=== PATIENT | female | born 1985 | race Caucasian/White ===

== ENCOUNTER → 2022-02-07 13:35 | Outpatient (BNVA) | payer MEDICAID, SELFPAY | PROVIDERS: PCP Student in an Organized Health Care Education/Training Program | DX: N39.0 Urinary tract infection, site not specified (principal) | CPT/HCPCS: 51798; 99202 ==

== ENCOUNTER → 2022-02-24 13:10 | Outpatient (BNVA) | payer MEDICAID, SELFPAY | PROVIDERS: PCP Student in an Organized Health Care Education/Training Program | DX: Z31.89 Encounter for other procreative management (principal) ==

== ENCOUNTER 2022-03-22 13:17 | Outpatient (REF) | payer MEDICAID, SELFPAY ==
[2022-03-22 13:55] LABS: Appearance Urine CLEAR; Color Urine STRAW; Glucose Urine UA NEG (NEG); Leukocyte Esterase Urine 1+ (NEG); Nitrite Urine NEG (NEG); PH 5.5 (5.0-8.0); Specific Gravity - Urine <= 1.005 (1.005-1.025); Urine Blood NEG (NEG); Urine Ketones NEG (NEG); Urine Protein NEG (NEG-TRACE)
[2022-03-22 14:14] LABS: RBC Urine 0 /HPF (0); Squamous Epithelial Cell Urine TRACE /LPF
== END 2022-03-22 13:18 | disposition home or self-care (01) ==
LOC: HO.LAB 13:17
PROVIDERS: PCP Student in an Organized Health Care Education/Training Program
DX: N39.0 Urinary tract infection, site not specified (principal)
CPT/HCPCS: 81001; 87086

== ENCOUNTER 2022-05-02 12:35 | Outpatient (REF) | payer MEDICAID, SELFPAY ==
--- NOTE | ~2022-05-02 | XR_ITS ---
EXAMINATION: XR KNEE, RIGHT CLINICAL INFORMATION: Right knee pain for years. No trauma. COMPARISON: None TECHNIQUE: AP and lateral views of the right knee. FINDINGS: Bones and soft tissues are normal. No fracture or joint effusion. Alignment is anatomic. Joint spaces are well maintained. No abnormal soft tissue calcification. XR/XR knee RT 2V IMPRESSION: No bony abnormality of the right knee identified.
== END 2022-05-02 12:36 | disposition home or self-care (01) ==
LOC: HO.XRAY 12:35
PROVIDERS: PCP Student in an Organized Health Care Education/Training Program; Visit Provider Student in an Organized Health Care Education/Training Program
DX: M25.561 Pain in right knee (principal)
CPT/HCPCS: 73560

== ENCOUNTER 2022-05-04 14:28 | Outpatient (REF) | payer MEDICAID, SELFPAY ==
--- NOTE | ~2022-05-04 | US_ITS ---
EXAMINATION: US RETROPERITONEAL LIMITED (RENAL ONLY) CLINICAL INFORMATION: Urinary tract infection, site not specified. COMPARISON: Renal ultrasound 02/24/2017. CT abdomen and pelvis 11/22/2012. TECHNIQUE: Real-time imaging of the kidneys. FINDINGS: RIGHT KIDNEY: 10.6 x 3 x 5.4 cm (SAG x AP x TRV). The kidney is normal in size, contour, and echogenicity. Renal cortical thickness is normal. No calculi or focal parenchymal lesions. No hydronephrosis. LEFT KIDNEY: 10.3 x 3.5 x 4.3 cm (SAG x AP x TRV). The kidney is normal in size, contour, and echogenicity. Renal cortical thickness is normal. No calculi or focal parenchymal lesions. No hydronephrosis. US/US renal BI IMPRESSION: Unremarkable renal ultrasound.
== END 2022-05-04 14:29 | disposition home or self-care (01) ==
LOC: HO.HMGCX 14:28
PROVIDERS: PCP Student in an Organized Health Care Education/Training Program; Visit Provider Urology
DX: N39.0 Urinary tract infection, site not specified (principal)
CPT/HCPCS: 76775

== ENCOUNTER 2022-05-09 14:00 | Outpatient (RCR) | payer MEDICAID, SELFPAY ==
--- NOTE | 2022-03-21 12:10 | MHC.PT.EP ---
[facility] [place] Office [place] Office [place] Office [address] Bhavani Stewart [address] [phone] F: [phone] F: [phone] F: [phone] F: [phone] Physical Therapy Plan of Care Date of Evaluation: Date of Surgery: Diagnosis: urgency of urination Assessment: 36 y/o F referred to PT with urgency of urination. She has a hx of frequent UTI's for >20 years with + culture for UTI and resolves with antibiotics. She feels that it has been worsening. Her UTI sx include bloating, lower abdominal pain, LBP, need to keep using the bathroom and blood in urine. She also reports urgency to urinate: feels that she does not fully empty her bladder when she pees and will often need to urinate 10 minutes after voiding (small-medium amounts). She is voiding > 10x/day and 4x/night with toilet mapping around the community. She does a lot of [id number] peeing as well. Also she reports pain with sexual activity, use of tampons, and gynecological exams. She deferred pelvic exam as her 6 y/o son was present in the room, but reports getting childcare for future visits. She has some abdominal tenderness especially over bladder with palpation, mild anterior tilted pelvis, and decreased hip strength. Significant education re urgency deferment techniques, vulva care, bladder basics and diaphragmatic breathing. Recommend PT 1x/week every other week (due to childcare needs) for 12 weeks. She is an excellent candidate for PT due to motivation and PLOF. Distributed bladder diary. Frequency and Duration: The patient will be seen 1x/week for 12 weeks Short Term Goals: -Pt to be able to demonstrate diaphragmatic breathing to improve pressure exchange and intra abdominal load management. - Pt to be educated on bladder irritants in order to decrease UI triggers - Pt to complete a voiding log in order to accurately assess her bladder habits - Pt to be educated on behavior training to help decrease urge incontinence Residential Goals: - Delay voiding for 30 minutes - Pt will be able to void < 8x/day to assist in functional mobility around the community - Pt will report decrease in pain 50% with sexual activity - Pt will be able to void </= 1x/night Treatment Plan: Modalities to reduce pain, spasms and effusion. Manual therapy to restore motion and function. Therapeutic exercise to improve strength and flexibility. Neuromuscular re-education for posture and balance. Therapeutic activities to return to functional activities of daily living. Electronically signed by: Please sign and return to therapist. Thank you for your referral.
--- NOTE | 2022-05-20 13:21 | MHC.PT.DC ---
[facility] [place] Office [place] Office [place] Office [address] Bhavani Stewart 140 [facility] [phone] F: [phone] F: [phone] F: [phone] F: [phone] Physical Therapy Discharge Report Diagnosis: urgency of urination Date of Surgery: Date of Evaluation: 03/21/22 Date of Discharge: 05/20/22 Treatments to Date: 4 Cancellations to Date: 0 No Shows to Date: 0 Discharge Status: Improved Function Independent with HEP Discharge Summary: She made good progress and educated pt on urgency deferment tactics, vulvar hygiene, and abdominal strengthening exercises. She elected to d/c as her work is starting again and she will have difficulty making appointments Electronically signed by: Linda Rodriguez PT Please sign and return to therapist. Thank you for your referral.
== END 2022-05-20 13:21 | disposition home or self-care (01) ==
LOC: HO.PTCHIC 14:00
PROVIDERS: PCP Student in an Organized Health Care Education/Training Program
DX: R39.15 Urgency of urination (principal)
CPT/HCPCS: 97110; 97112; 97140; 97162

== ENCOUNTER 2022-06-17 07:52 | Outpatient (REF) | payer MEDICAID, SELFPAY ==
--- NOTE | ~2022-06-17 | XR_ITS ---
EXAMINATION: XR KNEE, RIGHT XR KNEE AP STANDING CLINICAL INFORMATION: Pain. COMPARISON: Prior radiographs dated 05/02/2022. TECHNIQUE: Axial view of the right knee. AP bilateral standing view of the knees was obtained. FINDINGS: Bones and soft tissues are normal. No fracture or dislocation is seen bilaterally. Alignment is anatomic, without varus or valgus configuration noted. The bilateral lateral and medial joint space compartments are well-maintained. A small sclerotic bone island is noted within the proximal left tibial shaft. No abnormal soft tissue calcification. XR/XR knee standing BI IMPRESSION: Normal knees.
--- NOTE | ~2022-06-17 | XR_ITS ---
EXAMINATION: XR KNEE, RIGHT XR KNEE AP STANDING CLINICAL INFORMATION: Pain. COMPARISON: Prior radiographs dated 05/02/2022. TECHNIQUE: Axial view of the right knee. AP bilateral standing view of the knees was obtained. FINDINGS: Bones and soft tissues are normal. No fracture or dislocation is seen bilaterally. Alignment is anatomic, without varus or valgus configuration noted. The bilateral lateral and medial joint space compartments are well-maintained. A small sclerotic bone island is noted within the proximal left tibial shaft. No abnormal soft tissue calcification. XR/XR knee RT 1V IMPRESSION: Normal knees.
== END 2022-06-17 07:53 | disposition home or self-care (01) ==
LOC: HO.HOSX 07:52
PROVIDERS: Visit Provider Physician Assistant
DX: M25.561 Pain in right knee (principal); M25.562 Pain in left knee; M94.20 Chondromalacia, unspecified site
CPT/HCPCS: 73560; 73565; 99202

== ENCOUNTER 2022-09-20 20:49 | Emergency (ER) | payer MEDICAID, SELFPAY ==
--- NOTE | ~2022-09-20 | CT_ITS ---
EXAMINATION: CT ABDOMEN AND PELVIS WITHOUT CONTRAST CLINICAL INFORMATION: Right flank pain. Hematuria. COMPARISON: 11/22/2012 . Ultrasound 05/04/2022. TECHNIQUE: Multidetector volumetric imaging was performed from the superior aspect of the liver through the pubic symphysis. Sagittal and coronal reformatted images were obtained on the technologist's workstation. This CT examination was performed using dose optimization techniques as appropriate, variously including the following: *Automated exposure control *Adjustment of mA and/or kV according to patient size (this includes techniques or standardized protocols for targeted exams where dose is matched to indication/reason for exam; i.e. extremities or head) *Use of iterative reconstruction technique DLP: 410 mGy-cm FINDINGS: LUNG BASES: The visualized lung bases are unremarkable. LIVER, GALLBLADDER, AND BILIARY TREE: The liver is normal in size, shape, and attenuation. No focal hepatic lesion or biliary ductal dilatation is present. The gallbladder is unremarkable with no evidence of radiopaque gallstones, gallbladder wall thickening, or obvious pericholecystic inflammatory changes. PANCREAS: Unremarkable. SPLEEN: Unremarkable. ADRENAL GLANDS: Unremarkable. KIDNEYS AND URETERS: The kidneys are normal in size, shape, and attenuation. No hydronephrosis, hydroureter, or calculi seen. No perinephric stranding. Calcification seen in the pelvis likely represent phleboliths. These are similar to prior imaging. BLADDER: Unremarkable. GASTROINTESTINAL TRACT: The stomach is unremarkable. Normal caliber small bowel. No obstruction. Normal appendix. No colonic wall thickening or inflammatory change. ABDOMINAL WALL: No significant hernia is appreciated. LYMPH NODES: Normal. VASCULAR: Unremarkable. PELVIC VISCERA: The uterus and adnexa are unremarkable. OSSEOUS STRUCTURES: No acute or suspicious osseous abnormality. Transitional anatomy at the lumbosacral junction. CT/CT abdomen pelvis wo IV con IMPRESSION: No acute findings in the abdomen or pelvis. No hydronephrosis or nephrolithiasis. No inflammatory changes. Fleischner guidelines were followed.
[2022-09-20 21:04] VITALS: BP 142/98; PULSE 100; O2SAT 99
[2022-09-20 21:11] VITALS: BP 138/90; PULSE 82; RESP 14; TEMP 37.1; O2SAT 98; BMI 25.6
--- NOTE | 2022-09-20 21:24 | ED_ITS ---
HPI - Female Genitourinary General Chief complaint: Urogenital-Female Stated complaint: lower back pain with abnormal vag bleeding Time Seen by Provider: 09/20/22 21:22 Source: patient Mode of arrival: ambulatory Limitations: no limitations History of Present Illness HPI Narrative: Patient with history of frequent UTI complaining of dysuria frequency since yesterday change to arpan hematuria with right flank pain no history of kidney stones in the past pain is sharp in character associated with nausea no fever patient to have chills no family history of kidney stone Related Data Home Medications Medication Instructions Recorded Confirmed aripiprazole 15 mg tablet 15 mg PO DAILY 02/07/22 06/17/22 aripiprazole 20 mg tablet 20 mg PO DAILY 02/07/22 06/17/22 buspirone 5 mg tablet 5 mg PO TID anxiety 02/07/22 06/17/22 hydroxyzine HCl 10 mg tablet 10 mg PO DAILY PRN anxiety 02/07/22 06/17/22 lisinopril 5 mg tablet 5 mg PO DAILY 02/07/22 06/17/22 zolmitriptan 5 mg tablet 5 mg PO DAILY PRN 02/07/22 06/17/22 Previous Rx's Medication Instructions Recorded nitrofurantoin 100 mg PO DAILY UTI 30 days #30 02/24/22 monohydrate/macrocrystals 100 mg caps capsule (Macrobid) naproxen 500 mg tablet 500 mg PO BID 30 days #60 tabs 06/17/22 cefuroxime axetil 250 mg tablet 250 mg PO BID 7 days #14 tabs 09/20/22 ibuprofen 600 mg tablet 600 mg PO Q6H PRN fever or pain 09/20/22 #30 tabs phenazopyridine 200 mg tablet 200 mg PO TID 2 days #6 tabs 09/20/22 (Pyridium) Allergies Allergy/AdvReac Type Severity Reaction Status Date / Time No Known Allergies Allergy Mild NOT Verified 06/17/22 09:10 [No Known Allergies*] APPLICABLE Review of Systems Review of Systems: Yes all other systems are reviewed and are negative PMFSH Past Medical History Medical History Anxiety Frequent UTI High blood pressure Urinary urgency Social History Social History Alcohol intake: never Patient Tobacco Use Status: Never used Tobacco Smoked in Last 30 Days: No Use of substances other than those prescribed or required for medical reasons: No Advance Directives: No Advance Directives Information Provided: No Current occupational status: employed 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 Oriented X3. No acute distress. Eyes: No pallor or icterus ENT: Pharynx normal. Oral Mucosa moist Neck: Normal inspection. Neck supple. CVS: Normal heart rate and rhythm. Pulses normal. Respiratory: No respiratory distress. Equal air entry bilateral, no wheezing/rales/rhonchi Abdomen: Soft and nontender. Bowel sounds are present, no mass palpable, right CVA tenderness ++ Skin: Skin warm and dry. Normal skin color. Normal skin turgor. Extremities: No lower extremity edema. No calf tenderness Neuro: Oriented X 3. No motor deficit. Medications Administered Discontinued Medications Generic Name Dose Route Start Last Admin Trade Name Freq PRN Reason Stop Dose Admin Cefuroxime Axetil 250 mg 09/20/22 22:15 09/20/22 22:28 Cefuroxime Axetil 250 Mg Tablet PO 09/20/22 22:16 250 mg ONCE ONE Administration Sodium Chloride 1,000 mls @ 999 mls/hr 09/20/22 21:29 09/20/22 23:19 Ns IV 09/20/22 22:29 Infused .Q1H1M ONE Infusion Ketorolac Tromethamine 30 mg 09/20/22 21:29 09/20/22 21:35 Ketorolac Tromethamine 30 Mg/Ml Vial IVPUSH 09/20/22 21:30 30 mg ONCE ONE Administration Ondansetron HCl 4 mg 09/20/22 21:29 09/20/22 21:36 Ondansetron Hcl 4 Mg/2 Ml Vial IVPUSH 09/20/22 21:30 4 mg ONCE ONE Administration Phenazopyridine HCl 200 mg 09/20/22 22:15 09/20/22 22:28 Phenazopyridine Hcl 200 Mg Tablet PO 09/20/22 22:16 200 mg ONCE ONE Administration Medical Decision Making Medical Decision Making MDM Narrative: Patient's CT scan negative for any acute no kidney stones. Patient has hemorrha gic cystitis likely E coli will discharge patient home on Ceftin Lab Data [facility] Lab Attestation statement: I reviewed the patient's lab results. Result Diagrams: 09/20/22 21:23 09/20/22 21:23 Labs: Lab Results 09/20/22 09/20/22 09/20/22 Range/Units 21:23 21:23 21:23 WBC 8.8 (4.8-10.8) X10*3/uL RBC 4.41 (4.20-5.50) X10*6/uL Hgb 13.2 (12.0-16.0) g/dl Hct 39.0 (37.0-47.0) % MCV 88.4 (80.0-98.0) fL MCH 29.9 (27.0-33.0) pg MCHC 33.8 (31.0-35.0) g/dl RDW 11.9 (11.0-16.0) % Plt Count 249 (160-400) X10*3/uL MPV 9.0 L (9.4-12.3) fL Immature Gran % (Auto) 0.3 (0.0-0.4) % Neut % (Auto) 77.4 H (45-73) % Lymph % (Auto) 15.5 L (20-40) % [place] % (Auto) 6.1 (2-11) % Eos % (Auto) 0.5 (0-4) % Baso % (Auto) 0.2 (0-2) % Lymph # (Auto) 1.4 (1.2-4.9) X10*3/uL [place] # (Auto) 0.5 (0.1-1.2) X10*3/uL Eos # (Auto) 0.0 (0.0-0.4) X10*3/uL Baso # (Auto) 0.0 (0.0-0.2) X10*3/uL Abs Immat Gran (auto) 0.03 (0.00-0.03) X10*3/uL Absolute Neuts (auto) 6.8 (2.0-8.3) x10*3/uL Absolute Nucleated RBC 0.000 (0.0-0.012) X10*3/uL Nucleated RBC % (auto) 0.0 (0.0-0.2) /100WBC Sodium 137 (135-145) mmol/L Potassium 3.8 (3.3-5.1) mmol/L Chloride 103 (96-108) mmol/L Carbon Dioxide 27 (22-29) mmol/L Anion Gap 11 L (12-20) BUN 9 (9-16) mg/dL Creatinine 0.98 (0.5-1.4) mg/dL Estim Creat Clear Calc 61.9 Estimated GFR > 60 Random Glucose 94 (60-115) mg/dL Calcium 9.4 (8.4-10.2) mg/dL Urine Color RED Urine Appearance Hazy Urine pH 8.0 (5.0-9.0) Ur Specific [place] 1.015 (1.005-1.025) Urine Protein 100 (2+) H (Neg-Trace) mg/dL Urine Glucose (UA) Negative (Negative) mg/dL Urine Ketones Negative (Negative) mg/dL Urine Blood Large (3+) H (Negative) Urine Nitrite Positive H (Negative) Ur Leukocyte Esterase Large (3+) H (Negative) Urine RBC >20 H (0-2) /HPF Urine WBC >50 H (0-5) /HPF Ur Squamous Epith Cells 6-10 (0-2) /HPF Urine Bacteria None Seen (None Seen) Hyaline Casts 0-2 (0-2) /LPF Urine Test (NEGATIVE) 09/20/22 Range/Units 21:23 WBC (4.8-10.8) X10*3/uL RBC (4.20-5.50) X10*6/uL Hgb (12.0-16.0) g/dl Hct (37.0-47.0) % MCV (80.0-98.0) fL MCH (27.0-33.0) pg MCHC (31.0-35.0) g/dl RDW (11.0-16.0) % Plt Count (160-400) X10*3/uL MPV (9.4-12.3) fL Immature Gran % (Auto) (0.0-0.4) % Neut % (Auto) (45-73) % Lymph % (Auto) (20-40) % [place] % (Auto) (2-11) % Eos % (Auto) (0-4) % Baso % (Auto) (0-2) % Lymph # (Auto) (1.2-4.9) X10*3/uL [place] # (Auto) (0.1-1.2) X10*3/uL Eos # (Auto) (0.0-0.4) X10*3/uL Baso # (Auto) (0.0-0.2) X10*3/uL Abs Immat Gran (auto) (0.00-0.03) X10*3/uL Absolute Neuts (auto) (2.0-8.3) x10*3/uL Absolute Nucleated RBC (0.0-0.012) X10*3/uL Nucleated RBC % (auto) (0.0-0.2) /100WBC Sodium (135-145) mmol/L Potassium (3.3-5.1) mmol/L Chloride (96-108) mmol/L Carbon Dioxide (22-29) mmol/L Anion Gap (12-20) BUN (9-16) mg/dL Creatinine (0.5-1.4) mg/dL Estim Creat Clear Calc Estimated GFR Random Glucose (60-115) mg/dL Calcium (8.4-10.2) mg/dL Urine Color Urine Appearance Urine pH (5.0-9.0) Ur Specific [place] (1.005-1.025) Urine Protein (Neg-Trace) mg/dL Urine Glucose (UA) (Negative) mg/dL Urine Ketones (Negative) mg/dL Urine Blood (Negative) Urine Nitrite (Negative) Ur Leukocyte Esterase (Negative) Urine RBC (0-2) /HPF Urine WBC (0-5) /HPF Ur Squamous Epith Cells (0-2) /HPF Urine Bacteria (None Seen) Hyaline Casts (0-2) /LPF Urine Test NEGATIVE (NEGATIVE) Discharge Plan Discharge Clinical Impression: Urinary tract infection Patient Disposition: Home, Self-Care Instructions: Urinary Tract Infection in Women (ED) Additional Instructions: Drink plenty of fluids Antibiotic as prescribed Follow-up with your urologist if not better Prescriptions: New cefuroxime axetil 250 mg tablet 250 mg PO BID 7 Days Qty: 14 0RF phenazopyridine [Pyridium] 200 mg tablet 200 mg PO TID 2 Days Qty: 6 0RF ibuprofen 600 mg tablet 600 mg PO Q6H PRN (Reason: fever or pain) Qty: 30 0RF No Action aripiprazole 20 mg tablet 20 mg PO DAILY lisinopril 5 mg tablet 5 mg PO DAILY buspirone 5 mg tablet 5 mg PO TID zolmitriptan 5 mg tablet 5 mg PO DAILY PRN aripiprazole 15 mg tablet 15 mg PO DAILY hydroxyzine HCl 10 mg tablet 10 mg PO DAILY PRN (Reason: anxiety) nitrofurantoin monohyd/m-cryst [Macrobid] 100 mg capsule 100 mg PO DAILY 30 Days Qty: 30 0RF Rx Instructions: must administer with a meal/food naproxen 500 mg tablet 500 mg PO BID 30 Days Qty: 60 3RF
--- NOTE | 2022-09-20 21:26 | PC.NURSE ---
Pt able to ambulate to the bathroom and provide a urine sample. Urine was bright red and pt stated it has looked like that since 1700 today. Pt with MD at this time.
[2022-09-20 21:28] VITALS: BP 138/90; PULSE 82; RESP 14; TEMP 37.1; O2SAT 98
[2022-09-20 21:29] LABS: Basophils Percent Auto 0.2 % (0-2); Eosinophils Percent Auto 0.5 % (0-4); Hemoglobin 13.2 g/dl (12.0-16.0); Imm Gran Abs Auto 0.03 X10*3/uL (0.00-0.03); Imm Gran Pct Auto 0.3 % (0.0-0.4); Lymphocytes Absolute Auto 1.4 X10*3/uL (1.2-4.9); Lymphocytes Percent Auto 15.5 % (20-40); MANUAL DIFF FLAG NO; Mean Corpuscular HGB Conc 33.8 g/dl (31.0-35.0); Mean Corpuscular Hemoglobin 29.9 pg (27.0-33.0); Mean Corpuscular Volume 88.4 fL (80.0-98.0); Monocytes Absolute Auto 0.5 X10*3/uL (0.1-1.2); Monocytes Percent Auto 6.1 % (2-11); Neutrophils Absolute Auto 6.8 x10*3/uL (2.0-8.3); Neutrophils Percent Auto 77.4 % (45-73); Platelet Count 249 X10*3/uL (160-400); Red Blood Count 4.41 X10*6/uL (4.20-5.50); Red Cell Distribution Width 11.9 % (11.0-16.0); White Blood Count 8.8 X10*3/uL (4.8-10.8)
[2022-09-20 21:30] LABS: Appearance Urine Hazy; Color Urine RED; Glucose Urine UA Negative (Negative); Leukocyte Esterase Urine Large (3+) (Negative); Nitrite Urine Positive (Negative); Specific Gravity - Urine 1.015 (1.005-1.025); UMIC TRIGGER UACC YES; Urine Blood Large (3+) (Negative); Urine Ketones Negative (Negative); Urine Protein 100 (2+) mg/dL (Neg-Trace)
[2022-09-20 21:32] LABS: UPreg QC Valid YES; Urine Pregnancy NEGATIVE (NEGATIVE)
[2022-09-20] MEDS: 0.9 % Sodium Chloride 1,000 ML 999 ML IV (21:34)
[2022-09-20] MEDS: Ketorolac Tromethamine 30 MG/ML VIAL IVPUSH (21:35)
[2022-09-20 21:36] LABS: Bacteria Urine None Seen (None Seen); Hyaline Casts Urine 0-2 /LPF (0-2); RBC Urine >20 /HPF (0-2); UACC Culture Trigger YES; WBC Urine >50 /HPF (0-5)
[2022-09-20] MEDS: ondansetron HCL 4 MG/2 ML VIAL IVPUSH (21:36)
[2022-09-20 21:53] LABS: Anion Gap 11 (12-20); Blood Urea Nitrogen 9 mg/dL (9-16); Calcium 9.4 mg/dL (8.4-10.2); Carbon Dioxide 27 mmol/L (22-29); Chloride 103 mmol/L (96-108); Creatinine Clr Calc Pharmacy 61.9; Estimated Glomerular Filt Rate > 60; Glucose Random 94 mg/dL (60-115); Potassium 3.8 mmol/L (3.3-5.1); Sodium 137 mmol/L (135-145)
[2022-09-20] MEDS: Phenazopyridine HCL 200 MG TABLET PO (22:28)
--- NOTE | 2022-09-20 22:37 | PC.NURSE ---
Pt ambulated to the bathroom on her own with steady gait. Stated her low back is still hurting. I offered a hot pack and pt positioned it on her low back. IV is still running as placement is mildly positional.
== END 2022-09-20 23:51 | disposition home or self-care (01) ==
PROVIDERS: Emergency Provider Internal Medicine; PCP Student in an Organized Health Care Education/Training Program
DX: N39.0 Urinary tract infection, site not specified (principal); Z87.440 Personal history of urinary (tract) infections
CPT/HCPCS: 36415; 74176; 80048; 81001; 81025; 85025; 87086; 96361; 96374; 96375; 99284; 99285; J1885; J2405

== ENCOUNTER → 2022-10-25 13:42 | Outpatient (BNVA) | payer MEDICAID, SELFPAY | PROVIDERS: PCP Student in an Organized Health Care Education/Training Program; Visit Provider Nurse Practitioner Family | DX: N39.0 Urinary tract infection, site not specified (principal) | CPT/HCPCS: 51798; 99212 ==

== ENCOUNTER 2022-11-17 10:29 | Outpatient (REF) | payer MEDICAID, SELFPAY ==
--- NOTE | ~2022-11-17 | CT_ITS ---
EXAMINATION: CT ABDOMEN AND PELVIS WITH CONTRAST CLINICAL INFORMATION: Right lower quadrant pain COMPARISON: September 20, 2022 TECHNIQUE: Multidetector volumetric images were obtained from the superior aspect of the liver through the pubic symphysis following administration 85 mL of Omnipaque 350 intravenous contrast. Sagittal and coronal reformatted images were obtained on the technologist's workstation. Oral contrast: Yes This CT examination was performed using dose optimization techniques as appropriate, variously including the following: *Automated exposure control *Adjustment of mA and/or kV according to patient size (this includes techniques or standardized protocols for targeted exams where dose is matched to indication/reason for exam; i.e. extremities or head) *Use of iterative reconstruction technique DLP: 403 mGy-cm FINDINGS: LUNG BASES: The visualized lung bases are unremarkable. LIVER, GALLBLADDER, AND BILIARY TREE: The liver is normal in size, shape, and attenuation. No focal hepatic lesion or biliary ductal dilatation is present. The gallbladder is unremarkable with no evidence of radiopaque gallstones, gallbladder wall thickening, or obvious pericholecystic inflammatory changes. PANCREAS: Unremarkable. No mass or peripancreatic inflammatory change. SPLEEN: Unremarkable. ADRENAL GLANDS: Unremarkable. KIDNEYS AND URETERS: The kidneys are normal in size, shape, and attenuation. No hydronephrosis, hydroureter, or calculi seen. No perinephric stranding. BLADDER: Unremarkable. Distended. GASTROINTESTINAL TRACT: No dilated loops of large or small bowel are evident. No free air or free fluid is seen. No pericolonic inflammatory changes seen. No bowel wall thickening is identified. No pericolonic inflammatory change. The appendix is visualized and appears unremarkable. ABDOMINAL WALL: No significant hernia is appreciated. LYMPH NODES: Normal. VASCULAR: Unremarkable. PELVIC VISCERA: No significant finding. OSSEOUS STRUCTURES: Unremarkable. There is sacralization of L5. No acute destructive bony findings. CT/CT abdomen pelvis w IV con IMPRESSION: No significant findings to explain patient's symptoms. Fleischner guidelines were followed.
[2022-11-17 10:49] LABS: MANUAL DIFF FLAG NO
[2022-11-17 11:56] LABS: Basophils Percent Auto 0.5 % (0-2); Eosinophils Absolute Auto 0.1 X10*3/uL (0.0-0.4); Eosinophils Percent Auto 1.6 % (0-4); Hematocrit 39.1 % (37.0-47.0); Hemoglobin 13.1 g/dl (12.0-16.0); Imm Gran Abs Auto 0.01 X10*3/uL (0.00-0.03); Imm Gran Pct Auto 0.3 % (0.0-0.4); Lymphocytes Absolute Auto 1.2 X10*3/uL (1.2-4.9); Lymphocytes Percent Auto 32.1 % (20-40); Mean Corpuscular HGB Conc 33.5 g/dl (31.0-35.0); Mean Corpuscular Volume 89.7 fL (80.0-98.0); Mean Platelet Volume 9.8 fL (9.4-12.3); Monocytes Absolute Auto 0.3 X10*3/uL (0.1-1.2); Monocytes Percent Auto 8.6 % (2-11); Neutrophils Absolute Auto 2.1 x10*3/uL (2.0-8.3); Neutrophils Percent Auto 56.9 % (45-73); Platelet Count 252 X10*3/uL (160-400); Red Blood Count 4.36 X10*6/uL (4.20-5.50); White Blood Count 3.7 X10*3/uL (4.8-10.8)
[2022-11-17 12:12] LABS: Appearance Urine Clear; Color Urine Yellow; Glucose Urine UA Negative (Negative); Leukocyte Esterase Urine Negative (Negative); Nitrite Urine Negative (Negative); PH 5.5 (5.0-9.0); UMIC TRIGGER UA YES; Urine Blood Large (3+) (Negative); Urine Ketones Negative (Negative); Urine Protein Negative (Neg-Trace)
[2022-11-17 12:15] LABS: Bacteria Urine None Seen (None Seen); Hyaline Casts Urine 0-2 /LPF (0-2); WBC Urine 0-5 /HPF (0-5)
[2022-11-17] MEDS: iohexoL 350 MG/ML 100 ML INFUS..BTL IV (14:05)
[2022-11-17] MEDS: Barium Sulfate Oral (Vanilla) 450 ML ORAL.SUSP 900 ML PO (14:06)
== END 2022-11-17 10:30 | disposition home or self-care (01) ==
LOC: HO.CT 10:29
PROVIDERS: PCP Student in an Organized Health Care Education/Training Program; Visit Provider Family Medicine
DX: N39.0 Urinary tract infection, site not specified (principal); R10.31 Right lower quadrant pain
CPT/HCPCS: 36415; 74177; 81001; 85025; Q9967

== ENCOUNTER → 2022-12-08 10:29 | Outpatient (BNVA) | payer MEDICAID, SELFPAY | PROVIDERS: PCP Student in an Organized Health Care Education/Training Program; Visit Provider Urology | DX: N39.0 Urinary tract infection, site not specified (principal) | CPT/HCPCS: 52000; 99212 ==

== ENCOUNTER → 2023-03-16 14:18 | Outpatient (BNVA) | payer MEDICAID, SELFPAY | PROVIDERS: PCP Student in an Organized Health Care Education/Training Program; Visit Provider Nurse Practitioner Family | DX: N39.0 Urinary tract infection, site not specified (principal); R39.15 Urgency of urination; R30.0 Dysuria | CPT/HCPCS: 51798; 99212 ==

== ENCOUNTER 2023-06-14 14:49 | Outpatient (AMB) | payer MEDICAID, SELFPAY ==
--- NOTE | 2023-06-14 14:54 | A.OFFVIS_ITS ---
Intake Intake Visit Reasons: 3m follow up Intake Note: Patient is present for follow up recurrent uti/dysuria Urology Medications: macrobid (prn) Blood Thinner: none PVR: 0ml's Costume Rental Clerk Required: No Accompanied by: Self / Same As Patient Allergies levofloxacin Adverse Reaction (Unknown, Verified 06/14/23 15:34) Abdominal Pain Medication List - Last Reconciled 06/14/23 by SANJAY Palmer buspirone 5 mg PO TID cariprazine (Vraylar) 3 mg PO DAILY cholecalciferol (vitamin D3) (Vitamin D3) 50 mcg PO Q12H fluticasone propionate 50 mcg/actuation 2 sprays intranasal DAILY lisinopril 2.5 mg PO QAM loratadine 10 mg PO QAM naproxen 500 mg PO BID nitrofurantoin macrocrystal 50 mg PO BEDTIME 90 days nitrofurantoin macrocrystal 100 mg PO BID 14 days zolmitriptan 5 mg PO DAILY PRN HPI HPI Comments History of Present Illness Details Whitley is a very pleasant 38 year old female who is a patient of Dr. Saravia. She has a past medical history of hypertension, anxiety, and frequent urinary tract infections. She presents to the office today for a follow up of her recurrent urinary tract infections. The patient reports a long standing history of recurrent UTI's since she was younger possibly since the age of 79 years old. Of note, previous workup has included an in office cystoscopy with Dr. De Guzman with findings of a narrow (mild) urethra otherwise bladder within normal limits. Her urine was also sent for microgen testing and she was treated with Levofloxacin. She continues taking Macrobid post coital and states she finds this very helpful. She reports feeling urinary symptoms to be somewhat improved. She denies having had any urinary tract infection since her last office visit here approximately 3 months ago. In office urinalysis results reviewed with the patient today. PVR 0 mL. She otherwise denies urinary incontinence, nocturia, hematuria, foul smelling urine, changes to urinary stream, flank pain, fever, and or chills. She does report intermittent episodes of dysuria however reports with increased water intake symptoms improve. She otherwise offers no issues or concerns at this time. 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 Review of Systems Const All systems reviewed & are unremarkable except as noted in HPI and below Reports no additional complaints Eyes Reports no additional complaints ENT Reports no additional complaints Card Reports as per HPI Resp Reports no additional complaints Reports as per HPI Musc Reports no additional complaints Neuro Reports no additional complaints Psych Reports as per HPI Endo Reports no additional complaints Mann/Lymph Reports no additional complaints Aller/Immun Reports no additional complaints Physical Exam Const General: cooperative, healthy appearing, comfortable, no acute distress, well developed, alert and awake Nutritional Appearance: average body habitus Orientation/consciousness: patient oriented x3 Limitations: no limitations HEENT Head: Yes normal to inspection, Yes normocephalic and Yes atraumatic Ears: hearing grossly normal bilaterally Eyes General: appearance normal, both eyes and all related structures Neck Neck: Yes normal visual inspection and Yes trachea midline Chest Chest palpation & inspection: normal inspection of the chest Resp Effort & Inspection: normal respiratory effort and able to speak in complete sentences Cardio Rate: regular rate General: Yes no CVA tenderness Back/Spine/Pelvis Back: no CVA tenderness Cervical Spine: normal cervical lordosis Skin General skin exam: no rashes or lesions noted Neuro General: patient oriented x3 Extrem General: Yes normal to inspection and Yes full ROM Psych Appearance: grossly normal and well kempt Mental Status: mental status grossly normal Speech and movement: Normal speech and movement present and Clear speech present Affect: normal affect Attitude: cooperative Thought process: Normal thought process present Thought content: Normal thought content present Insight: Good insight present (Psych) Judgement: Good judgement present (Psych) Office Procedures Post Void Residual Post Residual Void Post Void Residual (PVR): 0 [id number]-[id number] Void Residual by ultrasound Results AMB Urinalysis, Automated UA Leukoctes 0 Klaus/uL Last Edit by Eli Angela on 06/14/23 15:25 UA Nitrite Negative Last Edit by Eli Angela on 06/14/23 15:25 UA Urobilinogen 0.2 mg/dL Last Edit by Eli Angela on 06/14/23 15:25 UA Protein 15 mg/dL Last Edit by Eli Rickskasia on 06/14/23 15:25 UA pH 6.0 Last Edit by Eli Angela on 06/14/23 15:25 UA Blood 0 Stewart/uL Last Edit by Eli Angela on 06/14/23 15:25 UA Specific [place] 1.025 Last Edit by Eli Angela on 06/14/23 15:25 UA Ketone Positive Last Edit by Eli Angela on 06/14/23 15:25 UA Bilirubin 0 mg/dL Last Edit by Eli Angela on 06/14/23 15:25 UA Glucose 0 mg/dL Last Edit by Eli Angela on 06/14/23 15:25 Results Reviewed Results Reviewed: Laboratory Last Values Urine pH (Auto) 6.0 06/14/23 15:00 Specific [place] (Auto) 1.025 06/14/23 15:00 Urine Protein (Auto) 15 mg/dL 06/14/23 15:00 Glucose (UA)(Auto) 0 mg/dL 06/14/23 15:00 Urine Ketones (Auto) Positive 06/14/23 15:00 Urine Blood (Auto) 0 Stewart/uL 06/14/23 15:00 Urine Nitrite (Auto) Negative 06/14/23 15:00 Urine Bilirubin (Auto) 0 mg/dL 06/14/23 15:00 Urine Urobilinogen (Auto) 0.2 mg/dL 06/14/23 15:00 Leukocyte Esterase (Auto) 0 Klaus/uL 06/14/23 15:00 Assessment & Plan Assessment & Plan (1) Dysuria: Code(s): R30.0 - Dysuria (2) Recurrent UTI: Code(s): N39.0 - Urinary tract infection, site not specified Plan In office urinalysis results reviewed with the patient today; as noted above. PVR 0 mL. Patient denies any bothersome urinary issues or concerns at this time. Discussed UTI prevention with D mannose supplement, vitamin-C, increasing fluid intake, behavioral therapy with timed voiding, perineal hygiene and postcoital voiding, and management of constipation with stool softeners and increased fiber intake. Continue Macrobid post coital. Follow-up in 6 months with PVR; or sooner with any issues, concerns, and or questions. Orders: Orders AMB Urinalysis Automated Today Z13.9 - Encounter for screening, unspecified AMB Post Void Residual by ultrasound Today N39.0 - Urinary tract infection, site not specified Patient Instructions: The patient had an opportunity to ask questions regarding the treatment plan. All questions were answered. Physical exam, labs, and imaging were discussed and reviewed in detail. As well as risks, benefits, and discussion of treatment choices. No major barriers to understanding were identified. The patient expressed understanding and agreement with the above treatment plan. The patient was made aware they should contact our office by phone for worsening of their current condition, the appearance of new symptoms, or with any questions or concerns. Compliance is encouraged with any medications and follow up testing that is ordered. It is a privilege to be allowed the opportunity to participate in? your urological care.? Again, if you have any questions or concerns If you have any questions or concerns please do not hesitate to contact me. The office is [phone]. This note is constructed using voice recognition software. While every effort has been made to ensure accuracy mortgage lender errors may have been included. Yours sincerely, KASI Palmer-RENE Coding Level of Care Code Est Pt Level 3 (83996) Diagnoses Dysuria R30.0 Recurrent UTI N39.0 CPT Codes Post Residual Void - PVR CPT Code: 91618-Wuic Void Residual by ultrasound ([id number])
== END 2023-06-14 15:34 | disposition home or self-care (01) ==
PROVIDERS: PCP Student in an Organized Health Care Education/Training Program; Visit Provider Nurse Practitioner Family
DX: R30.0 Dysuria (principal); N39.0 Urinary tract infection, site not specified; Z13.9 Encounter for screening, unspecified
CPT/HCPCS: 99213

== ENCOUNTER → 2023-06-14 14:49 | Outpatient (BNVA) | payer MEDICAID, SELFPAY | PROVIDERS: PCP Student in an Organized Health Care Education/Training Program; Visit Provider Nurse Practitioner Family | DX: N39.0 Urinary tract infection, site not specified (principal); R30.0 Dysuria | CPT/HCPCS: 51798; 81003; 99212 ==

== ENCOUNTER 2023-10-25 16:16 | Outpatient (REF) | payer MEDICAID, SELFPAY ==
[2023-10-25 18:56] LABS: Influenza A PCR NEGATIVE (Negative); Influenza B PCR NEGATIVE (Negative); Resp Syncy Virus RNA Qual PCR NEGATIVE (Negative); SARS COV2 PCR INHOUSE NEGATIVE (Negative)
== END 2023-10-25 16:17 | disposition home or self-care (01) ==
LOC: HO.CHCLNP 16:16
PROVIDERS: Visit Provider Family Medicine
DX: Z11.52 Encounter for screening for COVID-19 (principal); J06.9 Acute upper respiratory infection, unspecified
CPT/HCPCS: 0241U

== ENCOUNTER 2024-01-23 10:36 | Outpatient (AMB) | payer MEDICAID, SELFPAY ==
--- NOTE | 2024-01-23 10:43 | MHC.OFFVIS ---
Intake Visit Reasons: 6m/PVR Intake Note: Patient is present for follow up recurrent uti/dysuria Urology Medications: macrobid (prn) Blood Thinner: none PVR: 0ml's Slide Forming Machine Operator Required: No Accompanied by: Self / Same As Patient Allergies levofloxacin Adverse Reaction (Unknown, Verified 01/23/24 11:19) Abdominal Pain Medication List - Last Reconciled 01/23/24 by SANJAY Palmer buspirone 5 mg PO TID cariprazine (Vraylar) 3 mg PO DAILY cholecalciferol (vitamin D3) (Vitamin D3) 50 mcg PO Q12H fluticasone propionate 50 mcg/actuation 2 sprays intranasal DAILY lisinopril 2.5 mg PO QAM loratadine 10 mg PO QAM naproxen 500 mg PO BID nitrofurantoin macrocrystal 50 mg PO BEDTIME 90 days zolmitriptan 5 mg PO DAILY PRN HPI Comments Details: Whitley is a very pleasant 38 year old female who is a patient of Dr. Saravia. She has a past medical history of hypertension, anxiety, and frequent urinary tract infections. She presents to the office today for a follow up of her recurrent urinary tract infections. In discussion with the patient today she reports to be doing and feeling well. She reports taking Macrobid postcoital and feels this has been helpful. She previously underwent an office cystoscopy with Dr. De Guzman for history of recurrent urinary tract infections 12/08/22 with findings of a narrow (mild) urethra otherwise bladder within normal limits. She reports feeling urinary symptoms to be somewhat improved. She denies having had any urinary tract infection in the last 9 months. In office urinalysis results reviewed with the patient today. PVR 0 mL. She otherwise denies urinary incontinence, nocturia, hematuria, foul smelling urine, changes to urinary stream, flank pain, fever, and or chills. She does report intermittent episodes of dysuria however reports with increased water intake symptoms improve. She otherwise offers no issues or concerns at this time. 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 Review of Systems Const All systems reviewed & are unremarkable except as noted in HPI and below Reports no additional complaints Eyes Reports no additional complaints ENT Reports no additional complaints Card Reports as per HPI Resp Reports no additional complaints Reports as per HPI Musc Reports no additional complaints Neuro Reports no additional complaints Psych Reports as per HPI Endo Reports no additional complaints Mann/Lymph Reports no additional complaints Aller/Immun Reports no additional complaints Physical Exam Const General: cooperative, healthy appearing, comfortable, no acute distress, well developed, alert and awake Nutritional Appearance: average body habitus Orientation/consciousness: patient oriented x3 Limitations: no limitations HEENT Head: Yes normal to inspection, Yes normocephalic and Yes atraumatic Ears: hearing grossly normal bilaterally Eyes General: appearance normal, both eyes and all related structures Neck Neck: Yes normal visual inspection and Yes trachea midline Chest Chest palpation & inspection: normal inspection of the chest Resp Effort & Inspection: normal respiratory effort and able to speak in complete sentences Cardio Rate: regular rate General: Yes no CVA tenderness Back/Spine/Pelvis Back: no CVA tenderness Cervical Spine: normal cervical lordosis Skin General skin exam: no rashes or lesions noted Neuro General: patient oriented x3 Extrem General: Yes normal to inspection and Yes full ROM Psych Appearance: grossly normal and well kempt Mental Status: mental status grossly normal Speech and movement: Normal speech and movement present and Clear speech present Affect: normal affect Attitude: cooperative Thought process: Normal thought process present Thought content: Normal thought content present Insight: Good insight present (Psych) Judgement: Good judgement present (Psych) Office Procedures Post Void Residual Post Residual Void Post Void Residual (PVR): 0 [id number] Void Residual by ultrasound Results AMB Urinalysis, Automated UA Leukoctes 0 Klaus/uL Last Edit by Anadys on 01/23/24 11:16 UA Nitrite Negative Last Edit by Anadys on 01/23/24 11:16 UA Urobilinogen 0.2 mg/dL Last Edit by Anadys on 01/23/24 11:16 UA Protein 0 mg/dL Last Edit by Anadys on 01/23/24 11:16 UA pH 6.5 Last Edit by Anadys on 01/23/24 11:16 UA Blood 0 Stewart/uL Last Edit by Eli Rickskasia on 01/23/24 11:16 UA Specific [place] 1.015 Last Edit by Eli Millicentkasia on 01/23/24 11:16 UA Ketone Negative Last Edit by Eli Millicentkasia on 01/23/24 11:16 UA Bilirubin 0 mg/dL Last Edit by Eli Millicentkasia on 01/23/24 11:16 UA Glucose 0 mg/dL Last Edit by Eli Millicentkasia on 01/23/24 11:16 Results Reviewed Results Reviewed: Laboratory Last Values Urine pH (Auto) 6.5 01/23/24 11:14 Specific [place] (Auto) 1.015 01/23/24 11:14 Urine Protein (Auto) 0 mg/dL 01/23/24 11:14 Glucose (UA)(Auto) 0 mg/dL 01/23/24 11:14 Urine Ketones (Auto) Negative 01/23/24 11:14 Urine Blood (Auto) 0 Stewart/uL 01/23/24 11:14 Urine Nitrite (Auto) Negative 01/23/24 11:14 Urine Bilirubin (Auto) 0 mg/dL 01/23/24 11:14 Urine Urobilinogen (Auto) 0.2 mg/dL 01/23/24 11:14 Leukocyte Esterase (Auto) 0 Klaus/uL 01/23/24 11:14 Assessment & Plan Assessment & Plan (1) Dysuria: Code(s): R30.0 - Dysuria Category: Medical (2) Recurrent UTI: Code(s): N39.0 - Urinary tract infection, site not specified Category: Medical Plan In office urinalysis results reviewed with the patient today; as noted above. PVR 0 mL. Patient denies any bothersome urinary issues or concerns at this time. Discussed UTI prevention with D mannose supplement, vitamin-C, increasing fluid intake, behavioral therapy with timed voiding, perineal hygiene and postcoital voiding, and management of constipation with stool softeners and increased fiber intake. Continue Macrobid post coital. Follow-up in 1 year with PVR; or sooner with any issues, concerns, and or questions. Orders: Orders AMB Post Void Residual by ultrasound Today N39.0 - Urinary tract infection, site not specified AMB Urinalysis Automated Today Z13.9 - Encounter for screening, unspecified Patient Instructions: The patient had an opportunity to ask questions regarding the treatment plan. All questions were answered. Physical exam, labs, and imaging were discussed and reviewed in detail. As well as risks, benefits, and discussion of treatment choices. No major barriers to understanding were identified. The patient expressed understanding and agreement with the above treatment plan. The patient was made aware they should contact our office by phone for worsening of their current condition, the appearance of new symptoms, or with any questions or concerns. Compliance is encouraged with any medications and follow up testing that is ordered. It is a privilege to be allowed the opportunity to participate in? your urological care.? Again, if you have any questions or concerns If you have any questions or concerns please do not hesitate to contact me. The office is [phone]. This note is constructed using voice recognition software. While every effort has been made to ensure accuracy high speed printer operator errors may have been included. Yours sincerely, SANJAY Palmer Coding Level of Care Code Est Pt Level 3 (92518) Diagnoses Dysuria R30.0 Recurrent UTI N39.0 CPT Codes Post Residual Void - PVR CPT Code: 32109-[id number] Void Residual by ultrasound ([id number])
== END 2024-01-23 11:13 | disposition home or self-care (01) ==
PROVIDERS: PCP Student in an Organized Health Care Education/Training Program; Visit Provider Nurse Practitioner Family
DX: R30.0 Dysuria (principal); N39.0 Urinary tract infection, site not specified; Z13.9 Encounter for screening, unspecified
CPT/HCPCS: 99213

== ENCOUNTER → 2024-01-23 10:36 | Outpatient (BNVA) | payer MEDICAID, SELFPAY | PROVIDERS: PCP Student in an Organized Health Care Education/Training Program; Visit Provider Nurse Practitioner Family | DX: R30.0 Dysuria (principal); N39.0 Urinary tract infection, site not specified | CPT/HCPCS: 51798; 81003; 99212 ==

== ENCOUNTER 2024-04-30 09:40 | Outpatient (REF) | payer MEDICAID, SELFPAY ==
[2024-04-30 13:36] LABS: Appearance Urine Clear; Color Urine Yellow; Glucose Urine UA Negative (Negative); Leukocyte Esterase Urine Moderate (2+) (Negative); Nitrite Urine Negative (Negative); UMIC TRIGGER UA YES; Urine Blood Moderate (2+) (Negative); Urine Ketones Negative (Negative); Urine Protein Negative (Neg-Trace)
[2024-04-30 14:33] LABS: Bacteria Urine None Seen (None Seen); Hyaline Casts Urine 0-2 /LPF (0-2); RBC Urine 0-2 /HPF (0-2); Squamous Epithelial Cell Urine 0-2 /HPF (0-2); WBC Urine 21-50 /HPF (0-5)
== END 2024-04-30 09:41 | disposition home or self-care (01) ==
LOC: HO.HMGCLDS 09:40
PROVIDERS: PCP Student in an Organized Health Care Education/Training Program; Visit Provider Nurse Practitioner Family
DX: N39.0 Urinary tract infection, site not specified (principal); R39.15 Urgency of urination; R30.0 Dysuria
CPT/HCPCS: 81001; 87086

== ENCOUNTER 2024-05-09 09:52 | Outpatient (REF) | payer MEDICAID, SELFPAY ==
--- NOTE | ~2024-05-09 | XR_ITS ---
EXAMINATION: XR ABDOMEN KUB CLINICAL INDICATION: Hematuria COMPARISON: None available. TECHNIQUE: AP view of the abdomen. FINDINGS: The bowel gas pattern is normal with no evidence of ileus or obstruction. No unusual soft tissue calcifications are noted. The bones are unremarkable. XR/XR KUB IMPRESSION: Unremarkable examination.
[2024-05-09 15:00] LABS: Anion Gap 11 (12-20); Blood Urea Nitrogen 12 mg/dL (9-16); Calcium 9.8 mg/dL (8.4-10.2); Carbon Dioxide 27 mmol/L (22-29); Chloride 104 mmol/L (96-108); Estimated Glomerular Filt Rate > 60; Glucose Random 85 mg/dL (60-115); Potassium 3.9 mmol/L (3.3-5.1); Sodium 138 mmol/L (135-145)
== END 2024-05-09 09:53 | disposition home or self-care (01) ==
LOC: HO.CHCLDS 09:52
PROVIDERS: PCP Student in an Organized Health Care Education/Training Program; Visit Provider Student in an Organized Health Care Education/Training Program
DX: R10.9 Unspecified abdominal pain (principal); N39.0 Urinary tract infection, site not specified
CPT/HCPCS: 36415; 74018; 80048

== ENCOUNTER 2024-10-16 15:46 | Outpatient (REF) | payer MEDICAID, SELFPAY ==
[2024-10-16 17:46] LABS: MANUAL DIFF FLAG NO
[2024-10-16 18:02] LABS: Basophils Percent Auto 0.5 % (0-2); Eosinophils Percent Auto 0.8 % (0-4); Hematocrit 38.2 % (37.0-47.0); Hemoglobin 12.8 g/dl (12.0-16.0); Imm Gran Abs Auto 0.01 X10*3/uL (0.00-0.03); Imm Gran Pct Auto 0.3 % (0.0-0.4); Lymphocytes Absolute Auto 1.5 X10*3/uL (1.2-4.9); Lymphocytes Percent Auto 39.4 % (20-40); Mean Corpuscular HGB Conc 33.5 g/dl (31.0-35.0); Mean Corpuscular Hemoglobin 30.4 pg (27.0-33.0); Mean Corpuscular Volume 90.7 fL (80.0-98.0); Mean Platelet Volume 9.9 fL (9.4-12.3); Monocytes Absolute Auto 0.3 X10*3/uL (0.1-1.2); Monocytes Percent Auto 6.6 % (2-11); Neutrophils Percent Auto 52.4 % (45-73); Platelet Count 273 X10*3/uL (160-400); Red Blood Count 4.21 X10*6/uL (4.20-5.50); White Blood Count 3.8 X10*3/uL (4.8-10.8)
[2024-10-16 18:18] LABS: Alanine Aminotransferase 17 U/L (0-31); Albumin Level 4.7 g/dL (3.5-5.0); Alkaline Phosphatase 56 U/L (39-117); Amylase 169 U/L (28-100); Anion Gap 6 (12-20); Aspartate Amino Transferase 22 U/L (5-31); Bilirubin Total 0.3 mg/dL (0.0-1.0); Blood Urea Nitrogen 9 mg/dL (9-16); Calcium 8.8 mg/dL (8.4-10.2); Carbon Dioxide 28 mmol/L (22-29); Chloride 108 mmol/L (96-108); Estimated Glomerular Filt Rate > 60; Glucose Random 74 mg/dL (60-115); Lipase 23 U/L (8-78); Potassium 3.9 mmol/L (3.3-5.1); Sodium 138 mmol/L (135-145); Total Protein 7.6 g/dL (6.5-8.0)
== END 2024-10-16 15:47 | disposition home or self-care (01) ==
LOC: HO.CHCLDS 15:46
PROVIDERS: Visit Provider Registered Nurse
DX: R10.31 Right lower quadrant pain (principal)
CPT/HCPCS: 36415; 80053; 82150; 83690; 85025

== ENCOUNTER 2024-10-17 18:57 | Emergency (ER) | payer MEDICAID, SELFPAY ==
--- NOTE | ~2024-10-17 | CT_ITS ---
CLINICAL HISTORY: R flank pain CT abdomen and pelvis without contrast Comparison: CT/SR - CT ABDOMEN PELVIS W IV CON - 11/17/22 13:58 EST Findings: Diffuse esophageal mural thickening, nonspecific. Atelectasis. Hepatomegaly. Large colonic stool burden. No bowel obstruction. Anteverted uterus with prominent fluid-filled uterine cavity, may be physiologic. Minimal sigmoid diverticulosis without diverticulitis. Normal appendix. Adnexal cysts noted. The bones are intact. IMPRESSION: No acute findings. This document has been electronically signed by: Les Juarez MD on 10/17/2024 21:06:28
[2024-10-17 20:28] VITALS: BP 152/103; PULSE 76; RESP 16; TEMP 36.9; O2SAT 100; BMI 25.6
--- NOTE | 2024-10-17 20:29 | ED_ITS ---
HPI - Abdominal Pain General Chief Complaint: Abdominal Pain Stated Complaint: Rt side flank pain Time Seen by Provider: 10/18/24 01:24 Source: patient Limitations: no limitations History of Present Illness ED Provider: Lupe Isaac PA-C HPI narrative: 39-year-old female with a history of recurrent UTIs, hypertension and anxiety presents with right lower abdominal pain x1 day. Pain radiates to right low back at times. The pain is constant and not colicky. Denies nausea, vomiting, diarrhea or constipation. Denies history of kidney stones, dysuria, hematuria. Denies risk for . No abnormal vaginal discharge or risk for STD. Related Data Home Medications ?Medication ?Instructions ?Recorded ?Confirmed buspirone 5 mg tablet 5 mg PO TID anxiety 02/07/22 12/08/22 zolmitriptan 5 mg tablet 5 mg PO DAILY PRN 02/07/22 12/08/22 cariprazine 3 mg capsule (Vraylar) 3 mg PO DAILY 06/14/23 fluticasone propionate 50 2 spray intranasal DAILY 06/14/23 mcg/actuation nasal spray,suspension lisinopril 2.5 mg tablet 2.5 mg PO QAM 06/14/23 loratadine 10 mg tablet 10 mg PO QAM 06/14/23 Previous Rx's ?Medication ?Instructions ?Recorded nitrofurantoin macrocrystal 50 mg 50 mg PO BEDTIME 90 days #90 caps 10/06/23 capsule phenazopyridine 100 mg tablet 100 mg PO TID PRN pain 5 days #15 04/30/24 (Pyridium) tabs albuterol sulfate 90 mcg/actuation 2 puff inhalation Q4-6H PRN 10/29/24 aerosol inhaler shortness of breath or wheezing #1 ea Allergies Allergy/AdvReac Type Severity Reaction Status Date / Time levofloxacin AdvReac Unknown Abdominal Verified 10/29/24 10:40 Pain Review of Systems Review of Systems Yes all other systems are reviewed and are negative Constitutional: Denies fatigue and Denies fever(s) Cardiovascular: Denies chest pain and Denies dyspnea Respiratory: Denies cough and Denies dyspnea Gastrointestinal: Reports abdominal pain, Denies constipation, Denies diarrhea, Denies nausea and Denies vomiting Genitourinary: Denies hematuria, Denies dysuria, Denies pelvic pain and Denies vaginal discharge Endocrine: Denies fatigue PMFSH Past Medical History Attestation statement: The following information was validated with the patient. 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 Physical Exam ED Vital Signs: Vital Signs - 24 hr 10/17/24 20:28 10/18/24 01:00 10/18/24 02:08 Temperature 98.4 F 97.8 F 97.8 F Pulse Rate 76 70 70 Respiratory Rate 16 16 16 Blood Pressure 152/103 H 147/91 H 147/91 H Pulse Oximetry 100 100 100 Oxygen Delivery Method Room Air Room Air Room Air 10/18/24 02:15 Temperature 97.8 F Pulse Rate 70 Respiratory Rate 16 Blood Pressure 147/91 H Pulse Oximetry 100 Oxygen Delivery Method Room Air BMI result Body Mass Index 25.6 Const Other: Alert Orientation/consciousness: patient oriented x3 Resp Effort & Inspection: normal respiratory effort Cardio Other: Normal peripheral perfusion GI Other: Abdomen is soft nondistended nontender no guarding Skin Other: Warm dry no rash Neuro General: patient oriented x3, gait normal, no focal motor deficits and CN's II- XI intact bilaterally Psych Other: Hostile Course Course Course Narrative: This is an RME: Additional HPI, ROS, PE not included below will be deferred to primary provider. RME assessment and note performed by: Whitley Bellamy PA-C This is a [id number] who presents to the ER who presents to the ER with complaints of right-sided flank pain which started yesterday. She was seen at her primary care physician where they performed blood work, which showed elevated amylase, normal lipase. She does admit to urinating ?a lot?, no hematuria, dysuria, urinary urgency. Endorsing nausea, no vomiting. Loose stool. Plan: Labs, UA, CT abd/pelvis Medical Decision Making Medical Decision Making MDM Narrative: 39-year-old female with a history of recurrent UTIs, hypertension and anxiety presents with right lower abdominal pain x1 day. Pain radiates to right low back at times. The pain is constant and not colicky. Denies nausea, vomiting, diarrhea or constipation. Denies history of kidney stones, dysuria, hematuria. Denies risk for . No abnormal vaginal discharge or risk for STD. No relevant chronic issues History: Per patient I have considered the following differential diagnoses: Renal colic, UTI, appendicitis, torsion, TOA, ectopic Plan: Screening labs including a urinalysis and a CT scan were already obtained, studies ordered from triage. The patient was constipated there was no additional acute findings. I have relayed findings to the patient, she is displeased over the wait time, however today is in extremely busy day. I have independently reviewed the following tests: Labs: No leukocytosis, not anemic, no electrolyte abnormality not , no urinary tract infection CT abdomen and pelvis:Findings: Diffuse esophageal mural thickening, nonspecific. Atelectasis. Hepatomegaly. Large colonic stool burden. No bowel obstruction. Anteverted uterus with prominent fluid-filled uterine cavity, may be physiologic. Minimal sigmoid diverticulosis without diverticulitis. Normal appendix. Adnexal cysts noted. The bones are intact. IMPRESSION: No acute findings. This document has been electronically signed by: Les Juarez MD on 10/17/2024 21:06:28 Lab Data 10/17/24 20:54 10/17/24 20:54 Labs: Lab Results 10/17/24 10/18/24 Range/Units 20:54 01:17 WBC 4.3 L (4.8-10.8) X10*3/uL RBC 4.35 (4.20-5.50) X10*6/uL Hgb 13.4 (12.0-16.0) g/dl Hct 39.4 (37.0-47.0) % MCV 90.6 (80.0-98.0) fL MCH 30.8 (27.0-33.0) pg MCHC 34.0 (31.0-35.0) g/dl RDW 12.0 (11.0-16.0) % Plt Count 266 (160-400) X10*3/uL MPV 9.2 L (9.4-12.3) fL Immature Gran % (Auto) 0.2 (0.0-0.4) % Neut % (Auto) 44.6 L (45-73) % Lymph % (Auto) 44.2 H (20-40) % [place] % (Auto) 8.9 (2-11) % Eos % (Auto) 1.4 (0-4) % Baso % (Auto) 0.7 (0-2) % Lymph # (Auto) 1.9 (1.2-4.9) X10*3/uL [place] # (Auto) 0.4 (0.1-1.2) X10*3/uL Eos # (Auto) 0.1 (0.0-0.4) X10*3/uL Baso # (Auto) 0.0 (0.0-0.2) X10*3/uL Abs Immat Gran (auto) 0.01 (0.00-0.03) X10*3/uL Absolute Neuts (auto) 1.9 L (2.0-8.3) x10*3/uL Absolute Nucleated RBC 0.000 (0.0-0.012) X10*3/uL Nucleated RBC % (auto) 0.0 (0.0-0.2) /100WBC Sodium 141 (135-145) mmol/L Potassium 4.1 (3.3-5.1) mmol/L Chloride 110 H (96-108) mmol/L Carbon Dioxide 26 (22-29) mmol/L Anion Gap 9 L (12-20) BUN 9 (9-16) mg/dL Creatinine 0.75 (0.5-1.4) mg/dL Estim Creat Clear Calc 93.5 Estimated GFR > 60 Random Glucose 83 (60-115) mg/dL Calcium 9.8 D (8.4-10.2) mg/dL Magnesium 2.1 (1.6-2.6) mg/dL Total Bilirubin 0.3 (0.0-1.0) mg/dL Direct Bilirubin 0.1 (0.0-0.5) mg/dL AST 22 (5-31) U/L ALT 15 (0-31) U/L Alkaline Phosphatase 59 (39-117) U/L Total Protein 8.1 H (6.5-8.0) g/dL Albumin 4.7 (3.5-5.0) g/dL Lipase 24 (8-78) U/L Beta HCG, Quant < 2 mIU/mL Urine Color Yellow Urine Appearance Clear Urine pH 5.5 (5.0-9.0) Ur Specific [place] 1.020 (1.005-1.025) Urine Protein Negative (Neg-Trace) mg/dL Urine Glucose (UA) Negative (Negative) mg/dL Urine Ketones Negative (Negative) mg/dL Urine Blood Negative (Negative) Urine Nitrite Negative (Negative) Ur Leukocyte Esterase Negative (Negative) Influenza Type A (PCR) NEGATIVE (Negative) Influenza Type B (PCR) NEGATIVE (Negative) RSV RNA Qual (PCR) NEGATIVE (Negative) SARS-CoV-2 RNA (RT-PCR) NEGATIVE (Negative) Discharge Plan Discharge Clinical Impression: Constipation Patient Disposition: Home, Self-Care Instructions: Constipation (ED) Additional Instructions: You were found to be constipated on the CT scan. The remainder of your labs were completely normal. I am including the CT read in your discharge paperwork. See home care instructions. You should use [id number] Colace, this is a stool softener, twice daily. Use [id number] MiraLax, 2 to 3 times a day, until you begin having regular, large volume bowel movements. Follow up with your primary care provider as needed. [place] [id number] CT Scan Report Signed Patient: Whitley Juares MR#: [id number] : 1985 Acct:[id number] Age/Sex: 39 / F ADM Date: 10/17/24 Loc: .ED Attending Dr: Ordering Physician: Whitley Bellamy Date of Service: 10/17/24 Procedure(s): CT abdomen pelvis wo IV con Accession Number(s): [id number] cc: Whitley Bellamy; Arpita Saravia MD~ Report Number: [id number]: Total DLP = 392.00 mGy-cm CLINICAL HISTORY: R flank pain CT abdomen and pelvis without contrast Comparison: CT/SR - CT ABDOMEN PELVIS W IV CON - 11/17/22 13:58 EST Findings: Diffuse esophageal mural thickening, nonspecific. Atelectasis. Hepatomegaly. Large colonic stool burden. No bowel obstruction. Anteverted uterus with prominent fluid-filled uterine cavity, may be physiologic. Minimal sigmoid diverticulosis without diverticulitis. Normal appendix. Adnexal cysts noted. The bones are intact. IMPRESSION: No acute findings. Prescriptions: No Action nitrofurantoin macrocrystal 50 mg capsule 50 mg PO BEDTIME 90 Days Qty: 90 0RF Rx Instructions: must administer with a meal/food to be used post coital phenazopyridine [Pyridium] 100 mg tablet 100 mg PO TID PRN (Reason: pain) 5 Days Qty: 15 0RF buspirone 5 mg tablet 5 mg PO TID zolmitriptan 5 mg tablet 5 mg PO DAILY PRN Vraylar 3 mg capsule 3 mg PO DAILY lisinopril 2.5 mg tablet 2.5 mg PO QAM loratadine 10 mg tablet 10 mg PO QAM fluticasone propionate 50 mcg/actuation spray,suspension 2 spray intranasal DAILY albuterol sulfate 90 mcg/actuation HFA aerosol inhaler 2 puff inhalation Q4-6H PRN (Reason: shortness of breath or wheezing) Qty: 1 2RF Stand Alone Forms: Work/School Release Interventions: ED Discharge Assessment Last Done: 10/18/24 02:15 Discharge Date/Time: 10/18/24 02:15 Print Language: Macanese
[2024-10-17 20:58] LABS: MANUAL DIFF FLAG NO
[2024-10-17 21:11] LABS: Basophils Percent Auto 0.7 % (0-2); Eosinophils Absolute Auto 0.1 X10*3/uL (0.0-0.4); Eosinophils Percent Auto 1.4 % (0-4); Hematocrit 39.4 % (37.0-47.0); Hemoglobin 13.4 g/dl (12.0-16.0); Imm Gran Abs Auto 0.01 X10*3/uL (0.00-0.03); Imm Gran Pct Auto 0.2 % (0.0-0.4); Lymphocytes Absolute Auto 1.9 X10*3/uL (1.2-4.9); Lymphocytes Percent Auto 44.2 % (20-40); Mean Corpuscular Hemoglobin 30.8 pg (27.0-33.0); Mean Corpuscular Volume 90.6 fL (80.0-98.0); Mean Platelet Volume 9.2 fL (9.4-12.3); Monocytes Absolute Auto 0.4 X10*3/uL (0.1-1.2); Monocytes Percent Auto 8.9 % (2-11); Neutrophils Absolute Auto 1.9 x10*3/uL (2.0-8.3); Neutrophils Percent Auto 44.6 % (45-73); Platelet Count 266 X10*3/uL (160-400); Red Blood Count 4.35 X10*6/uL (4.20-5.50); White Blood Count 4.3 X10*3/uL (4.8-10.8)
[2024-10-17 21:25] LABS: Alanine Aminotransferase 15 U/L (0-31); Albumin Level 4.7 g/dL (3.5-5.0); Alkaline Phosphatase 59 U/L (39-117); Anion Gap 9 (12-20); Aspartate Amino Transferase 22 U/L (5-31); Bilirubin Direct 0.1 mg/dL (0.0-0.5); Bilirubin Total 0.3 mg/dL (0.0-1.0); Blood Urea Nitrogen 9 mg/dL (9-16); Calcium 9.8 mg/dL (8.4-10.2); Carbon Dioxide 26 mmol/L (22-29); Chloride 110 mmol/L (96-108); Creatinine Clr Calc Pharmacy 93.5; Estimated Glomerular Filt Rate > 60; Glucose Random 83 mg/dL (60-115); Lipase 24 U/L (8-78); Magnesium 2.1 mg/dL (1.6-2.6); Potassium 4.1 mmol/L (3.3-5.1); Sodium 141 mmol/L (135-145); Total Protein 8.1 g/dL (6.5-8.0)
[2024-10-17 21:33] LABS: HCG Quantitative < 2 mIU/mL
[2024-10-17 21:42] LABS: Influenza A PCR NEGATIVE (Negative); Influenza B PCR NEGATIVE (Negative); Resp Syncy Virus RNA Qual PCR NEGATIVE (Negative); SARS COV2 PCR INHOUSE NEGATIVE (Negative)
[2024-10-18 01:00] VITALS: BP 147/91; PULSE 70; RESP 16; TEMP 36.6; O2SAT 100
[2024-10-18 01:24] LABS: Appearance Urine Clear; Color Urine Yellow; Glucose Urine UA Negative (Negative); Leukocyte Esterase Urine Negative (Negative); Nitrite Urine Negative (Negative); PH 5.5 (5.0-9.0); Urine Blood Negative (Negative); Urine Ketones Negative (Negative); Urine Protein Negative (Neg-Trace)
[2024-10-18 02:08] VITALS: BP 147/91; PULSE 70; RESP 16; TEMP 36.6; O2SAT 100
--- NOTE | 2024-10-18 02:12 | PC.NURSE ---
Reviewed charge instructions with pt, pt verbalized understanding, pt upset she had to wait so long, this nurse apologize for the a wait, No sign of distress upon discharge, No N/v/D, pt had a steady gait.
[2024-10-18 02:15] VITALS: BP 147/91; PULSE 70; RESP 16; TEMP 36.6; O2SAT 100
== END 2024-10-18 02:15 | disposition home or self-care (01) ==
PROVIDERS: Physician Assistant Medical; Emergency Provider Emergency Medicine Emergency Medical Services; PCP Student in an Organized Health Care Education/Training Program
DX: K59.00 Constipation, unspecified (principal); R10.31 Right lower quadrant pain; Z03.818 Encounter for observation for suspected exposure to other biological agents ruled out; I10 Essential (primary) hypertension
CPT/HCPCS: 0241U; 36415; 74176; 80048; 80076; 81003; 83690; 83735; 84702; 85025; 99284

== ENCOUNTER → 2024-10-17 20:32 | Outpatient (BNV) | payer MEDICAID, SELFPAY | PROVIDERS: PCP Student in an Organized Health Care Education/Training Program; Visit Provider Radiology Diagnostic Radiology | DX: R10.9 Unspecified abdominal pain (principal) | CPT/HCPCS: 74176 ==

== ENCOUNTER 2024-10-23 09:40 | Outpatient (REF) | payer MEDICAID, SELFPAY ==
--- OUTSIDE RECORDS SUMMARY | 2024-10-23 10:22 | XMS_ITS | Encounter Summary ---
Author Organization [employer] Address [address] [place] [address] Care Team Providers Care Peoplesoft Business Analyst Name Role Phone Arpita Saravia MD Primary Care Provider [phone] Eddie Pimentel Unavailable Unavailable Reason for Visit * Reason Onset Date Comments Results 10/22/2024 Encounter Details Date Type Department Care Team ([facility] Contact Info) Description 10/22/2024 Telephone [facility] [address] [place] [address] Stefani Murillo RN Results Social History Tobacco Use Types Packs/Day Years Used Date Smoking Tobacco: Never Passive Smoke Exposure: Never Smokeless Tobacco: Never Depression Answer Date Recorded Patient Health Questionnaire-9 Score 6 02/19/2024 Patient Health Questionnaire-9 Score 6 02/19/2024 Last PHQ-9: Questionnaire Data Not on file 0 02/19/2024 Housing Stability Answer Date Recorded What is your housing situation today? I have marisol sims 07/31/[address] you li ve. Do you have problems with any of the following? None of the above 07/31/2023 Food Insecurity Answer Date Recorded Within the past 12 months, y ou worried that your food would run out before you got money to buy more: Never True 07/31/2023 Within the past 12 months,th e food you bought just didn't last and you didn't have enough money to get more: Never True Transportation Answer Date Recorded In the past 12 months, has l ack of transportation kept you from medical appts, meetings, work or from getting things needed for daily living? No 07/31/2023 Utilities Answer Date Recorded In the past 12 months, has t he electric, gas, oil or water company threatened to shut off services in your home? No 07/31/2023 Depression Answer Date Recorded Patient Health Questionnaire-2 Score 2 02/19/2024 Comments No Sex and Gender Information Value Date Recorded Sex Assigned at Female 08/01/2022 10:17 AM EDT Legal Sex Female 10:17 AM EDT Gender Identity Female 08/01/2022 10:17 AM EDT Sexual Orientation Straight 08/01/2022 10 :17 AM EDT documented as of this encounter Miscellaneous Notes * Telephone Encounter - Stefani Murillo RN - 10/22/2024 9:17 AM EST ----- Message from [facility] sent at 10/18/2024 3:43 PM EST ----- Please let patient know that labs are largely unremarkable--her WBC count was initially low but repeat in ED shows improvement and her imaging was reassuring. Mild amylase unlikely to have much clinical significance however I do think it is worth screening for celiac disease (I ordered lab when I saw her--can you check if it is pending or has not been collected?) . I see she already has a follow up with Dr. Saravia. Thank you! documented in this encounter Plan of Treatment Upcoming Encounters Date Type Department Care Team (Late st Contact Info) Description 11/13/2024 8:45 AM EST Office Visit [facility] [address] [place] [address] Arpita Saravia MD [address] [place] [address] documented as of this encounter Visit Diagnoses Not on filedocumented in this encounter Additional Health Concerns Assessment Noted Time PHQ-9 Depression Total Score: 6 02/19/20 24 3:02 PM EDT documented as of this encounter Care Teams [employer]oples[employer] Business Analyst Relationship Specialty Start Date End Date Arpita Saravia MD [address] [place] [id number] PCP - General Family Medicine 10/08/13 Eddie Pimentel FNP [address] [place] [address] Nurse Practitioner Family Medicine 08/22/23 documented as of this encounter
--- OUTSIDE RECORDS SUMMARY | 2024-10-23 10:22 | XMS_ITS | Encounter Summary ---
Author Organization [employer] Address [address] [place] [address] Care Team Providers Care Car Runner Name Role Phone Arpita Saravia MD Primary Care Provider [phone] Eddie Pimentel Unavailable Unavailable Encounter Details Date Type Department Care Team ([facility] st Contact Info) Description 10/22/2024 Telephone [facility] [address] [place], [place] [id number] Edith Day, RN Social History Tobacco Use Types Packs/Day Years Used Date Smoking Tobacco: Never Passive Smoke Exposure: Never Smokeless Tobacco: Never Depression Answer Date Recorded Patient Health Questionnaire-9 Score 6 02/19/2024 Patient Health Questionnaire-9 Score 6 02/19/2024 Last PHQ-9: Questionnaire Data Not on file 0 02/19/2024 Housing Stability Answer Date Recorded What is your housing situation today? I have marisolcharlotte sims 07/31/[address] you [...] t he electric, gas, oil or water [employer] threatened to shut off services in your [...] encounter Miscellaneous Notes * Telephone Encounter - Edith Day RN - 10/22/2024 11:22 AM EST Tc to pt to let them know per Please let patient know that labs are largely unremarkable--her WBC count was initially low but repeat in ED shows improvement and her imaging was reassuring. Mild amylase unlikely to have much clinical significance however I do think it is worth screening for celiac disease (I ordered lab when I saw her--can you check if it is pending or has not been collected?) . Isee she already has a follow up with Dr. Saravia. Thank you! . Pt reports did have a appt today with Dr. Saravia who did reordered blood work including celiac screening. Pt advised to go to [facility], [facility] or [facility] to have their blood work completed. Informed pt our office will call back once we have the new results and pt verbalized understanding. documented in this encounter Plan of Treatment Upcoming Encounters Date Type Department Care Team (Late st Contact Info) Description 11/13/2024 8:45 AM EST Office Visit [facility] PED[facility] [address] [place] [address] Arpita Saravia MD [address] [place] [address] documented as of this encounter Visit Diagnoses Not on filedocumented in this encounter Additional Health Concerns Assessment Noted Time PHQ-9 Depression Total Score: 6 02/19/20 24 3:02 PM EDT documented as of this encounter Care Teams Car Runner Relationship Specialty Start Date End Date Arpita Saravia MD [address] [place] [address] PCP - General Family Medicine 10/08/13 Eddie Pimentel FNP [address] [place] [id number] Nurse Practitioner Family Medicine 08/22/23 documented as of this encounter
--- OUTSIDE RECORDS SUMMARY | 2024-10-23 10:22 | XMS_ITS | Clinical Summary ---
Author Organization [employer] Address [address] [place] [address] Care Team Providers Care Proprietary Trader Name Role Phone Arpita Saravia MD Primary Care Provider [phone] Eddie Pimentel Unavailable Unavailable Allergies Active Allergy Reactions Criticality Noted Date Comments Amlodipine 02/17/2017 Other reaction(s): Ankle swelling, flushing Medications * This document contains information received from the source organization and may not represent a complete record from that organization. ibuprofen 800 MG tablet Take 1 tablet by mouth every 8 (eight) hours. 12/17/19 21 Active naproxen (Naprosyn) 500 MG tablet Take 1 tablet by mouth every 12 (twelve) hours. 06/10/20 19 Active ZOLMitriptan (Zomig) 5 MG tablet TAKE 1 TABLET BY MOUTH EVERY DAY NEEDED ORALLY ONCE A DAY 09/13/20 22 Active Ajovy 225 MG/1.5ML auto-injector DIRECTED SUBCUTANEOUS MONTHLY 30 DAYS 10/12/19 23 Active cholecalcifero l (Vitamin D-3) 50 MCG (1999) capsule TAKE 1 CAPSULE BY MOUTH EVERY 12 HOURS 180 capsule 1 02/16/20 24 Active loratadine (Claritin) 10 MG tablet TAKE 1 TABLET BY MOUTH EVERY MORNING 90 tablet 1 02/16/20 24 Active busPIRone (Buspar) 5 MG tabletIndicati ons:Bipolar affective disorder, current episode mixed, current episode severity unspecified (CMS/HCC) Take 1 tablet (5 mg) by mouth every 8 (eight) hours. 270 tablet 3 02/19/20 24 Active Cariprazine HCl 3 MG capsule Take 3 mg by mouth Once daily. 90 capsule 3 02/19/20 24 Active fluticasone (Flonase) 50 MCG/ACT nasal spray SPRAY 2 SPRAYS INTO EACH NOSTRIL EVERY DAY 48 mL 05/23/20 24 Active lisinopril 2.5 MG tablet TAKE 1 TABLET BY MOUTH IN THE MORNING 90 tablet 1 09/04/20 24 Active Nirmatrelvir&R itonavir 300/100 (Paxlovid, 300/100,) 20 x 150 MG & 10 x 100MG tablet therapy pack Take 3 tablets by mouth 2 times daily. 30 each 05/27/20 24 025 Discontinued Active Problems Problem Noted Date Diagnosed Date Upper respiratory tract infection 10/25/2023 Assessment & Plan (10/25/2023 4:19 PM EST): Patient that presented visit with URI complaints will be provided with Robitussin to treat symptoms. Advised to notify office if symptoms don't improved. Adjustment disorder with mixed anxiety and depre ssed mood 04/17/2023 Assessment & Plan (04/17/2023 3:35 PM EDT): Pt has been presenting with anhedonia, nervousness, worry, feeling easily overwhelmed (specially at work), isolating, crying spells, decreased motivation for the past 2 weeks. She denied SI/HI and perceptual disturbances. She indicates that main stressors in the past year have been related to changes at work. Patient would benefit from resuming OP services for individual therapy to support coping skills and management of current stressors. Whitley was open, engaged and agreeable to discussion and plan. Right lower quadrant abdominal pain 11/16/2022 Assessment & Plan (11/16/2022 4:34 PM EST): RLQ pain with tenderness and guarding, new onset. No other red flags, will send imaging stat and labs, if worsening symptoms recommended seeking emergency attention. Hyperactive bowel movements sent trial of bentyl Bipolar affective disorder, current episode mixe d 09/20/2022 Assessment & Plan (02/19/2024 4:48 PM EDT): with history of extended periods of depression alternating with periods of excessive energy, taking on projects, spending money. Supported by poor response to SSRIs ( priyanka ). Has had multiple medication trials: Didn't feel Abilify 15 mg was helpful. She did not tolerate Lamictal 25 mg once daily with worsening of her migraine CAM. Also did not tolerate Topiramate 25 mg BID, or Carbamazapine. Not doing well with significant social stressors and missing her medications since her pharmacy erroneously told her there were no refills available, and also that this provider refused to send new Rx (absolutely incorrect as no request was made). She will have new Rx's sent now. Will continue Vraylar 3 mg daily, Buspirone 5 mg 1- 2 at bedtime, and prn anxiety. Also referring for counseling again. Since this provider will be retiring, we will transfer her care to the new [facility] psychiatric prescriber. Any issues or concerns, contact the health center. All her questions were answered. I have wished her well. We will also provide exemption excuse for jury duty based on mental health condition. She agrees with the plan. Assessment & Plan (12/21/2023 4:22 PM EDT): with history of extended periods of depression alternating with periods of excessive energy, taking on projects, spending money. Supported by poor response to SSRIs ( priyanka ). Has had multiple medication trials: Didn't feel Abilify 15 mg was helpful. She did not tolerate Lamictal 25 mg once daily with worsening of her migraine CAM. Also did not tolerate Topiramate 25 mg BID, or Carbamazapine. Again doing well, with better adherence to medications as well as exercise regimen. Will continue Vraylar 3 mg daily, Buspirone 5 mg 1-2 at bedtime, and prn anxiety. She will F/U re counseling intake. On 08/21/2023 provider informed pt that I would be retiring. Meanwhile, F/U with me in 2 months. She agrees with the plan. Assessment & Plan (10/19/2023 4:28 PM EST): with history of extended periods of depression alternating with periods of excessive energy, taking on projects, spending money. Supported by poor response to SSRIs ( priyanka ). Has had multiple medication trials: Didn't feel Abilify 15 mg was helpful. She did not tolerate Lamictal 25 mg once daily with worsening of her migraine CAM. Also did not tolerate Topiramate 25 mg BID, or Carbamazapine. Not doing as well, not getting enough sleep. Had done well with medications but now not taking regularly (although not actually having S/E). Urged to take daily: Vraylar 3 mg daily, Buspirone 5 mg 1-2 at bedtime, and prn anxiety. Will refer for counseling. On 08/21/2023 provider informed pt that I would be retiring, but we would make every effort to ensure continuity of care. F/U with me in 2 months. She agrees with the plan. Assessment & Plan (08/21/2023 3:55 PM EST): with history of extended periods of depression alternating with periods of excessive energy, taking on projects, spending money. Supported by poor response to SSRIs ( priyanka ). Has had multiple medication trials: Didn't feel Abilify 15 mg was helpful. She did not tolerate Lamictal 25 mg once daily with worsening of her migraine CAM. Also did not tolerate Topiramate 25 mg BID, or Carbamazapine. Doing OK. Mood swings improved, sleeping well. No time for counseling right now, but will consider for future. Continue Vraylar 3 mg daily. Continue Buspirone 5 mg 1-2 at bedtime, and prn anxiety. Today 08/21/2023 provider informed pt that I would be retiring within the next year or so, but we would make every effort to ensure continuity of care. F/U with me in 2 months. She agrees with the plan. Assessment & Plan (06/19/2023 4:01 PM EDT): with history of extended periods of depression alternating with periods of excessive energy, taking on projects, spending money. Supported by poor response to SSRIs ( priyanka ). Has had multiple medication trials: Didn't feel Abilify 15 mg was helpful. She did not tolerate Lamictal 25 mg once daily with worsening of her migraine CAM. Also did not tolerate Topiramate 25 mg BID, or Carbamazapine. No further episodes of severe depression. Mood swings improved but not completely controlled. 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 Will not change meds now, continue Vraylar 3 mg daily. Continue Buspirone 5 mg 1-2 at bedtime, and prn anxiety. Recommend she call to f/u for counseling intake. F/U with me in 2 months. She agrees with the plan. Assessment & Plan (04/18/2023 1:27 PM EDT): with history of extended periods of depression alternating with periods of excessive energy, taking on projects, spending money. Supported by poor response to SSRIs ( priyanka ). Has had multiple medication trials: Didn't feel Abilify 15 mg was helpful. She did not tolerate Lamictal 25 mg once daily with worsening of her migraine CAM. Also did not tolerate Topiramate 25 mg BID, or Carbamazapine. Recently had an episode of worsened depression, which has improved but mood swings persist. Will increase now to Vraylar 3 mg daily. Continue Buspirone 5 mg 1-2 at bedtime, and prn anxiety. Today pt was given the phone number for [facility] and she will call herself to reschedule intake. F/U with me in 6-8 weeks. She agrees with the plan. Assessment & Plan (03/15/2023 9:46 AM EDT): Assessment: Patient with revious hx of Bipolar Dx and MH treatment that was referred to [facility] Consult for exacerbation of depression and anxiety. 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 She indicates that she has been experiencing exacerbation of sxs, specially feeling down and unmotivated. She indicates that main stressors in the past year have been related to changes at work. Whitley indicated that although adhering to medication, she can feel sxs worsening. Patient will benefit from follow up [facility] brief intervention to further explore BH needs and potential treatments. At this time Whitley Juares meets criteria for Visit Diagnoses (per record): Problem List Items Addressed This Visit Other Bipolar affective disorder, current episode mixed (CMS/HCC) - Primary Relevant Orders Referral to Behavioral Health Patient ready to address current needs Yes Strengths include Desire to engage in supportive treatment PLAN: 1. Follow up with [facility]: Recommended for follow-up: 03/14/2023 2. Patient goal is Decrease sxs impacting psychological wellness 3. Behavioral Recommendations a. Follow up [facility] consult in a week to further explore needs, sxs and potential treatments b. Continue psych medication treatment as recommended by her prescribing provider Assessment & Plan (02/16/2023 10:20 AM EDT): with history of extended periods of depression alternating with periods of excessive energy, taking on projects, spending money. Supported by poor response to SSRIs ( priyanka ). Has had multiple medication trials: Didn't feel Abilify 15 mg was helpful. She did not tolerate Lamictal 25 mg once daily with worsening of her migraine CAM. Also did not tolerate Topiramate 25 mg BID, or Carbamazapine. Still doing reasonably well with Vraylar 1.5 mg daily and Buspirone 5 mg 1-2 at bedtime, and prn anxiety. I contacted the pharmacy and was informed the Vraylar was available for refill at this time. They say insurance limited supply to 30 days at a time. She is in a long-term monogamous relationship with single AMAB partner who has vasectomy so at negligible risk of unintended . F/U with me in 2 months. She agrees with the plan. Assessment & Plan (01/05/2023 10:23 AM EDT): with history of extended periods of depression alternating with periods of excessive energy, taking on projects, spending money. Supported by poor response to SSRIs ( priyanka ). Has had multiple medication trials: Didn't feel Abilify 15 mg was helpful. She did not tolerate Lamictal 25 mg once daily with worsening of her migraine CAM. Also did not tolerate Topiramate 25 mg BID, or Carbamazapine. Has had good early response to Vraylar 1.5 mg daily. Continue Buspirone 5 mg 1-2 at bedtime, and prn anxiety.Suggest reconsidering counseling. She is in a long-term monogamous relationship with single AMAB partner who has vasectomy so at negligible risk of unintended . F/U with me in 4-6 weeks. She agrees with the plan. Assessment & Plan (12/05/2022 5:02 PM EST): with history of extended periods of depression alternating with periods of excessive energy, taking on projects, spending money. Supported by poor response to SSRIs ( jittery ). She has a negative approach to medications, and sceptical about efficacy. Despite significantly improved PHQ9 score of 6 today, down from15 last visit, she doesn't feel the Abilify is really working for her. She did not tolerate Lamictal 25 mg once daily with worsening of her migraine CAM. Also did nottolerate Topiramate 25 mg BID, or Carbamazapine. Will stop antiepileptics. Will send Rx for Vraylar 1.5 mg daily. If this is covered by insurance, she will start the Vraylar and continue Abilify `15 mg 1/2 tab daily for a few days then stop the Abilify. Continue Buspirone 5 mg 1-2 at bedtime, and prn anxiety.Suggest reconsidering counseling. She is in a long-term monogamous relationship with single AMAB partner who has vasectomy so at negligible risk of unintended . F/U with me in 1 month. She agrees with the plan. Assessment & Plan (11/01/2022 9:33 AM EST): with history of extended periods of depression alternating with periods of excessive energy, taking on projects, spending money. Supported by poor response to SSRIs ( jittery ). She did not tolerate Lamictal 25 mg once daily with worsening of her migraine CAM. She has also not had good response to Topiramate 25 mg BID which she feels is making her feel more down,and has not been taking regularly. Instead she will start Carbamazepine 100 mg BID. Reassured that although this is a lot of milligrams it's actually a low starting dose. Continue Abilify 30 mg daily, continue Buspirone 5 mg 1-2 at bedtime, and prn anxiety. F/U 4 weeks. She agrees with the plan. She is in a long-term monogamous relationship with single AMAB partner who has vasectomy so at negligible risk of unintended . Assessment & Plan (09/20/2022 9:38 AM EST): with history of extended periods of depression alternating with periods of excessive energy, taking on projects, spending money. Supported by poor response to SSRIs ( jittery ). She did not tolerate Lamictal 25 mg once daily with worsening of her migraine CAM. Taking the new Topiramate 25 mg BID, but hasn't noted significant improvement, feels on edge, but that is likely part of her BPD and not r/t to the medication. Discussed options for treatment of BPD: [place], antiepileptics, antipsychotics. She will increase to Abilify 30 mg daily, continue other meds for now. F/U 4-6 weeks. She agrees with the plan. She is in a long-term monogamous relationship with single AMAB partner who has vasectomy so at negligible risk of unintended . Right ear pain 02/28/2018 Migraine 12/24/2012 Encounters Date Type Department Care Team Description 10/22/2024 9:00 AM EST Telemedicine [facility] [address] [place] [address] Arpita Saravia MD Right lower quadrant abdominal pain (Primary Dx); Vitamin D deficiency; Chronic fatigue; Pulmonary emphysema, unspecified emphysema type (CMS/HCC) 10/22/2024 Telephone [facility] [address] [place] [address] Edith Day, DOMINIC 10/22/2024 Telephone [facility] [address] [place] [address] Stefani Murillo, DOMINIC Results 10/22/2024 Travel 10/18/2024 Telephone [facility] [address] [place] [address] Arpita Saravia MD Nurse Triage 10/18/2024 Orders Only GENERIC EXTERNAL DATA DEPARTMENT Provider, Generic External Data 10/17/2024 Orders Only [facility] External Provider, [facility] 10/17/2024 Telephone [facility] [address] [place] [address] Arpita Saravia MD Results 10/16/2024 3:00 PM EST Office Visit [facility] [address] [place] [address] Francy, Jojo, CLINICAL SUPERVISOR Right lower quadrant abdominal pain (Primary Dx) 10/16/2024 Travel 10/15/2024 Telephone [facility] [address] [facility] [place] [phone] Arpita Saravia MD Nurse Triage 09/03/2024 Refill [facility] [address] [facility] [place] [phone] Arpita Saravia MD 08/27/2024 9:15 AM EST Office Visit [facility] PEDS [address] [place] [address] Ben Alford MD Congenital nevus (Primary Dx) 08/27/2024 Travel from Last 3 Months Immunizations Name Administration Dates Next Due Pfizer Covid-19 Vaccine 12+ 06/05/2021, Tdap 04/20/2018 Social History Tobacco Use Types Packs/Day Years Used Date Smoking Tobacco: Never Passive Smoke Exposure: Never Smokeless Tobacco: Never Tobacco Cessation:Counseling Given: Not Answered Depression Answer Date Recorded Patient Health Questionnaire-9 [...] Orientation Straight 08/01/2022 10 :17 AM EDT Last Filed Vital Signs Vital Sign Reading Time Taken Comments Blood Pressure 123/86 10/16/2024 3:16 PM EST Pulse 72 10/16/2024 3:16 PM EST Temperature 36.9 ??C (98.5 ??F) 10/16/2024 3:16 PM ES T Respiratory Rate 20 10/16/2024 3:16 PM EST Oxygen Saturation 99% 10/16/2024 3:16 PM EST Inhaled Oxygen Concentration - - Weight 56.6 kg (124 lb 12.8 oz) 10/16/2024 3:16 PM EST Height 153 cm (5' 0.24 ) 10/16/2024 3:16 PM EST Body Mass Index 24.18 10/16/2024 3:16 PM EST Plan of Treatment Upcoming Encounters Date Type Department Care Team (Late st Contact Info) Description 11/13/2024 8:45 AM EST Office Visit [facility] [address] [place] [address] Arpita Saravia MD [address] [place] [address] Health Maintenance Due Date Last Done Comments HIV Screening 1987 Pneumococcal Vaccine: Pediatrics (0 to 5 Years) and At-Risk Patients (6 to 64 Years) (1 of 2 - PCV) 1993 Alcohol/Substance Use Screening 1999 Family Planning (PISQ) 2002 Hepatitis B Vaccines (1 of 3 - 19+ 3-dose series) 2006 Dental Oral Exam 03/08/2023 09/06/2022 Dental Prophylaxis 03/08/2023 09/06/2022 Dental X-Ray: Bitewings 09/07/2023 09/06/2022 SDOH Screening 02/16/2024 02/15/2023 COVID-19 Vaccine ( - 2023-2 5 season) 2024 06/05/2021, 05/15/2021 Influenza Vaccine (#1) 2024 Depression Screening 02/18/2025 02/19/2024, 02/19/2024 Pap Smear 05/03/2025 05/03/2022 Dental X-Ray: Full Mouth 09/07/2025 09/06/2022 Tobacco Screening 10/16/2025 10/16/2024 Cervical Cancer Screening 05/03/2027 HPV/Cotest 05/03/2027 05/03/2022 DTaP/Tdap/Td Vaccines (3 - T d or Tdap) 04/20/2028 04/20/2018, 03/02/2015 Zoster Vaccines (1 of 2) 2037 RSV Patients and Patients Aged 60 years or older (1 - 1-dose 75+ series) 2062 Hepatitis C Screening Completed 08/09/2022 HIB Vaccines Aged Out No longer eligi ble based on patient's age to complete this topic HPV Vaccines Aged Out No longer eligi ble based on patient's age to complete this topic Hepatitis A Vaccines Aged Out No long er eligible based on patient's age to complete this topic IPV Vaccines Aged Out No longer eligi ble based on patient's age to complete this topic Meningococcal Vaccine Aged Out No lili clay eligible based on patient's age to complete this topic RSV under 20 months Aged Out No longe r eligible based on patient's age to complete this topic Rotavirus Vaccines Aged Out No longer eligible based on patient's age to complete this topic Procedures Procedure Name Priority Date/Time Associated Diagnosis Comments URINALYSIS WITH REFLEX MICROSCOPIC Routine 10/18/2024 1:[address] ABDOMEN PELVIS WO CONTRAST Routine 10/17/2024 9:06 PM EST HCG, TOTAL, QN Routine 10/17/2024 8:54 PM EST LIPASE Routine 10/17/2024 8:54 PM EST MAGNESIUM Routine 10/17/2024 8:54 PM EST BASIC METABOLIC PANEL Routine 10/17/2024 8:54 PM EST HEPATIC FUNCTION PANEL Routine 8:54 PM EST CBC WITH AUTO DIFFERENTIAL Routine 10/17/2024 8:54 PM EST SARS COV2/INFLUENZA A/B AND RSV RNA QL NAAT Routine 10/17/2024 8:54 PM EST CBC WITH AUTO DIFFERENTIAL Routine 10/16/2024 3:48 PM EST Right lower quadrant abdominal pain AMYLASE Routine 10/16/2024 3:48 PM EST Right lower quadrant abdominal pain LIPASE Routine 10/16/2024 3:48 PM EST Right lower quadrant abdominal pain COMPREHENSIVE METABOLIC PANEL Routine 10/16/2024 3:48 PM EST Right lower quadrant abdominal pain EPIDERMAL / DERMAL SHAVING Routine 08/28/2024 9:28 AM EST Congenital nevus PERIODIC ORAL EVALUATION - ESTABLISHED PATIENT Routine 09/06/2022 5:30 PM EST PROPHYLAXIS - ADULT Routine 09/06/2022 4 :00 PM EST Encounter for dental examination DIAGNOSTIC - DIAGNOSTIC IMAGING - INTRAORAL - COMPREHENSIVE SERIES OF RADIOGRAPHIC IMAGES Routine 09/06/2022 4:00 PM EST Encounter for dental examination ZZZ HISTORICAL HEPATITIS C AB W/REFL TO HCV RNA, QN, PCR Routine 08/09/2022 9:23 AM EST THINPREP IMAGING PAP AND HPV MRNA E6/E7, WITH CT/NG, TRICHOMONAS Routine 05/03/2022 1:17 PM EDT from Last 3 Months or Most Recently Relevant to Health Maintenance Results * Urinalysis w/reflex microscopic (10/18/2024 1:17 AM EST) Color Urine Yellow [facility] Appearance Urine Clear [facility] PH 5.5 5.0 - 9.0 [facility] Glucose Urine UA Negative Negative mg/dL [facility] Urine Blood Negative Negative [facility] Specific [place] - Urine 1.020 1.005 - 1.025 [facility] Urine Protein Negative Neg-Trace mg/dL [facility] Urine Ketones Negative Negative mg/dL [facility] Nitrite Urine Negative Negative [facility] Leukocyte Esterase Urine Negative Negative [facility] 10/18/2024 1:17 AM EST 10/18/2024 1:19 AM EST Narrative [facility] - 10/18/2024 1:25 AM EST Urine, Clean Catch us Generic External Data Provider LAB URINE ORDERAB LES Final Result Performing Organization Address City/State/[facility] Co de Phone Number [facility] [address] [place] [address] [phone] * CT Abdomen Pelvis w/o Contrast (10/17/2024 9:06 PM EST) Anatomical Region Laterality Modality Body, Pelvis, Abdomen Computed T omography 10/17/2024 9:06 PM EST Narrative 10/17/2024 9:08 PM EST ? [facility] ?[address] ?[place] [address] ? CT Scan Report ? Signed ? Patient: Juares,Whitley ?MR#: [id number] ?? [id number] ? : 1985 ?Acct:[id number] ? Age/Sex: 39 / F ?ADM Date: 10/17/24 ? Loc: HO.ED ? Attending Dr: ? Ordering Physician: Whitley Bellamy PA ?? Date of Service: 10/17/24 ?? Procedure(s): CT abdomen pelvis wo IV con ?? Accession Number(s): [id number] ? cc: hWitley Bellamy; Arpita Saravia MD ? Report Number: ?? [id number]: Total DLP = ??392.00 mGy-cm ? CLINICAL HISTORY: R flank pain ? CT abdomen and pelvis without contrast ? Comparison: CT/SR - CT ABDOMEN PELVIS W IV CON - 11/17/22 13:58 EST ? Findings: ?? Diffuse esophageal mural thickening, nonspecific. ?? Atelectasis. ? Hepatomegaly. ?? Large colonic stool burden. ?? No bowel obstruction. ? Anteverted uterus with prominent fluid-filled uterine cavity, may be ?? physiologic. ?? Minimal sigmoid diverticulosis without diverticulitis. ?? Normal appendix. ?? Adnexal cysts noted. ?? The bones are intact. ? IMPRESSION: ?? No acute findings. ? This document has been electronically signed by: Les Juarez MD on ?? 10/17/2024 21:06:28 ? Dictated By: ?Les Juarez MD ? Signed By: ?<Electronically signed by Les Juarez MD in OV> ?10/17/242106 ? DD/ 05 ? TD/TT: 10/17/242105 ? 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 Procedure Note [place], Image - 10/17/[address] [place] [address] [address] Scan Report Signed Patient: Whitley JuaresMR#: [id number] : 1985Acct:[id number] Age/Sex: 39 / FADM Date: 10/17/24 Loc: HO.ED Attending Dr: Ordering Physician: Whitley Bellamy Date of Service: 10/17/24 Procedure(s): CT abdomen pelvis wo IV con Accession Number(s): [id number] cc: Whitley Bellamy; Arpita Saravia MD Report Number: [id number]: Total DLP = 392.00 mGy-cm CLINICAL HISTORY: R flank pain CT abdomen and pelvis without contrast Comparison: CT/SR - CT ABDOMEN PELVIS W IV CON - 11/17/22 13:58 EST Findings: Diffuse esophageal mural thickening, nonspecific. Atelectasis. Hepatomegaly. Large colonic stool burden. No bowel obstruction. Anteverted uterus with prominent fluid-filled uterine cavity, may be physiologic. Minimal sigmoid diverticulosis without diverticulitis. Normal appendix. Adnexal cysts noted. The bones are intact. IMPRESSION: No acute findings. This document has been electronically signed by: Les Juarez MD on 10/17/2024 21:06:28 Dictated By: Les Juarez MD Signed By: <Electronically signed by Les Juarez MD in OV> 10/17/242106 DD/ 05 TD/TT: 10/17/242105 [employer]: [facility] External Provider IMG CT PROCEDURES Final Result * SARS-CoV-2 RNA, Influenza A/B, and RSV RNA, Ql NAAT (10/17/2024 8:54 PM EST) Influenza A PCR NEGATIVE Negative [facility] Influenza B PCR NEGATIVE Negative [facility] Resp Syncy Virus RNA Qual PCR NEGATIVE Negative [facility] SARS COV2 PCR NEGATIVE Negative [facility] Comment:All test results mus t be correlated with clinical findings.Negative results do not preclude SARS-CoV2, influenza Avirus, influenza B virus and/or RSV infectionand should not be used as the sole basis for treatment orother patient management decisions. Negative results must becombined with clinical observations, patient history, andepidemiological information.This test has not been evaluated for monitoring treatment ofinfection.This test has been authorized by the FDA under an EmergencyUse Authorization (EUA) for use by authorized laboratories.Testing performed on the VoAPPs GeneXpert utilizingreal-time RT-PCR.All SARS CoV2 and positive influenza A/B results arereported to [facility]. 10/17/2024 8:54 PM EST 10/17/2024 8:56 PM EST Generic External Data Provider LAB MICROBIOLOGY - GENERAL ORDERABLES Final Result [facility] [address] [place] [address] [phone] * (ABNORMAL) CBC auto differential (10/17/2024 8:54 PM EST) Only the most recent of2 resultswithin the time period is included. White Blood Count 4.3(L) 4.8 - 10.8 X10*3/uL [facility] Red Blood Count 4.35 4.20 - 5.50 X10*6/uL [facility] Hemoglobin 13.4 12.0 - 16.0 g/dl [facility] Hematocrit 39.4 37.0 - 47.0 % [facility] Mean Corpuscular Volume 90.6 80.0 - 98.0 fL [facility] Mean Corpuscular Hemoglobin 30.8 27.0 - 33.0 pg [facility] Mean Corpuscular HGB Conc 34.0 31.0 - 35.0 g/dl [facility] Red Cell Distribution Width 12.0 11.0 - 16.0 % [facility] Platelet Count 266 160 - 400 X10*3/uL [facility] Mean Platelet Volume 9.2(L) 9.4 - 12.3 fL [facility] Neutrophils Percent Auto 44.6(L) 45 - 73 % [facility] Imm Gran Pct Auto 0.2 0.0 - 0.4 % [facility] Lymphocytes Percent Auto 44.2(H) 20 - 40 % [facility] Monocytes Percent Auto 8.9 2 - 11 % [facility] Eosinophils Percent Auto 1.4 0 - 4 % [facility] Basophils Percent Auto 0.7 0 - 2 % [facility] NRBC Pct Auto 0.0 0.0 - 0.2 /100WBC [facility] Neutrophils Absolute Auto 1.9(L) 2.0 - 8.3 x10*3/uL [facility] Imm Gran Abs Auto 0.01 0.00 - 0.03 X10*3/uL [facility] Lymphocytes Absolute Auto 1.9 1.2 - 4.9 X10*3/uL [facility] Monocytes Absolute Auto 0.4 0.1 - 1.2 X10*3/uL [facility] Eosinophils Absolute Auto 0.1 0.0 - 0.4 X10*3/uL [facility] Basophils Absolute Auto 0.0 0.0 - 0.2 X10*3/uL [facility] NRBC Abs Auto 0.000 0.0 - 0.012 X10*3/uL [facility] 10/17/2024 8:54 PM EST 10/17/2024 8:56 PM EST Generic External Data Provider LAB BLOOD ORDERAB LES Final Result Performing Organization Address [facility] Co de Phone Number [facility] [address] [place] [address] [phone] * hCG, Total, Quantitative (10/17/2024 8:54 PM EST) HCG Quantitative <2 mIU/mL [facility] Comment:Weeks post LMP Appro ximate hCG(Last Menstrual Period) Range (mIU/ml)3 - 4 weeks 9 - 1304 - 5 weeks 75 - 2,6005 - 6 weeks 850 - 20,8006 - 7 weeks 4000 - 100,2007 - 12 weeks 11,500 - 289,36919 - 16 weeks 18,300 - 137,99180 - 29 weeks (2nd trimester) 1,400 - 53,61151 - 41 weeks (3rd trimester) 940 - 60,000The Sandoval B- hCG assay is used for the early detection ofpregnancy; it cannot be used to diagnose any conditionunrelated to . If a B-hCG level is not supportedby the clinical evidence, results should be confirmed by analternative method (qualitative urine hCG, for example). 10/17/2024 8:54 PM EST 10/17/2024 8:56 PM EST Generic External Data Provider LAB BLOOD ORDERAB LES Final Result Performing Organization Address City/[facility]/ZIP Co de Phone Number [facility] [address] [place] [address] [phone] * Magnesium (10/17/2024 8:54 PM EST) Magnesium 2.1 1.6 - 2.6 mg/dL [facility] 10/17/2024 8:54 PM EST 10/17/2024 8:56 PM EST Generic External Data Provider LAB BLOOD ORDERAB LES Final Result Performing Organization Address City/[facility]/ZIP Co de Phone Number [facility] [address] [place] [phone] * Lipase (10/17/2024 8:54 PM EST) Only the most recent of2 resultswithin the time period is included. Lipase 24 8 - 78 U/L [facility] 10/17/2024 8:54 PM EST 10/17/2024 8:56 PM EST Generic External Data Provider LAB BLOOD ORDERAB LES Final Result Performing Organization Address [facility] Co de Phone Number [facility] [address] [place] [phone] * (ABNORMAL) Hepatic Function Panel (10/17/2024 8:54 PM EST) [facility] Bilirubin, Total 0.3 0.0 - 1.0 mg/dL [facility] Bilirubin, Direct 0.1 0.0 - 0.5 mg/dL [facility] Aspartate Amino Transferase 22 5 - 31 U/L [facility] Alanine Aminotransferase 15 0 - 31 U/L [facility] Total Protein 8.1(H) 6.5 - 8.0 g/dL [facility] Albumin Level 4.7 3.5 - 5.0 g/dL [facility] Alkaline Phosphatase 59 39 - 117 U/L [facility] 10/17/2024 8:54 PM EST 10/17/2024 8:56 PM EST Generic External Data Provider LAB BLOOD ORDERAB LES Final Result Performing Organization Address [facility] Co de Phone Number [facility] [address] [place] [phone] * (ABNORMAL) Basic Metabolic Panel (10/17/2024 8:54 PM EST) Sodium 141 135 - 145 mmol/L [facility] Potassium 4.1 3.3 - 5.1 mmol/L [facility] Chloride 110(H) 96 - 108 mmol/L [facility] Carbon Dioxide 26 22 - 29 mmol/L [facility] Anion Gap 9(L) 12 - 20 [facility] Urea Nitrogen (BUN) 9 9 - 16 mg/dL [facility] Creatinine, Serum 0.75 0.5 - 1.4 mg/dL [facility] Creatinine Clr Calc Pharmacy 93.5 [facility] Comment:Provided height and weight: 160.02 cm,65.6 kg.eGFR (calculated from the MDRD study equation) and eCrCl(calculated from the Cockcroft-Gault equation) are based ondifferent parameters and may not yield comparable results.If eCrCl result is absurd, please check patient'sheight/weight. Estimated Glomerular Filt Rate >60 [facility] Comment:Chronic Kidney Disea se: Estimated GFR < 60 mL/min/1.06e2Oefuzz Kidney Disease: Estimated GFR < 15 mL/min/1.73m2 Glucose 83 60 - 115 mg/dL [facility] Calcium 9.8 8.4 - 10.2 mg/dL [facility] 10/17/2024 8:54 PM EST 10/17/2024 8:56 PM EST Generic External Data Provider LAB BLOOD ORDERAB LES Final Result [facility] [address] [place] [phone] * (ABNORMAL) Amylase (10/16/2024 3:48 PM EST) Amylase 169(H) 28 - 100 U/L [facility] Blood Venous blood specimen / Unknown 10/16/2024 3:48 PM EST 10/16/2024 5:44 PM EST [facility] LAB BLOOD ORDERABLES Final Re sult Performing Organization Address City/[facility]/ZIP Co de Phone Number [facility] [address] [place] [phone] * (ABNORMAL) Comprehensive Metabolic Panel (10/16/2024 3:48 PM EST) Sodium 138 135 - 145 mmol/L [facility] Potassium 3.9 3.3 - 5.1 mmol/L [facility] Chloride 108 96 - 108 mmol/L [facility] Carbon Dioxide 28 22 - 29 mmol/L [facility] Anion Gap 6(L) 12 - 20 [facility] Urea Nitrogen (BUN) 9 9 - 16 mg/dL [facility] Creatinine, Serum 0.73 0.5 - 1.4 mg/dL [facility] Estimated Glomerular Filt Rate >60 [facility] Comment:Chronic Kidney Disea se: Estimated GFR < 60 mL/min/1.25j1Rzjwfc Kidney Disease: Estimated GFR < 15 mL/min/1.73m2 Glucose 74 60 - 115 mg/dL [facility] Calcium 8.8 8.4 - 10.2 mg/dL [facility] Bilirubin, Total 0.3 0.0 - 1.0 mg/dL [facility] Aspartate Amino Transferase 22 5 - 31 U/L [facility] Alanine Aminotransferase 17 0 - 31 U/L [facility] Total Protein 7.6 6.5 - 8.0 g/dL [facility] Albumin Level 4.7 3.5 - 5.0 g/dL [facility] Alkaline Phosphatase 56 39 - 117 U/L [facility] Blood Venous blood specimen / Unknown 10/16/2024 3:48 PM EST 10/16/2024 5:44 PM EST [facility] LAB BLOOD ORDERABLES Final Re sult Performing Organization Address City/[facility]/ZIP Co de Phone Number [facility] [address] [place] [phone] [phone] * Shave removal (08/28/2024 9:28 AM EST) Narrative Ben Alford MD - 08/28/2024 9:28 AM EST Ben Alford MD ? 08/28/2024 ??9:33 AM Shave removal Date/Time: 08/28/2024 9:28 AM Performed by: Ben Alford MD Authorized by: Ben Alford MD ?? Consent: ??Consent obtained: ??Written ??Consent given by: ??Patient ??Risks discussed: ??Pain and incomplete removal ??Alternatives discussed: ??Observation and delayed treatment [place] protocol: ??Procedure explained and questions answered to patient or proxy's satisfaction: yes ?Relevant documents present and verified: no ?Test results available: no ?Imaging studies available: no ?Required blood products, implants, devices, and special equipment available: no ?Site/side marked: no ?Immediately prior to procedure, a time out was called: yes ?Patient identity confirmed: ??Verbally with patient Number of Lesions: 1 Lesion 1: ??Body area: trunk ??Initial size (mm): 12 ??Final defect size (mm): 12 ??Malignancy: benign lesion ?Chemotherapy injection: yes ?? Comments: Xylocaine 1% 0.5 mL injected. ??Lot [id number] expiration date 10/28. ?? Saucerization of the lesion done. ??Electrocauterization of the base done after. ??Procedure well-tolerated. ??Instructed to use hydrogen peroxide to cleanse the area tomorrow and the following days. ??To put compression in case of bleeding after the procedure. us Ben Alford MD DERM PROCEDURE ORDERABLES F inal Result * HEPATITIS C AB W/REFL TO HCV RNA, QN, PCR (08/09/2022 9:23 AM EST) HEPATITIS C ANTIBODY NON-REACTI VE NON-REACT DONNIE [facility] INDEX 0.07 <1.00 [facility] Comment: ?? HCV antibody was non-reactive. There is no laboratory ?? evidence of HCV infection. ?? In most cases, no further action is required. However, if recent HCV exposure is suspected, a test for HCV RNA (test code 92444) is suggested. ?? For additional information please refer to http://[employer]/faq/NZC97m1 (This link is being provided for informational/ educational purposes only.) ?? 08/09/2022 9:23 AM EST Margarita Tobin CNM HISTORICAL/NON ORDERABLE LABS Final Result [facility] * THINPREP TIS PAP AND HPV mRNA E6/E7, CT/NG, TRICH (05/03/2022 1:17 PM EDT) Chlamydia trachomatis RNA, TMA, Urogenital NOT DETECTED NOT DETECTED [facility] Clinical Information: None given [facility] COMMENT SEE COMMENT [facility] Comment: The analytical performance characteristics of this assay, when used to test SurePath(TM) specimens have been determined by [employer]. The modifications have not been cleared or approved by the FDA. This assay has been validated pursuant to the CLIA regulations and is used for clinical purposes. ?? For additional information, please refer to https://[employer]/faq/ZZE449 (This link is being provided for information/ educational purposes only.) ?? COMMENT SEE COMMENT [facility] Comment: EXPLANATORY NOTE: ? The Pap is a screening test for cervical cancer. It is ?? not a diagnostic test and is subject to false negative ?? and false positive results. It is most reliable when a ?? satisfactory sample, regularly obtained, is submitted ?? with relevant clinical findings and history, and when ?? the Pap result is evaluated along with historic and ?? current clinical information. ?? COMMENT: This Pap test has been evaluated with computer assisted technology. [facility] Investigative Reporter: SEE COMMENT [facility] Comment: MAA CT(ASCP) CT screening location: [address] ??[phone] HPV nRNA E6/E7 Not Detected Not Detected [facility] [employer] Comment: Methodology: Manager Environmental Affairs-Mediated Amplification This assay detects E6/E7 viral messenger RNA (mRNA) from 14 high-risk HPV types (16,18,31,33,35,39,45,51,52,56,58,59,66,68). ? Cervical sources are required for HPV testing. If a vaginal source from a patient who has had a total hysterectomy with removal of cervix was ?? submitted, please contact the testing laboratory for alternative testing options. ?? For additional information, please refer to http://[employer]/faq/UEM337l7 (This link if provided for information/ educational purposes only.) Interpretation/Re sult: Negative for intraepithelial lesion or malignancy. [facility] LMP: 7,132,[id number] [facility] Neisseria gonorrhoeae RNA, TMA, Urogenital NOT DETECTED NOT DETECTED [facility] Prev. BX: NONE GIVEN [facility] Prev. PAP: NONE GIVEN [facility] SOURCE: None given [facility] Statement Of Adequacy: SEE COMMENT [facility] Comment: Satisfactory for evaluation. Endocervical/transformation zone component present. Trichomonas vaginalis, QL, TMA, PAP Vial NOT DETECTED NOT DETECTED [facility] Comment: The analytical performance characteristics of this assay have been determined by [employer]. The modifications have not been cleared or approved by the FDA. This assay has been validated pursuant to the CLIA regulations and is used for clinical purposes. ?? For additional information, please refer to http://[employer]/ faq/Trichomonastma (This link is being provided for information/ educational purposes only.) ?? 05/03/2022 1:17 PM EDT us Margarita PRICE LAB PATHOLOGY ORDERABLES Final Result [facility] [address] from Last 3 Months or Most Recently Relevant to Health Maintenance Insurance [facility] C3 DENTAL-[facility] MEDICAID STAND ADULT Care Teams Proprietary Trader Relationship Specialty Start Date End Date Arpita Saravia MD [address] [place] [phone] PCP - General Family Medicine 10/08/13 Eddie Pimentel FNP [address], [place] Nurse Practitioner Family Medicine 08/22/23
--- OUTSIDE RECORDS SUMMARY | 2024-10-23 10:23 | XMS_ITS | Encounter Summary ---
Author Organization [employer] Address [address] [place] [address] 7 [place] [address] Care Team Providers Care Tick Sewer Name Role Phone Arpita Saravia MD Primary Care Provider [phone] Eddie Pimentel Unavailable Unavailable Reason for Visit * Reason Onset Date Comments triage 10/21/2022 Encounter Details Date Type Department Care Team ([facility] st Contact Info) Description 10/21/2022 Telephone [facility] [address] [place] [address] Arpita Saravia MD [address] [place] [address] triage Social History Tobacco Use Types Packs/Day Years Used Date Smoking Tobacco: Never Smokeless Tobacco: Never Comments Unknown Sex and Gender Information Value Date Recorded Sex Assigned at Female 08/01/2022 10:17 AM EDT Legal Sex Female 10:17 AM EDT Gender Identity Female 08/01/2022 10:17 AM EDT Sexual Orientation Straight 08/01/2022 10 :17 AM EDT COVID-19 Exposure Response Date Recorded In the last 10 days, have yo u been in contact with someone who was confirmed or suspected to have Coronavirus/COVID-19? No / Unsure 10/24/2022 4:01 PM EST documented as of this encounter Miscellaneous Notes * Telephone Encounter - Meena Medina RN - 10/21/2022 10:04 AM EST Triage call Pt reports burning with urination. Specifically the burning occurs when the urine contacts the irritated areas . Pt reports itchiness, bad odor, thick yellow/white vaginal discharge. Ptis concerned about BV . Pt does report having several UTIs lately and has an apt with a urologist.Pt requesting an apt with provider Monday when off of work. apt with Dr. Alford 10/24 @ 400pm, Insu rena is verified as active prior to booking. Protocol Used: Vaginal Symptoms (Adult) Protocol-Based Disposition: See in Office or Video Visit within 3 Days Positive Triage Question: * Symptoms of a yeast infection (i.e., itchy, white discharge, not bad smelling) and not improved > 3 days following CARE ADVICE * All higher-acuity triage questions were negative Care Advice Discussed: * Reassurance and Education - Vaginal Yeast Infection * Genital Hygiene * Antifungal Medicine for Yeast Infection * Antifungal Medicine for Yeast Infection - Extra Notes and Warnings * Expected Course * Reasons To Call Back - Discharge becomes yellow or green - Discharge smells bad - Fever or abdomen pain occur - You become worse. * Telephone Encounter - Tanisha Coronel - 10/21/2022 9:22 AM EST Symptom: Urination Pain Outcome: Schedule a same-day appointment or talk to a nurse or provider today Reason: No high acuity concerns reported by caller The caller accepted this outcome documented in this encounter Plan of Treatment Upcoming Encounters Date Type Department Care Team ([facility] st Contact Info) Description 11/13/2024 8:45 AM EST Office Visit [facility] [address] [place] [address] Arpita Saravia MD [address] [place] [address] documented as of this encounter Visit Diagnoses Not on filedocumented in this encounter Additional Health Concerns Assessment Noted Time PHQ-9 Depression Total Score: 10 022 8:52 AM EST documented as of this encounter Care Teams Tick Sewer Relationship Specialty Start Date End Date Arpita Saravia MD [address] [place] [phone] PCP - General Family Medicine 10/08/13 Eddie Pimentel FNP [address] [place] [address] Nurse Practitioner Family Medicine 08/22/23 documented as of this encounter
--- OUTSIDE RECORDS SUMMARY | 2024-10-23 10:23 | XMS_ITS | Encounter Summary ---
Author Organization [employer] Address [address] [facility] 7 [place] [address] Care Team Providers Care Cisco Network Architect Name Role Phone Arpita Saravia MD Primary Care Provider [phone] Eddie Pimentel Unavailable Unavailable Reason for Visit * Reason Onset Date Comments triage 11/03/2022 Encounter Details Date Type Department Care Team ([facility] st Contact Info) Description 11/03/2022 Telephone [facility] [address] [place] [address] Arpita Saravia MD [address] [place] [address] triage Social History Tobacco Use Types Packs/Day [...] encounter Miscellaneous Notes * Telephone Encounter - lAta Medellin RN - 11/03/2022 4:27 PM EST Called pt to triage, spoke to pt. Pt states saw Jhonathan Pimentel on 11/01 by TC appt and was prescribed Tegretol. Pt states when she went to the [facility] to pick this up was told by the pharmacist that because she also takes Abilify, he cannot take the Tegretol due to an incompatibility. Advised will sendthis message to Jhonathan Pimentel to follow up. Pt understands and agrees with plan. * Telephone Encounter - Juan Mireles - 11/03/2022 3:09 PM EST Symptom: Medication Question Outcome: Schedule an urgent appointment (within 4 hours) or talk to a nurse or provider soon Reason: New prescription question The caller accepted this outcome documented in this encounter Plan of Treatment Upcoming Encounters Date Type Department Care Team (Late st Contact Info) Description 11/13/2024 8:45 AM EST Office Visit [facility] [address] [place] [address] Arpita Saravia MD [address] [place] [address] documented as of this encounter Visit Diagnoses Not on filedocumented in this encounter Additional Health Concerns Assessment Noted Time PHQ-9 Depression Total Score: 15 023 8:55 AM EST documented as of this encounter Care Teams Cisco Network Architect Relationship Specialty Start Date End Date Arpita Saravia MD [address] [place] [address] PCP - General Family Medicine 10/08/13 Eddie Pimentel FNP [address] [place] [address] Nurse Practitioner Family Medicine 08/22/23 documented as of this encounter
--- OUTSIDE RECORDS SUMMARY | 2024-10-23 10:23 | XMS_ITS | Encounter Summary ---
Author Organization [employer] Address [address] [facility] [address] [facility] [address] [place] [address] Care Team Providers Care Director Of Software Engineering Name Role Phone Arpita Saravia MD Primary Care Provider [phone] Eddie Pimentel Unavailable Unavailable Reason for Visit * Reason Onset Date Comments Nurse Triage 10/15/2024 Encounter Details Date Type Department Care Team (Late st Contact Info) Description 10/15/2024 Telephone [facility] MEDICINE [address] [place] [address] Arpita Saravia MD [address] [place] [address] Nurse Triage Social History Tobacco Use Types Packs/Day Years [...] encounter Miscellaneous Notes * Telephone Encounter - Debbie Johnson LPN - 10/15/2024 10:33 AM EST Triage call returned to patient who reports concerns of intermittent pain that is to the right sideand slightly below umbilicus. Pain seems to be worsened after eating.. Has no specific food triggers. No lump or bulge noted. Area is tender to touch and when present lasts for several days. No constipation and reports daily BM that are soft or mushy. Patient also feeling very easily fatigued. Has menses that are usually 4-5 days but no noted heavy bleeding. Is taking vitamin D only as previouslyprescribed. Disposition reviewed and patient in agreement with plan. ASK/F.Ellis tomorrow @3pm Multiple (2) protocols were used on this call. Disposition for Call: See in Office or Video Visit Today or Tomorrow Protocol Used: Abdominal Pain - Female (Adult) Protocol-Based Disposition: See in Office or Video Visit Today or Tomorrow Positive Triage Question: * Mild pain (e.g., does not interfere with normal activities) and pain comes and goes (cramps) lasts > 48 hours (Exception: This same abdominal pain is a chronic symptom recurrent or ongoing AND present > 4 weeks.) * All higher-acuity triage questions were negative Care Advice Discussed: * Rest * Drink Clear Fluids * Diet * Reasons To Call Back - Severe pain lasts over 1 hour - Constant pain lasts over 2 hours - You become worse Protocol Used: Weakness (Generalized) and Fatigue (Adult) Protocol-Based Disposition: See in Office or Video Visit within 3 Days Video visit not offered Positive Triage Question: * Fatigue (i.e., tires easily, decreased energy) and persists > 1 week * All higher-acuity triage questions were negative * Telephone Encounter - Charisseálvaro Ramos - 10/15/2024 10:03 AM EST Symptoms: Lethargic (Tired), Abdominal Pain - Female - Not Outcome: Schedule an appointment to be seen within 24 hours Reason: Caller denied all higher acuity questions The caller accepted this outcome. Contact pt at [phone] documented in this encounter Plan of Treatment Upcoming Encounters Date Type Department Care Team (Late st Contact Info) Description 11/13/2024 8:45 AM EST Office Visit [facility] CHC MED & PEDS [address] [place] [address] Arpita Saravia MD [address] [place] [address] documented as of this encounter Visit Diagnoses Not on filedocumented in this encounter Additional Health Concerns Assessment Noted Time PHQ-9 Depression Total Score: 6 02/19/20 24 3:02 PM EDT documented as of this encounter Care Teams Director Of Software Engineering Relationship Specialty Start Date End Date Arpita Saravia MD [address] [place] [address] PCP - General Family Medicine 10/08/13 Eddie Pimentel FNP [address] [place] [address] Nurse Practitioner Family Medicine 08/22/23 documented as of this encounter
--- OUTSIDE RECORDS SUMMARY | 2024-10-23 10:23 | XMS_ITS | Encounter Summary ---
Author Organization [employer] Address [address] [place] [address] 7 [place] [address] Care Team Providers Care Paper Stripper Name Role Phone Arpita Saravia MD Primary Care Provider [phone] Eddie Pimentel Unavailable Unavailable Reason for Referral * Imaging (Routine) - Authorized Specialty Diagnoses / Procedures Referred By Contjurgen t Referred To Contact Radiology Diagnoses Right lower quadrant abdominal pain Procedures US Abdomen Limited Jojo Sen FNP [address] [place] [address] Phone: tel: fax: [address] Phone: tel: fax: Referral ID Status Reason Start Date Expiration Date V isits Requested Visits Authorized [id number] Authorized 10/16/2024 10/16/2025 1 1 Encounter Details Date Type Department Care Team (Late st Contact Info) Description 10/16/2024 3:00 PM EST Office Visit [facility] CHC MED & PEDS [address] [place] [address] Jojo Sen FNP [address] [place] [address] Right lower quadrant abdominal pain (Primary Dx) Social History Tobacco Use Types Packs/Day Years [...] AM EDT documented as of this encounter Last Filed Vital Signs Vital Sign Reading [...] Mass Index 24.18 10/16/2024 3:16 PM EST documented in this encounter Progress Notes * [facility], FOREST NURSERY SUPERVISOR - 10/16/2024 3:00 PM EST SUBJECTIVE: Whitley Juares is a 39 y.o. year old female who presents for evaluation of persistent abdominal pain HPI Intermittent RLQ abdominal pain for several months worsening x 2 months. Describes pain as achy. No n/v/d. Reports daily loose bowel movement with occasional mucous present. No blood in stool. No light/judson colored stool. She has not noticed a strong association with certain foods--possibly worsewith greasy foods. Also reports feeling generally very tired. NO weight loss. Patient Active Problem List Diagnosis Migraine Right ear pain Bipolar affective disorder, current episode mixed (CMS/HCC) Right lower quadrant abdominal pain Adjustment disorder with mixed anxiety and depressed mood Upper respiratory tract infection Review of Systems Constitutional: Negative for fatigue, fever and unexpected weight change. Eyes: Negative for visual disturbance. Respiratory: Negative for apnea, chest tightness and shortness of breath. Cardiovascular: Negative for chest pain, palpitations and leg swelling. Gastrointestinal: Positive for abdominal pain and diarrhea. Negative for abdominal distention, blood in stool, nausea and vomiting. Neurological: Negative for dizziness, light-headedness and headaches. OBJECTIVE: Vitals: 10/16/24 1516 BP: 123/86 Pulse: 72 Resp: 20 Temp: 98.5 ??F (36.9 ??C) SpO2: 99% Physical Exam Constitutional: General: She is not in acute distress. Appearance: Normal appearance. HENT: Head: Normocephalic and atraumatic. Right Ear: External ear normal. Left Ear: External ear normal. Nose: Nose normal. Eyes: Conjunctiva/sclera: Conjunctivae normal. Cardiovascular: Rate and Rhythm: Normal rate and regular rhythm. Heart sounds: Normal heart sounds. Pulmonary: Effort: Pulmonary effort is normal. Breath sounds: Normal breath sounds. Abdominal: General: Bowel sounds are normal. Palpations: Abdomen is soft. There is no mass. Tenderness: There is abdominal tenderness. There is no guarding or rebound. Comments: Mild tenderness to palpation in RLQ Skin: General: Skin is warm and dry. Neurological: General: No focal deficit present. Mental Status: She is alert and oriented to person, place, and time. Psychiatric: Mood and Affect: Mood normal. Behavior: Behavior normal. ASSESSMENT/PLAN 1. Right lower quadrant abdominal pain (Primary) - Broad ddx to include: hepatobilliary dyfunction; IBS; IBD. Mucous stool raise concern for malabsorption including pancreatic enzyme insufficiency and celiac. Will order initial labs and abdominal ultrasound. Follow up pending results. Will consider fecal studies pending BW - ED precautions advised - 1 month follow up with PCP - Comprehensive Metabolic Panel; Future - Lipase; Future - Amylase; Future - CBC auto differential; Future - Comprehensive Metabolic Panel - Lipase - Amylase - CBC auto differential - Celiac Disease Comprehensive Panel; Future - Celiac Disease Comprehensive Panel - US Abdomen Limited; Future - US Abdomen Limited Follow Up: Current Outpatient Medications on File Prior to Visit Medication Sig Dispense Refill Ajovy 225 MG/1.5ML auto-injector DIRECTED SUBCUTANEOUS MONTHLY 30 DAYS busPIRone (Buspar) 5 MG tablet Take 1 tablet (5 mg) by mouth every 8 (eight) hours. 270 tablet 3 Cariprazine HCl 3 MG capsule Take 3 mg by mouth Once daily. 90 capsule 3 cholecalciferol (Vitamin D-3) 50 MCG (2000 UT) capsule TAKE 1 CAPSULE BY MOUTH EVERY 12 HOURS 180 capsule 1 fluticasone (Flonase) 50 MCG/ACT nasal spray SPRAY 2 SPRAYS INTO EACH NOSTRIL EVERY DAY 48 mL 0 ibuprofen 800 MG tablet Take 1 tablet by mouth every 8 (eight) hours. lisinopril 2.5 MG tablet TAKE 1 TABLET BY MOUTH IN THE MORNING 90 tablet 1 loratadine (Claritin) 10 MG tablet TAKE 1 TABLET BY MOUTH EVERY MORNING 90 tablet 1 naproxen (Naprosyn) 500 MG tablet Take 1 tablet by mouth every 12 (twelve) hours. Nirmatrelvir&Ritonavir 300/100 (Paxlovid, 300/100,) 20 x 150 MG & 10 x 100MG tablet therapypack Take 3 tablets by mouth 2 times daily. 30 each 0 ZOLMitriptan (Zomig) 5 MG tablet TAKE 1 TABLET BY MOUTH EVERY DAY NEEDED ORALLY ONCE A DAY No current facility-administered medications on file prior to visit. documented in this encounter Plan of Treatment Upcoming Encounters Date Type Department Care Team ([facility] st Contact Info) Description 11/13/2024 8:45 AM EST Office Visit [facility] CHC MED & PEDS [address] [place] [address] Arpita Saravia MD [address] [place] [address] Scheduled Orders Name Type Priority Associated Diagnoses Orde r Schedule Celiac Disease Comprehensive Panel Lab Routine Right lower quadrant abdominal pain Expected: 10/16/2024, Expires: 10/16/2025 US Abdomen Limited Imaging Routine Right lower quadrant abdominal pain Expected: 10/16/2024, Expires: 10/16/2025 documented as of this encounter Procedures Procedure Name Priority Date/Time Associated Diagnosis Comments CBC WITH AUTO DIFFERENTIAL Routine 10/16/2024 3:48 PM EST Right lower quadrant abdominal pain LIPASE Routine 10/16/2024 3:48 PM EST Right lower quadrant abdominal pain AMYLASE Routine 10/16/2024 3:48 PM EST Right lower quadrant abdominal pain COMPREHENSIVE METABOLIC PANEL Routine 10/16/2024 3:48 PM EST Right lower quadrant abdominal pain documented in this encounter Results * (ABNORMAL) CBC auto differential (10/16/2024 3:48 PM EST) White Blood Count 3.8(L) 4.8 - 10.8 X10*3/uL [facility] Red Blood Count 4.21 4.20 - 5.50 X10*6/uL [facility] Hemoglobin 12.8 12.0 - 16.0 g/dl [facility] Hematocrit 38.2 37.0 - 47.0 % [facility] Mean Corpuscular Volume 90.7 80.0 - 98.0 fL [facility] Mean Corpuscular Hemoglobin 30.4 27.0 - 33.0 pg [facility] Mean Corpuscular HGB Conc 33.5 31.0 - 35.0 g/dl [facility] Red Cell Distribution Width 12.0 11.0 - 16.0 % [facility] Platelet Count 273 160 - 400 X10*3/uL [facility] Mean Platelet Volume 9.9 9.4 - 12.3 fL [facility] Neutrophils Percent Auto 52.4 45 - 73 % [facility] Imm Gran Pct Auto 0.3 0.0 - 0.4 % [facility] Lymphocytes Percent Auto 39.4 20 - 40 % [facility] Monocytes Percent Auto 6.6 2 - 11 % [facility] Eosinophils Percent Auto 0.8 0 - 4 % [facility] Basophils Percent Auto 0.5 0 - 2 % [facility] NRBC Pct Auto 0.0 0.0 - 0.2 /100WBC [facility] Neutrophils Absolute Auto 2.0 2.0 - 8.3 x10*3/uL [facility] Imm Gran Abs Auto 0.01 0.00 - 0.03 X10*3/uL [facility] Lymphocytes Absolute Auto 1.5 1.2 - 4.9 X10*3/uL [facility] Monocytes Absolute Auto 0.3 0.1 - 1.2 X10*3/uL [facility] Eosinophils Absolute Auto 0.0 0.0 - 0.4 X10*3/uL [facility] Basophils Absolute Auto 0.0 0.0 - 0.2 X10*3/uL [facility] NRBC Abs Auto 0.000 0.0 - 0.012 X10*3/uL [facility] Blood Venous blood specimen / Unknown 10/16/2024 3:48 PM EST 10/16/2024 5:44 PM EST [facility] FOREST NURSERY SUPERVISOR LAB BLOOD ORDERABLES Final Re sult [facility] [address] [place] [address] [phone] * (ABNORMAL) Amylase (10/16/2024 3:48 PM EST) Amylase 169(H) 28 - 100 U/L [facility] Blood Venous blood specimen / Unknown 10/16/2024 3:48 PM EST 10/16/2024 5:44 PM EST [facility] LAB BLOOD ORDERABLES Final Re sult Performing Organization Address City/[facility]/ZIP Co de Phone Number [facility] [address] [place] [address] [phone] * Lipase (10/16/2024 3:48 PM EST) Lipase 23 8 - 78 U/L [facility] Blood Venous blood specimen / Unknown 10/16/2024 3:48 PM EST 10/16/2024 5:44 PM EST [facility] LAB BLOOD ORDERABLES Final Re sult Performing Organization Address [facility] Co de Phone Number [facility] [address] [place] [address] [phone] * (ABNORMAL) Comprehensive Metabolic Panel (10/16/2024 3:48 PM EST) Sodium 138 135 - 145 mmol/L [facility] Potassium 3.9 3.3 - 5.1 mmol/L [facility] Chloride 108 96 - 108 mmol/L [facility] Carbon Dioxide 28 22 - 29 mmol/L [facility] Anion Gap 6(L) 12 - 20 [facility] Urea Nitrogen (BUN) 9 9 - 16 mg/dL [facility] Creatinine, Serum 0.73 0.5 - 1.4 mg/dL [facility] Estimated Glomerular Filt Rate >60 [facility] Comment:Chronic Kidney Disea se: Estimated GFR < 60 mL/min/1.47h5Bvyofv Kidney Disease: Estimated GFR < 15 mL/min/1.73m2 Glucose 74 60 - 115 mg/dL [facility] Calcium 8.8 8.4 - 10.2 mg/dL [facility] Bilirubin, Total 0.3 0.0 - 1.0 mg/dL [facility] Aspartate Amino Transferase 22 5 - 31 U/L [facility] Alanine Aminotransferase 17 0 - 31 U/L [facility] Total Protein 7.6 6.5 - 8.0 g/dL [facility] Albumin Level 4.7 3.5 - 5.0 g/dL [facility] Alkaline Phosphatase 56 39 - 117 U/L [facility] Blood Venous blood specimen / Unknown 10/16/2024 3:48 PM EST 10/16/2024 5:44 PM EST [facility] LAB BLOOD ORDERABLES Final Re sult [facility] [address] [place] [address] [phone] documented in this encounter Visit Diagnoses Diagnosis Right lower quadrant abdominal pain- Primary documented in this encounter Additional Health Concerns Assessment Noted Time PHQ-9 Depression Total Score: 6 02/19/20 24 3:02 PM EDT documented as of this encounter Care Teams Paper Stripper Relationship Specialty Start Date End Date Arpita Saravia MD [address] [place] [address] PCP - General Family Medicine 10/08/13 Eddie Pimentel FNP [address] [place] [address] Nurse Practitioner Family Medicine 08/22/23 documented as of this encounter
--- OUTSIDE RECORDS SUMMARY | 2024-10-23 10:23 | XMS_ITS | Encounter Summary ---
Author Organization [employer] Address [address] [place] [address] Care Team Providers Care Wood Grinder Operator Name Role Phone Arpita Saravia MD Primary Care Provider [phone] Eddie Pimentel Unavailable Unavailable Reason for Visit * Reason Onset Date Comments Nurse Triage 10/24/2023 Encounter Details Date Type Department Care Team (Late st Contact Info) Description 10/24/2023 Telephone [facility] MEDICINE [address] [place] [address] Arpita Saravia MD [address] [place] [address] Nurse Triage Social History Tobacco Use Types Packs/Day Years Used Date Smoking Tobacco: Never Passive Smoke Exposure: Never Smokeless Tobacco: Never Depression Answer Date Recorded Patient Health Questionnaire-9 Score 5 10/19/2023 Patient Health Questionnaire-9 Score 5 10/19/2023 Last PHQ-9: Questionnaire Data Not on file 0 10/19/2023 Housing Stability Answer Date Recorded What is [...] Date Recorded Patient Health Questionnaire-2 Score 2 10/19/2023 Comments No Sex and Gender Information Value Date Recorded Sex Assigned at Female 08/01/2022 10:17 AM EDT Legal Sex Female 10:17 AM EDT Gender Identity Female 08/01/2022 10:17 AM EDT Sexual Orientation Straight 08/01/2022 10 :17 AM EDT documented as of this encounter Miscellaneous Notes * Telephone Encounter - Meena Medina RN - 10/24/2023 10:42 AM EST Triage call Pt has had some nasal /sinus congestion and headache for 3 days or more now. Pt reportsears feel congested as well. Pt reports facial pain. Neg for fever. Tested negative with home covidtest today. Neg for cough. Pt is taking tussin to help with congestion. Pt reports drinking adequate liquids. Home care advised, tylenol/motrin for discomfort, warm liquids, humidifier, warm compresses to face . Pt came home from work today due to discomfort. Apt with Dr. Ly 10/25/23 at 400pm.Insurance is verified as active prior to booking. Protocol Used: Sinus Pain or Congestion (Adult) Protocol-Based Disposition: See in Office or Video Visit Today or Tomorrow Video visit not offered Positive Triage Questions: * Sinus congestion (pressure, fullness) present > 10 days * Patient wants to be seen * All higher-acuity triage questions were negative * Telephone Encounter - Ilan Gray - 10/24/2023 9:03 AM EST Symptoms: Chest Congestion, Headache Outcome: Schedule an urgent appointment (within 4 hours) or talk to a nurse or provider soon Reason: Started within the past 3 days The caller accepted this outcome documented in this encounter Plan of Treatment Upcoming Encounters Date Type Department Care Team (Late st Contact Info) Description 11/13/2024 8:45 AM EST Office Visit [facility] MED & PEDS [address] [place] [address] Arpita Saravia MD [address] [place] [address] documented as of this encounter Visit Diagnoses Not on filedocumented in this encounter Additional Health Concerns Assessment Noted Time PHQ-9 Depression Total Score: 5 10/19/19 24 3:32 PM EST documented as of this encounter Care Teams Wood Grinder Operator Relationship Specialty Start Date End Date Arpita Saravia MD [address] [place] [address] PCP - General Family Medicine 10/08/13 Eddie Pimentel FNP [address] [place] [phone] Nurse Practitioner Family Medicine 08/22/23 documented as of this encounter
--- OUTSIDE RECORDS SUMMARY | 2024-10-23 10:23 | XMS_ITS | Encounter Summary ---
Author Organization [employer] Address [address] [place] [address] Care Team Providers Care Selling Underwriter Name Role Phone Arpita Saravia MD Primary Care Provider Eddie Pimentel Unavailable Unavailable Encounter Details Date Type Department Care Team (Late st Contact Info) Description 10/18/2024 Orders Only GENERIC EXTERNAL DATA DEPARTMENT Provider, Generic External Data Social History Tobacco Use Types Packs/Day Years [...] AM EDT documented as of this encounter Plan of Treatment Upcoming Encounters Date Type Department Care Team (Late st Contact Info) Description 11/13/2024 8:45 AM EST Office Visit [facility] MED & PEDS [address] [place] [address] Arpita Saravia MD [address] [place] [address] documented as of this encounter Procedures Procedure Name Priority Date/Time Associated Diagnosis Comments URINALYSIS WITH REFLEX MICROSCOPIC Routine 10/18/2024 1:17 AM EST documented in this encounter Results * Urinalysis w/reflex microscopic (10/18/2024 1:17 AM EST) Color Urine Yellow [facility] Appearance Urine Clear [facility] PH 5.5 5.0 - 9.0 [facility] Glucose Urine UA Negative Negative mg/dL [facility] Urine Blood Negative Negative [facility] Specific [place] - Urine 1.020 1.005 - 1.025 [facility] Urine Protein Negative Neg-Trace mg/dL [facility] Urine Ketones Negative Negative mg/dL [facility] Nitrite Urine Negative Negative [facility] Leukocyte Esterase Urine Negative Negative [facility] 10/18/2024 1:17 AM EST 10/18/2024 1:19 AM EST Narrative [facility] - 10/18/2024 1:25 AM EST Urine, Clean Catch us Generic External Data Provider LAB URINE ORDERAB LES Final Result [facility] [address] [place] [address] [phone] documented in this encounter Visit Diagnoses Not on filedocumented in this encounter Additional Health Concerns Assessment Noted Time PHQ-9 Depression Total Score: 6 02/19/20 24 3:02 PM EDT documented as of this encounter Care Teams Selling Underwriter Relationship Specialty Start Date End Date Arpita Saravia MD [address] [place] [address] PCP - General Family Medicine 10/08/13 Eddie Pimentel FNP [address] [place] [address] Nurse Practitioner Family Medicine 08/22/23 documented as of this encounter
--- OUTSIDE RECORDS SUMMARY | 2024-10-23 10:23 | XMS_ITS | Encounter Summary ---
Author Organization [employer] Address [address] [place] [address] Care Team Providers Care Radioisotope Technologist Name Role Phone Arpita Saravia MD Primary Care Provider [phone] Eddie Pimentel Unavailable Unavailable Encounter Details Date Type Department Care Team (Latest Contact Info) Description 10/22/2024 Travel Social History Tobacco Use Types Packs/Day Years [...] Description 11/13/2024 8:45 AM EST Office Visit [facility] MED & PEDS [address] [place] [address] Arpita Saravia MD [address] [place] [address] documented as of this encounter Visit Diagnoses Not on filedocumented in this encounter Additional Health Concerns Assessment Noted Time PHQ-9 Depression Total Score: 6 02/19/20 24 3:02 PM EDT documented as of this encounter Care Teams Radioisotope Technologist Relationship Specialty Start Date End Date Arpita Saravia MD [address] [place] [address] PCP - General Family Medicine 10/08/13 Eddie Pimentel FNP [address] [place] [address] Nurse Practitioner Family Medicine 08/22/23 documented as of this encounter
--- OUTSIDE RECORDS SUMMARY | 2024-10-23 10:23 | XMS_ITS | Encounter Summary ---
Author Organization [employer] Address [address] [facility] 7 [place] [address] Care Team Providers Care Financial Compliance Examiner Name Role Phone Arpita Saravia MD Primary Care Provider Eddie Pimentel Unavailable Unavailable Reason for Visit * Reason Onset Date Comments Nurse Triage 10/18/2024 Encounter Details Date Type Department Care Team ([facility] st Contact Info) Description 10/18/2024 Telephone [facility]S [address] [place] [address] Arpita Saravia MD [address] [place] [address] Nurse Triage Social History Tobacco Use Types [...] Encounter - Edith Day RN - 10/22/2024 11:15 AM EST Tc to pt to let [...] celiac screening. Pt advised to go to [facility] lab, [facility] or [facility] to have their blood work completed. Informed pt our office will call back once we have the new results and pt verbalized understanding. * Telephone Encounter - Edith Day RN - 10/22/2024 11:15 AM EST ----- Message from [facility] sent at 10/18/2024 3:43 PM EST ----- [...] follow up with Dr. Saravia. Thank you! * Telephone Encounter - Roberta Valdez RN - 10/18/2024 12:19 PM EST Called pt. She states that she has been calling the [facility] office to get blood work results and get a call from PCP. Pt states she went [facility] yesterday and had CT scan done which they told her that sheis full of stool. Pt. [facility] ED for over 8 hours she states for right sided abdominal pain and she states They told me that there is nothing wrong in my blood work and that I'm full of poop, gave me miriLax to take and sent me on my way . Pt states that she has normal BM's daily in am. Pt states she still has right sided abdominal pain near belly button and her BP has been high. [place] [facility] [place] that BP was around 150/104 and the provider did not think that was a big deal . Today pt. BP 136/98 this am 127/97 most recent right now. Pt is feeling dizzy and nauseous and is still hav ing pain in right side of abdomen. Pt. Denies any chest pain, SOB , left arm or shoulder pain, or any jaw pain. I see some of pt's lab results are elevated especially Amylase reading and results of Abdominal CT does state findings of Hepatomegaly, Atelectasis, Large colonic stool burden but final result states no acute findings. I advised pt. To go back to ED for another work up since she is still having pain, BP is high with side effects of dizziness and nausea. Pt. In agreement but will call ambulance and have them bring her to [facility] instead. Pt. Also states tht she never got results of Mole biopsy and I looked it up and it states next to Malignancy: Benign lesion which I told pt. I will send this note to PCP and [facility] nurses to let them know pt. Is going back to [facility] ED today for re evaluation of pain and high blood pressure with dizziness and nausea. To reach out to pt. Protocol Used: Abdominal Pain - Female (Adult) Protocol-Based Disposition: Go to ED Now Positive Triage Question: * Severe abdominal pain (e.g., excruciating) * All higher-acuity triage questions were negative Care Advice Discussed: * Rest * Drink Clear Fluids * Pass a Stool Protocol Used: Blood Pressure - High (Adult) Protocol-Based Disposition: See in Office or Video Visit within 3 Days Video visit not offered Positive Triage Question: * Systolic BP >= 160 OR Diastolic >= 100 * All higher-acuity triage questions were negative * Telephone Encounter - Tanisha Coronel - 10/18/2024 12:14 PM EST Symptom: Abdominal Pain, dizziness and high blood pressure - Female - Not Outcome: Schedule an urgent appointment (within 4 hours) or talk to a nurse or provider soon Reason: Getting worse The caller accepted this outcome. documented in this encounter Plan of Treatment Upcoming Encounters Date Type Department Care Team (Late st Contact Info) Description 11/13/2024 8:45 AM EST Office Visit [facility] [address] [place] [address] Arpita Saravia MD [address] [place] [address] documented as of this encounter Visit Diagnoses Not on filedocumented in this encounter Additional Health Concerns Assessment Noted Time PHQ-9 Depression Total Score: 6 02/19/20 24 3:02 PM EDT documented as of this encounter Care Teams Financial Compliance Examiner Relationship Specialty Start Date End Date Arpita Saravia MD [address] [place] [id number] PCP - General Family Medicine 10/08/13 Eddie Pimentel FNP [address] [place] [address] Nurse Practitioner Family Medicine 08/22/23 documented as of this encounter
--- OUTSIDE RECORDS SUMMARY | 2024-10-23 10:23 | XMS_ITS | Encounter Summary ---
Author Organization [employer] Address [address] [facility] 7 [place] [address] Care Team Providers Care Weaver Dobby Loom Name Role Phone Arpita Saravia MD Primary Care Provider [phone] Eddie Pimentel Unavailable Unavailable Reason for Visit * Reason Onset Date Comments Results 10/17/2024 Encounter Details Date Type Department Care Team ([facility] st Contact Info) Description 10/17/2024 Telephone [facility] MEDICINE [address] [place] [address] Arpita Saravia MD [address] [place] [address] Results Social History Tobacco Use Types Packs/Day [...] encounter Miscellaneous Notes * Telephone Encounter - Angle Lopez RN - 10/17/2024 11:02 AM EST Please advise on lab results from yesterday. * Telephone Encounter - Elroy Kraft - 10/17/2024 10:55 AM EST TC from pt requesting call back regarding Results. Type of results: labs Date when done: 10/16/23 Facility: [facility] documented in this encounter Plan of Treatment Upcoming Encounters Date Type Department Care Team (Late st Contact Info) Description 11/13/2024 8:45 AM EST Office Visit [facility] MED & PEDS [address] [place] [address] Arpita Saarvia MD [address] [place] [address] documented as of this encounter Visit Diagnoses Not on filedocumented in this encounter Additional Health Concerns Assessment Noted Time PHQ-9 Depression Total Score: 6 02/19/20 3:02 PM EDT documented as of this encounter Care Teams Weaver Dobby Loom Relationship Specialty Start Date End Date Arpita Saravia MD [address] [place] [phone] PCP - General Family Medicine 10/08/13 Eddie Pimentel FNP [address] [place] [address] Nurse Practitioner Family Medicine 08/22/23 documented as of this encounter
--- OUTSIDE RECORDS SUMMARY | 2024-10-23 10:23 | XMS_ITS | Encounter Summary ---
Author Organization [employer] Address [address] [facility] [address] [place] [address] Care Team Providers Care Relocation Manager Name Role Phone Arpita Saravia MD Primary Care Provider [phone] Eddie Pimentel Unavailable Unavailable Encounter Details Date Type Department Care Team (Latest Contact Info) Description 10/16/2024 Travel Social History Tobacco Use Types Packs/Day [...] Description 11/13/2024 8:45 AM EST Office Visit [facility] MED & PEDS [address] [place] [address] Arpita Saravia MD [address] [place] [address] documented as of this encounter Visit Diagnoses Not on filedocumented in this encounter Additional Health Concerns Assessment Noted Time PHQ-9 Depression Total Score: 6 02/19/20 24 3:02 PM EDT documented as of this encounter Care Teams Relocation Manager Relationship Specialty Start Date End Date Arpita Saravia MD [address] [place] [address] PCP - General Family Medicine 10/08/13 Eddie Pimentel FNP [address] [place] [address] Nurse Practitioner Family Medicine 08/22/23 documented as of this encounter
--- OUTSIDE RECORDS SUMMARY | 2024-10-23 10:23 | XMS_ITS | Encounter Summary ---
Author Organization [employer] Address [address] [place] [address] 7 [place] [address] Care Team Providers Care Implant Polisher Name Role Phone Arpita Saravia MD Primary Care Provider [phone] Eddie Pimentel Unavailable Unavailable Reason for Referral * Consultation (Routine) - Authorized Specialty Diagnoses / Procedures Referred By Contac t Referred To Contact Pulmonary Disease Diagnoses Pulmonary emphysema, unspecified emphysema type (CMS/HCC) Arpita Saravia MD [address] [place], [place] Phone: tel: fax: Diego Albarran [address] [place] [address] Phone: tel: fax: Referral ID Status Reason Start Date Expiration Date Visits Requested Visits Authorized [id number] Authorized Specialty Services Required 10/22/2024 10/22/2025 1 1 * Consultation (Routine) - Authorized Specialty Diagnoses / Procedures Referred By Contac t Referred To Contact Gastroenterology Diagnoses Right lower quadrant abdominal pain Arpita Saravia MD [address] [place], [place] Phone: tel: fax: Ryan Guerin MD [address] [place] [address] Phone: tel: fax: Referral ID Status Reason Start Date Expiration Date Visits Requested Visits Authorized [id number] Authorized Specialty Services Required 10/22/2024 10/22/2025 1 1 Reason for Visit * Reason Comments Labs Only Encounter Details Date Type Department Care Team ([facility] st Contact Info) Description 10/22/2024 9:00 AM EST Telemedicine [facility]S [address] [place] [address] Arpita Saravia MD [address] [place] [address] Right lower quadrant abdominal pain (Primary Dx); Vitamin D deficiency; Chronic fatigue; Pulmonary emphysema, unspecified emphysema type (CMS/HCC) Social History Tobacco Use Types Packs/Day Years [...] AM EDT documented as of this encounter Progress Notes * Arpita Saravia MD - 10/22/2024 9:00 AM EST Subjective Patient ID: Whitley Juares is a 39 y.o. female who presents for Labs Only. Fatigue This is a chronic problem. The current episode started more than 1 year ago. The problem occurs constantly. Associated symptoms include fatigue. Pertinent negatives include no abdominal pain, anorexia, arthralgias, change in bowel habit, chest pain, chills, headaches, neck pain, rash, sore throat, swollen glands, urinary symptoms or vertigo. Nothing aggravates the symptoms. She has tried nothing for the symptoms. Review of Systems Constitutional: Positive for fatigue. Negative for chills. HENT: Negative for sore throat. Respiratory: Negative. Negative for shortness of breath. Cardiovascular: Negative for chest pain and palpitations. Gastrointestinal: Negative. Negative for abdominal pain, anorexia and change in bowel habit. Genitourinary: Negative. Musculoskeletal: Negative for arthralgias and neck pain. Skin: Negative for rash. Neurological: Negative for vertigo and headaches. Objective Physical Exam Psychiatric: Mood and Affect: Mood normal. Behavior: Behavior normal. Thought Content: Thought content normal. Judgment: Judgment normal. Assessment/Plan Diagnoses and all orders for this visit: Right lower quadrant abdominal pain Comments: CT reviewed in deatil Referred to GI More labs ordered Orders: - Basic Metabolic Panel; Future - Lipid Panel, Standard; Future - Hepatic Function Panel; Future - CBC auto differential; Future - Celiac Disease Comprehensive Panel; Future - Referral to Gastroenterology; Future Vitamin D deficiency Comments: Labs ordered Cont Vit D Orders: - Vitamin D, 25-Hydroxy, Total, Immunoassay; Future Chronic fatigue Comments: More labs ordered to narrow down the etiology of fatigue Advised daily multivitamins Orders: - Vitamin B12/Folate, Serum Panel; Future - TSH W/Reflex to FT4; Future Pulmonary emphysema, unspecified emphysema type (CMS/HCC) Comments: Referred to Pulm Orders: - Referral to Pulmonology; Future documented in this encounter Plan of Treatment Upcoming Encounters Date Type Department Care Team (Late st Contact Info) Description 11/13/2024 8:45 AM EST Office Visit [facility] PEDS [address] [place] [address] Arpita Saravia MD [address] [place] [address] Scheduled Orders Name Type Priority Associated Diagnoses Orde r Schedule Basic Metabolic Panel Lab Routine Right lower quadrant abdominal pain Expected: 10/22/2024 (Approximate), Expires: 10/22/2025 Lipid Panel, Standard Lab Routine Right lower quadrant abdominal pain Expected: 10/22/2024 (Approximate), Expires: 10/22/2025 Hepatic Function Panel Lab Routine Right lower quadrant abdominal pain Expected: 10/22/2024 (Approximate), Expires: 10/22/2025 CBC auto differential Lab Routine Right lower quadrant abdominal pain Expected: 10/22/2024 (Approximate), Expires: 10/22/2025 Vitamin D, 25-Hydroxy, Total, Immunoassay Lab Routine Vitamin D deficiency Expected: 10/22/2024 (Approximate), Expires: 10/22/2025 Vitamin B12/Folate, Serum Panel Lab Routine Chronic fatigue Expected: 10/22/2024, Expires: 10/22/2025 Celiac Disease Comprehensive Panel Lab Routine Right lower quadrant abdominal pain Expected: 10/22/2024, Expires: 10/22/2025 TSH W/Reflex to FT4 Lab Routine Chronic fatigue Expected: 10/22/2024 (Approximate), Expires: 10/22/2025 Scheduled Referrals Name Type Priority Associated Diagnoses Order Schedule Referral to Gastroenterology Outpatient Referral Routine Right lower quadrant abdominal pain Expected: 10/22/2024 (Approximate), Expires: 10/22/2025 Referral to Pulmonology Outpatient Referral Routine Pulmonary emphysema, unspecified emphysema type (CMS/HCC) Expected: 10/22/2024 (Approximate), Expires: 10/22/2025 documented as of this encounter Visit Diagnoses Diagnosis Right lower quadrant abdominal pain- Primary Vitamin D deficiency Chronic fatigue Other malaise and fatigue Pulmonary emphysema, unspecified emphysema type (CMS/HCC) documented in this encounter Additional Health Concerns Assessment Noted Time PHQ-9 Depression Total Score: 6 02/19/20 24 3:02 PM EDT documented as of this encounter Care Teams Implant Polisher Relationship Specialty Start Date End Date Arpita Saravia MD [address] [place] [address] PCP - General Family Medicine 10/08/13 Eddie Pimentel FNP [address] [place] [address] Nurse Practitioner Family Medicine 08/22/23 documented as of this encounter
--- OUTSIDE RECORDS SUMMARY | 2024-10-23 10:23 | XMS_ITS | Encounter Summary ---
Author Organization [employer] Address [address] [place] [address] Care Team Providers Care Attraction Attendant Name Role Phone Arpita Saravia MD Primary Care Provider [phone] Eddie Pimentel Unavailable Unavailable Encounter Details Date Type Department Care Team (Late st Contact Info) Description 10/17/2024 Orders Only [facility] External Provider, [facility] Social History Tobacco Use Types Packs/Day Years [...] Upcoming Encounters Date Type Department Care Team ([facility] st Contact Info) Description 11/13/2024 8:45 AM EST Office Visit [facility] MED & PEDS [address] [place] [address] Arpita Saravia MD [address] [place] [address] documented as of this encounter Procedures Procedure Name Priority Date/Time Associated Diagnosis Comments CT ABDOMEN PELVIS WO CONTRAST Routine 10/17/2024 9:06 PM EST SARS COV2/INFLUENZA A/B AND RSV RNA QL NAAT Routine 10/17/2024 8:54 PM EST CBC WITH AUTO DIFFERENTIAL Routine 10/17/2024 8:54 PM EST HCG, TOTAL, QN Routine 10/17/2024 8:54 PM EST MAGNESIUM Routine 10/17/2024 8:54 PM EST LIPASE Routine 10/17/2024 8:54 PM EST HEPATIC FUNCTION PANEL Routine 10/17/2024 8:54 PM EST BASIC METABOLIC PANEL Routine 10/17/2024 8:54 PM EST documented in this encounter Results * CT Abdomen Pelvis w/o Contrast (10/17/2024 9:06 PM EST) Anatomical Region Laterality Modality Body, Pelvis, Abdomen Computed T omography 10/17/2024 9:06 PM EST Narrative 10/17/2024 9:08 PM EST ? [facility] ?[address] ?[place] [address] ? CT Scan Report ? Signed ? Patient: Juares,Whitley ?MR#: [id number] ?? [id number] ? : 1985 ?Acct:[id number] ? Age/Sex: 39 / F ?ADM Date: 10/17/24 ? Loc: HO.ED ? Attending Dr: ? Ordering Physician: Whitley Bellamy ?? Date of Service: 10/17/24 ?? Procedure(s): CT abdomen pelvis wo IV con ?? Accession Number(s): [id number] ? cc: Whitley Bellamy; Arpita Saravia MD ? Report Number: ?? [id number]: Total DLP = ??392.00 mGy-cm ? CLINICAL [...] on ?? 10/17/2024 21:06:28 ? Dictated By: ?Ann,Les MD ? Signed By: ?<Electronically signed by Les Juarez MD in OV> ?10/17/242106 ? DD/ 05 ? TD/TT: 10/17/242105 ? Curtain Stitcher: ? Procedure Note Janice Francis - 10/17/[address] [address] [address] Scan Report Signed Patient: Whitley JuaresMR#: [id number] : 1985Acct:[id number] Age/Sex: 39 / FADM Date: 10/17/24 Loc: HO.ED Attending Dr: Ordering Physician: Whitley Bellamy Date of Service: 10/17/24 Procedure(s): CT abdomen pelvis wo IV con Accession Number(s): [id number] cc: Whitley Bellamy; Arpita Saravia MD Report Number: [id number]: Total DLP = 392.00 mGy-cm CLINICAL HISTORY: [...] in OV> 10/17/242106 DD/ 05 TD/TT: 10/17/242105 Curtain Stitcher: [facility] External Provider IMG CT PROCEDURES Final Result * SARS-CoV-2 RNA, Influenza A/B, and RSV RNA, Ql NAAT (10/17/2024 8:54 PM EST) Influenza A PCR NEGATIVE Negative [facility] Influenza B PCR NEGATIVE Negative [facility] Resp Syncy Virus RNA Qual PCR NEGATIVE Negative [facility] SARS COV2 PCR NEGATIVE Negative [facility] Comment:All test results mus t be [...] use by authorized laboratories.Testing performed on the [employer] GeneXpert utilizingreal-time RT-PCR.All SARS CoV2 and positive influenza A/B results arereported to [facility]. 10/17/2024 8:54 PM EST 10/17/2024 8:56 PM EST Generic External Data Provider LAB MICROBIOLOGY - GENERAL ORDERABLES Final Result Performing Organization Address [facility]/ZIP Co de Phone Number [facility] [address] [place] [phone] * hCG, Total, Quantitative (10/17/2024 8:54 PM EST) HCG Quantitative <2 mIU/mL [facility] Comment:Weeks post LMP Appro ximate hCG(Last Menstrual Period) Range (mIU/ml)3 - 4 weeks 9 - 1304 - 5 weeks 75 - 2,6005 - 6 weeks 850 - 20,8006 - 7 weeks 4000 - 100,2007 - 12 weeks 11,500 - 289,06102 - 16 weeks 18,300 - 137,72708 - 29 weeks (2nd trimester) 1,400 - 53,48112 - 41 weeks (3rd trimester) 940 - [...] ORDERAB LES Final Result Performing Organization Address [facility] Co de Phone Number [facility] [address] [place] [phone] * Lipase (10/17/2024 8:54 PM EST) Lipase 24 8 - 78 U/L [facility] 10/17/2024 8:54 PM EST 10/17/2024 8:56 PM EST us Generic External Data Provider LAB BLOOD ORDERAB LES Final Result Performing Organization Address City/[facility]/ZIP Co de Phone Number [facility] [address] [place] [phone] * Magnesium (10/17/2024 8:54 PM EST) Magnesium 2.1 1.6 - 2.6 mg/dL [facility] 10/17/2024 8:54 PM EST 10/17/2024 8:56 PM EST Generic External Data Provider LAB BLOOD ORDERAB LES Final Result Performing Organization Address [facility] Co de Phone Number [facility] [address] [place] [phone] [phone] * (ABNORMAL) Basic Metabolic Panel (10/17/2024 8:54 PM EST) Sodium 141 135 - 145 mmol/L [facility] Potassium 4.1 3.3 - 5.1 mmol/L [facility] Chloride 110(H) 96 - 108 mmol/L [facility] Carbon Dioxide 26 22 - 29 mmol/L [facility] Anion Gap 9(L) 12 - 20 [facility] Urea Nitrogen (BUN) 9 9 - 16 mg/dL [facility] Creatinine, Serum 0.75 0.5 - 1.4 mg/dL [facility] Creatinine Clr Calc Pharmacy 93.5 [facility] Comment:Provided height and weight: 160.02 cm,65.6 kg.eGFR (calculated from the MDRD study equation) and eCrCl(calculated from the Cockcroft-Gault equation) are based ondifferent parameters and may not yield comparable results.If eCrCl result is absurd, please check patient'sheight/weight. Estimated Glomerular Filt Rate >60 [facility] Comment:Chronic Kidney Disea se: Estimated GFR < 60 mL/min/1.04p5Cycskl Kidney Disease: Estimated GFR < 15 mL/min/1.73m2 Glucose 83 60 - 115 mg/dL [facility] Calcium 9.8 8.4 - 10.2 mg/dL [facility] 10/17/2024 8:54 PM EST 10/17/2024 8:56 PM EST Generic External Data Provider LAB BLOOD ORDERAB LES Final Result Performing Organization Address [facility] Co de Phone Number [facility] [address] [place] [phone] * (ABNORMAL) Hepatic Function Panel (10/17/2024 8:54 PM EST) Bilirubin, Total 0.3 0.0 - 1.0 mg/dL [facility] Bilirubin, Direct 0.1 0.0 - 0.5 mg/dL [facility] Aspartate Amino Transferase 22 5 - 31 U/L [facility] Alanine Aminotransferase 15 0 - 31 U/L [facility] Total Protein 8.1(H) 6.5 - 8.0 g/dL [facility] Albumin Level 4.7 3.5 - 5.0 g/dL [facility] Alkaline Phosphatase 59 39 - 117 U/L [facility] 10/17/2024 8:54 PM EST 10/17/2024 8:56 PM EST Generic External Data Provider LAB BLOOD ORDERAB LES Final Result Performing Organization Address [facility] Co de Phone Number [facility] [address] [place] [phone] * (ABNORMAL) CBC auto differential (10/17/2024 8:54 PM EST) White Blood Count 4.3(L) 4.8 - 10.8 X10*3/uL [facility] Red Blood Count 4.35 4.20 - 5.50 X10*6/uL [facility] Hemoglobin 13.4 12.0 - 16.0 g/dl [facility] Hematocrit 39.4 37.0 - 47.0 % [facility] Mean Corpuscular Volume 90.6 80.0 - 98.0 fL [facility] Mean Corpuscular Hemoglobin 30.8 27.0 - 33.0 pg [facility] Mean Corpuscular HGB Conc 34.0 31.0 - 35.0 g/dl [facility] Red Cell Distribution Width 12.0 11.0 - 16.0 % [facility] Platelet Count 266 160 - 400 X10*3/uL [facility] Mean Platelet Volume 9.2(L) 9.4 - 12.3 fL [facility] Neutrophils Percent Auto 44.6(L) 45 - 73 % [facility] Imm Gran Pct Auto 0.2 0.0 - 0.4 % [facility] Lymphocytes Percent Auto 44.2(H) 20 - 40 % [facility] Monocytes Percent Auto 8.9 2 - 11 % [facility] Eosinophils Percent Auto 1.4 0 - 4 % [facility] Basophils Percent Auto 0.7 0 - 2 % [facility] NRBC Pct Auto 0.0 0.0 - 0.2 /100WBC [facility] Neutrophils Absolute Auto 1.9(L) 2.0 - 8.3 x10*3/uL [facility] Imm Gran Abs Auto 0.01 0.00 - 0.03 X10*3/uL [facility] Lymphocytes Absolute Auto 1.9 1.2 - 4.9 X10*3/uL [facility] Monocytes Absolute Auto 0.4 0.1 - 1.2 X10*3/uL [facility] Eosinophils Absolute Auto 0.1 0.0 - 0.4 X10*3/uL [facility] Basophils Absolute Auto 0.0 0.0 - 0.2 X10*3/uL [facility] NRBC Abs Auto 0.000 0.0 - 0.012 X10*3/uL [facility] 10/17/2024 8:54 PM EST 10/17/2024 8:56 PM EST us Generic External Data Provider LAB BLOOD ORDERAB LES Final Result [facility] [address] [place] [phone] documented in this encounter Visit Diagnoses Not on filedocumented in this encounter Additional Health Concerns Assessment Noted Time PHQ-9 Depression Total Score: 6 02/19/20 24 3:02 PM EDT documented as of this encounter Care Teams Attraction Attendant Relationship Specialty Start Date End Date Arpita Saravia MD [address] [place] [address] PCP - General Family Medicine 10/08/13 Eddie Pimentel FNP [address] [place] [address] Nurse Practitioner Family Medicine 08/22/23 documented as of this encounter
[2024-10-23 14:08] LABS: MANUAL DIFF FLAG NO
[2024-10-23 14:10] LABS: Basophils Percent Auto 0.4 % (0-2); Eosinophils Percent Auto 0.4 % (0-4); Hematocrit 37.5 % (37.0-47.0); Hemoglobin 12.7 g/dl (12.0-16.0); Imm Gran Abs Auto 0.02 X10*3/uL (0.00-0.03); Imm Gran Pct Auto 0.4 % (0.0-0.4); Lymphocytes Absolute Auto 0.9 X10*3/uL (1.2-4.9); Lymphocytes Percent Auto 17.6 % (20-40); Mean Corpuscular HGB Conc 33.9 g/dl (31.0-35.0); Mean Corpuscular Volume 91.5 fL (80.0-98.0); Monocytes Absolute Auto 0.3 X10*3/uL (0.1-1.2); Monocytes Percent Auto 5.3 % (2-11); Neutrophils Absolute Auto 4.1 x10*3/uL (2.0-8.3); Neutrophils Percent Auto 75.9 % (45-73); Platelet Count 270 X10*3/uL (160-400); Red Cell Distribution Width 12.1 % (11.0-16.0); White Blood Count 5.3 X10*3/uL (4.8-10.8)
[2024-10-23 14:52] LABS: Alanine Aminotransferase 14 U/L (0-31); Albumin Level 4.5 g/dL (3.5-5.0); Alkaline Phosphatase 55 U/L (39-117); Anion Gap 9 (12-20); Aspartate Amino Transferase 26 U/L (5-31); Bilirubin Direct 0.3 mg/dL (0.0-0.5); Bilirubin Total 0.7 mg/dL (0.0-1.0); Blood Urea Nitrogen 11 mg/dL (9-16); Calcium 9.7 mg/dL (8.4-10.2); Carbon Dioxide 27 mmol/L (22-29); Chloride 105 mmol/L (96-108); Cholesterol 148 mg/dL (<200); Estimated Glomerular Filt Rate > 60; Glucose Random 96 mg/dL (60-115); HDL Cholesterol 46 mg/dL (>40); LDL Cholesterol Calculated 84 mg/dL (<100); Potassium 3.9 mmol/L (3.3-5.1); Sodium 137 mmol/L (135-145); Total Protein 7.7 g/dL (6.5-8.0); Triglycerides 91 mg/dL (<150)
[2024-10-23 14:56] LABS: Vitamin D 25-OH Total 48.2 ng/mL (>30)
[2024-10-23 15:04] LABS: Folate 15.8 ng/mL (> or = 4.0); Vitamin B12 403 pg/mL (200-900)
[2024-10-25 01:39] LABS: Immunoglobulin A 214 mg/dL (47-310); Transglutaminase IgA <1.0 U/mL
== END 2024-10-23 09:41 | disposition home or self-care (01) ==
LOC: HO.CHCLDS 09:40
PROVIDERS: Visit Provider Student in an Organized Health Care Education/Training Program
DX: R10.31 Right lower quadrant pain (principal); E55.9 Vitamin D deficiency, unspecified; R53.82 Chronic fatigue, unspecified
CPT/HCPCS: 36415; 80048; 80061; 80076; 82306; 82607; 82746; 82784; 84443; 85025; 86364

== ENCOUNTER 2024-10-29 10:35 | Outpatient (AMB) | payer MEDICAID, SELFPAY ==
--- NOTE | 2024-10-29 10:40 | MHC.OFFVIS ---
Vital Signs 10/29/24 10:42 Height 5 ft 3 in Weight 124 lb BMI 22.0 BP 114/80 Blood Pressure Location Rt brachial Position Sitting Pulse 78 Pulse Source Pulse Oximeter Pulse Oximetry (%) 98 Oxygen Delivery Method Room Air Intake Visit Reasons: Emphysema Allergies levofloxacin Adverse Reaction (Unknown, Verified 10/29/24 10:40) Abdominal Pain Medication List - Last Reconciled 10/29/24 by Thania Cintron, [employer]ACHINE [employer]ATOR buspirone 5 mg PO TID cariprazine (Vraylar) 3 mg PO DAILY fluticasone propionate 50 mcg/actuation 2 sprays intranasal DAILY lisinopril 2.5 mg PO QAM loratadine 10 mg PO QAM nitrofurantoin macrocrystal 50 mg PO BEDTIME 90 days phenazopyridine (Pyridium) 100 mg PO TID PRN 5 days zolmitriptan 5 mg PO DAILY PRN HPI HPI Emphysema: Details: Whitley is a pleasant 39 year old female, former smoker, quit 10+ years ago with less than 10 pack year history with underlying anxiety. She was referred by PCP for pulmonary evaluation. Referral notes emphysema, however no prior imaging reports this, however abdominal CT noted atelectasis. No prior dedicated CXR or chest CT. There was also diffuse esophageal mural thickening found and has a referral placed to GI. She report intermittent reflux. During the time of the CT, she was seen for abdominal pain, no URI symptoms. She reports more notable dyspnea on moderate exertion with intermittent wheezing and chest tightness. Denies cough. She was born premature however no prior dx of asthma. She reports mild seasonal allergies. She reports brother and sister with asthma. She denies any occupational exposures other than possible asbestos exposure at her prior workplace from [id number]. 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 Review of Systems Const Denies chills, Denies excessive sweating, Denies fever(s), Denies headache(s) and Denies night sweats Eyes Denies dry eyes, Denies irritation and Denies itchy eyes ENT Reports Normal hearing present, Denies headache(s), Denies nasal congestion, Denies nasal discharge, Denies post nasal drip and Denies sore throat Card Denies chest pain, Denies chest pain at rest, Denies chest pain with activity, Denies claudication, Denies leg edema, Denies orthopnea and Denies paroxysmal nocturnal dyspnea Resp Denies chest congestion, Denies cough, Denies excessive phlegm production, Denies pain on inspiration, Denies pain with cough and Denies stridor Musc Denies myalgias Neuro Reports Normal hearing present and Denies headache(s) Endo Denies excessive sweating Mann/Lymph Denies lymphadenopathy Aller/Immun Denies itchy eyes and Denies seasonal rhinorrhea Physical Exam Vital Signs: Last Vital Signs Pulse 78 10/29/24 10:42 BP 114/80 10/29/24 10:42 Pulse Ox 98 10/29/24 10:42 Oxygen Delivery Method Room Air 10/29/24 10:42 BMI result Body Mass Index 22.0 Const General: cooperative, healthy appearing, comfortable, no acute distress, well developed and alert Orientation/consciousness: patient oriented x3 Limitations: no limitations HEENT Head: Yes normal to inspection, Yes normocephalic and Yes atraumatic Ears: hearing grossly normal bilaterally and external ears normal Eyes General: appearance normal, both eyes and all related structures Eyelids: Yes eyelids normal Sclerae: sclerae normal EOM: EOMs intact bilaterally Neck Neck: Yes normal visual inspection and Yes no lymphadenopathy Lymphatic: no lymphadenopathy noted Chest Chest palpation & inspection: normal inspection of the chest Resp Effort & Inspection: normal respiratory effort, able to speak in complete sentences, no audible wheezes, no cough, no stridor, not tachypneic, no tripod positioning and no use of accessory muscles Auscultation: clear to auscultation bilaterally Cardio Jugular venous distension: no JVD Rate: regular rate Rhythm: regular rhythm Skin Other: warm, dry General skin exam: no rashes or lesions noted Neuro General: patient oriented x3 Cranial nerves: Yes Normal hearing present Cognition (Neuro): normal cognition Gait exam (Neuro): Normal gait present Extrem General: Yes normal to inspection, Yes capillary refill normal, Yes no clubbing, cyanosis or edema and Yes no pedal edema Psych Appearance: grossly normal and well kempt Speech and movement: Normal speech and movement present and Clear speech present Affect: normal affect Attitude: cooperative Thought process: Normal thought process present Thought content: Normal thought content present Insight: Good insight present (Psych) Judgement: Good judgement present (Psych) Assessment & Plan Assessment & Plan (1) Atelectasis: Code(s): J98.11 - Atelectasis Category: Medical (2) Dyspnea on exertion: Code(s): R06.09 - Other forms of dyspnea Category: Medical Plan Whitley presents for pulmonary evaluation for ongoing dyspnea on exertion, prior abdominal CT with atelectasis. Will send for PFT to assess for an obstructive defect, possibly asthma, will empirically trial albuterol. Will send for CXR to assess for resolution of atelectasis. All questions were answered and patient is in agreement of plan. Will follow up to review results or sooner if needed. Orders: Orders XR chest 2V Today J98.11 - Atelectasis Medications: New albuterol sulfate 90 mcg/actuation 2 puffs inhalation Q4-6H PRN 1 ea 2RF shortness of breath or wheezing Coding Level of Care Code New Pt Level 3 (49760) Diagnoses Atelectasis J98.11 Dyspnea on exertion R06.09
[2024-10-29 10:42] VITALS: BP 114/80; PULSE 78; O2SAT 98; BMI 22.0
--- OUTSIDE RECORDS SUMMARY | 2024-10-29 11:42 | XMS_ITS | Encounter Summary ---
Author Organization [employer] Address [address] [facility] [address] [place] [address] Care Team Providers Care Home School Liaison Officer Name Role Phone Arpita Saravia MD Primary Care Provider [phone] Eddie Pimentel Unavailable Unavailable Reason for Visit * Reason Onset Date Comments triage 11/03/2022 Encounter Details Date Type Department Care Team ([facility] st Contact Info) Description 11/03/2022 Telephone [facility] MEDICINE [address] [place] [address] Arpita Saravia MD [address] [place] [address] triage Social History Tobacco Use Types Packs/Day [...] encounter Miscellaneous Notes * Telephone Encounter - Alta Medellin RN - 11/03/2022 4:27 PM EST Called pt to triage, spoke to pt. Pt states saw Jhonathan Pimentel on 11/01 by TC appt and was prescribed Tegretol. Pt states when she went to the [facility] to pick this up was told by [...] Description 11/13/2024 8:45 AM EST Office Visit [facility] MED & PEDS [address] [place] [address] Arpita Saravia MD [address] [place] [address] documented as of this encounter Visit Diagnoses Not on filedocumented in this encounter Additional Health Concerns Assessment Noted Time PHQ-9 Depression Total Score: 15 023 8:55 AM EST documented as of this encounter Care Teams Home School Liaison Officer Relationship Specialty Start Date End Date Arpita Saravia MD [address] [place] [address] PCP - General Family Medicine 10/08/13 Eddie Pimentel FNP [address] [place] [address] Nurse Practitioner Family Medicine 08/22/23 documented as of this encounter
--- OUTSIDE RECORDS SUMMARY | 2024-10-29 11:42 | XMS_ITS | Encounter Summary ---
Author Organization [employer] Address [address] [facility] 7[address] [place] [address] Care Team Providers Care Fellmongering Machine Operator Name Role Phone Arpita Saravia MD Primary Care Provider [phone] Eddie Pimentel Unavailable Unavailable Encounter Details Date Type Department Care Team (Late st Contact Info) Description 10/17/2024 Orders Only [facility] External Provider, [facility] Social History Tobacco Use Types Packs/Day Years [...] Upcoming Encounters Date Type Department Care Team ([facility] st Contact Info) Description 11/13/2024 8:45 AM EST Office Visit [facility] CHC MED & PEDS [address] [place] [address] Arpita Saravia MD [address] [place] [address] documented as of this encounter Procedures Procedure [...] EST Narrative 10/17/2024 9:08 PM EST ? [facility] ?[address] ?[place] [address] ? CT Scan Report ? Signed ? Patient: Juares,Whitley ?MR#: [id number] ?? [id number] ? : 1985 ?Acct:[id number] ? Age/Sex: 39 / F ?ADM Date: 10/17/24 ? Loc: HO.ED ? Attending Dr: ? Ordering Physician: Whitley Bellamy ?? Date of Service: 10/17/24 ?? Procedure(s): CT abdomen pelvis wo IV con ?? Accession Number(s): [id number] ? cc: Whitley Bellamy; Arpita Saravia MD ? Report Number: ?? [id number]: Total DLP = ??392.00 mGy-cm ? CLINICAL [...] ? DD/ 05 ? TD/TT: 10/17/242105 ? Casino Worker: ? Procedure Note Janice Francis - 10/17/[address] [address] [address] Scan Report Signed Patient: Whitley JuaresMR#: [id number] : 1985Acct:[id number] Age/Sex: 39 / FADM Date: 10/17/24 Loc: HO.ED Attending Dr: Ordering Physician: Whitley Bellamy Date of Service: 10/17/24 Procedure(s): CT abdomen pelvis wo IV con Accession Number(s): [id number] cc: Whitley Bellamy; Arpita Saravia MD Report Number: [id number]: Total DLP = 392.00 mGy-cm CLINICAL HISTORY: [...] in OV> 10/17/242106 DD/ 05 TD/TT: 10/17/242105 Casino Worker: [facility] External Provider IMG CT PROCEDURES Final Result * SARS-CoV-2 RNA, Influenza A/B, and RSV RNA, Ql NAAT (10/17/2024 8:54 PM EST) Influenza A PCR NEGATIVE Negative [facility] Influenza B PCR NEGATIVE Negative [facility] Resp Syncy Virus RNA Qual PCR NEGATIVE Negative [facility] SARS COV2 PCR NEGATIVE Negative [facility] Comment:All test results mus t [...] use by authorized laboratories.Testing performed on the [employer] GeneXpert utilizingreal-time RT-PCR.All SARS CoV2 and positive influenza A/B results arereported to [facility]. 10/17/2024 8:54 PM EST 10/17/2024 8:56 PM EST Generic External Data Provider LAB MICROBIOLOGY - GENERAL ORDERABLES Final Result Performing Organization Address [facility]/ZIP Co de Phone Number [facility] [address] [place] [phone] * hCG, Total, Quantitative (10/17/2024 8:54 PM EST) HCG Quantitative <2 mIU/mL [facility] Comment:Weeks post LMP Appro ximate hCG(Last Menstrual Period) Range (mIU/ml)3 - 4 weeks 9 - 1304 - 5 weeks 75 - 2,6005 - 6 weeks 850 - 20,8006 - 7 weeks 4000 - 100,2007 - 12 weeks 11,500 - 289,09961 - 16 weeks 18,300 - 137,36832 - 29 weeks (2nd trimester) 1,400 - 53,03811 - 41 weeks (3rd trimester) 940 - [...] ORDERAB LES Final Result Performing Organization Address [facility] Co de Phone Number [facility] [address] [place] [phone] * Lipase (10/17/2024 8:54 PM EST) Lipase 24 8 - 78 U/L [facility] 10/17/2024 8:54 PM EST 10/17/2024 8:56 PM EST us Generic External Data Provider LAB BLOOD ORDERAB LES Final Result Performing Organization Address City/[facility]/ZIP Co de Phone Number [facility] [address] [place] [phone] * Magnesium (10/17/2024 8:54 PM EST) Magnesium 2.1 1.6 - 2.6 mg/dL [facility] 10/17/2024 8:54 PM EST 10/17/2024 8:56 PM EST Generic External Data Provider LAB BLOOD ORDERAB LES Final Result Performing Organization Address [facility] Co de Phone Number [facility] [address] [place] [address] [phone] * (ABNORMAL) Basic Metabolic Panel (10/17/2024 8:54 PM EST) Sodium 141 135 - 145 mmol/L [facility] Potassium 4.1 3.3 - 5.1 mmol/L [facility] Chloride 110(H) 96 - 108 mmol/L [facility] Carbon Dioxide 26 22 - 29 mmol/L [facility] Anion Gap 9(L) 12 - 20 [facility] Urea Nitrogen (BUN) 9 9 - 16 mg/dL [facility] Creatinine, Serum 0.75 0.5 - 1.4 mg/dL [facility] Creatinine Clr Calc Pharmacy 93.5 [facility] Comment:Provided height and weight: 160.02 cm,65.6 kg.eGFR (calculated from the MDRD study equation) and eCrCl(calculated from the Cockcroft-Gault equation) are based ondifferent parameters and may not yield comparable results.If eCrCl result is absurd, please check patient'sheight/weight. Estimated Glomerular Filt Rate >60 [facility] Comment:Chronic Kidney Disea se: Estimated GFR < 60 mL/min/1.09p1Eyqnst Kidney Disease: Estimated GFR < 15 mL/min/1.73m2 Glucose 83 60 - 115 mg/dL [facility] Calcium 9.8 8.4 - 10.2 mg/dL [facility] 10/17/2024 8:54 PM EST 10/17/2024 8:56 PM EST Generic External Data Provider LAB BLOOD ORDERAB LES Final Result Performing Organization Address [facility] Co de Phone Number [facility] [address] [place] [phone] * (ABNORMAL) Hepatic Function Panel (10/17/2024 8:54 PM EST) Bilirubin, Total 0.3 0.0 - 1.0 mg/dL [facility] Bilirubin, Direct 0.1 0.0 - 0.5 mg/dL [facility] Aspartate Amino Transferase 22 5 - 31 U/L [facility] Alanine Aminotransferase 15 0 - 31 U/L [facility] Total Protein 8.1(H) 6.5 - 8.0 g/dL [facility] Albumin Level 4.7 3.5 - 5.0 g/dL [facility] Alkaline Phosphatase 59 39 - 117 U/L [facility] 10/17/2024 8:54 PM EST 10/17/2024 8:56 PM EST Generic External Data Provider LAB BLOOD ORDERAB LES Final Result Performing Organization Address [facility] Co de Phone Number [facility] [address] [place] [phone] * (ABNORMAL) CBC auto differential (10/17/2024 8:54 PM EST) White Blood Count 4.3(L) 4.8 - 10.8 X10*3/uL [facility] Red Blood Count 4.35 4.20 - 5.50 X10*6/uL [facility] Hemoglobin 13.4 12.0 - 16.0 g/dl [facility] Hematocrit 39.4 37.0 - 47.0 % [facility] Mean Corpuscular Volume 90.6 80.0 - 98.0 fL [facility] Mean Corpuscular Hemoglobin 30.8 27.0 - 33.0 pg [facility] Mean Corpuscular HGB Conc 34.0 31.0 - 35.0 g/dl [facility] Red Cell Distribution Width 12.0 11.0 - 16.0 % [facility] Platelet Count 266 160 - 400 X10*3/uL [facility] Mean Platelet Volume 9.2(L) 9.4 - 12.3 fL [facility] Neutrophils Percent Auto 44.6(L) 45 - 73 % [facility] Imm Gran Pct Auto 0.2 0.0 - 0.4 % [facility] Lymphocytes Percent Auto 44.2(H) 20 - 40 % [facility] Monocytes Percent Auto 8.9 2 - 11 % [facility] Eosinophils Percent Auto 1.4 0 - 4 % [facility] Basophils Percent Auto 0.7 0 - 2 % [facility] NRBC Pct Auto 0.0 0.0 - 0.2 /100WBC [facility] Neutrophils Absolute Auto 1.9(L) 2.0 - 8.3 x10*3/uL [facility] Imm Gran Abs Auto 0.01 0.00 - 0.03 X10*3/uL [facility] Lymphocytes Absolute Auto 1.9 1.2 - 4.9 X10*3/uL [facility] Monocytes Absolute Auto 0.4 0.1 - 1.2 X10*3/uL [facility] Eosinophils Absolute Auto 0.1 0.0 - 0.4 X10*3/uL [facility] Basophils Absolute Auto 0.0 0.0 - 0.2 X10*3/uL [facility] NRBC Abs Auto 0.000 0.0 - 0.012 X10*3/uL [facility] 10/17/2024 8:54 PM EST 10/17/2024 8:56 PM EST us Generic External Data Provider LAB BLOOD ORDERAB LES Final Result [facility] [address] [place] [phone] [phone] documented in this encounter Visit Diagnoses Not on filedocumented in this encounter Additional Health Concerns Assessment Noted Time PHQ-9 Depression Total Score: 6 02/19/20 24 3:02 PM EDT documented as of this encounter Care Teams Fellmongering Machine Operator Relationship Specialty Start Date End Date Aripta Saravia MD [address] [place] [address] PCP - General Family Medicine 10/08/13 Eddie Pimentel FNP [address] [place] [address] Nurse Practitioner Family Medicine 08/22/23 documented as of this encounter
--- OUTSIDE RECORDS SUMMARY | 2024-10-29 11:42 | XMS_ITS | Encounter Summary ---
Author Organization [employer] Address [address] [facility] 7 [place] [address] Care Team Providers Care Toll Gate Tender Name Role Phone Arpita Saravia MD Primary Care Provider [phone] Eddie Pimentel Unavailable Unavailable Reason for Visit * Reason Onset Date Comments triage 10/21/2022 Encounter Details Date Type Department Care Team ([facility] st Contact Info) Description 10/21/2022 Telephone [facility] CHC MED & PEDS [address] [place] [address] Arpita Saravia MD [address] [place] [address] triage Social History Tobacco Use Types Packs/Day [...] Upcoming Encounters Date Type Department Care Team ([facility] st Contact Info) Description 11/13/2024 8:45 AM EST Office [facility] MED & PEDS [address] [place] [address] Arpita Saravia MD [address] [place] [address] documented as of this encounter Visit Diagnoses Not on filedocumented in this encounter Additional Health Concerns Assessment Noted Time PHQ-9 Depression Total Score: 10 022 8:52 AM EST documented as of this encounter Care Teams Toll Gate Tender Relationship Specialty Start Date End Date Arpita Saravia MD [address] [place] [phone] PCP - General Family Medicine 10/08/13 Eddie Pimentel FNP [address] [place] [address] Nurse Practitioner Family Medicine 08/22/23 documented as of this encounter
--- OUTSIDE RECORDS SUMMARY | 2024-10-29 11:43 | XMS_ITS | Encounter Summary ---
Author Organization [employer] Address [address] 7[address] [place] [address] Care Team Providers Care Animal Damage Control Agent Name Role Phone Arpita Saravia MD Primary Care Provider [phone] Eddie Pimentel Unavailable Unavailable Encounter Details Date [...] 8:45 AM EST Office Visit [facility] MED & PEDS [address] [place] [address] Arpita Saravia MD [address] [place] [address] documented as of this encounter Visit Diagnoses Not on filedocumented in this encounter Additional Health Concerns Assessment Noted Time PHQ-9 Depression Total Score: 6 02/19/20 24 3:02 PM EDT documented as of this encounter Care Teams Animal Damage Control Agent Relationship Specialty Start Date End Date Arpita Saravia MD [address] [place] [address] PCP - General Family Medicine 10/08/13 Eddie Pimentel FNP [address] [place] [address] Nurse Practitioner Family Medicine 08/22/23 documented as of this encounter
--- OUTSIDE RECORDS SUMMARY | 2024-10-29 11:43 | XMS_ITS | Encounter Summary ---
Author Organization [employer] Address [address] [place] [address] Care Team Providers Care Business Center Manager Name Role Phone Arpita Saravia MD Primary Care Provider [phone] Eddie Pimentel Unavailable Unavailable Reason for Visit * Reason Onset Date Comments Nurse Triage 10/15/2024 Encounter Details Date Type Department Care Team (Late st Contact Info) Description 10/15/2024 Telephone [facility] MEDICINE [address] [place] [address] Arpita Saravia MD [address] [place] [address] Nurse Triage Social History Tobacco Use Types [...] reviewed and patient in agreement with plan. ASK/F.[place] tomorrow @3pm Multiple (2) protocols were used [...] caller accepted this outcome. Contact pt at [phone] documented in this encounter Plan of Treatment Upcoming Encounters Date Type Department Care Team (Late st Contact Info) Description 11/13/2024 8:45 AM EST Office Visit [facility] CHC MED & PEDS [address] [place] [address] Arpita Saravia MD [address] [place] [address] documented as of this encounter Visit Diagnoses Not on filedocumented in this encounter Additional Health Concerns Assessment Noted Time PHQ-9 Depression Total Score: 6 02/19/20 24 3:02 PM EDT documented as of this encounter Care Teams Business Center Manager Relationship Specialty Start Date End Date Arpita Saravia MD [address] [place] [address] PCP - General Family Medicine 10/08/13 Eddie Pimentel FNP [address] [place] [address] Nurse Practitioner Family Medicine 08/22/23 documented as of this encounter
--- OUTSIDE RECORDS SUMMARY | 2024-10-29 11:43 | XMS_ITS | Encounter Summary ---
Author Organization [employer] Address [address] [facility] [address] [place] [address] Care Team Providers Care Oncology Transplant Network Manager Name Role Phone Arpita Saravia MD Primary Care Provider [phone] Eddie Pimentel Unavailable Unavailable Encounter Details Date [...] 11/13/2024 8:45 AM EST Office Visit [facility] MED & PEDS [address] [place] [address] Arpita Saravia MD [address] [place] [address] documented as of this encounter Procedures Procedure Name Priority Date/Time Associated Diagnosis Comments URINALYSIS WITH REFLEX MICROSCOPIC Routine 10/18/2024 1:17 AM EST documented in this encounter Results * Urinalysis w/reflex microscopic (10/18/2024 1:17 AM EST) Color Urine Yellow [facility] Appearance Urine Clear [facility] PH 5.5 5.0 - 9.0 [facility] Glucose Urine UA Negative Negative mg/dL [facility] Urine Blood Negative Negative [facility] Specific [place] - Urine 1.020 1.005 - 1.025 [facility] Urine Protein Negative Neg-Trace mg/dL [facility] Urine Ketones Negative Negative mg/dL [facility] Nitrite Urine Negative Negative [facility] Leukocyte Esterase Urine Negative Negative [facility] 10/18/2024 1:17 AM EST 10/18/2024 1:19 AM EST Narrative [facility] - 10/18/2024 1:25 AM EST Urine, Clean Catch us Generic External Data Provider LAB URINE ORDERAB LES Final Result [facility] [address] [place] [address] [phone] documented in this encounter Visit Diagnoses Not on filedocumented in this encounter Additional Health Concerns Assessment Noted Time PHQ-9 Depression Total Score: 6 02/19/20 24 3:02 PM EDT documented as of this encounter Care Teams Oncology Transplant Network Manager Relationship Specialty Start Date End Date Arpita Saravia MD [address] [place] [address] PCP - General Family Medicine 10/08/13 Eddie Pimentel FNP [address] [place] [address] Nurse Practitioner Family Medicine 08/22/23 documented as of this encounter
--- OUTSIDE RECORDS SUMMARY | 2024-10-29 11:43 | XMS_ITS | Encounter Summary ---
Author Organization [employer] Address [address] [facility] 7t [place] [address] Care Team Providers Care Security Compliance Specialist Name Role Phone Arpita Saravia MD Primary Care Provider [phone] Eddie Pimentel Unavailable Unavailable Reason for Visit * Reason Onset Date Comments Results 10/22/2024 Encounter Details Date Type Department Care Team ([facility] Contact Info) Description 10/22/2024 Telephone [facility] MED & PEDS [address] [place] [address] Stefani Murilol RN Results Social History Tobacco Use Types [...] AM EST ----- Message from [facility] sent at 10/18/2024 3:43 PM EST [...] [facility] [address] [place] [address] Arpita Saravia MD [address] [place] [address] documented as of this encounter Visit Diagnoses Not on filedocumented in this encounter Additional Health Concerns Assessment Noted Time PHQ-9 Depression Total Score: 6 02/19/20 24 3:02 PM EDT documented as of this encounter Care Teams Security Compliance Specialist Relationship Specialty Start Date End Date Arpita Saravia MD [address] [place] [address] PCP - General Family Medicine 10/08/13 Eddie Pimentel FNP [address] [place] [address] Nurse Practitioner Family Medicine 08/22/23 documented as of this encounter
--- OUTSIDE RECORDS SUMMARY | 2024-10-29 11:43 | XMS_ITS | Encounter Summary ---
Author Organization [employer] Address [address] [facility] [facility] [address] [place] [address] Care Team Providers Care Geek Squad Manager Name Role Phone Arpita Saravia MD Primary Care Provider [phone] Eddie Pimentel Unavailable Unavailable Reason for Visit * Reason Onset Date Comments Nurse Triage 10/24/2023 Encounter Details Date Type Department Care Team (Late st Contact Info) Description 10/24/2023 Telephone [facility] MEDICINE [address] [place] [address] Arpita Saravia MD [address] [place] [address] Nurse Triage Social History Tobacco Use Types [...] 8:45 AM EST Office Visit [facility] MED & PEDS [address] [place] [address] Arpita Saravia MD [address] [place] [address] documented as of this encounter Visit Diagnoses Not on filedocumented in this encounter Additional Health Concerns Assessment Noted Time PHQ-9 Depression Total Score: 5 10/19/19 24 3:32 PM EST documented as of this encounter Care Teams Geek Squad Manager Relationship Specialty Start Date End Date Arpita Saravia MD [address] [place] [address] PCP - General Family Medicine 10/08/13 Eddie Pimentel FNP [address] [place] [address] Nurse Practitioner Family Medicine 08/22/23 documented as of this encounter
--- OUTSIDE RECORDS SUMMARY | 2024-10-29 11:43 | XMS_ITS | Encounter Summary ---
Author Organization [employer] Address [address] [place] [address] [address] [place] [address] Care Team Providers Care Interactive Media Marketing Strategist Name Role Phone Arpita Saravia MD Primary Care Provider [phone] Eddie Pimentel Unavailable Unavailable Reason for Referral * Imaging (Routine) - Authorized Specialty Diagnoses / Procedures Referred By Contjurgen t Referred To Contact Radiology Diagnoses Right lower quadrant abdominal pain Procedures US Abdomen Limited Jojo Sen FNP [address] [place] [address] Phone: tel: fax: [address] Phone: tel: fax: Referral ID Status Reason Start Date Expiration Date V isits Requested Visits Authorized [id number] Authorized 10/16/2024 10/16/2025 1 1 Encounter Details Date Type Department Care Team (Late st Contact Info) Description 10/16/2024 3:00 PM EST Office Visit [facility] [address] [place] [address] Jojo Sen FNP [address] [place] [address] Right lower quadrant abdominal pain (Primary Dx) [...] documented in this encounter Progress Notes * [facility] [place], [facility] - 10/16/2024 3:00 PM EST SUBJECTIVE: Whitley [...] Upcoming Encounters Date Type Department Care Team ([facility] st Contact Info) Description 11/13/2024 8:45 AM EST Office Visit [facility] [address] [place] [address] Arpita Saravia MD [address] [place] [address] Scheduled Orders Name Type Priority Associated Diagnoses [...] Blood Count 3.8(L) 4.8 - 10.8 X10*3/uL [facility] Red Blood Count 4.21 4.20 - 5.50 X10*6/uL [facility] Hemoglobin 12.8 12.0 - 16.0 g/dl [facility] Hematocrit 38.2 37.0 - 47.0 % [facility] Mean Corpuscular Volume 90.7 80.0 - 98.0 fL [facility] Mean Corpuscular Hemoglobin 30.4 27.0 - 33.0 pg [facility] Mean Corpuscular HGB Conc 33.5 31.0 - 35.0 g/dl [facility] Red Cell Distribution Width 12.0 11.0 - 16.0 % [facility] Platelet Count 273 160 - 400 X10*3/uL [facility] Mean Platelet Volume 9.9 9.4 - 12.3 fL [facility] Neutrophils Percent Auto 52.4 45 - 73 % [facility] Imm Gran Pct Auto 0.3 0.0 - 0.4 % [facility] Lymphocytes Percent Auto 39.4 20 - 40 % [facility] Monocytes Percent Auto 6.6 2 - 11 % [facility] Eosinophils Percent Auto 0.8 0 - 4 % [facility] Basophils Percent Auto 0.5 0 - 2 % [facility] NRBC Pct Auto 0.0 0.0 - 0.2 /100WBC [facility] Neutrophils Absolute Auto 2.0 2.0 - 8.3 x10*3/uL [facility] Imm Gran Abs Auto 0.01 0.00 - 0.03 X10*3/uL [facility] Lymphocytes Absolute Auto 1.5 1.2 - 4.9 X10*3/uL [facility] Monocytes Absolute Auto 0.3 0.1 - 1.2 X10*3/uL [facility] Eosinophils Absolute Auto 0.0 0.0 - 0.4 X10*3/uL [facility] Basophils Absolute Auto 0.0 0.0 - 0.2 X10*3/uL [facility] NRBC Abs Auto 0.000 0.0 - 0.012 X10*3/uL [facility] Blood Venous blood specimen / Unknown 10/16/2024 3:48 PM EST 10/16/2024 5:44 PM EST [facility] LAB BLOOD ORDERABLES Final Re sult [facility] [address] [place] [address] [phone] * (ABNORMAL) Amylase (10/16/2024 3:48 PM EST) Amylase 169(H) 28 - 100 U/L [facility] Blood Venous blood specimen / Unknown 10/16/2024 3:48 PM EST 10/16/2024 5:44 PM EST [facility] LAB BLOOD ORDERABLES Final Re sult Performing Organization Address City/[facility]/ZIP Co de Phone Number [facility] [address] [place] [address] [phone] * Lipase (10/16/2024 3:48 PM EST) Lipase 23 8 - 78 U/L [facility] Blood Venous blood specimen / Unknown 10/16/2024 3:48 PM EST 10/16/2024 5:44 PM EST [facility] LAB BLOOD ORDERABLES Final Re sult Performing Organization Address [facility] Co de Phone Number [facility] [address] [place] [address] [phone] * (ABNORMAL) Comprehensive Metabolic Panel (10/16/2024 3:48 PM EST) Sodium 138 135 - 145 mmol/L [facility] Potassium 3.9 3.3 - 5.1 mmol/L [facility] Chloride 108 96 - 108 mmol/L [facility] Carbon Dioxide 28 22 - 29 mmol/L [facility] Anion Gap 6(L) 12 - 20 [facility] Urea Nitrogen (BUN) 9 9 - 16 mg/dL [facility] Creatinine, Serum 0.73 0.5 - 1.4 mg/dL [facility] Estimated Glomerular Filt Rate >60 [facility] Comment:Chronic Kidney Disea se: Estimated GFR < 60 mL/min/1.39w1Ofmmfe Kidney Disease: Estimated GFR < 15 mL/min/1.73m2 Glucose 74 60 - 115 mg/dL [facility] Calcium 8.8 8.4 - 10.2 mg/dL [facility] Bilirubin, Total 0.3 0.0 - 1.0 mg/dL [facility] Aspartate Amino Transferase 22 5 - 31 U/L [facility] Alanine Aminotransferase 17 0 - 31 U/L [facility] Total Protein 7.6 6.5 - 8.0 g/dL [facility] Albumin Level 4.7 3.5 - 5.0 g/dL [facility] Alkaline Phosphatase 56 39 - 117 U/L [facility] Blood Venous blood specimen / Unknown 10/16/2024 3:48 PM EST 10/16/2024 5:44 PM EST [facility] LAB BLOOD ORDERABLES Final Re sult [facility] [address] [place] [address] [phone] documented in this encounter Visit Diagnoses Diagnosis Right lower quadrant abdominal pain- Primary documented in this encounter Additional Health Concerns Assessment Noted Time PHQ-9 Depression Total Score: 6 02/19/20 24 3:02 PM EDT documented as of this encounter Care Teams Interactive Media Marketing Strategist Relationship Specialty Start Date End Date Arpita Saravia MD [address] [place] [address] PCP - General Family Medicine 10/08/13 Eddie Pimentel FNP [address] [place] [address] Nurse Practitioner Family Medicine 08/22/23 documented as of this encounter
--- OUTSIDE RECORDS SUMMARY | 2024-10-29 11:43 | XMS_ITS | Clinical Summary ---
Author Organization [employer] Address [address] [facility] [address] [place] [address] Care Team Providers Care Tray Casting Machine Operator Name Role Phone Arpita Saravia MD Primary Care Provider [phone] Eddie Pimentel Unavailable Unavailable Allergies Active Allergy [...] will transfer her care to the new [facility] psychiatric prescriber. Any issues or concerns, contact [...] controlled. 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 F/U with me in 6-8 weeks. She agrees with the plan. Assessment & Plan (03/15/2023 9:46 AM EDT): Assessment: Patient with revious hx of Bipolar Dx and MH treatment that was referred to [facility] Consult for exacerbation of depression and anxiety. 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 She indicates that she has been experiencing exacerbation of sxs, specially feeling down and unmotivated. She indicates that main stressors in the past year have been related to changes at work. Whitley indicated that although adhering to medication, she can feel sxs worsening. Patient will benefit from follow up [facility] brief intervention to further explore BH [...] supportive treatment PLAN: 1. Follow up with [facility]: Recommended for follow-up: 03/14/2023 2. Patient goal [...] medication. Discussed options for treatment of BPD: [place], antiepileptics, antipsychotics. She will increase to Abilify 30 mg daily, continue other meds for now. F/U 4-6 weeks. She agrees with the plan. She is in a long-term monogamous relationship with single AMAB partner who has vasectomy so at negligible risk of unintended . Right ear pain 02/28/2018 Migraine 12/24/2012 Encounters Date Type Department Care Team Description 10/22/2024 9:00 AM EST Telemedicine [facility] [address] [place] [address] Arpita Saravia MD Right lower quadrant abdominal pain (Primary Dx); Vitamin D deficiency; Chronic fatigue; Pulmonary emphysema, unspecified emphysema type (CMS/HCC) 10/22/2024 Telephone [facility] [address] [place] [address] Edith Day, DOMINIC 10/22/2024 Telephone [facility] [address] [place] [address] Stefani Murillo, DOMINIC Results 10/22/2024 Travel 10/18/2024 Telephone [facility] [address] [place] [address] Arpita Saravia MD Nurse Triage 10/18/2024 Orders Only GENERIC EXTERNAL DATA DEPARTMENT Provider, Generic External Data 10/17/2024 Orders Only [facility] External Provider, [facility] 10/17/2024 Telephone [facility] [address] [place] [address] Arpita Saravia MD Results 10/16/2024 3:00 PM EST Office Visit [facility] [address] [place] [address] Francy, Jojo, REAL ESTATE REP Right lower quadrant abdominal pain (Primary Dx) 10/16/2024 Travel 10/15/2024 Telephone [facility] [address] [facility] [place] [phone] Arpita Saravia MD Nurse Triage 09/03/2024 Refill [facility] [address] [facility] [place] [phone] Arpita Saravia MD 08/27/2024 9:15 AM EST Office Visit [facility] [address] [facility] [address] [place] [address] Ben Alford MD Congenital nevus (Primary Dx) [...] Description 11/13/2024 8:45 AM EST Office Visit [facility] [address] [place] [address] Arpita Saravia MD [address] [place] [address] Health Maintenance Due Date Last Done Comments [...] Procedure Name Priority Date/Time Associated Diagnosis Comments TSH W/REFLEX TO FT4 Routine 10/23/2024 9 :42 AM EST Chronic fatigue CELIAC DISEASE COMPREHENSIVE PANEL Routine 10/23/2024 9:42 AM EST Right lower quadrant abdominal pain VITAMIN B12/FOLATE, SERUM PANEL Routine 10/23/2024 9:42 AM EST Chronic fatigue VITAMIN D,25-OH,TOTAL,IA Routine 10/23/2024 9:42 AM EST Vitamin D deficiency CBC WITH AUTO DIFFERENTIAL Routine 10/23/2024 9:42 AM EST Right lower quadrant abdominal pain HEPATIC FUNCTION PANEL Routine 9:42 AM EST Right lower quadrant abdominal pain LIPID PANEL, STANDARD Routine 10/23/2024 9:42 AM EST Right lower quadrant abdominal pain BASIC METABOLIC PANEL Routine 10/23/2024 9:42 AM EST Right lower quadrant abdominal pain URINALYSIS WITH REFLEX MICROSCOPIC Routine 10/18/2024 1:17 [...] Recently Relevant to Health Maintenance Results * Vitamin D, 25-Hydroxy, Total, Immunoassay (10/23/2024 9:42 AM EST) Vitamin D 25-OH Total 48.2 >30 ng/mL [facility] Comment:Health Based Referen ce Values*< 20 ng/mL Crlbdkocw16-09 ng/mL Insufficient> 30 ng/mL Sufficient*Vimal BANUELOS. N Engl J Med. 2007;357:266-280Care must be taken in interpreting Vitamin D results fromdifferent laboratories and methodologies. Published datademonstrated that results from patients undergoinghemodialysis may show a negative bias when tested withvarious automated 25-OH vitamin D assays when compared toLC-MS/MS.When testing samples from patients whose predominant form ofVitamin D is Vitamin D2, such as patients receiving VitaminD2 supplementation, results that are subtherapeutic shouldbe confirmed with another method such as LC-MS/MS. Blood Venous blood specimen / Unknown 10/23/2024 9:42 AM EST 10/23/2024 2:07 PM EST us Arpita Saravia MD LAB BLOOD ORDERABLES Final Resul t [facility] [address] [place] [phone] * Vitamin B12/Folate, Serum Panel (10/23/2024 9:42 AM EST) Vitamin B12 403 200 - 900 pg/mL [facility] Comment:NORMAL 200-900 PG/ML INDETERMINATE 160-199 PG/ML DEFICIENT < 160 PG/ML Folate 15.8 > or = 4.0 ng/mL [facility] Comment:Reference Values:> o r = 4.0 ng/mL< 4.0 ng/mL suggests folate deficiency Methotrexate, aminopterin and folinic acid(leucovorin) are chemotherapeutic agents whose molecularstructures are similar to folate; therefore, the Architectfolate assay cannot be used for patients using these drugs. Blood Venous blood specimen / Unknown 10/23/2024 9:42 AM EST 10/23/2024 2:00 PM EST Arpita Saravia MD LAB BLOOD ORDERABLES Final Resul t Performing Organization Address City/[facility]/ZIP Co de Phone Number [facility] [address] [place] [phone] * TSH W/Reflex to FT4 (10/23/2024 9:42 AM EST) Pathologist [facility] TSH reflex Free T4 1.60 0.32 - 4.0 uIU/mL [facility] Blood Venous blood specimen / Unknown 10/23/2024 9:42 AM EST 10/23/2024 2:07 PM EST Arpita Saravia MD LAB BLOOD ORDERABLES Final Resul t Performing Organization Address City/[facility]/ZIP Co de Phone Number [facility] [address] [place] [phone] * (ABNORMAL) CBC auto differential (10/23/2024 9:42 AM EST) Only the most recent of3 resultswithin the time period is included. White Blood Count 5.3 4.8 - 10.8 X10*3/uL [facility] Red Blood Count 4.10(L) 4.20 - 5.50 X10*6/uL [facility] Hemoglobin 12.7 12.0 - 16.0 g/dl [facility] Hematocrit 37.5 37.0 - 47.0 % [facility] Mean Corpuscular Volume 91.5 80.0 - 98.0 fL [facility] Mean Corpuscular Hemoglobin 31.0 27.0 - 33.0 pg [facility] Mean Corpuscular HGB Conc 33.9 31.0 - 35.0 g/dl [facility] Red Cell Distribution Width 12.1 11.0 - 16.0 % [facility] Platelet Count 270 160 - 400 X10*3/uL [facility] Mean Platelet Volume 10.0 9.4 - 12.3 fL [facility] Neutrophils Percent Auto 75.9(H) 45 - 73 % [facility] Imm Gran Pct Auto 0.4 0.0 - 0.4 % [facility] Lymphocytes Percent Auto 17.6(L) 20 - 40 % [facility] Monocytes Percent Auto 5.3 2 - 11 % [facility] Eosinophils Percent Auto 0.4 0 - 4 % [facility] Basophils Percent Auto 0.4 0 - 2 % [facility] NRBC Pct Auto 0.0 0.0 - 0.2 /100WBC [facility] Neutrophils Absolute Auto 4.1 2.0 - 8.3 x10*3/uL [facility] Imm Gran Abs Auto 0.02 0.00 - 0.03 X10*3/uL [facility] Lymphocytes Absolute Auto 0.9(L) 1.2 - 4.9 X10*3/uL [facility] Monocytes Absolute Auto 0.3 0.1 - 1.2 X10*3/uL [facility] Eosinophils Absolute Auto 0.0 0.0 - 0.4 X10*3/uL [facility] Basophils Absolute Auto 0.0 0.0 - 0.2 X10*3/uL [facility] NRBC Abs Auto 0.000 0.0 - 0.012 X10*3/uL [facility] Blood Venous blood specimen / Unknown 10/23/2024 9:42 AM EST 10/23/2024 2:00 PM EST Arpita Saravia MD LAB BLOOD ORDERABLES Final Resul t Performing Organization Address City/[facility]/ZIP Co de Phone Number [facility] [address] [place] [address] [phone] * Celiac Disease Comprehensive Panel (10/23/2024 9:42 AM EST) Immunoglobulin A 214 47 - 310 mg/dL [facility] Comment:THIS TEST WAS PERFOR MED AT:[facility] [place] [phone] PARTIDA MD Transglutaminase IgA <1.0 U/mL [facility] Comment:Value Interpretation ----- <15.0 Antibody not detected> or = 15.0 Antibody detected Interpretation SEE NOTE [facility] Comment:No serological evide nce of celiac disease.tTG IgA may normalize in individuals with celiac diseasewho maintain a gluten-free diet. Consider HLA DQ2 andDQ8 testing to rule out celiac disease. Celiac diseaseis extremely rare in the absence of DQ2 or DQ8. Blood Venous blood specimen / Unknown 10/23/2024 9:42 AM EST 10/23/2024 2:00 PM EST Arpita Saravia MD LAB BLOOD ORDERABLES Final Resul t Performing Organization Address City/[facility]/ZIP Co de Phone Number [facility] [address] [place] [address] [phone] * Hepatic Function Panel (10/23/2024 9:42 AM EST) Only the most recent of2 resultswithin the time period is included. Bilirubin, Total 0.7 0.0 - 1.0 mg/dL [facility] Bilirubin, Direct 0.3 0.0 - 0.5 mg/dL [facility] Aspartate Amino Transferase 26 5 - 31 U/L [facility] Alanine Aminotransferase 14 0 - 31 U/L [facility] Total Protein 7.7 6.5 - 8.0 g/dL [facility] Albumin Level 4.5 3.5 - 5.0 g/dL [facility] Alkaline Phosphatase 55 39 - 117 U/L [facility] Blood Venous blood specimen / Unknown 10/23/2024 9:42 AM EST 10/23/2024 2:07 PM EST Arpita Saravia MD LAB BLOOD ORDERABLES Final Resul t [facility] [address] [place] [phone] * Lipid Panel, Standard (10/23/2024 9:42 AM EST) Triglycerides 91 <150 mg/dL [facility] Comment:Desirable Triglyceri de: less than 150 mg/dLBorderline High Triglyceride 150-199 mg/dLHigh Triglyceride: 200-499 mg/dLVery High Triglyceride: greater than or equal to 5OO mg/dL Cholesterol 148 <200 mg/dL [facility] Comment:Desirable Cholestero l: less than 200 mg/dLBorderline High Cholesterol: 200-239 mg/dLHigh Cholesterol: greater than 239 mg/dL LDL Cholesterol Calculated 84 <100 mg/dL [facility] Comment:Desirable LDL: less than 100 mg/dLNear Optimal/Above Optimal LDL: 110- 129 mg/dLBorderline High LDL: 130-159 mg/dLHigh LDL: 160-189 mg/dLVery High LDL: greater than or equal to 190 mg/dL HDL Cholesterol 46 >40 mg/dL [facility] Comment:Desirable HDL: great er than 40 mg/dL Note: This HDL assay may give artificially low results in patients with liver disease. Blood Venous blood specimen / Unknown 10/23/2024 9:42 AM EST 10/23/2024 2:07 PM EST Arpita Saravia MD LAB BLOOD ORDERABLES Final Resul t Performing Organization Address [facility] Co de Phone Number [facility] [address] [place] [address] [phone] * (ABNORMAL) Basic Metabolic Panel (10/23/2024 9:42 AM EST) Only the most recent of2 resultswithin the time period is included. Sodium 137 135 - 145 mmol/L [facility] Potassium 3.9 3.3 - 5.1 mmol/L [facility] Chloride 105 96 - 108 mmol/L [facility] Carbon Dioxide 27 22 - 29 mmol/L [facility] Anion Gap 9(L) 12 - 20 [facility] Urea Nitrogen (BUN) 11 9 - 16 mg/dL [facility] Creatinine, Serum 0.75 0.5 - 1.4 mg/dL [facility] Estimated Glomerular Filt Rate >60 [facility] Comment:Chronic Kidney Disea se: Estimated GFR < 60 mL/min/1.08b4Tflofd Kidney Disease: Estimated GFR < 15 mL/min/1.73m2 Glucose 96 60 - 115 mg/dL [facility] Calcium 9.7 8.4 - 10.2 mg/dL [facility] Blood Venous blood specimen / Unknown 10/23/2024 9:42 AM EST 10/23/2024 2:07 PM EST Arpita Saravia MD LAB BLOOD ORDERABLES Final Resul t Performing Organization Address City/[facility]/ZIP Co de Phone Number [facility] [address] [place] [phone] * Urinalysis w/reflex microscopic (10/18/2024 1:17 AM EST) Color Urine Yellow [facility] Appearance Urine Clear [facility] PH 5.5 5.0 - 9.0 [facility] Glucose Urine UA Negative Negative mg/dL [facility] Urine Blood Negative Negative [facility] Specific [place] - Urine 1.020 1.005 - 1.025 [facility] Urine Protein Negative Neg-Trace mg/dL [facility] Urine Ketones Negative Negative mg/dL [facility] Nitrite Urine Negative Negative [facility] Leukocyte Esterase Urine Negative Negative [facility] 10/18/2024 1:17 AM EST 10/18/2024 1:19 AM EST Narrative [facility] - 10/18/2024 1:25 AM EST Urine, Clean Catch us Generic External Data Provider LAB URINE ORDERAB LES Final Result Performing Organization Address City/State/[facility] Co de Phone Number [facility] [address] [place] [address] [phone] * CT Abdomen Pelvis w/o Contrast (10/17/2024 9:06 PM EST) Anatomical Region Laterality Modality Body, Pelvis, Abdomen Computed T omography 10/17/2024 9:06 PM EST Narrative 10/17/2024 9:08 PM EST ? [facility] ?[address] ?[place] [address] ? CT Scan Report ? Signed ? Patient: Whitley Juares ?MR#: [id number] ?? [id number] ? : 1985 ?Acct:[id number] ? Age/Sex: 39 / F ?ADM Date: 10/17/24 ? Loc: HO.ED ? Attending Dr: ? Ordering Physician: Whitley Bellamy ?? Date of Service: 10/17/24 ?? Procedure(s): CT abdomen pelvis wo IV con ?? Accession Number(s): [id number] ? cc: Whitley Bellamy; Arpita Saravia MD ? Report Number: ?? [id number]: Total DLP = ??392.00 mGy-cm ? CLINICAL [...] ? DD/ 05 ? TD/TT: 10/17/242105 ? Tour Leader: ? Procedure Note Donedgardointerpreter, Image - 10/17/[address] [place] [address] [address] Scan Report Signed Patient: Whitley JuaresMR#: [id number] : 1985Acct:[id number] Age/Sex: 39 / FADM Date: 10/17/24 Loc: HO.ED Attending Dr: Ordering Physician: Whitley Bellamy Date of Service: 10/17/24 Procedure(s): CT abdomen pelvis wo IV con Accession Number(s): [id number] cc: Whitley Bellamy; Arpita Saravia MD Report Number: [id number]: Total DLP = 392.00 mGy-cm CLINICAL HISTORY: [...] in OV> 10/17/242106 DD/ 05 TD/TT: 10/17/242105 Tour Leader: [facility] External Provider IMG CT PROCEDURES Final Result * SARS-CoV-2 RNA, Influenza A/B, and RSV RNA, Ql NAAT (10/17/2024 8:54 PM EST) Influenza A PCR NEGATIVE Negative [facility] Influenza B PCR NEGATIVE Negative [facility] Resp Syncy Virus RNA Qual PCR NEGATIVE Negative [facility] SARS COV2 PCR NEGATIVE Negative [facility] Comment:All test results mus t [...] use by authorized laboratories.Testing performed on the [employer] GeneXpert utilizingreal-time RT-PCR.All SARS CoV2 and positive influenza A/B results arereported to [facility]. 10/17/2024 8:54 PM EST 10/17/2024 8:56 PM EST Generic External Data Provider LAB MICROBIOLOGY - GENERAL ORDERABLES Final Result [facility] [address] [place] [phone] * hCG, Total, Quantitative (10/17/2024 8:54 PM EST) HCG Quantitative <2 mIU/mL [facility] Comment:Weeks post LMP Appro ximate hCG(Last Menstrual Period) Range (mIU/ml)3 - 4 weeks 9 - 1304 - 5 weeks 75 - 2,6005 - 6 weeks 850 - 20,8006 - 7 weeks 4000 - 100,2007 - 12 weeks 11,500 - 289,81391 - 16 weeks 18,300 - 137,99801 - 29 weeks (2nd trimester) 1,400 - 53,74371 - 41 weeks (3rd trimester) 940 - [...] ORDERAB LES Final Result Performing Organization Address [facility] Co de Phone Number [facility] [address] [place] [phone] * Magnesium (10/17/2024 8:54 PM EST) Magnesium 2.1 1.6 - 2.6 mg/dL [facility] 10/17/2024 8:54 PM EST 10/17/2024 8:56 PM EST Generic External Data Provider LAB BLOOD ORDERAB LES Final Result Performing Organization Address [facility] Co de Phone Number [facility] [address] [place] [phone] * Lipase (10/17/2024 8:54 PM EST) Only the most recent of2 resultswithin the time period is included. Lipase 24 8 - 78 U/L [facility] 10/17/2024 8:54 PM EST 10/17/2024 8:56 PM EST us Generic External Data Provider LAB BLOOD ORDERAB LES Final Result Performing Organization Address [facility] Co de Phone Number [facility] [address] [place] [phone] * (ABNORMAL) Amylase (10/16/2024 3:48 PM EST) Amylase 169(H) 28 - 100 U/L [facility] Blood Venous blood specimen / Unknown 10/16/2024 3:48 PM EST 10/16/2024 5:44 PM EST [facility] LAB BLOOD ORDERABLES Final Re sult [facility] [address] [place] [address] [phone] * (ABNORMAL) Comprehensive Metabolic Panel (10/16/2024 3:48 PM EST) Sodium 138 135 - 145 mmol/L [facility] Potassium 3.9 3.3 - 5.1 mmol/L [facility] Chloride 108 96 - 108 mmol/L [facility] Carbon Dioxide 28 22 - 29 mmol/L [facility] Anion Gap 6(L) 12 - 20 [facility] Urea Nitrogen (BUN) 9 9 - 16 mg/dL [facility] Creatinine, Serum 0.73 0.5 - 1.4 mg/dL [facility] Estimated Glomerular Filt Rate >60 [facility] Comment:Chronic Kidney Disea se: Estimated GFR < 60 mL/min/1.57q8Ichahs Kidney Disease: Estimated GFR < 15 mL/min/1.73m2 Glucose 74 60 - 115 mg/dL [facility] Calcium 8.8 8.4 - 10.2 mg/dL [facility] Bilirubin, Total 0.3 0.0 - 1.0 mg/dL [facility] Aspartate Amino Transferase 22 5 - 31 U/L [facility] Alanine Aminotransferase 17 0 - 31 U/L [facility] Total Protein 7.6 6.5 - 8.0 g/dL [facility] Albumin Level 4.7 3.5 - 5.0 g/dL [facility] Alkaline Phosphatase 56 39 - 117 U/L [facility] Blood Venous blood specimen / Unknown 10/16/2024 3:48 PM EST 10/16/2024 5:44 PM EST [facility] REAL ESTATE REP LAB BLOOD ORDERABLES Final Re sult [facility] [address] [place] [address] [phone] * Shave removal (08/28/2024 9:28 AM EST) Narrative Ben Alford MD - 08/28/2024 9:28 AM EST Ben Alford MD ? 08/28/2024 ??9:33 AM Shave removal Date/Time: 08/28/2024 9:28 AM Performed by: Ben Alford MD Authorized by: Ben Alford MD ?? Consent: ??Consent obtained: ??Written ??Consent given by: ??Patient ??Risks discussed: ??Pain and incomplete removal ??Alternatives discussed: ??Observation and delayed treatment [place] protocol: ??Procedure explained and questions answered to [...] Comments: Xylocaine 1% 0.5 mL injected. ??Lot [id number] expiration date 10/28. ?? Saucerization of the [...] a test for HCV RNA (test code 69958) is suggested. ?? For additional information please refer to http://Druidly.Makara/faq/OQG54o3 (This link is being provided for informational/ educational purposes only.) ?? 08/09/2022 9:23 AM EST Margarita Tobin CNM HISTORICAL/NON ORDERABLE LABS Final Result [facility]Y [facility] * THINPREP TIS PAP AND HPV mRNA E6/E7, CT/NG, TRICH (05/03/2022 1:17 PM EDT) Chlamydia trachomatis RNA, TMA, Urogenital NOT DETECTED NOT DETECTED [facility] Clinical Information: None given [facility] COMMENT SEE COMMENT [facility] Comment: The analytical performance characteristics of this assay, when used to test SurePath(TM) specimens have been determined by [employer]. The modifications have not been cleared or approved by the FDA. This assay has been validated pursuant to the CLIA regulations and is used for clinical purposes. ?? For additional information, please refer to https://Druidly.Makara/faq/ADT296 (This link is being provided for information/ [...] has been evaluated with computer assisted technology. [facility] Coat Presser: SEE COMMENT [facility] Comment: CLAIRE ROSSI(ASCP) CT screening location: [address] ??[address] HPV nRNA E6/E7 Not Detected Not Detected [facility] Comment: Methodology: Reheat Furnace Operator-Mediated Amplification This assay detects E6/E7 viral messenger RNA (mRNA) from 14 high-risk HPV types (16,18,31,33,35,39,45,51,52,56,58,59,66,68). ? Cervical sources are required for HPV testing. If a vaginal source from a patient who has had a total hysterectomy with removal of cervix was ?? submitted, please contact the testing laboratory for alternative testing options. ?? For additional information, please refer to http://Druidly.Makara/faq/FEI793e4 (This link if provided for information/ educational purposes only.) Interpretation/Re sult: Negative for intraepithelial lesion or malignancy. [facility] LMP: 7,132,022 [facility] Neisseria gonorrhoeae RNA, TMA, Urogenital [...] of this assay have been determined by [employer]. The modifications have not been cleared or approved by the FDA. This assay has been validated pursuant to the CLIA regulations and is used for clinical purposes. ?? For additional information, please refer to http://education.Makara/ faq/Trichomonastma (This link is being provided for information/ educational purposes only.) ?? 05/03/2022 1:17 PM EDT Margarita Tobin [facility] LAB PATHOLOGY ORDERABLES Final Result [facility] [address] from Last 3 Months or Most Recently Relevant to Health Maintenance Insurance [facility] C3 DENTAL-[facility] MEDICAID STAND ADULT Care Teams Tray Casting Machine Operator Relationship Specialty Start Date End Date Arpita Saravia MD [address] [place] [address] PCP - General Family Medicine 10/08/13 Eddie Pimentel FNP [address] [place] [address] Nurse Practitioner Family Medicine 08/22/23
--- OUTSIDE RECORDS SUMMARY | 2024-10-29 11:43 | XMS_ITS | Encounter Summary ---
Author Organization [employer] Address [address] 7[address] [place] [address] Care Team Providers Care Editor Newspaper Name Role Phone Arpita Saravia MD Primary Care Provider [phone] Eddie Pimentel Unavailable Unavailable Encounter Details Date Type Department Care Team ([facility] st Contact Info) Description 10/22/2024 Telephone [facility] CHC MED & PEDS [address] [place] [address] Edith Day, RN Social History Tobacco Use [...] t he electric, gas, oil or water [employer] threatened to shut off services in your [...] celiac screening. Pt advised to go to [facility], [facility] or [facility] to have their blood work completed. Informed pt our office will call back once we have the new results and pt verbalized understanding. documented in this encounter Plan of Treatment Upcoming Encounters Date Type Department Care Team (Late st Contact Info) Description 11/13/2024 8:45 AM EST Office Visit [facility] MED & PEDS [address] [place] [address] Arpita Saravia MD [address] [facility] [place] [address] documented as of this encounter Visit Diagnoses Not on filedocumented in this encounter Additional Health Concerns Assessment Noted Time PHQ-9 Depression Total Score: 6 02/19/20 24 3:02 PM EDT documented as of this encounter Care Teams Editor Newspaper Relationship Specialty Start Date End Date Arpita Saravia MD [address] [place] [address] PCP - General Family Medicine 10/08/13 Eddie Pimentel FNP [address] [place] [phone] Nurse Practitioner Family Medicine 08/22/23 documented as of this encounter
--- OUTSIDE RECORDS SUMMARY | 2024-10-29 11:43 | XMS_ITS | Encounter Summary ---
Author Organization [employer] Address [address] [facility] 7 [place] [address] Care Team Providers Care Core Man Name Role Phone Arpita Saravia MD Primary Care Provider [phone] Eddie Pimentel Unavailable Unavailable Reason for Visit * Reason Onset Date Comments Results 10/17/2024 Encounter Details Date Type Department Care Team ([facility] st Contact Info) Description 10/17/2024 Telephone [facility] MEDICINE [address] [place] [address] Arpita Saravia MD [address] [place] [address] Results Social History Tobacco Use Types Packs/Day [...] results: labs Date when done: 10/16/23 Facility: [facility] documented in this encounter Plan of Treatment Upcoming Encounters Date Type Department Care Team (Late st Contact Info) Description 11/13/2024 8:45 AM EST Office Visit [facility] MED & PEDS [address] [place] [address] Arpita Saravia MD [address] [place] [address] documented as of this encounter Visit Diagnoses Not on filedocumented in this encounter Additional Health Concerns Assessment Noted Time PHQ-9 Depression Total Score: 6 02/19/20 3:02 PM EDT documented as of this encounter Care Teams Core Man Relationship Specialty Start Date End Date Arpita Saravia MD [address] [place] [address] PCP - General Family Medicine 10/08/13 Eddie Pimentel FNP [address] [place] [address] Nurse Practitioner Family Medicine 08/22/23 documented as of this encounter
--- OUTSIDE RECORDS SUMMARY | 2024-10-29 11:43 | XMS_ITS | Encounter Summary ---
Author Organization [employer] Address [address] [facility] 7 [place] [address] Care Team Providers Care Outpatient Clerk Name Role Phone Arpita Saravia MD Primary Care Provider [phone] Eddie Pimentel Unavailable Unavailable Reason for Visit * Reason Onset Date Comments Nurse Triage 10/18/2024 Encounter Details Date Type Department Care Team ([facility] st Contact Info) Description 10/18/2024 Telephone [facility] CHC MED & PEDS [address] [place] [address] Arpita Saravia MD [address] [place] [address] Nurse Triage Social History Tobacco Use Types [...] celiac screening. Pt advised to go to [facility] lab, [facility] or [facility] to have their blood work completed. Informed pt our office will call back once we have the new results and pt verbalized understanding. * Telephone Encounter - Edith Day RN - 10/22/2024 11:15 AM EST ----- Message from [facility] sent at 10/18/2024 3:43 PM EST [...] states that she has been calling the [facility] office to get blood work results and get a call from PCP. Pt states she went [facility] ED yesterday and had CT scan done which they told her that sheis full of stool. Pt. [facility] ED for over 8 hours she [...] and her BP has been high. Yesterday [facility] ED[facility] states that BP was around 150/104 [...] ambulance and have them bring her to [facility] ED instead. Pt. Also states tht she never got results of Mole biopsy and I looked it up and it states next to Malignancy: Benign lesion which I told pt. I will send this note to PCP and [facility] nurses to let them know pt. Is going back to [facility] ED today for re evaluation of pain [...] Description 11/13/2024 8:45 AM EST Office Visit [facility] CHC MED & PEDS [address] [place] [address] Arpita Saravia MD [address] [place] [address] documented as of this encounter Visit Diagnoses Not on filedocumented in this encounter Additional Health Concerns Assessment Noted Time PHQ-9 Depression Total Score: 6 02/19/20 24 3:02 PM EDT documented as of this encounter Care Teams Outpatient Clerk Relationship Specialty Start Date End Date Arpita Saravia MD [address] [place] [address] PCP - General Family Medicine 10/08/13 Eddie Pimentel FNP [address] [place] [address] Nurse Practitioner Family Medicine 08/22/23 documented as of this encounter
--- OUTSIDE RECORDS SUMMARY | 2024-10-29 11:43 | XMS_ITS | Encounter Summary ---
Author Organization [employer] Address [address] [place] [address] 7 [place] [address] Care Team Providers Care Blasting Contract Miner Name Role Phone Arpita Saravia MD Primary Care Provider [phone] Eddie Pimentel Unavailable Unavailable Reason for Referral * Consultation (Routine) - Authorized Specialty Diagnoses / Procedures Referred By Contac t Referred To Contact Pulmonary Disease Diagnoses Pulmonary emphysema, unspecified emphysema type (CMS/HCC) Arpita Saravia MD [address] [place], [place] Phone: tel: fax: Diego Albarran [address] [place] [address] Phone: tel: fax: Referral ID Status Reason Start Date Expiration Date Visits Requested Visits Authorized [id number] Authorized Specialty Services Required 10/22/2024 10/22/2025 1 1 * Consultation (Routine) - Authorized Specialty Diagnoses / Procedures Referred By Contac t Referred To Contact Gastroenterology Diagnoses Right lower quadrant abdominal pain Arpita Saravia MD [address] [place], [place] Phone: tel: fax: Ryan Guerin MD [address] [place] [address] Phone: tel: fax: Referral ID Status Reason Start Date Expiration Date Visits Requested Visits Authorized [id number] Authorized Specialty Services Required 10/22/2024 10/22/2025 1 1 Reason for Visit * Reason Comments Labs Only Encounter Details Date Type Department Care Team ([facility] st Contact Info) Description 10/22/2024 9:00 AM EST Telemedicine [facility] CHC MED & PEDS [address] [place] [address] Arpita Saravia MD [address] [place] [address] Right lower quadrant abdominal pain (Primary Dx); [...] Description 11/13/2024 8:45 AM EST Office Visit [facility] CHC MED & PEDS [address] [place] [address] Arpita Saravia MD [address] [place] [address] Scheduled Referrals Name Type Priority Associated Diagnoses Order Schedule Referral to Gastroenterology Outpatient Referral Routine Right lower quadrant abdominal pain Expected: 10/22/2024 (Approximate), Expires: 10/22/2025 Referral to Pulmonology Outpatient Referral Routine Pulmonary emphysema, unspecified emphysema type (CMS/HCC) Expected: 10/22/2024 (Approximate), Expires: 10/22/2025 documented as of this encounter Procedures Procedure Name Priority Date/Time Associated Diagnosis Comments VITAMIN D,25-OH,TOTAL,IA Routine 10/23/2024 9:42 AM EST Vitamin D deficiency VITAMIN B12/FOLATE, SERUM PANEL Routine 10/23/2024 9:42 AM EST Chronic fatigue TSH W/REFLEX TO FT4 Routine 10/23/2024 9 :42 AM EST Chronic fatigue CBC WITH AUTO DIFFERENTIAL Routine 10/23/2024 9:42 AM EST Right lower quadrant abdominal pain CELIAC DISEASE COMPREHENSIVE PANEL Routine 10/23/2024 9:42 AM EST Right lower quadrant abdominal pain HEPATIC FUNCTION PANEL Routine 9:42 AM EST Right lower quadrant abdominal pain LIPID PANEL, STANDARD Routine 10/23/2024 9:42 AM EST Right lower quadrant abdominal pain BASIC METABOLIC PANEL Routine 10/23/2024 9:42 AM EST Right lower quadrant abdominal pain documented in this encounter Results * TSH W/Reflex to FT4 (10/23/2024 9:42 AM EST) TSH reflex Free T4 1.60 0.32 - 4.0 uIU/mL [facility] Blood Venous blood specimen / Unknown 10/23/2024 9:42 AM EST 10/23/2024 2:07 PM EST Arpita Saravia MD LAB BLOOD ORDERABLES Final Resul t [facility] [address] [place] [address] [phone] * Celiac Disease Comprehensive Panel (10/23/2024 9:42 AM EST) Immunoglobulin A 214 47 - 310 mg/dL [facility] Comment:THIS TEST WAS PERFOR MED AT:[facility] [place] [phone] PARTIDA MD Transglutaminase IgA <1.0 U/mL [facility] Comment:Value Interpretatio n----- <15.0 Antibody not detected> or = 15.0 Antibody detected Interpretation SEE NOTE [facility] Comment:No serological evide nce of celiac disease.tTG IgA may normalize in individuals with celiac diseasewho maintain a gluten-free diet. Consider HLA DQ2 andDQ8 testing to rule out celiac disease. Celiac diseaseis extremely rare in the absence of DQ2 or DQ8. Blood Venous blood specimen / Unknown 10/23/2024 9:42 AM EST 10/23/2024 2:00 PM EST us Arpita Saravia MD LAB BLOOD ORDERABLES Final Resul t [facility] [address] [place] [address] [phone] * Vitamin B12/Folate, Serum Panel (10/23/2024 9:42 AM EST) Vitamin B12 403 200 - 900 pg/mL [facility] Comment:NORMAL 200-900 PG/ML INDETERMINATE 160-199 PG/ML DEFICIENT < 160 PG/ML Folate 15.8 > or = 4.0 ng/mL [facility] Comment:Reference Values:> o r = 4.0 [...] ORDERABLES Final Resul t Performing Organization Address [facility] de Phone Number [facility] [address] [place] [phone] * Vitamin D, 25-Hydroxy, Total, Immunoassay (10/23/2024 9:42 AM EST) Vitamin D 25-OH Total 48.2 >30 ng/mL [facility] Comment:Health Based Referen ce Values*< 20 ng/mL Eblmtovyu76-70 ng/mL Insufficient> 30 ng/mL Sufficient*Vimal BANUELOS. N [...] ORDERABLES Final Resul t Performing Organization Address [facility] Co de Phone Number [facility] [address] [place] [phone] * (ABNORMAL) CBC auto differential (10/23/2024 9:42 AM EST) White Blood Count 5.3 4.8 - 10.8 X10*3/uL [facility] Red Blood Count 4.10(L) 4.20 - 5.50 X10*6/uL [facility] Hemoglobin 12.7 12.0 - 16.0 g/dl [facility] Hematocrit 37.5 37.0 - 47.0 % [facility] Mean Corpuscular Volume 91.5 80.0 - 98.0 fL [facility] Mean Corpuscular Hemoglobin 31.0 27.0 - 33.0 pg [facility] Mean Corpuscular HGB Conc 33.9 31.0 - 35.0 g/dl [facility] Red Cell Distribution Width 12.1 11.0 - 16.0 % [facility] Platelet Count 270 160 - 400 X10*3/uL [facility] Mean Platelet Volume 10.0 9.4 - 12.3 fL [facility] Neutrophils Percent Auto 75.9(H) 45 - 73 % [facility] Imm Gran Pct Auto 0.4 0.0 - 0.4 % [facility] Lymphocytes Percent Auto 17.6(L) 20 - 40 % [facility] Monocytes Percent Auto 5.3 2 - 11 % [facility] Eosinophils Percent Auto 0.4 0 - 4 % [facility] Basophils Percent Auto 0.4 0 - 2 % [facility] NRBC Pct Auto 0.0 0.0 - 0.2 /100WBC [facility] Neutrophils Absolute Auto 4.1 2.0 - 8.3 x10*3/uL [facility] Imm Gran Abs Auto 0.02 0.00 - 0.03 X10*3/uL [facility] Lymphocytes Absolute Auto 0.9(L) 1.2 - 4.9 X10*3/uL [facility] Monocytes Absolute Auto 0.3 0.1 - 1.2 X10*3/uL [facility] Eosinophils Absolute Auto 0.0 0.0 - 0.4 X10*3/uL [facility] Basophils Absolute Auto 0.0 0.0 - 0.2 X10*3/uL [facility] NRBC Abs Auto 0.000 0.0 - 0.012 X10*3/uL [facility] Blood Venous blood specimen / Unknown 10/23/2024 9:42 AM EST 10/23/2024 2:00 PM EST Arpita Saravia MD LAB BLOOD ORDERABLES Final Resul t Performing Organization Address [facility] Co de Phone Number [facility] [address] [place] [phone] * Hepatic Function Panel (10/23/2024 9:42 AM EST) Bilirubin, Total 0.7 0.0 - 1.0 mg/dL [facility] Bilirubin, Direct 0.3 0.0 - 0.5 mg/dL [facility] Aspartate Amino Transferase 26 5 - 31 U/L [facility] Alanine Aminotransferase 14 0 - 31 U/L [facility] Total Protein 7.7 6.5 - 8.0 g/dL [facility] Albumin Level 4.5 3.5 - 5.0 g/dL [facility] Alkaline Phosphatase 55 39 - 117 U/L [facility] Blood Venous blood specimen / Unknown 10/23/2024 9:42 AM EST 10/23/2024 2:07 PM EST Arpita Saravia MD LAB BLOOD ORDERABLES Final Resul t Performing Organization Address [facility] Co de Phone Number [facility] [address] [place] [phone] * Lipid Panel, Standard (10/23/2024 9:42 AM EST) Triglycerides 91 <150 mg/dL [facility] Comment:Desirable Triglyceri de: less than 150 mg/dLBorderline High Triglyceride 150-199 mg/dLHigh Triglyceride: 200-499 mg/dLVery High Triglyceride: greater than or equal to 5OO mg/dL Cholesterol 148 <200 mg/dL [facility] Comment:Desirable Cholestero l: less than 200 mg/dLBorderline High Cholesterol: 200-239 mg/dLHigh Cholesterol: greater than 239 mg/dL LDL Cholesterol Calculated 84 <100 mg/dL [facility] Comment:Desirable LDL: less than 100 mg/dLNear Optimal/Above Optimal LDL: 110- 129 mg/dLBorderline High LDL: 130-159 mg/dLHigh LDL: 160-189 mg/dLVery High LDL: greater than or equal to 190 mg/dL HDL Cholesterol 46 >40 mg/dL [facility] Comment:Desirable HDL: great er than 40 mg/dL Note: This HDL assay may give artificially low results in patients with liver disease. Blood Venous blood specimen / Unknown 10/23/2024 9:42 AM EST 10/23/2024 2:07 PM EST us Arpita Saravia MD LAB BLOOD ORDERABLES Final Resul t [facility] [address] [place] [phone] * (ABNORMAL) Basic Metabolic Panel (10/23/2024 9:42 AM EST) Sodium 137 135 - 145 mmol/L [facility] Potassium 3.9 3.3 - 5.1 mmol/L [facility] Chloride 105 96 - 108 mmol/L [facility] Carbon Dioxide 27 22 - 29 mmol/L [facility] Anion Gap 9(L) 12 - 20 [facility] Urea Nitrogen (BUN) 11 9 - 16 mg/dL [facility] Creatinine, Serum 0.75 0.5 - 1.4 mg/dL [facility] Estimated Glomerular Filt Rate >60 [facility] Comment:Chronic Kidney Disea se: Estimated GFR < 60 mL/min/[id number] Kidney Disease: Estimated GFR < 15 mL/min/1.73m2 Glucose 96 60 - 115 mg/dL [facility] Calcium 9.7 8.4 - 10.2 mg/dL [facility] Blood Venous blood specimen / Unknown 10/23/2024 9:42 AM EST 10/23/2024 2:07 PM EST Arpita Saravia MD LAB BLOOD ORDERABLES Final Resul t [facility] [address] [place] [phone] [phone] documented in this encounter Visit Diagnoses Diagnosis Right lower quadrant abdominal pain- Primary Vitamin D deficiency Chronic fatigue Other malaise and fatigue Pulmonary emphysema, unspecified emphysema type (CMS/HCC) documented in this encounter Additional Health Concerns Assessment Noted Time PHQ-9 Depression Total Score: 6 02/19/20 24 3:02 PM EDT documented as of this encounter Care Teams Blasting Contract Miner Relationship Specialty Start Date End Date Arpita Saravia MD [address] [place] [address] PCP - General Family Medicine 10/08/13 Eddie Pimentel FNP [address] [place] [phone] Nurse Practitioner Family Medicine 08/22/23 documented as of this encounter
--- OUTSIDE RECORDS SUMMARY | 2024-10-29 11:43 | XMS_ITS | Encounter Summary ---
Author Organization [email or web address] Address [address] [place] [address] Care Team Providers Care Supervisor Press Room Name Role Phone Arpita Saravia MD Primary Care Provider [phone] Eddie Pimentel Unavailable Unavailable Encounter Details Date [...] Description 11/13/2024 8:45 AM EST Office Visit [facility] MED & PEDS [address] [place] [address] Arpita Saravia MD [address] [place] [address] documented as of this encounter Visit Diagnoses Not on filedocumented in this encounter Additional Health Concerns Assessment Noted Time PHQ-9 Depression Total Score: 6 02/19/20 24 3:02 PM EDT documented as of this encounter Care Teams Supervisor Press Room Relationship Specialty Start Date End Date Arpita Saravia MD [address] [place] [address] PCP - General Family Medicine 10/08/13 Eddie Pimentel FNP [address] [place] [address] Nurse Practitioner Family Medicine 08/22/23 documented as of this encounter
== END 2024-10-29 11:08 | disposition home or self-care (01) ==
PROVIDERS: PCP Student in an Organized Health Care Education/Training Program; Referring Provider Student in an Organized Health Care Education/Training Program; Visit Provider Nurse Practitioner Family
DX: J98.11 Atelectasis (principal); R06.09 Other forms of dyspnea
CPT/HCPCS: 99203

== ENCOUNTER 2024-10-29 10:35 | Outpatient (REF) | payer MEDICAID, SELFPAY ==
--- NOTE | ~2024-10-29 | XR_ITS ---
EXAMINATION: XR CHEST CLINICAL INFORMATION: J98.11 - [employer] COMPARISON: 12/05/2017, 02/02/2017. TECHNIQUE: 2 views of the chest were obtained. FINDINGS: The cardiac, hilar, and mediastinal contours are normal. The lungs are clear bilaterally. There is no pneumothorax or pleural effusion. There is no focal osseous or soft tissue abnormality. XR/XR chest 2V IMPRESSION: No active pulmonary disease. Electronically signed by: Mervin Forte MD 10/29/2024 03:39 PM EST
--- OUTSIDE RECORDS SUMMARY | 2024-10-29 16:09 | XMS_ITS | Encounter Summary ---
Author Organization [employer] Address [address] [place] [address] Care Team Providers Care Law Office Assistant Name Role Phone Arpita Saravia MD Primary Care Provider [phone] Eddie Pimentel Unavailable Unavailable Encounter Details Date Type Department Care Team (Late st Contact Info) Description 10/17/2024 Orders Only [facility] External Provider, [facility] Social History Tobacco Use Types Packs/Day [...] Upcoming Encounters Date Type Department Care Team ([facility] st Contact Info) Description 11/13/2024 8:45 AM EST Office Visit [facility] CHC MED & PEDS [address] [place] [address] Arpita Saravia MD [address] [place] [address] documented as of this encounter Procedures Procedure [...] EST Narrative 10/17/2024 9:08 PM EST ? [facility] ?[address] ?[place] [address] ? CT Scan Report ? Signed ? Patient: Juares,Whitley ?MR#: [id number] ?? [id number] ? : 1985 ?Acct:[id number] ? Age/Sex: 39 / F ?ADM Date: 10/17/24 ? Loc: HO.ED ? Attending Dr: ? Ordering Physician: Whitley Bellamy ?? Date of Service: 10/17/24 ?? Procedure(s): CT abdomen pelvis wo IV con ?? Accession Number(s): [id number] ? cc: Whitley Bellamy; Arpita Saravia MD ? Report Number: ?? [id number]: Total DLP = ??392.00 mGy-cm ? CLINICAL [...] ? DD/ 05 ? TD/TT: 10/17/242105 ? Machine Shop Apprentice: ? Procedure Note Janice Francis - 10/17/[address] [address] [address] Scan Report Signed Patient: Whitley JuaresMR#: [id number] : 1985Acct:[id number] Age/Sex: 39 / FADM Date: 10/17/24 Loc: HO.ED Attending Dr: Ordering Physician: Whitley Bellamy Date of Service: 10/17/24 Procedure(s): CT abdomen pelvis wo IV con Accession Number(s): [id number] cc: Whitley Bellamy; Arpita Saravia MD Report Number: [id number]: Total DLP = 392.00 mGy-cm CLINICAL HISTORY: [...] in OV> 10/17/242106 DD/ 05 TD/TT: 10/17/242105 Machine Shop Apprentice: [facility] External Provider IMG CT PROCEDURES Final Result * SARS-CoV-2 RNA, Influenza A/B, and RSV RNA, Ql NAAT (10/17/2024 8:54 PM EST) Influenza A PCR NEGATIVE Negative [facility] Influenza B PCR NEGATIVE Negative [facility] Resp Syncy Virus RNA Qual PCR NEGATIVE Negative [facility] SARS COV2 PCR NEGATIVE Negative [facility] Comment:All test results mus t be [...] use by authorized laboratories.Testing performed on the Super[employer] GeneXpert utilizingreal-time RT-PCR.All SARS CoV2 and positive influenza A/B results arereported to [facility]. 10/17/2024 8:54 PM EST 10/17/2024 8:56 PM EST Generic External Data Provider LAB MICROBIOLOGY - GENERAL ORDERABLES Final Result Performing Organization Address [facility]/ZIP Co de Phone Number [facility] [address] [place] [phone] * hCG, Total, Quantitative (10/17/2024 8:54 PM EST) HCG Quantitative <2 mIU/mL [facility] Comment:Weeks post LMP Appro ximate hCG(Last Menstrual Period) Range (mIU/ml)3 - 4 weeks 9 - 1304 - 5 weeks 75 - 2,6005 - 6 weeks 850 - 20,8006 - 7 weeks 4000 - 100,2007 - 12 weeks 11,500 - 289,04419 - 16 weeks 18,300 - 137,14290 - 29 weeks (2nd trimester) 1,400 - 53,40428 - 41 weeks (3rd trimester) 940 - [...] ORDERAB LES Final Result Performing Organization Address [facility] Co de Phone Number [facility] [address] [place] [phone] * Lipase (10/17/2024 8:54 PM EST) Lipase 24 8 - 78 U/L [facility] 10/17/2024 8:54 PM EST 10/17/2024 8:56 PM EST us Generic External Data Provider LAB BLOOD ORDERAB LES Final Result Performing Organization Address City/[facility]/ZIP Co de Phone Number [facility] [address] [place] [phone] * Magnesium (10/17/2024 8:54 PM EST) Magnesium 2.1 1.6 - 2.6 mg/dL [facility] 10/17/2024 8:54 PM EST 10/17/2024 8:56 PM EST Generic External Data Provider LAB BLOOD ORDERAB LES Final Result Performing Organization Address [facility] Co de Phone Number [facility] [address] [place] [phone] [phone] * (ABNORMAL) Basic Metabolic Panel (10/17/2024 8:54 PM EST) Sodium 141 135 - 145 mmol/L [facility] Potassium 4.1 3.3 - 5.1 mmol/L [facility] Chloride 110(H) 96 - 108 mmol/L [facility] Carbon Dioxide 26 22 - 29 mmol/L [facility] Anion Gap 9(L) 12 - 20 [facility] Urea Nitrogen (BUN) 9 9 - 16 mg/dL [facility] Creatinine, Serum 0.75 0.5 - 1.4 mg/dL [facility] Creatinine Clr Calc Pharmacy 93.5 [facility] Comment:Provided height and weight: 160.02 cm,65.6 kg.eGFR (calculated from the MDRD study equation) and eCrCl(calculated from the Cockcroft-Gault equation) are based ondifferent parameters and may not yield comparable results.If eCrCl result is absurd, please check patient'sheight/weight. Estimated Glomerular Filt Rate >60 [facility] Comment:Chronic Kidney Disea se: Estimated GFR < 60 mL/min/1.95q7Jsyvft Kidney Disease: Estimated GFR < 15 mL/min/1.73m2 Glucose 83 60 - 115 mg/dL [facility] Calcium 9.8 8.4 - 10.2 mg/dL [facility] 10/17/2024 8:54 PM EST 10/17/2024 8:56 PM EST Generic External Data Provider LAB BLOOD ORDERAB LES Final Result Performing Organization Address [facility] Co de Phone Number [facility] [address] [place] [phone] * (ABNORMAL) Hepatic Function Panel (10/17/2024 8:54 PM EST) Bilirubin, Total 0.3 0.0 - 1.0 mg/dL [facility] Bilirubin, Direct 0.1 0.0 - 0.5 mg/dL [facility] Aspartate Amino Transferase 22 5 - 31 U/L [facility] Alanine Aminotransferase 15 0 - 31 U/L [facility] Total Protein 8.1(H) 6.5 - 8.0 g/dL [facility] Albumin Level 4.7 3.5 - 5.0 g/dL [facility] Alkaline Phosphatase 59 39 - 117 U/L [facility] 10/17/2024 8:54 PM EST 10/17/2024 8:56 PM EST Generic External Data Provider LAB BLOOD ORDERAB LES Final Result Performing Organization Address [facility] Co de Phone Number [facility] [address] [place] [phone] * (ABNORMAL) CBC auto differential (10/17/2024 8:54 PM EST) White Blood Count 4.3(L) 4.8 - 10.8 X10*3/uL [facility] Red Blood Count 4.35 4.20 - 5.50 X10*6/uL [facility] Hemoglobin 13.4 12.0 - 16.0 g/dl [facility] Hematocrit 39.4 37.0 - 47.0 % [facility] Mean Corpuscular Volume 90.6 80.0 - 98.0 fL [facility] Mean Corpuscular Hemoglobin 30.8 27.0 - 33.0 pg [facility] Mean Corpuscular HGB Conc 34.0 31.0 - 35.0 g/dl [facility] Red Cell Distribution Width 12.0 11.0 - 16.0 % [facility] Platelet Count 266 160 - 400 X10*3/uL [facility] Mean Platelet Volume 9.2(L) 9.4 - 12.3 fL [facility] Neutrophils Percent Auto 44.6(L) 45 - 73 % [facility] Imm Gran Pct Auto 0.2 0.0 - 0.4 % [facility] Lymphocytes Percent Auto 44.2(H) 20 - 40 % [facility] Monocytes Percent Auto 8.9 2 - 11 % [facility] Eosinophils Percent Auto 1.4 0 - 4 % [facility] Basophils Percent Auto 0.7 0 - 2 % [facility] NRBC Pct Auto 0.0 0.0 - 0.2 /100WBC [facility] Neutrophils Absolute Auto 1.9(L) 2.0 - 8.3 x10*3/uL [facility] Imm Gran Abs Auto 0.01 0.00 - 0.03 X10*3/uL [facility] Lymphocytes Absolute Auto 1.9 1.2 - 4.9 X10*3/uL [facility] Monocytes Absolute Auto 0.4 0.1 - 1.2 X10*3/uL [facility] Eosinophils Absolute Auto 0.1 0.0 - 0.4 X10*3/uL [facility] Basophils Absolute Auto 0.0 0.0 - 0.2 X10*3/uL [facility] NRBC Abs Auto 0.000 0.0 - 0.012 X10*3/uL [facility] 10/17/2024 8:54 PM EST 10/17/2024 8:56 PM EST us Generic External Data Provider LAB BLOOD ORDERAB LES Final Result [facility] [address] [place] [phone] documented in this encounter Visit Diagnoses Not on filedocumented in this encounter Additional Health Concerns Assessment Noted Time PHQ-9 Depression Total Score: 6 02/19/20 24 3:02 PM EDT documented as of this encounter Care Teams Law Office Assistant Relationship Specialty Start Date End Date Arpita Saravia MD [address] [place] [address] PCP - General Family Medicine 10/08/13 Eddie Pimentel FNP [address] [place] [address] Nurse Practitioner Family Medicine 08/22/23 documented as of this encounter
--- OUTSIDE RECORDS SUMMARY | 2024-10-29 16:09 | XMS_ITS | Encounter Summary ---
Author Organization [employer] Address [address] [facility] 7 [place] [address] Care Team Providers Care Carpet Renovator Name Role Phone Arpita Saravia MD Primary Care Provider [phone] Eddie Pimentel Unavailable Unavailable Reason for Visit * Reason Onset Date Comments triage 10/21/2022 Encounter Details Date Type Department Care Team ([facility] st Contact Info) Description 10/21/2022 Telephone [facility] CHC MED & PEDS [address] [place] [address] Arpita Saravia MD [address] [place] [address] triage Social History Tobacco Use Types Packs/Day [...] Upcoming Encounters Date Type Department Care Team ([facility] st Contact Info) Description 11/13/2024 8:45 AM EST Office Visit [facility] MED & PEDS [address] [place] [address] Arpita Saravia MD [address] [place] [address] documented as of this encounter Visit Diagnoses Not on filedocumented in this encounter Additional Health Concerns Assessment Noted Time PHQ-9 Depression Total Score: 10 022 8:52 AM EST documented as of this encounter Care Teams Carpet Renovator Relationship Specialty Start Date End Date Arpita Saravia MD [address] [place] [phone] PCP - General Family Medicine 10/08/13 Eddie Pimentel FNP [address] [place] [address] Nurse Practitioner Family Medicine 08/22/23 documented as of this encounter
--- OUTSIDE RECORDS SUMMARY | 2024-10-29 16:09 | XMS_ITS | Encounter Summary ---
Author Organization [employer] Address [address] [facility] 7 [place] [address] Care Team Providers Care Computer Software Engineer Name Role Phone Arpita Saravia MD Primary Care Provider [phone] Eddie Pimentel Unavailable Unavailable Reason for Visit * Reason Onset Date Comments triage 11/03/2022 Encounter Details Date Type Department Care Team ([facility] st Contact Info) Description 11/03/2022 Telephone [facility] MEDICINE [address] [place] [address] Arpita Saravia MD [address] [place] [address] triage Social History Tobacco Use Types Packs/Day [...] Pt states when she went to the [facility] to pick this up was told [...] 11/13/2024 8:45 AM EST Office Visit [facility] MED & PEDS [address] [place] [address] Arpita Saravia MD [address] [place] [address] documented as of this encounter Visit Diagnoses Not on filedocumented in this encounter Additional Health Concerns Assessment Noted Time PHQ-9 Depression Total Score: 15 023 8:55 AM EST documented as of this encounter Care Teams Computer Software Engineer Relationship Specialty Start Date End Date Arpita Saravia MD [address] [place] [address] PCP - General Family Medicine 10/08/13 Eddie Pimentel FNP [address] [place] [address] Nurse Practitioner Family Medicine 08/22/23 documented as of this encounter
--- OUTSIDE RECORDS SUMMARY | 2024-10-29 16:10 | XMS_ITS | Encounter Summary ---
Author Organization [employer] Address [address] [place] [address] Care Team Providers Care Outpatient Coder Name Role Phone Arpita Saravia MD Primary Care Provider [phone] Eddie Pimentel Unavailable Unavailable Reason for Visit * Reason Onset Date Comments Nurse Triage 10/24/2023 Encounter Details Date Type Department Care Team (Late st Contact Info) Description 10/24/2023 Telephone [facility] MEDICINE [address] [place] [address] Arpita Saravia MD [address] [place] [address] Nurse Triage Social History Tobacco Use Types [...] AM EST Office Visit [facility] MED & PEDS [address] [place] [address] Arpita Saravia MD [address] [place] [address] documented as of this encounter Visit Diagnoses Not on filedocumented in this encounter Additional Health Concerns Assessment Noted Time PHQ-9 Depression Total Score: 5 10/19/19 24 3:32 PM EST documented as of this encounter Care Teams Outpatient Coder Relationship Specialty Start Date End Date Arpita Saravia MD [address] [place] [address] PCP - General Family Medicine 10/08/13 Eddie Pimentel FNP [address] [place] [phone] Nurse Practitioner Family Medicine 08/22/23 documented as of this encounter
--- OUTSIDE RECORDS SUMMARY | 2024-10-29 16:10 | XMS_ITS | Encounter Summary ---
Author Organization [employer] Address [address] [place] [address] Care Team Providers Care Painting Worker Name Role Phone Arpita Saravia MD Primary Care Provider [phone] Eddie Pimentel Unavailable Unavailable Encounter Details Date Type Department Care Team ([facility] st Contact Info) Description 10/22/2024 Telephone [facility] CHC MED & PEDS [address] [place] [address] Edith Day, RN Social History Tobacco Use [...] t he electric, gas, oil or water [employer] threatened to shut off services in your [...] Pt advised to go to [facility], [facility] or [facility] to have their blood work completed. Informed pt our office will call back once we have the new results and pt verbalized understanding. documented in this encounter Plan of Treatment Upcoming Encounters Date Type Department Care Team (Late st Contact Info) Description 11/13/2024 8:45 AM EST Office Visit [facility] MED & PEDS [address] [place] [address] Arpita Saravia MD [address] [facility] [place] [address] documented as of this encounter Visit Diagnoses Not on filedocumented in this encounter Additional Health Concerns Assessment Noted Time PHQ-9 Depression Total Score: 6 02/19/20 24 3:02 PM EDT documented as of this encounter Care Teams Painting Worker Relationship Specialty Start Date End Date Arpita Saravia MD [address] [place] [address] PCP - General Family Medicine 10/08/13 Eddie Pimentel FNP [address] [place] [address] Nurse Practitioner Family Medicine 08/22/23 documented as of this encounter
--- OUTSIDE RECORDS SUMMARY | 2024-10-29 16:10 | XMS_ITS | Encounter Summary ---
Author Organization [employer] Address [address] [place] [address] 7 [place] [address] Care Team Providers Care Personnel Officer Name Role Phone Arpita Saravia MD Primary Care Provider [phone] Eddie Pimentel Unavailable Unavailable Reason for Referral * Consultation (Routine) - Authorized Specialty Diagnoses / Procedures Referred By Contac t Referred To Contact Pulmonary Disease Diagnoses Pulmonary emphysema, unspecified emphysema type (CMS/HCC) Arpita Saravia MD [address] [place], [place] Phone: tel: fax: Diego Albarran [address] [place] [address] Phone: tel: fax: Referral ID Status Reason Start Date Expiration Date Visits Requested Visits Authorized [id number] Authorized Specialty Services Required 10/22/2024 10/22/2025 1 1 * Consultation (Routine) - Authorized Specialty Diagnoses / Procedures Referred By Contac t Referred To Contact Gastroenterology Diagnoses Right lower quadrant abdominal pain Arpita Saravia MD [address] [place], [place] Phone: tel: fax: Ryan Guerin MD [address] [place] [address] Phone: tel: fax: Referral ID Status Reason Start Date Expiration Date Visits Requested Visits Authorized [id number] Authorized Specialty Services Required 10/22/2024 10/22/2025 1 1 Reason for Visit * Reason Comments Labs Only Encounter Details Date Type Department Care Team ([facility] st Contact Info) Description 10/22/2024 9:00 AM EST Telemedicine [facility] [address] [place] [address] Arpita Saravia MD [address] [place] [address] Right lower quadrant abdominal pain (Primary Dx); [...] Description 11/13/2024 8:45 AM EST Office Visit [facility] [address] [place] [address] Arpita Saravia MD [address] [place] [address] Scheduled Referrals Name Type Priority Associated Diagnoses [...] Free T4 1.60 0.32 - 4.0 uIU/mL [facility] Blood Venous blood specimen / Unknown 10/23/2024 9:42 AM EST 10/23/2024 2:07 PM EST Arpita Saravia MD LAB BLOOD ORDERABLES Final Resul t [facility] [address] [place] [address] [phone] * Celiac Disease Comprehensive Panel (10/23/2024 9:42 AM EST) Immunoglobulin A 214 47 - 310 mg/dL [facility] Comment:THIS TEST WAS PERFOR MED AT:[facility] [place] [phone] PARTIDA MD Transglutaminase IgA <1.0 U/mL [facility] Comment:Value Interpretatio n----- <15.0 Antibody not detected> or = 15.0 Antibody detected Interpretation SEE NOTE [facility] Comment:No serological evide nce of [...] MD LAB BLOOD ORDERABLES Final Resul t [facility] [address] [place] [address] [phone] * Vitamin B12/Folate, Serum Panel (10/23/2024 9:42 AM EST) Vitamin B12 403 200 - 900 pg/mL [facility] Comment:NORMAL 200-900 PG/ML INDETERMINATE 160-199 PG/ML DEFICIENT < 160 PG/ML Folate 15.8 > or = 4.0 ng/mL [facility] Comment:Reference Values:> o r = [...] ORDERABLES Final Resul t Performing Organization Address [facility] de Phone Number [facility] [address] [place] [phone] * Vitamin D, 25-Hydroxy, Total, Immunoassay (10/23/2024 9:42 AM EST) Vitamin D 25-OH Total 48.2 >30 ng/mL [facility] Comment:Health Based Referen ce Values*< 20 ng/mL Niwtidfrg57-38 ng/mL Insufficient> 30 ng/mL Sufficient*Vimal BANUELOS. N [...] ORDERABLES Final Resul t Performing Organization Address [facility] Co de Phone Number [facility] [address] [place] [phone] * (ABNORMAL) CBC auto differential (10/23/2024 9:42 AM EST) White Blood Count 5.3 4.8 - 10.8 X10*3/uL [facility] Red Blood Count 4.10(L) 4.20 - 5.50 X10*6/uL [facility] Hemoglobin 12.7 12.0 - 16.0 g/dl [facility] Hematocrit 37.5 37.0 - 47.0 % [facility] Mean Corpuscular Volume 91.5 80.0 - 98.0 fL [facility] Mean Corpuscular Hemoglobin 31.0 27.0 - 33.0 pg [facility] Mean Corpuscular HGB Conc 33.9 31.0 - 35.0 g/dl [facility] Red Cell Distribution Width 12.1 11.0 - 16.0 % [facility] Platelet Count 270 160 - 400 X10*3/uL [facility] Mean Platelet Volume 10.0 9.4 - 12.3 fL [facility] Neutrophils Percent Auto 75.9(H) 45 - 73 % [facility] Imm Gran Pct Auto 0.4 0.0 - 0.4 % [facility] Lymphocytes Percent Auto 17.6(L) 20 - 40 % [facility] Monocytes Percent Auto 5.3 2 - 11 % [facility] Eosinophils Percent Auto 0.4 0 - 4 % [facility] Basophils Percent Auto 0.4 0 - 2 % [facility] NRBC Pct Auto 0.0 0.0 - 0.2 /100WBC [facility] Neutrophils Absolute Auto 4.1 2.0 - 8.3 x10*3/uL [facility] Imm Gran Abs Auto 0.02 0.00 - 0.03 X10*3/uL [facility] Lymphocytes Absolute Auto 0.9(L) 1.2 - 4.9 X10*3/uL [facility] Monocytes Absolute Auto 0.3 0.1 - 1.2 X10*3/uL [facility] Eosinophils Absolute Auto 0.0 0.0 - 0.4 X10*3/uL [facility] Basophils Absolute Auto 0.0 0.0 - 0.2 X10*3/uL [facility] NRBC Abs Auto 0.000 0.0 - 0.012 X10*3/uL [facility] Blood Venous blood specimen / Unknown 10/23/2024 9:42 AM EST 10/23/2024 2:00 PM EST Arpita Saravia MD LAB BLOOD ORDERABLES Final Resul t Performing Organization Address [facility] Co de Phone Number [facility] [address] [place] [phone] * Hepatic Function Panel (10/23/2024 9:42 AM EST) Bilirubin, Total 0.7 0.0 - 1.0 mg/dL [facility] Bilirubin, Direct 0.3 0.0 - 0.5 mg/dL [facility] Aspartate Amino Transferase 26 5 - 31 U/L [facility] Alanine Aminotransferase 14 0 - 31 U/L [facility] Total Protein 7.7 6.5 - 8.0 g/dL [facility] Albumin Level 4.5 3.5 - 5.0 g/dL [facility] Alkaline Phosphatase 55 39 - 117 U/L [facility] Blood Venous blood specimen / Unknown 10/23/2024 9:42 AM EST 10/23/2024 2:07 PM EST Arpita Saravia MD LAB BLOOD ORDERABLES Final Resul t Performing Organization Address [facility] Co de Phone Number [facility] [address] [place] [phone] * Lipid Panel, Standard (10/23/2024 9:42 AM EST) Triglycerides 91 <150 mg/dL [facility] Comment:Desirable Triglyceri de: less than 150 mg/dLBorderline High Triglyceride 150-199 mg/dLHigh Triglyceride: 200-499 mg/dLVery High Triglyceride: greater than or equal to 5OO mg/dL Cholesterol 148 <200 mg/dL [facility] Comment:Desirable Cholestero l: less than 200 mg/dLBorderline High Cholesterol: 200-239 mg/dLHigh Cholesterol: greater than 239 mg/dL LDL Cholesterol Calculated 84 <100 mg/dL [facility] Comment:Desirable LDL: less than 100 mg/dLNear Optimal/Above Optimal LDL: 110- 129 mg/dLBorderline High LDL: 130-159 mg/dLHigh LDL: 160-189 mg/dLVery High LDL: greater than or equal to 190 mg/dL HDL Cholesterol 46 >40 mg/dL [facility] Comment:Desirable HDL: great er than 40 mg/dL Note: This HDL assay may give artificially low results in patients with liver disease. Blood Venous blood specimen / Unknown 10/23/2024 9:42 AM EST 10/23/2024 2:07 PM EST us Arpita Saravia MD LAB BLOOD ORDERABLES Final Resul t [facility] [address] [place] [phone] * (ABNORMAL) Basic Metabolic Panel (10/23/2024 9:42 AM EST) Sodium 137 135 - 145 mmol/L [facility] Potassium 3.9 3.3 - 5.1 mmol/L [facility] Chloride 105 96 - 108 mmol/L [facility] Carbon Dioxide 27 22 - 29 mmol/L [facility] Anion Gap 9(L) 12 - 20 [facility] Urea Nitrogen (BUN) 11 9 - 16 mg/dL [facility] Creatinine, Serum 0.75 0.5 - 1.4 mg/dL [facility] Estimated Glomerular Filt Rate >60 [facility] Comment:Chronic Kidney Disea se: Estimated GFR < 60 mL/min/[id number] Kidney Disease: Estimated GFR < 15 mL/min/1.73m2 Glucose 96 60 - 115 mg/dL [facility] Calcium 9.7 8.4 - 10.2 mg/dL [facility] Blood Venous blood specimen / Unknown 10/23/2024 9:42 AM EST 10/23/2024 2:07 PM EST Arpita Saravia MD LAB BLOOD ORDERABLES Final Resul t [facility] [address] [place] [phone] documented in this encounter Visit Diagnoses Diagnosis Right lower quadrant abdominal pain- Primary Vitamin D deficiency Chronic fatigue Other malaise and fatigue Pulmonary emphysema, unspecified emphysema type (CMS/HCC) documented in this encounter Additional Health Concerns Assessment Noted Time PHQ-9 Depression Total Score: 6 02/19/20 24 3:02 PM EDT documented as of this encounter Care Teams Personnel Officer Relationship Specialty Start Date End Date Arpita Saravia MD [address] [place] [address] PCP - General Family Medicine 10/08/13 Eddie Pimentel FNP [address] [place] [phone] Nurse Practitioner Family Medicine 08/22/23 documented as of this encounter
--- OUTSIDE RECORDS SUMMARY | 2024-10-29 16:10 | XMS_ITS | Encounter Summary ---
Author Organization [employer] Address [address] [place] [address] Care Team Providers Care Veterinary Laboratory Diagnostician Name Role Phone Arpita Saravia MD Primary Care Provider [phone] Eddie Pimentel Unavailable Unavailable Reason for Visit * Reason Onset Date Comments Nurse Triage 10/15/2024 Encounter Details Date Type Department Care Team (Late st Contact Info) Description 10/15/2024 Telephone [facility] [address] [place] [address] Arpita Saravia MD [address] [place] [address] Nurse Triage Social History Tobacco Use Types [...] reviewed and patient in agreement with plan. ASK/F.[place] tomorrow @3pm Multiple (2) protocols were used [...] caller accepted this outcome. Contact pt at [phone] documented in this encounter Plan of Treatment Upcoming Encounters Date Type Department Care Team (Late st Contact Info) Description 11/13/2024 8:45 AM EST Office Visit [facility] [address] [place] [address] Arpita Saravia MD [address] [place] [address] documented as of this encounter Visit Diagnoses Not on filedocumented in this encounter Additional Health Concerns Assessment Noted Time PHQ-9 Depression Total Score: 6 02/19/20 24 3:02 PM EDT documented as of this encounter Care Teams Veterinary Laboratory Diagnostician Relationship Specialty Start Date End Date Arpita Saravia MD [address] [place] [address] PCP - General Family Medicine 10/08/13 Eddie Pimentel FNP [address] [place] [address] Nurse Practitioner Family Medicine 08/22/23 documented as of this encounter
--- OUTSIDE RECORDS SUMMARY | 2024-10-29 16:10 | XMS_ITS | Encounter Summary ---
Author Organization [employer] Address [address] [place] [address] Care Team Providers Care Delivery Aide Name Role Phone Arpita Saravia MD Primary Care Provider [phone] Eddie Pimentel Unavailable Unavailable Encounter Details Date [...] Description 11/13/2024 8:45 AM EST Office Visit [facility] [address] [place] [address] Arpita Saravia MD [address] [place] [address] documented as of this encounter Procedures Procedure Name Priority Date/Time Associated Diagnosis Comments URINALYSIS WITH REFLEX MICROSCOPIC Routine 10/18/2024 1:17 AM EST documented in this encounter Results * Urinalysis w/reflex microscopic (10/18/2024 1:17 AM EST) Color Urine Yellow [facility] Appearance Urine Clear [facility] PH 5.5 5.0 - 9.0 [facility] Glucose Urine UA Negative Negative mg/dL [facility] Urine Blood Negative Negative [facility] Specific [place] - Urine 1.020 1.005 - 1.025 [facility] Urine Protein Negative Neg-Trace mg/dL [facility] Urine Ketones Negative Negative mg/dL [facility] Nitrite Urine Negative Negative [facility] Leukocyte Esterase Urine Negative Negative [facility] 10/18/2024 1:17 AM EST 10/18/2024 1:19 AM EST Narrative [facility] - 10/18/2024 1:25 AM EST Urine, Clean Catch us Generic External Data Provider LAB URINE ORDERAB LES Final Result [facility] [address] [place] [phone] [phone] documented in this encounter Visit Diagnoses Not on filedocumented in this encounter Additional Health Concerns Assessment Noted Time PHQ-9 Depression Total Score: 6 02/19/20 24 3:02 PM EDT documented as of this encounter Care Teams Delivery Aide Relationship Specialty Start Date End Date Arpita Saravia MD [address] [place] [address] PCP - General Family Medicine 10/08/13 Eddie Pimentel FNP [address] [place] [address] Nurse Practitioner Family Medicine 08/22/23 documented as of this encounter
--- OUTSIDE RECORDS SUMMARY | 2024-10-29 16:10 | XMS_ITS | Encounter Summary ---
Author Organization [employer] Address [address] [place] [address] [address] [place] [address] Care Team Providers Care Zigzag Appliquer Name Role Phone Arpita Saravia MD Primary Care Provider [phone] Eddie Pimentel Unavailable Unavailable Reason for Referral * Imaging (Routine) - Authorized Specialty Diagnoses / Procedures Referred By Contjurgen t Referred To Contact Radiology Diagnoses Right lower quadrant abdominal pain Procedures US Abdomen Limited Jojo Sen FNP [address] [place] [address] Phone: tel: fax: [address] Phone: tel: fax: Referral ID Status Reason Start Date Expiration Date V isits Requested Visits Authorized [id number] Authorized 10/16/2024 10/16/2025 1 1 Encounter Details Date Type Department Care Team (Late st Contact Info) Description 10/16/2024 3:00 PM EST Office Visit [facility] [address] [place] [address] Jojo Sen FNP [address] [place] [address] Right lower quadrant abdominal pain (Primary Dx) [...] documented in this encounter Progress Notes * [facility], SCRAP DROP CRANE OPERATOR - 10/16/2024 3:00 PM EST SUBJECTIVE: Whitley [...] Upcoming Encounters Date Type Department Care Team ([facility] st Contact Info) Description 11/13/2024 8:45 AM EST Office Visit [facility] [address] [place] [address] Arpita Saravia MD [address] [place] [address] Scheduled Orders Name Type Priority Associated Diagnoses [...] Blood Count 3.8(L) 4.8 - 10.8 X10*3/uL [facility] Red Blood Count 4.21 4.20 - 5.50 X10*6/uL [facility] Hemoglobin 12.8 12.0 - 16.0 g/dl [facility] Hematocrit 38.2 37.0 - 47.0 % [facility] Mean Corpuscular Volume 90.7 80.0 - 98.0 fL [facility] Mean Corpuscular Hemoglobin 30.4 27.0 - 33.0 pg [facility] Mean Corpuscular HGB Conc 33.5 31.0 - 35.0 g/dl [facility] Red Cell Distribution Width 12.0 11.0 - 16.0 % [facility] Platelet Count 273 160 - 400 X10*3/uL [facility] Mean Platelet Volume 9.9 9.4 - 12.3 fL [facility] Neutrophils Percent Auto 52.4 45 - 73 % [facility] Imm Gran Pct Auto 0.3 0.0 - 0.4 % [facility] Lymphocytes Percent Auto 39.4 20 - 40 % [facility] Monocytes Percent Auto 6.6 2 - 11 % [facility] Eosinophils Percent Auto 0.8 0 - 4 % [facility] Basophils Percent Auto 0.5 0 - 2 % [facility] NRBC Pct Auto 0.0 0.0 - 0.2 /100WBC [facility] Neutrophils Absolute Auto 2.0 2.0 - 8.3 x10*3/uL [facility] Imm Gran Abs Auto 0.01 0.00 - 0.03 X10*3/uL [facility] Lymphocytes Absolute Auto 1.5 1.2 - 4.9 X10*3/uL [facility] Monocytes Absolute Auto 0.3 0.1 - 1.2 X10*3/uL [facility] Eosinophils Absolute Auto 0.0 0.0 - 0.4 X10*3/uL [facility] Basophils Absolute Auto 0.0 0.0 - 0.2 X10*3/uL [facility] NRBC Abs Auto 0.000 0.0 - 0.012 X10*3/uL [facility] Blood Venous blood specimen / Unknown 10/16/2024 3:48 PM EST 10/16/2024 5:44 PM EST [facility] SCRAP DROP CRANE OPERATOR LAB BLOOD ORDERABLES Final Re sult [facility] [address] [place] [phone] * (ABNORMAL) Amylase (10/16/2024 3:48 PM EST) Amylase 169(H) 28 - 100 U/L [facility] Blood Venous blood specimen / Unknown 10/16/2024 3:48 PM EST 10/16/2024 5:44 PM EST [facility] LAB BLOOD ORDERABLES Final Re sult Performing Organization Address City/[facility]/ZIP Co de Phone Number [facility] [address] [place] [phone] [phone] * Lipase (10/16/2024 3:48 PM EST) Lipase 23 8 - 78 U/L [facility] Blood Venous blood specimen / Unknown 10/16/2024 3:48 PM EST 10/16/2024 5:44 PM EST [facility] LAB BLOOD ORDERABLES Final Re sult Performing Organization Address [facility] Co de Phone Number [facility] [address] [place] [phone] * (ABNORMAL) Comprehensive Metabolic Panel (10/16/2024 3:48 PM EST) Sodium 138 135 - 145 mmol/L [facility] Potassium 3.9 3.3 - 5.1 mmol/L [facility] Chloride 108 96 - 108 mmol/L [facility] Carbon Dioxide 28 22 - 29 mmol/L [facility] Anion Gap 6(L) 12 - 20 [facility] Urea Nitrogen (BUN) 9 9 - 16 mg/dL [facility] Creatinine, Serum 0.73 0.5 - 1.4 mg/dL [facility] Estimated Glomerular Filt Rate >60 [facility] Comment:Chronic Kidney Disea se: Estimated GFR < 60 mL/min/[id number] Kidney Disease: Estimated GFR < 15 mL/min/1.73m2 Glucose 74 60 - 115 mg/dL [facility] Calcium 8.8 8.4 - 10.2 mg/dL [facility] Bilirubin, Total 0.3 0.0 - 1.0 mg/dL [facility] Aspartate Amino Transferase 22 5 - 31 U/L [facility] Alanine Aminotransferase 17 0 - 31 U/L [facility] Total Protein 7.6 6.5 - 8.0 g/dL [facility] Albumin Level 4.7 3.5 - 5.0 g/dL [facility] Alkaline Phosphatase 56 39 - 117 U/L [facility] Blood Venous blood specimen / Unknown 10/16/2024 3:48 PM EST 10/16/2024 5:44 PM EST [facility] LAB BLOOD ORDERABLES Final Re sult [facility] [address] [place] [address] [phone] documented in this encounter Visit Diagnoses Diagnosis Right lower quadrant abdominal pain- Primary documented in this encounter Additional Health Concerns Assessment Noted Time PHQ-9 Depression Total Score: 6 02/19/20 24 3:02 PM EDT documented as of this encounter Care Teams Zigzag Appliquer Relationship Specialty Start Date End Date Arpita Saravia MD [address] [place] [address] PCP - General Family Medicine 10/08/13 Eddie Pimentel FNP [address] [place] [address] Nurse Practitioner Family Medicine 08/22/23 documented as of this encounter
--- OUTSIDE RECORDS SUMMARY | 2024-10-29 16:10 | XMS_ITS | Clinical Summary ---
Author Organization [employer] Address [address] [facility] [address] [address] [place] [address] Care Team Providers Care Linux Administrator Name Role Phone Arpita Saravia MD Primary Care Provider [phone] Eddie Pimentel Unavailable Unavailable Allergies Active Allergy [...] will transfer her care to the new [facility] psychiatric prescriber. Any issues or concerns, [...] controlled. 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 F/U with me in 6-8 weeks. She agrees with the plan. Assessment & Plan (03/15/2023 9:46 AM EDT): Assessment: Patient with revious hx of Bipolar Dx and MH treatment that was referred to [facility] Consult for exacerbation of depression and anxiety. 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 She indicates that she has been experiencing exacerbation of sxs, specially feeling down and unmotivated. She indicates that main stressors in the past year have been related to changes at work. Whitley indicated that although adhering to medication, she can feel sxs worsening. Patient will benefit from follow up [facility] brief intervention to further explore BH [...] supportive treatment PLAN: 1. Follow up with [facility] [place]: Recommended for follow-up: 03/14/2023 2. Patient goal [...] once daily with worsening of her migraine ACM. She has also not had good response [...] medication. Discussed options for treatment of BPD: Celada, antiepileptics, antipsychotics. She will increase to Abilify 30 mg daily, continue other meds for now. F/U 4-6 weeks. She agrees with the plan. She is in a long-term monogamous relationship with single AMAB partner who has vasectomy so at negligible risk of unintended . Right ear pain 02/28/2018 Migraine 12/24/2012 Encounters Date Type Department Care Team Description 10/29/2024 Orders Only [facility] External Provider, [facility] 10/22/2024 9:00 AM EST Telemedicine [facility] MED & PEDS [address] [place] [address] Arpita Saravia MD Right lower quadrant abdominal pain (Primary Dx); Vitamin D deficiency; Chronic fatigue; Pulmonary emphysema, unspecified emphysema type (CMS/HCC) 10/22/2024 Telephone [facility] MED [facility] PEDS [address] [place] [address] Edith Day, DOMINIC 10/22/2024 Telephone [facility] [address] [place] [address] Stefani Murillo, DOMINIC Results 10/22/2024 Travel 10/18/2024 Telephone [facility] MED [facility] PEDS [address] [place] [address] Arpita Saravia MD Nurse Triage 10/18/2024 Orders Only GENERIC EXTERNAL DATA DEPARTMENT Provider, Generic External Data 10/17/2024 Orders Only [facility] External Provider, [facility] 10/17/[address] [facility] [address] [facility] [address] Arpita Saravia MD Results 10/16/2024 3:00 PM EST Office Visit [facility] PED[facility] [address] [place] [address] Francy, Jojo, CURING ROOM WORKER Right lower quadrant abdominal pain (Primary Dx) 10/16/2024 Travel 10/15/[address] [facility] MEDICINE [address] [place] [address] Arpita Saravia MD Nurse Triage 09/03/[address] [facility] MEDICINE [address] [place] [address] Arpita Saravia MD 08/27/2024 9:15 AM EST Office Visit [facility] MED [facility] PEDS [address] [place] [address] Ben Alford MD Congenital nevus (Primary Dx) [...] 8:45 AM EST Office Visit [facility] MED & PEDS [address] [place] [address] Arpita Saravia MD [address] [place] [address] Health Maintenance Due Date Last Done Comments [...] 09/06/2022 SDOH Screening 02/16/2024 02/15/2023 COVID-19 Vaccine (3 - 2023-2 5 season) 2024 06/05/2021, 05/15/2021 [...] Procedure Name Priority Date/Time Associated Diagnosis Comments XR CHEST 2 VIEWS Routine 10/29/2024 3:16 PM EST TSH W/REFLEX TO FT4 Routine 10/23/2024 9 [...] Recently Relevant to Health Maintenance Results * XR Chest 2 Views (10/29/2024 3:16 PM EST) Anatomical Region Laterality Modality Chest Radiographic Niesha ging 10/29/2024 3:16 PM EST Narrative 10/29/2024 3:42 PM EST ? [facility] ?[address] [facility] ? [place] [address] ?XRay Report ? Signed ? Patient: Juares,Whitley ?MR#: [id number] ?? 686 ? : 1985 ?Acct:[id number] ? Age/Sex: 39 / F ?ADM Date: /28/25 ? Loc: HO.HMGCX ? Attending Dr: Zuleyka Hylton PELT DROPPER ? Ordering Physician: Zuleyka Hylton PELT DROPPER ?? Date of Service: 10/29/24 ?? Procedure(s): XR chest 2V ?? Accession Number(s): [id number] ? cc: Arpita Saravia MD; Zuleyka Hylton NP ? EXAMINATION: ?? XR CHEST ? CLINICAL INFORMATION: ?? J98.11 - Atelectasis ? COMPARISON: ?? 12/05/2017, 02/02/2017. ? TECHNIQUE: ?? 2 views of the chest were obtained. ? FINDINGS: ?? The cardiac, hilar, and mediastinal contours are normal. ? The lungs are clear bilaterally. There is no pneumothorax or pleural ?? effusion. ? There is no focal osseous or soft tissue abnormality. ? XR/XR chest 2V ?? IMPRESSION: ?? No active pulmonary disease. ? Electronically signed by: ??Mervin Forte MD ??10/29/2024 03:39 PM EST RP ? Dictated By: ?Mervin Forte MD ? Signed By: ?<Electronically signed by Mervin Forte MD in OV> ?10/29/24 1539 ? DD/ 1516 ? TD/TT: 10/29/24 1520 ? Brand Marketing Specialist: ? Procedure Note Donjanester, Image - 10/29/2024 [facility] [address] [place] [address] [place] [address] XRay Report Signed Patient: Whitley JuaresMR#: [id number] 686 : 1985Acct:[id number] Age/Sex: 39 / FADM Date: 10/29/24 Loc: HO.HMGCX Attending Dr: Zuleyka Hylton NP Ordering Physician: Zuleyka Hylton NP Date of Service: 10/29/24 Procedure(s): XR chest 2V Accession Number(s): [id number] cc: Arpita Saravia MD; Zuleyka Hylton NP EXAMINATION: XR CHEST CLINICAL INFORMATION: J98.11 - Atelectasis COMPARISON: 12/05/2017, 02/02/2017. TECHNIQUE: 2 views of the chest were obtained. FINDINGS: The cardiac, hilar, and mediastinal contours are normal. The lungs are clear bilaterally. There is no pneumothorax or pleural effusion. There is no focal osseous or soft tissue abnormality. XR/XR chest 2V IMPRESSION: No active pulmonary disease. Electronically signed by: Mervin Forte MD 10/29/2024 03:39 PM [facility] Dictated By: Mervin Forte MD Signed By: <Electronically signed by Mervin Forte MD in OV> 10/29/24 1539 DD/ 1516 TD/TT: 10/29/24 1520 Brand Marketing Specialist: [facility] External Provider IMG XR PROCEDURES Final Result * Vitamin D, 25-Hydroxy, Total, Immunoassay (10/23/2024 9:42 AM EST) Vitamin D 25-OH Total 48.2 >30 ng/mL [facility] Comment:Health Based Referen ce Values*< 20 ng/mL [id number] ng/mL Insufficient> 30 ng/mL Sufficient*Vimal BANUELOS. N [...] MD LAB BLOOD ORDERABLES Final Resul t [facility] [address] [place] [phone] * Vitamin B12/Folate, Serum Panel (10/23/2024 9:42 AM EST) Vitamin B12 403 200 - 900 pg/mL [facility] Comment:NORMAL 200-900 PG/ML INDETERMINATE 160-199 PG/ML DEFICIENT < 160 PG/ML Folate 15.8 > or = 4.0 ng/mL [facility] Comment:Reference Values:> o r = [...] ORDERABLES Final Resul t Performing Organization Address City/[facility]/ZIP Co de Phone Number [facility] [address] [place] [phone] * TSH W/Reflex to FT4 (10/23/2024 9:42 AM EST) TSH reflex Free T4 1.60 0.32 - 4.0 uIU/mL [facility] Blood Venous blood specimen / Unknown 10/23/2024 9:42 AM EST 10/23/2024 2:07 PM EST Arpita Saravia MD LAB BLOOD ORDERABLES Final Resul t Performing Organization Address [facility] de Phone Number [facility] [address] [place] [phone] * (ABNORMAL) CBC auto differential (10/23/2024 9:42 AM EST) Only the most recent of3 resultswithin the time period is included. White Blood Count 5.3 4.8 - 10.8 X10*3/uL [facility] Red Blood Count 4.10(L) 4.20 - 5.50 X10*6/uL [facility] Hemoglobin 12.7 12.0 - 16.0 g/dl [facility] Hematocrit 37.5 37.0 - 47.0 % [facility] Mean Corpuscular Volume 91.5 80.0 - 98.0 fL [facility] Mean Corpuscular Hemoglobin 31.0 27.0 - 33.0 pg [facility] Mean Corpuscular HGB Conc 33.9 31.0 - 35.0 g/dl [facility] Red Cell Distribution Width 12.1 11.0 - 16.0 % [facility] Platelet Count 270 160 - 400 X10*3/uL [facility] Mean Platelet Volume 10.0 9.4 - 12.3 fL [facility] Neutrophils Percent Auto 75.9(H) 45 - 73 % [facility] Imm Gran Pct Auto 0.4 0.0 - 0.4 % [facility] Lymphocytes Percent Auto 17.6(L) 20 - 40 % [facility] Monocytes Percent Auto 5.3 2 - 11 % [facility] Eosinophils Percent Auto 0.4 0 - 4 % [facility] Basophils Percent Auto 0.4 0 - 2 % [facility] NRBC Pct Auto 0.0 0.0 - 0.2 /100WBC [facility] Neutrophils Absolute Auto 4.1 2.0 - 8.3 x10*3/uL [facility] Imm Gran Abs Auto 0.02 0.00 - 0.03 X10*3/uL [facility] Lymphocytes Absolute Auto 0.9(L) 1.2 - 4.9 X10*3/uL [facility] Monocytes Absolute Auto 0.3 0.1 - 1.2 X10*3/uL [facility] Eosinophils Absolute Auto 0.0 0.0 - 0.4 X10*3/uL [facility] Basophils Absolute Auto 0.0 0.0 - 0.2 X10*3/uL [facility] NRBC Abs Auto 0.000 0.0 - 0.012 X10*3/uL [facility] Blood Venous blood specimen / Unknown 10/23/2024 9:42 AM EST 10/23/2024 2:00 PM EST us Arpita Saravia MD LAB BLOOD ORDERABLES Final Resul t [facility] [address] [place] [phone] [phone] * Celiac Disease Comprehensive Panel (10/23/2024 9:42 AM EST) Immunoglobulin A 214 47 - 310 mg/dL [facility] Comment:THIS TEST WAS PERFOR MED AT:[facility] [place] [phone] PARTIDA MD Transglutaminase IgA <1.0 U/mL [facility] Comment:Value Interpretation ----- <15.0 Antibody not detected> or = 15.0 Antibody detected Interpretation SEE NOTE [facility] Comment:No serological evide nce of [...] MD LAB BLOOD ORDERABLES Final Resul t [facility] [address] [place] [address] [phone] * Hepatic Function Panel (10/23/2024 9:42 AM EST) Only the most recent of2 resultswithin the time period is included. Bilirubin, Total 0.7 0.0 - 1.0 mg/dL [facility] Bilirubin, Direct 0.3 0.0 - 0.5 mg/dL [facility] Aspartate Amino Transferase 26 5 - 31 U/L [facility] Alanine Aminotransferase 14 0 - 31 U/L [facility] Total Protein 7.7 6.5 - 8.0 g/dL [facility] Albumin Level 4.5 3.5 - 5.0 g/dL [facility] Alkaline Phosphatase 55 39 - 117 U/L [facility] Blood Venous blood specimen / Unknown 10/23/2024 9:42 AM EST 10/23/2024 2:07 PM EST Arpita Saravia MD LAB BLOOD ORDERABLES Final Resul t Performing Organization Address [facility] Co de Phone Number [facility] [address] [place] [address] [phone] * Lipid Panel, Standard (10/23/2024 9:42 AM EST) Triglycerides 91 <150 mg/dL [facility] Comment:Desirable Triglyceri de: less than 150 mg/dLBorderline High Triglyceride 150-199 mg/dLHigh Triglyceride: 200-499 mg/dLVery High Triglyceride: greater than or equal to 5OO mg/dL Cholesterol 148 <200 mg/dL [facility] Comment:Desirable Cholestero l: less than 200 mg/dLBorderline High Cholesterol: 200-239 mg/dLHigh Cholesterol: greater than 239 mg/dL LDL Cholesterol Calculated 84 <100 mg/dL [facility] Comment:Desirable LDL: less than 100 mg/dLNear Optimal/Above Optimal LDL: 110- 129 mg/dLBorderline High LDL: 130-159 mg/dLHigh LDL: 160-189 mg/dLVery High LDL: greater than or equal to 190 mg/dL HDL Cholesterol 46 >40 mg/dL [facility] Comment:Desirable HDL: great er than 40 mg/dL Note: This HDL assay may give artificially low results in patients with liver disease. Blood Venous blood specimen / Unknown 10/23/2024 9:42 AM EST 10/23/2024 2:07 PM EST Arpita Saravia MD LAB BLOOD ORDERABLES Final Resul t Performing Organization Address [facility]/ZIP Co de Phone Number [facility] [address] [place] [address] [phone] * (ABNORMAL) Basic Metabolic Panel (10/23/2024 9:42 AM EST) Only the most recent of2 resultswithin the time period is included. Sodium 137 135 - 145 mmol/L [facility] Potassium 3.9 3.3 - 5.1 mmol/L [facility] Chloride 105 96 - 108 mmol/L [facility] Carbon Dioxide 27 22 - 29 mmol/L [facility] Anion Gap 9(L) 12 - 20 [facility] Urea Nitrogen (BUN) 11 9 - 16 mg/dL [facility] Creatinine, Serum 0.75 0.5 - 1.4 mg/dL [facility] Estimated Glomerular Filt Rate >60 [facility] Comment:Chronic Kidney Disea se: Estimated GFR < 60 mL/min/[id number] Kidney Disease: Estimated GFR < 15 mL/min/1.73m2 Glucose 96 60 - 115 mg/dL [facility] Calcium 9.7 8.4 - 10.2 mg/dL [facility] Blood Venous blood specimen / Unknown 10/23/2024 9:42 AM EST 10/23/2024 2:07 PM EST us Arpita Saravia MD LAB BLOOD ORDERABLES Final Resul t [facility] [address] [place] [phone] * Urinalysis w/reflex microscopic (10/18/2024 1:17 AM EST) Color Urine Yellow [facility] Appearance Urine Clear [facility] PH 5.5 5.0 - 9.0 [facility] Glucose Urine UA Negative Negative mg/dL [facility] Urine Blood Negative Negative [facility] Specific Bruce - Urine 1.020 1.005 - 1.025 [facility] Urine Protein Negative Neg-Trace mg/dL [facility] Urine Ketones Negative Negative mg/dL [facility] Nitrite Urine Negative Negative [facility] Leukocyte Esterase Urine Negative Negative [facility] 10/18/2024 1:17 AM EST 10/18/2024 1:19 AM EST Narrative [facility] - 10/18/2024 1:25 AM EST Urine, Clean Catch us Generic External Data Provider LAB URINE ORDERAB LES Final Result [facility] [address] [place] [address] [phone] * CT Abdomen Pelvis w/o Contrast (10/17/2024 9:06 PM EST) Anatomical Region Laterality Modality Body, Pelvis, Abdomen Computed T omography 10/17/2024 9:06 PM EST Narrative 10/17/2024 9:08 PM EST ? [facility] ?[address] ?[place] [address] ? CT Scan Report ? Signed ? Patient: Juares,Whitley ?MR#: [id number] ?? 686 ? : 1985 ?Acct:[id number] ? Age/Sex: 39 / F ?ADM Date: 10/17/24 ? Loc: HO.ED ? Attending Dr: ? Ordering Physician: Whitley Bellamy ?? Date of Service: 10/17/24 ?? Procedure(s): CT abdomen pelvis wo IV con ?? Accession Number(s): [id number] ? cc: Whitley Bellamy; Arpita Saravia MD ? Report Number: ?? [id number]: Total DLP = ??392.00 mGy-cm ? CLINICAL [...] ? DD/ 05 ? TD/TT: 10/17/242105 ? Brand Marketing Specialist: ? Procedure Note Donotuseinterpreter, Image - 10/17/[address] [address] [address] Scan Report Signed Patient: Whitley JuaresMR#: [id number] 686 : 1985Acct:[id number] Age/Sex: 39 / FADM Date: 10/17/24 Loc: HO.ED Attending Dr: Ordering Physician: Whitley Bellamy Date of Service: 10/17/24 Procedure(s): CT abdomen pelvis wo IV con Accession Number(s): [id number] cc: Whitley Bellamy; Arpita Saravia MD Report Number: [id number]: Total DLP = 392.00 mGy-cm CLINICAL HISTORY: [...] in OV> 10/17/242106 DD/ 05 TD/TT: 10/17/242105 Brand Marketing Specialist: [facility] External Provider IMG CT PROCEDURES Final Result * SARS-CoV-2 RNA, Influenza A/B, and RSV RNA, Ql NAAT (10/17/2024 8:54 PM EST) Influenza A PCR NEGATIVE Negative [facility] Influenza B PCR NEGATIVE Negative [facility] Resp Syncy Virus RNA Qual PCR NEGATIVE Negative [facility] SARS COV2 PCR NEGATIVE Negative [facility] Comment:All test results mus t [...] use by authorized laboratories.Testing performed on the [employer] GeneXpert utilizingreal-time RT-PCR.All SARS CoV2 and positive influenza A/B results arereported to [facility]. 10/17/2024 8:54 PM EST 10/17/2024 8:56 PM EST us Generic External Data Provider LAB MICROBIOLOGY - GENERAL ORDERABLES Final Result Performing Organization Address City/State/[facility] Co de Phone Number [facility] [address] [place] [phone] * hCG, Total, Quantitative (10/17/2024 8:54 PM EST) HCG Quantitative <2 mIU/mL [facility] Comment:Weeks post LMP Appro ximate hCG(Last Menstrual Period) Range (mIU/ml)3 - 4 weeks 9 - 1304 - 5 weeks 75 - 2,6005 - 6 weeks 850 - 20,8006 - 7 weeks 4000 - 100,2007 - 12 weeks 11,500 - 289,80656 - 16 weeks 18,300 - 137,94223 - 29 weeks (2nd trimester) 1,400 - 53,69558 - 41 weeks (3rd trimester) 940 - [...] ORDERAB LES Final Result Performing Organization Address [facility] de Phone Number [facility] [address] [place] [phone] * Magnesium (10/17/2024 8:54 PM EST) Magnesium 2.1 1.6 - 2.6 mg/dL [facility] 10/17/2024 8:54 PM EST 10/17/2024 8:56 PM EST [facility] External Data Provider LAB BLOOD ORDERAB LES Final Result Performing Organization Address [facility] Number [facility] [address] [place] [phone] * Lipase (10/17/2024 8:54 PM EST) Only the most recent of2 resultswithin the time period is included. Lipase 24 8 - 78 U/L [facility] 10/17/2024 8:54 PM EST 10/17/2024 8:56 PM EST [facility] External Data Provider LAB BLOOD ORDERAB LES Final Result Performing Organization Address [facility] Phone Number [facility] [address] [place] [phone] * (ABNORMAL) Amylase (10/16/2024 3:48 PM EST) Amylase 169(H) 28 - 100 U/L [facility] Blood Venous blood specimen / Unknown 10/16/2024 3:48 PM EST 10/16/2024 5:44 PM EST [facility] CURING ROOM WORKER LAB BLOOD ORDERABLES Final Re sult Performing Organization Address [facility] Co de Phone Number [facility] [address] [place] [address] [phone] * (ABNORMAL) Comprehensive Metabolic Panel (10/16/2024 3:48 PM EST) Sodium 138 135 - 145 mmol/L [facility] Potassium 3.9 3.3 - 5.1 mmol/L [facility] Chloride 108 96 - 108 mmol/L [facility] Carbon Dioxide 28 22 - 29 mmol/L [facility] Anion Gap 6(L) 12 - 20 [facility] Urea Nitrogen (BUN) 9 9 - 16 mg/dL [facility] Creatinine, Serum 0.73 0.5 - 1.4 mg/dL [facility] Estimated Glomerular Filt Rate >60 [facility] Comment:Chronic Kidney Disea se: Estimated GFR < 60 mL/min/1.02o1Rxhbxo Kidney Disease: Estimated GFR < 15 mL/min/1.73m2 Glucose 74 60 - 115 mg/dL [facility] Calcium 8.8 8.4 - 10.2 mg/dL [facility] Bilirubin, Total 0.3 0.0 - 1.0 mg/dL [facility] Aspartate Amino Transferase 22 5 - 31 U/L [facility] Alanine Aminotransferase 17 0 - 31 U/L [facility] Total Protein 7.6 6.5 - 8.0 g/dL [facility] Albumin Level 4.7 3.5 - 5.0 g/dL [facility] Alkaline Phosphatase 56 39 - 117 U/L [facility] Blood Venous blood specimen / Unknown 10/16/2024 3:48 PM EST 10/16/2024 5:44 PM EST [facility] LAB BLOOD ORDERABLES Final Re sult [facility] [address] [place] [address] [phone] * Shave removal (08/28/2024 9:28 AM EST) Narrative Ben Alford MD - 08/28/2024 9:28 AM EST Ben Alford MD ? 08/28/2024 ??9:33 AM Shave removal Date/Time: 08/28/2024 9:28 AM Performed by: Ben Alford MD Authorized by: Ben Alford MD ?? Consent: ??Consent obtained: ??Written ??Consent given by: ??Patient ??Risks discussed: ??Pain and incomplete removal ??Alternatives discussed: ??Observation and delayed treatment [place] protocol: ??Procedure explained and questions answered to [...] Comments: Xylocaine 1% 0.5 mL injected. ??Lot [id number] expiration date 10/28. ?? Saucerization of the [...] a test for HCV RNA (test code 47439) is suggested. ?? For additional information please refer to http://FOODSCROOGE.ArcSight/faq/KHL81j4 (This link is being provided for informational/ educational purposes only.) ?? 08/09/2022 9:23 AM EST Margarita Tobin CNM HISTORICAL/NON ORDERABLE LABS Final Result [facility] * THINPREP TIS PAP AND HPV mRNA E6/E7, CT/NG, TRICH (05/03/2022 1:17 PM EDT) Chlamydia trachomatis RNA, TMA, Urogenital NOT DETECTED NOT DETECTED [facility] Clinical Information: None given [facility] COMMENT SEE COMMENT [facility] Comment: The analytical performance characteristics of this assay, when used to test SurePath(TM) specimens have been determined by [facility]. The modifications have not been cleared or approved by the FDA. This assay has been validated pursuant to the CLIA regulations and is used for clinical purposes. ?? For additional information, please refer to https://FOODSCROOGE.ArcSight/faq/NBB897 (This link is being provided for information/ [...] has been evaluated with computer assisted technology. [facility] Oil Pipeline Dispatcher: SEE COMMENT [facility] Comment: CLAIRE ROSSI(ASCP) CT screening location: [address] ??[address] HPV nRNA E6/E7 Not Detected Not Detected [facility] Comment: Methodology: Wine Fermenter-Mediated Amplification This assay detects E6/E7 viral messenger RNA (mRNA) from 14 high-risk HPV types (16,18,31,33,35,39,45,51,52,56,58,59,66,68). ? Cervical sources are required for HPV testing. If a vaginal source from a patient who has had a total hysterectomy with removal of cervix was ?? submitted, please contact the testing laboratory for alternative testing options. ?? For additional information, please refer to http://FOODSCROOGE.ArcSight/faq/LLM744b9 (This link if provided for information/ educational [...] of this assay have been determined by [facility]. The modifications have not been cleared or approved by the FDA. This assay has been validated pursuant to the CLIA regulations and is used for clinical purposes. ?? For additional information, please refer to [email or web address].[email or web address]/ faq/Trichomonastma (This link is being provided for information/ educational purposes only.) ?? 05/03/2022 1:17 PM EDT Margarita PRICE LAB PATHOLOGY ORDERABLES Final Result [facility] [address] from Last 3 Months or Most Recently Relevant to Health Maintenance Insurance [facility] ST[facility] AD[facility] Care Teams Linux Administrator Relationship Specialty Start Date End Date Arpita Saravia MD [address] [place] [address] PCP - General Family Medicine 10/08/13 Eddie Pimentel FNP [address] [place] [address] Nurse Practitioner Family Medicine 08/22/23
--- OUTSIDE RECORDS SUMMARY | 2024-10-29 16:10 | XMS_ITS | Encounter Summary ---
Author Organization [employer] Address [address] [facility] [address] 7t [place] [address] Care Team Providers Care Lpn Private Duty Name Role Phone Arpita Saravia MD Primary Care Provider [phone] Eddie Pimentel Unavailable Unavailable Encounter Details Date [...] Description 11/13/2024 8:45 AM EST Office Visit [facility] MED & PEDS [address] [place] [address] Arpita Saravia MD 505 [place] [address] documented as of this encounter Visit Diagnoses Not on filedocumented in this encounter Additional Health Concerns Assessment Noted Time PHQ-9 Depression Total Score: 6 02/19/20 24 3:02 PM EDT documented as of this encounter Care Teams Lpn Private Duty Relationship Specialty Start Date End Date Arpita Saravia MD [address] [place] [address] PCP - General Family Medicine 10/08/13 Eddie Pimentel FNP [address] [place] [address] Nurse Practitioner Family Medicine 08/22/23 documented as of this encounter
--- OUTSIDE RECORDS SUMMARY | 2024-10-29 16:10 | XMS_ITS | Encounter Summary ---
Author Organization [employer] Address [address] [facility] [address] 7t [place] [address] Care Team Providers Care Senior Android Developer Name Role Phone Arpita Saravia MD Primary Care Provider [phone] Eddie Pimentel Unavailable Unavailable Encounter Details Date [...] Description 11/13/2024 8:45 AM EST Office Visit [facility] MED & PEDS 505 [place] [address] Arpita Saravia MD 505 [place] [address] documented as of this encounter Visit Diagnoses Not on filedocumented in this encounter Additional Health Concerns Assessment Noted Time PHQ-9 Depression Total Score: 6 02/19/20 24 3:02 PM EDT documented as of this encounter Care Teams Senior Android Developer Relationship Specialty Start Date End Date Arpita Saravia MD 230 [place] [address] PCP - General Family Medicine 10/08/13 Eddie Pimentel FNP [address] [place] [address] Nurse Practitioner Family Medicine 08/22/23 documented as of this encounter
--- OUTSIDE RECORDS SUMMARY | 2024-10-29 16:10 | XMS_ITS | Encounter Summary ---
Author Organization [employer] Address 75 [facility] [place] 7 [place] [address] Care Team Providers Care Hair Spring Winder Name Role Phone Arpita Saravia MD Primary Care Provider [phone] Eddie Pimentel Unavailable Unavailable Reason for Visit * Reason Onset Date Comments Results 10/17/2024 Encounter Details Date Type Department Care Team ([facility] st Contact Info) Description 10/17/2024 Telephone [facility] MED[facility] [address] [place] [address] Arpita Saravia MD [address] [place] [address] Results Social History Tobacco Use Types Packs/Day [...] results: labs Date when done: 10/16/23 Facility: [facility] documented in this encounter Plan of Treatment Upcoming Encounters Date Type Department Care Team (Late st Contact Info) Description 11/13/2024 8:45 AM EST Office Visit [facility] MED & PEDS 505 [place] [address] Arpita Saravia MD 505 [place] [address] documented as of this encounter Visit Diagnoses Not on filedocumented in this encounter Additional Health Concerns Assessment Noted Time PHQ-9 Depression Total Score: 6 02/19/20 3:02 PM EDT documented as of this encounter Care Teams Hair Spring Winder Relationship Specialty Start Date End Date Arpita Saravia MD [address] [place] [address] PCP - General Family Medicine 10/08/13 Eddie Pimentel FNP [address] [place] [address] Nurse Practitioner Family Medicine 08/22/23 documented as of this encounter
--- OUTSIDE RECORDS SUMMARY | 2024-10-29 16:10 | XMS_ITS | Encounter Summary ---
Author Organization [employer] Address 75 [facility] 7t [place] [address] Care Team Providers Care Circus Laborer Name Role Phone Arpita Saravia MD Primary Care Provider [phone] Eddie Pimentel Unavailable Unavailable Reason for Visit * Reason Onset Date Comments Results 10/22/2024 Encounter Details Date Type Department Care Team ([facility] Contact Info) Description 10/22/2024 Telephone [facility] MED & PEDS [address] [place] [address] Stefani Murillo RN Results Social History Tobacco [...] 10/22/2024 9:17 AM EST ----- Message from [facility] sent at 10/18/2024 3:43 PM EST [...] 8:45 AM EST Office Visit [facility] MED & PEDS 505 [place] [address] Arpita Saravia MD 505 [place] [address] documented as of this encounter Visit Diagnoses Not on filedocumented in this encounter Additional Health Concerns Assessment Noted Time PHQ-9 Depression Total Score: 6 02/19/20 24 3:02 PM EDT documented as of this encounter Care Teams Circus Laborer Relationship Specialty Start Date End Date Arpita Saravia MD [address] [place] [address] PCP - General Family Medicine 10/08/13 Eddie Pimentel FNP 230 [place] [address] Nurse Practitioner Family Medicine 08/22/23 documented as of this encounter
--- OUTSIDE RECORDS SUMMARY | 2024-10-29 16:10 | XMS_ITS | Encounter Summary ---
Author Organization [employer] Address 75 [facility] 7 [place] [address] Care Team Providers Care Auto Body Builder Apprentice Name Role Phone Arpita Saravia MD Primary Care Provider [phone] Eddie Pimentel Unavailable Unavailable Reason for Visit * Reason Onset Date Comments Nurse Triage 10/18/2024 Encounter Details Date Type Department Care Team ([facility] st Contact Info) Description 10/18/2024 Telephone [facility] MED & PEDS 505 [place] [address] Arpita Saravia MD [address] [place] [address] Nurse Triage Social History Tobacco Use Types [...] go to [facility], [facility] or [facility] to have their blood work completed. Informed pt our office will call back once we have the new results and pt verbalized understanding. * Telephone Encounter - Edith Day RN - 10/22/2024 11:15 AM EST ----- Message from [facility] sent at 10/18/2024 3:43 PM EST ----- [...] states that she has been calling the [facility] office to get blood work results and get a call from PCP. Pt states she went [facility] ED yesterday and had CT scan done which they told her that sheis full of stool. Pt. Wa [facility] ED for over 8 hours she [...] and her BP has been high. Yesterday [facility] states that BP was around 150/104 [...] ambulance and have them bring her to [facility] instead. Pt. Also states tht she never got results of Mole biopsy and I looked it up and it states next to Malignancy: Benign lesion which I told pt. I will send this note to PCP and [facility] nurses to let them know pt. Is going back to [facility] ED today for re evaluation of pain [...] Description 11/13/2024 8:45 AM EST Office Visit [facility] MED & PEDS 505 [place] [address] Arpita Saravia MD 505 [place] [address] documented as of this encounter Visit Diagnoses Not on filedocumented in this encounter Additional Health Concerns Assessment Noted Time PHQ-9 Depression Total Score: 6 02/19/20 24 3:02 PM EDT documented as of this encounter Care Teams Auto Body Builder Apprentice Relationship Specialty Start Date End Date Arpita Saravia MD [address] [place] [address] PCP - General Family Medicine 10/08/13 Eddie Pimentel FNP 230 [place] [address] Nurse Practitioner Family Medicine 08/22/23 documented as of this encounter
== END 2024-10-29 10:36 | disposition home or self-care (01) ==
LOC: HO.HMGCX 10:35
PROVIDERS: PCP Student in an Organized Health Care Education/Training Program; Referring Provider Student in an Organized Health Care Education/Training Program; Visit Provider Nurse Practitioner Family
DX: J98.11 Atelectasis (principal); R06.09 Other forms of dyspnea
CPT/HCPCS: 71046; 99212

== ENCOUNTER → 2024-10-29 15:16 | Outpatient (BNV) | payer MEDICAID, SELFPAY | PROVIDERS: PCP Student in an Organized Health Care Education/Training Program; Referring Provider Student in an Organized Health Care Education/Training Program; Visit Provider Radiology Diagnostic Radiology | DX: J98.11 Atelectasis (principal) | CPT/HCPCS: 71046 ==

== ENCOUNTER 2024-11-21 09:30 | Outpatient (REF) | payer MEDICAID, SELFPAY ==
--- NOTE | ~2024-11-21 | US_ITS ---
CLINICAL HISTORY: PERSISTENT VAGUE RLQ PAIN US abdomen limited at level of right sided vague abdominal pain Comparison: None Findings: The right kidney is 10.5 cm in length. Evaluated portions of the right kidney is unremarkable without hydronephrosis or mass lesion. Very limited evaluation of the right abdomen at level of the pain does not demonstrate any significant abnormality. IMPRESSION: Very limited evaluation of the right abdomen at level of the pain does not demonstrate any significant abnormality. This document has been electronically signed by: Ivana Mattson MD on 11/22/2024 11:49:41
--- OUTSIDE RECORDS SUMMARY | 2024-11-21 10:17 | XMS_ITS | Encounter Summary ---
Author Organization [employer] Address 75 [facility] 7 [place] [address] Care Team Providers Care Oral And Maxillofacial Surgery Name Role Phone Arpita Saravia MD Primary Care Provider [phone] Eddie Pimentel Unavailable Unavailable Reason for Visit * Reason Onset Date Comments triage 11/03/2022 Encounter Details Date Type Department Care Team ([facility] st Contact Info) Description 11/03/2022 Telephone [facility] MED[facility]INE 230 [place] [address] Arpita Saravia MD [address] [place] [address] triage Social History Tobacco Use Types Packs/Day [...] Pt states when [facility] up was told by [...] Care Team (Late st Contact Info) Description 02/04/2025 11:15 AM EDT Telemedicine [facility] MED [facility]EDS 505 [place] [address] Arpita Saravia MD 505 [place] [address] documented as of this encounter Visit Diagnoses Not on filedocumented in this encounter Additional Health Concerns Assessment Noted Time PHQ-9 Depression Total Score: 15 023 8:55 AM EST documented as of this encounter Care Teams Oral And Maxillofacial Surgery Relationship Specialty Start Date End Date Arpita Saravia MD 230 [place] [address] PCP - General Family Medicine 10/08/13 Eddie Pimentel FNP 230 [place] [address] Nurse Practitioner Family Medicine 08/22/23 documented as of this encounter
--- OUTSIDE RECORDS SUMMARY | 2024-11-21 10:17 | XMS_ITS | Encounter Summary ---
Author Organization [employer] Address [address] [place] [address] [facility] [place] [address] Care Team Providers Care College Football Coach Name Role Phone Arpita Saravia MD Primary Care Provider [phone] Eddie Pimentel Unavailable Unavailable Reason for Referral * Consultation (Urgent) - Authorized Specialty Diagnoses / Procedures Referred By Contac t Referred To Contact Sleep Medicine Diagnoses Sleep apnea, unspecified type Arpita Saravia MD [address] [place] [address] Phone: tel: fax: Sleep Medicine Service [place] [address] [facility], [address] [place] [address] Phone: tel: fax: Referral ID Status Reason Start Date Expiration Date Visits Requested Visits Authorized [id number] Authorized Specialty Services Required 11/13/2024 11/13/2025 1 1 Reason for Visit * Reason Comments Follow-up Abd pain Encounter Details Date Type Department Care Team (Late st Contact Info) Description 11/13/2024 8:45 AM EST Office Visit [facility] MED & PEDS 505 [place] [address] Arpita Saravia MD 505 [place] [address] Anxiety (Primary Dx); Sleep apnea, unspecified type Social History Tobacco Use Types Packs/Day Years [...] Sign Reading Time Taken Comments Blood Pressure 120/85 11/13/2024 9:10 AM EST Pulse 81 11/13/2024 9:10 AM EST Temperature 36.7 ??C (98 ??F) 11/13/2024 9:10 AM EST Respiratory Rate 18 11/13/2024 9:10 AM EST Oxygen Saturation 99% 11/13/2024 9:10 AM EST Inhaled Oxygen Concentration - - Weight 56.2 kg (124 lb) 11/13/2024 9:10 AM EST Height 153 cm (5' 0.25 ) 11/13/2024 9:10 AM EST Body Mass Index 24.02 11/13/2024 9:10 AM EST documented in this encounter Progress Notes * Arpita Saravia MD - 11/13/2024 8:45 AM EST Subjective Patient ID: Whitley Juares is a 39 y.o. female who presents for Follow-up (Abd pain ). Fatigue This is a chronic problem. The current episode started more than 1 year ago. The problem occurs constantly. The problem has been unchanged. Associated symptoms include fatigue. Pertinent negatives include no abdominal pain, anorexia, arthralgias, change in bowel habit, chest pain, chills, congestion, coughing, diaphoresis, rash, sore throat, swollen glands, urinary symptoms, vertigo, visual change, vomiting or weakness. She has tried rest and relaxation for the symptoms. The treatment provided mild relief. Review of Systems Constitutional: Positive for fatigue. Negative for chills and diaphoresis. HENT: Negative for congestion and sore throat. Respiratory: Negative for cough. Cardiovascular: Negative for chest pain. Gastrointestinal: Negative for abdominal pain, anorexia, change in bowel habit and vomiting. Musculoskeletal: Negative for arthralgias. Skin: Negative for rash. Neurological: Negative for vertigo and weakness. Objective Physical Exam Constitutional: Appearance: Normal appearance. Cardiovascular: Rate and Rhythm: Normal rate and regular rhythm. Pulses: Normal pulses. Heart sounds: Normal heart sounds. Pulmonary: Effort: Pulmonary effort is normal. Abdominal: General: Abdomen is flat. Neurological: Mental Status: She is alert. Assessment/Plan Diagnoses and all orders for this visit: Anxiety Comments: Started On hydroxyzine at bedtime Labs reviewed with pt Cont Vit D Sleep apnea, unspecified type Comments: Referred to Sleep clinic in [place] Orders: - Referral to Sleep Medicine; Future Other orders - hydrOXYzine pamoate (Vistaril) 25 MG capsule; Take 1 capsule (25 mg) by mouth if needed at bedtime for itching or anxiety for up to 10 days. documented in this encounter Plan of Treatment Upcoming Encounters Date Type Department Care Team ([facility] st Contact Info) Description 02/04/2025 11:15 AM EDT Telemedicine [facility] PEDS [address] [place], [place] [id number] Arpita Saravia MD [address] [place] [address] Scheduled Referrals Name Type Priority Associated Diagnoses Orde r Schedule Referral to Sleep Medicine Outpatient Referral Urgent Sleep apnea, unspecified type Expected: 11/13/2024 (Approximate), Expires: 11/13/2025 documented as of this encounter Visit Diagnoses Diagnosis Anxiety- Primary Anxiety state, unspecified Sleep apnea, unspecified type documented in this encounter Additional Health Concerns Assessment Noted Time PHQ-9 Depression Total Score: 6 02/19/20 24 3:02 PM EDT documented as of this encounter Care Teams College Football Coach Relationship Specialty Start Date End Date Arpita Saravia MD [address] [place] [address] PCP - General Family Medicine 10/08/13 Eddie Pimentel FNP [address] [place] [address] Nurse Practitioner Family Medicine 08/22/23 documented as of this encounter
--- OUTSIDE RECORDS SUMMARY | 2024-11-21 10:17 | XMS_ITS | Encounter Summary ---
Author Organization [employer] Address [address] [facility] [address] 7[address] [place] [address] Care Team Providers Care Diving Fisher Name Role Phone Arpita Saravia MD Primary Care Provider [phone] Eddie Pimentel Unavailable Unavailable Encounter Details Date Type Department Care Team (Latest Contact Info) Description 11/13/2024 Travel Social History Tobacco Use Types Packs/Day [...] Info) Description 02/04/2025 11:15 AM EDT Telemedicine [facility] MED & PEDS 505 [place] [address] Arpita Saravia MD 505 [place] [address] documented as of this encounter Visit Diagnoses Not on filedocumented in this encounter Additional Health Concerns Assessment Noted Time PHQ-9 Depression Total Score: 6 02/19/20 24 3:02 PM EDT documented as of this encounter Care Teams Diving Fisher Relationship Specialty Start Date End Date Arpita Saravia MD [address] [place] [address] PCP - General Family Medicine 10/08/13 Eddie Pimentel FNP [address] [place] [address] Nurse Practitioner Family Medicine 08/22/23 documented as of this encounter
--- OUTSIDE RECORDS SUMMARY | 2024-11-21 10:17 | XMS_ITS | Encounter Summary ---
Author Organization [employer] Address [address] [facility] [address] 7 [place] [address] Care Team Providers Care Part Maker Name Role Phone Arpita Saravia MD Primary Care Provider [phone] Eddie Pimentel Unavailable Unavailable Reason for Visit * Reason Onset Date Comments Results 10/17/2024 Encounter Details Date Type Department Care Team ([facility] st Contact Info) Description 10/17/2024 Telephone [facility] MEDICINE 230 [place] [address] Arpita Saravia MD [address] [place] [address] Results Social History Tobacco Use Types Packs/Day [...] results: labs Date when done: 10/16/23 Facility: [facility] documented in this encounter Plan of Treatment Upcoming Encounters Date Type Department Care Team (Late st Contact Info) Description 02/04/2025 11:15 AM EDT Telemedicine [facility] MED & PEDS 505 [place] [address] Arpita Saravia MD [address] [place] [address] documented as of this encounter Visit Diagnoses Not on filedocumented in this encounter Additional Health Concerns Assessment Noted Time PHQ-9 Depression Total Score: 6 02/19/20 3:02 PM EDT documented as of this encounter Care Teams Part Maker Relationship Specialty Start Date End Date Arpita Saravia MD [address] [place] [address] PCP - General Family Medicine 10/08/13 Eddie Pimentel FNP [address] [place] [address] Nurse Practitioner Family Medicine 08/22/23 documented as of this encounter
--- OUTSIDE RECORDS SUMMARY | 2024-11-21 10:17 | XMS_ITS | Encounter Summary ---
Author Organization [employer] Address 75 [facility] 7t [place] [address] Care Team Providers Care Traffic Agent Name Role Phone Arpita Saravia MD Primary Care Provider [phone] Eddie Pimentel Unavailable Unavailable Reason for Visit * Reason Onset Date Comments Results 10/22/2024 Encounter Details Date Type Department Care Team ([facility] Contact Info) Description 10/22/2024 Telephone [facility] MED & PEDS [address] [place] [address] Stefani Murillo RN Results Social History Tobacco [...] Miscellaneous Notes * Telephone Encounter - Stefani Murilol RN - 10/22/2024 9:17 AM EST ----- Message from [facility] sent at 10/18/2024 3:43 PM EST ----- [...] Info) Description 02/04/2025 11:15 AM EDT Telemedicine [facility] MED & PEDS 505 [place] [address] Arpita Saravia MD 505 [place] [address] documented as of this encounter Visit Diagnoses Not on filedocumented in this encounter Additional Health Concerns Assessment Noted Time PHQ-9 Depression Total Score: 6 02/19/20 24 3:02 PM EDT documented as of this encounter Care Teams Traffic Agent Relationship Specialty Start Date End Date Arpita Saravia MD [address] [place] [address] PCP - General Family Medicine 10/08/13 Eddie Pimentel FNP [address] [place] [address] Nurse Practitioner Family Medicine 08/22/23 documented as of this encounter
--- OUTSIDE RECORDS SUMMARY | 2024-11-21 10:17 | XMS_ITS | Encounter Summary ---
Author Organization [employer] Address 75 [facility] 7 [place] [address] Care Team Providers Care Quality Liaison Name Role Phone Arpita Saravia MD Primary Care Provider [phone] Eddie Pimentel Unavailable Unavailable Reason for Visit * Reason Onset Date Comments triage 10/21/2022 Encounter Details Date Type Department Care Team ([facility] st Contact Info) Description 10/21/2022 Telephone [facility] CHC MED & PEDS 505 [place] [address] Arpita Saravia MD 505 [place] [address] triage Social History Tobacco Use Types Packs/Day [...] Upcoming Encounters Date Type Department Care Team ([facility] st Contact Info) Description 02/04/2025 11:15 AM EDT Telemedicine [facility] MED & PEDS [address] [place] [address] Arpita Saravia MD [address] [place] [address] documented as of this encounter Visit Diagnoses Not on filedocumented in this encounter Additional Health Concerns Assessment Noted Time PHQ-9 Depression Total Score: 10 022 8:52 AM EST documented as of this encounter Care Teams Quality Liaison Relationship Specialty Start Date End Date Arpita Saravia MD [address] [place] [address] PCP - General Family Medicine 10/08/13 Eddie Pimentel FNP 230 [place] [address] Nurse Practitioner Family Medicine 08/22/23 documented as of this encounter
--- OUTSIDE RECORDS SUMMARY | 2024-11-21 10:17 | XMS_ITS | Encounter Summary ---
Author Organization [employer] Address 75 [facility] 7 [place] [address] Care Team Providers Care Dress Marker Name Role Phone Arpita Saravia MD Primary Care Provider [phone] Eddie Pimentel Unavailable Unavailable Reason for Visit * Reason Onset Date Comments Chart Prep 11/12/2024 Encounter Details Date Type Department Care Team ([facility] st Contact Info) Description 11/12/2024 Telephone [facility] MED & PEDS [address] [place] [address] Arpita Saravia MD [address] [place] [address] Chart Prep Social History Tobacco Use Types Packs/Day Years [...] encounter Miscellaneous Notes * Telephone Encounter - Rhina Guajardo MA - 11/12/2024 2:23 PM EST Chart Prep Labs: done Images: done Vaccines due: yes Referrals: complete Screenings: STI screening Overdue care gaps: Sbirt, SDOH, Oral Health, disability screening documented in this encounter Plan of Treatment Upcoming Encounters Date Type Department Care Team (Late st Contact Info) Description 02/04/2025 11:15 AM EDT Telemedicine [facility] MED & PEDS [address] [place] [address] Arpita Saravia MD [address] [place] [address] documented as of this encounter Visit Diagnoses Not on filedocumented in this encounter Additional Health Concerns Assessment Noted Time PHQ-9 Depression Total Score: 6 02/19/20 24 3:02 PM EDT documented as of this encounter Care Teams Dress Marker Relationship Specialty Start Date End Date Arpita Saravia MD [address] [place] [address] PCP - General Family Medicine 10/08/13 Eddie Pimentel FNP [address] [place] [address] Nurse Practitioner Family Medicine 08/22/23 documented as of this encounter
--- OUTSIDE RECORDS SUMMARY | 2024-11-21 10:18 | XMS_ITS | Encounter Summary ---
Author Organization [employer] Address [address] [place] [address] Care Team Providers Care Ethylbenzene Converter Operator Name Role Phone Arpita Saravia MD Primary Care Provider [phone] Eddie Pimentel Unavailable Unavailable Encounter Details Date Type Department Care Team (Late st Contact Info) Description 10/29/2024 Orders Only [facility] External Provider, [facility] Social History Tobacco Use Types Packs/Day [...] Upcoming Encounters Date Type Department Care Team ([facility] st Contact Info) Description 02/04/2025 11:15 AM EDT Telemedicine [facility] MED & PEDS [address] [facility] [place] [address] Arpita Saravia MD [address] [facility] [place] [address] documented as of this encounter Procedures Procedure Name Priority Date/Time Associated Diagnosis Comments XR CHEST 2 VIEWS Routine 10/29/2024 3:16 PM EST documented in this encounter Results * XR Chest 2 Views (10/29/2024 3:16 PM EST) Anatomical Region Laterality Modality Chest Radiographic Niesha ging 10/29/2024 3:16 PM EST Narrative 10/29/2024 3:42 PM EST ? [facility] Adult Primary Care ?[address] ? [place] [address] ?XRay Report ? Signed ? Patient: Juares,Whitley ?MR#: [id number] ?? [id number] ? : 1985 ?Acct:[id number] ? Age/Sex: 39 / F ?ADM Date: //25 ? Loc: HO.HMGCX ? Attending Dr: Zuleyka Hylton NEON TUBE PUMPER ? Ordering Physician: Zuleyka Hylton [employer] PUMPER ?? Date of Service: 10/29/24 ?? Procedure(s): XR chest 2V ?? Accession Number(s): [id number] ? cc: Arpita Saravia MD; Zuleyka Hylton [...] DD/ 1516 ? TD/TT: 10/29/24 1520 ? [employer]: ? Procedure Note Tito, Image - 10/29/2024 [facility] Adult Primary Care [address] [place] [address] [place] [address] XRay Report Signed Patient: Whitley JuaresMR#: [id number] : 1985Acct:[id number] Age/Sex: 39 / FADM Date: 10/29/24 Loc: HO.HMGCX Attending Dr: Zuleyka Hylton NP Ordering Physician: Zuleyka Hylton NP Date of Service: 10/29/24 Procedure(s): XR chest 2V Accession Number(s): [id number] cc: Arpita Saravia MD; Zuleyka Hylton NP [...] by: Mervin Forte MD 10/29/2024 03:39 PM [facility] Dictated By: Mervin Forte MD Signed By: <Electronically signed by Mervin Forte MD in OV> 10/29/24 1539 DD/ 1516 TD/TT: 10/29/24 1520 [employer]: [facility] External Provider IMG XR PROCEDURES Final Result documented in this encounter Visit Diagnoses Not on filedocumented in this encounter Additional Health Concerns Assessment Noted Time PHQ-9 Depression Total Score: 6 02/19/20 24 3:02 PM EDT documented as of this encounter Care Teams Ethylbenzene Converter Operator Relationship Specialty Start Date End Date Arpita Saravia MD [address] [place] [address] PCP - General Family Medicine 10/08/13 Eddie Pimentel FNP [address] [place] [address] Nurse Practitioner Family Medicine 08/22/23 documented as of this encounter
--- OUTSIDE RECORDS SUMMARY | 2024-11-21 10:18 | XMS_ITS | Encounter Summary ---
Author Organization [employer] Address [address] [place] [address] Care Team Providers Care Drying Tumbler Operator Name Role Phone Arpita Saravia MD Primary Care Provider [phone] Eddie Pimentel Unavailable Unavailable Encounter Details Date [...] Info) Description 02/04/2025 11:15 AM EDT Telemedicine [facility] MED & PEDS [address] [place] [address] Arpita Saravia MD [address] [place] [address] documented as of this encounter Visit Diagnoses Not on filedocumented in this encounter Additional Health Concerns Assessment Noted Time PHQ-9 Depression Total Score: 6 02/19/20 24 3:02 PM EDT documented as of this encounter Care Teams Drying Tumbler Operator Relationship Specialty Start Date End Date Arpita Saravia MD [address] [place] [address] PCP - General Family Medicine 10/08/13 Eddie Pimentel FNP [address] [place] [phone] Nurse Practitioner Family Medicine 08/22/23 documented as of this encounter
--- OUTSIDE RECORDS SUMMARY | 2024-11-21 10:18 | XMS_ITS | Encounter Summary ---
Author Organization [employer] Address [address] [place] [address] 7 [place] [address] Care Team Providers Care Fence Installer Name Role Phone Arpita Saravia MD Primary Care Provider [phone] Eddie Pimentel Unavailable Unavailable Reason for Referral * Consultation (Routine) - Closed Specialty Diagnoses / Procedures Referred By Contac t Referred To Contact Pulmonary Disease Diagnoses Pulmonary emphysema, unspecified emphysema type (CMS/HCC) Arpita Saravia MD [address] [place], [place] Phone: tel: fax: Diego Albarran [address] [place] [address] Phone: tel: fax: Referral ID Status Reason Start Date Expiration Date V isits Requested Visits Authorized [id number] Closed Specialty Services Required 10/22/2024 10/22/2025 1 1 * Consultation (Routine) - Authorized Specialty Diagnoses / Procedures Referred By Contac t Referred To Contact Gastroenterology Diagnoses Right lower quadrant abdominal pain Arpita Saravia MD [address] [place], [place] Phone: tel: fax: Ryan Guerin MD [address] [place] [address] Phone: tel: fax: Referral ID Status Reason Start Date Expiration Date Visits Requested Visits Authorized [id number] Authorized Specialty Services Required 10/22/2024 10/22/2025 1 1 Reason for Visit * Reason Comments Labs Only Encounter Details Date Type Department Care Team ([facility] st Contact Info) Description 10/22/2024 9:00 AM EST Telemedicine [facility] MED & PEDS [address] [place] [address] Arpita Saravia MD [address] [place] [address] Right lower quadrant abdominal pain (Primary Dx); [...] Info) Description 02/04/2025 11:15 AM EDT Telemedicine [facility] MED [facility] PEDS [address] [place] [address] Arpita Saravia MD [address] [place] [address] Scheduled Referrals Name Type Priority Associated Diagnoses [...] Free T4 1.60 0.32 - 4.0 uIU/mL [facility] Blood Venous blood specimen / Unknown 10/23/2024 9:42 AM EST 10/23/2024 2:07 PM EST us Arpita Saravia MD LAB BLOOD ORDERABLES Final Resul t Performing Organization Address City/[facility]/ZIP Co de Phone Number [facility] [address] [place] [address] [phone] * Celiac Disease Comprehensive Panel (10/23/2024 9:42 AM EST) Immunoglobulin A 214 47 - 310 mg/dL [facility] Comment:THIS TEST WAS PERFOR MED AT:[employer] [place] [id number] PARTIDA MD Transglutaminase IgA <1.0 U/mL [facility] Comment:Value Interpretation ----- <15.0 Antibody not detected> or = 15.0 Antibody detected Interpretation SEE NOTE [facility] Comment:No serological evide nce of celiac [...] ORDERABLES Final Resul t Performing Organization Address City/[facility]/ZIP Co de Phone Number [facility] [address] [place] [address] [phone] * Vitamin B12/Folate, Serum Panel (10/23/2024 9:42 AM EST) Vitamin B12 403 200 - 900 pg/mL [facility] Comment:NORMAL 200-900 PG/ML INDETERMINATE 160-199 PG/ML DEFICIENT < 160 PG/ML Folate 15.8 > or = 4.0 ng/mL [facility] Comment:Reference Values:> o r = [...] ORDERABLES Final Resul t Performing Organization Address [facility] de Phone Number [facility] [address] [place] [phone] * Vitamin D, 25-Hydroxy, Total, Immunoassay (10/23/2024 9:42 AM EST) Vitamin D 25-OH Total 48.2 >30 ng/mL [facility] Comment:Health Based Referen ce Values*< 20 ng/mL [id number] ng/mL Insufficient> 30 ng/mL Sufficient*Vimal BANUELOS. N [...] ORDERABLES Final Resul t Performing Organization Address [facility] Co de Phone Number [facility] [address] [place] [phone] * (ABNORMAL) CBC auto differential (10/23/2024 9:42 AM EST) White Blood Count 5.3 4.8 - 10.8 X10*3/uL [facility] Red Blood Count 4.10(L) 4.20 - 5.50 X10*6/uL [facility] Hemoglobin 12.7 12.0 - 16.0 g/dl [facility] Hematocrit 37.5 37.0 - 47.0 % [facility] Mean Corpuscular Volume 91.5 80.0 - 98.0 fL [facility] Mean Corpuscular Hemoglobin 31.0 27.0 - 33.0 pg [facility] Mean Corpuscular HGB Conc 33.9 31.0 - 35.0 g/dl [facility] Red Cell Distribution Width 12.1 11.0 - 16.0 % [facility] Platelet Count 270 160 - 400 X10*3/uL [facility] Mean Platelet Volume 10.0 9.4 - 12.3 fL [facility] Neutrophils Percent Auto 75.9(H) 45 - 73 % [facility] Imm Gran Pct Auto 0.4 0.0 - 0.4 % [facility] Lymphocytes Percent Auto 17.6(L) 20 - 40 % [facility] Monocytes Percent Auto 5.3 2 - 11 % [facility] Eosinophils Percent Auto 0.4 0 - 4 % [facility] Basophils Percent Auto 0.4 0 - 2 % [facility] NRBC Pct Auto 0.0 0.0 - 0.2 /100WBC [facility] Neutrophils Absolute Auto 4.1 2.0 - 8.3 x10*3/uL [facility] Imm Gran Abs Auto 0.02 0.00 - 0.03 X10*3/uL [facility] Lymphocytes Absolute Auto 0.9(L) 1.2 - 4.9 X10*3/uL [facility] Monocytes Absolute Auto 0.3 0.1 - 1.2 X10*3/uL [facility] Eosinophils Absolute Auto 0.0 0.0 - 0.4 X10*3/uL [facility] Basophils Absolute Auto 0.0 0.0 - 0.2 X10*3/uL [facility] NRBC Abs Auto 0.000 0.0 - 0.012 X10*3/uL [facility] Blood Venous blood specimen / Unknown 10/23/2024 9:42 AM EST 10/23/2024 2:00 PM EST Arpita Saravia MD LAB BLOOD ORDERABLES Final Resul t Performing Organization Address [facility] Co de Phone Number [facility] [address] [place] [phone] * Hepatic Function Panel (10/23/2024 9:42 AM EST) Bilirubin, Total 0.7 0.0 - 1.0 mg/dL [facility] Bilirubin, Direct 0.3 0.0 - 0.5 mg/dL [facility] Aspartate Amino Transferase 26 5 - 31 U/L [facility] Alanine Aminotransferase 14 0 - 31 U/L [facility] Total Protein 7.7 6.5 - 8.0 g/dL [facility] Albumin Level 4.5 3.5 - 5.0 g/dL [facility] Alkaline Phosphatase 55 39 - 117 U/L [facility] Blood Venous blood specimen / Unknown 10/23/2024 9:42 AM EST 10/23/2024 2:07 PM EST Arpita Saravia MD LAB BLOOD ORDERABLES Final Resul t Performing Organization Address [facility] Co de Phone Number [facility] [address] [place] [phone] * Lipid Panel, Standard (10/23/2024 9:42 AM EST) Triglycerides 91 <150 mg/dL [facility] Comment:Desirable Triglyceri de: less than 150 mg/dLBorderline High Triglyceride 150-199 mg/dLHigh Triglyceride: 200-499 mg/dLVery High Triglyceride: greater than or equal to 5OO mg/dL Cholesterol 148 <200 mg/dL [facility] Comment:Desirable Cholestero l: less than 200 mg/dLBorderline High Cholesterol: 200-239 mg/dLHigh Cholesterol: greater than 239 mg/dL LDL Cholesterol Calculated 84 <100 mg/dL [facility] Comment:Desirable LDL: less than 100 mg/dLNear Optimal/Above Optimal LDL: 110- 129 mg/dLBorderline High LDL: 130-159 mg/dLHigh LDL: 160-189 mg/dLVery High LDL: greater than or equal to 190 mg/dL HDL Cholesterol 46 >40 mg/dL [facility] Comment:Desirable HDL: great er than 40 mg/dL Note: This HDL assay may give artificially low results in patients with liver disease. Blood Venous blood specimen / Unknown 10/23/2024 9:42 AM EST 10/23/2024 2:07 PM EST us Arpita Saravia MD LAB BLOOD ORDERABLES Final Resul t [facility] [address] [place] [phone] * (ABNORMAL) Basic Metabolic Panel (10/23/2024 9:42 AM EST) Sodium 137 135 - 145 mmol/L [facility] Potassium 3.9 3.3 - 5.1 mmol/L [facility] Chloride 105 96 - 108 mmol/L [facility] Carbon Dioxide 27 22 - 29 mmol/L [facility] Anion Gap 9(L) 12 - 20 [facility] Urea Nitrogen (BUN) 11 9 - 16 mg/dL [facility] Creatinine, Serum 0.75 0.5 - 1.4 mg/dL [facility] Estimated Glomerular Filt Rate >60 [facility] Comment:Chronic Kidney Disea se: Estimated GFR < 60 mL/min/[id number] Kidney Disease: Estimated GFR < 15 mL/min/1.73m2 Glucose 96 60 - 115 mg/dL [facility] Calcium 9.7 8.4 - 10.2 mg/dL [facility] Blood Venous blood specimen / Unknown 10/23/2024 9:42 AM EST 10/23/2024 2:07 PM EST Arpita Saravia MD LAB BLOOD ORDERABLES Final Resul t [facility] [address] [place] [address] [phone] documented in this encounter Visit Diagnoses Diagnosis Right lower quadrant abdominal pain- Primary Vitamin D deficiency Chronic fatigue Other malaise and fatigue Pulmonary emphysema, unspecified emphysema type (CMS/HCC) documented in this encounter Additional Health Concerns Assessment Noted Time PHQ-9 Depression Total Score: 6 02/19/20 24 3:02 PM EDT documented as of this encounter Care Teams Fence Installer Relationship Specialty Start Date End Date Arpita Saravia MD [address] [place] [address] PCP - General Family Medicine 10/08/13 Eddie Pimentel FNP [address] [place] [address] Nurse Practitioner Family Medicine 08/22/23 documented as of this encounter
--- OUTSIDE RECORDS SUMMARY | 2024-11-21 10:18 | XMS_ITS | Clinical Summary ---
Author Organization [employer] Address [address] [facility] [address] [place] [address] Care Team Providers Care Inseminator Name Role Phone Arpita Saravia MD Primary Care Provider [phone] Eddie Pimentel Unavailable Unavailable Allergies Active Allergy Reactions Criticality Noted Date Comments Amlodipine 02/17/2017 Other reaction(s): Ankle swelling, flushing Medications * This document contains information received from the source organization and may not represent a complete record from that organization. ibuprofen 800 MG tablet Take 1 tablet by mouth every 8 (eight) hours. 1 Active naproxen (Naprosyn) 500 MG tablet Take 1 tablet by mouth every 12 (twelve) hours. 9 Active ZOLMitriptan (Zomig) 5 MG tablet TAKE 1 TABLET BY MOUTH EVERY DAY NEEDED ORALLY ONCE A DAY 2 Active Ajovy 225 MG/1.5ML auto-injector DIRECTED SUBCUTANEOUS MONTHLY 30 DAYS 3 Active cholecalciferol (Vitamin D-3) 50 MCG (1999) capsule TAKE 1 CAPSULE BY MOUTH EVERY 12 HOURS 180 capsule 1 4 Active loratadine (Claritin) 10 MG tablet TAKE 1 TABLET BY MOUTH EVERY MORNING 90 tablet 1 4 Active busPIRone (Buspar) 5 MG tabletIndicatio ns:Bipolar affective disorder, current episode mixed, current episode severity unspecified (CMS/HCC) Take 1 tablet (5 mg) by mouth every 8 (eight) hours. 270 tablet 3 4 Active Cariprazine HCl 3 MG capsule Take 3 mg by mouth Once daily. 90 capsule 3 4 Active fluticasone (Flonase) 50 MCG/ACT nasal spray SPRAY 2 SPRAYS INTO EACH NOSTRIL EVERY DAY 48 mL 4 Active lisinopril 2.5 MG tablet TAKE 1 TABLET BY MOUTH IN THE MORNING 90 tablet 1 4 Active hydrOXYzine pamoate (Vistaril) 25 MG capsule Take 1 capsule (25 mg) by mouth if needed at bedtime for itching or anxiety for up to 10 days. 30 capsule 3 5 11/23/19 25 Active Active Problems Problem Noted Date Diagnosed Date [...] will transfer her care to the new [facility] psychiatric prescriber. Any issues or concerns, contact [...] poor response to SSRIs ( jittery ). Has had multiple medication trials: Didn't [...] poor response to SSRIs ( jittery ). Has had multiple medication trials: Didn't feel Abilify 15 mg was helpful. She did not tolerate Lamictal 25 mg once daily with worsening of her migraine CAM. Also did not tolerate Topiramate 25 mg BID, or Carbamazapine. No further episodes of severe depression. Mood swings improved but not completely controlled. 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 F/U with me in 6-8 weeks. She agrees with the plan. Assessment & Plan (03/15/2023 9:46 AM EDT): Assessment: Patient with revious hx of Bipolar Dx and MH treatment that was referred to [facility] Consult for exacerbation of depression and anxiety. 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 She indicates that she has been experiencing exacerbation of sxs, specially feeling down and unmotivated. She indicates that main stressors in the past year have been related to changes at work. Whitley indicated that although adhering to medication, she can feel sxs worsening. Patient will benefit from follow up [facility] brief intervention to further explore BH needs and potential treatments. At this time Whitley Juares meets criteria for Visit Diagnoses (per record): Problem List Items Addressed This Visit Other Bipolar affective disorder, current episode mixed (CMS/[facility]) - Primary Relevant Orders Referral to Behavioral Health Patient ready to address current needs Yes Strengths include Desire to engage in supportive treatment PLAN: 1. Follow up with [facility]: Recommended for follow-up: 03/14/2023 2. Patient goal [...] Supported by poor response to SSRIs ( rennyttgurwinder ). She did not tolerate Lamictal 25 [...] poor response to SSRIs ( priyanka ). She did not tolerate Lamictal 25 mg once daily with worsening of her migraine CAM. Taking the new Topiramate 25 mg BID, but hasn't noted significant improvement, feels on edge, but that is likely part of her BPD and not r/t to the medication. Discussed options for treatment of BPD: Fortine, antiepileptics, antipsychotics. She will increase to Abilify 30 mg daily, continue other meds for now. F/U 4-6 weeks. She agrees with the plan. She is in a long-term monogamous relationship with single AMAB partner who has vasectomy so at negligible risk of unintended . Right ear pain 02/28/2018 Migraine 12/24/2012 Encounters Date Type Department Care Team Description 11/13/2024 8:45 AM EST Office Visit [facility] [address] [facility] [address] Arpita Saravia MD Anxiety (Primary Dx); Sleep apnea, unspecified type 11/13/2024 Travel 11/12/2024 Telephone [facility] [address] [facility] [address] Arpita Saravia MD Chart Prep 10/29/2024 Orders Only [facility] External Provider, [facility] 10/22/2024 9:00 AM EST Telemedicine [facility] [address] [facility] [address] Arpita Saravia MD Right lower quadrant abdominal pain (Primary Dx); Vitamin D deficiency; Chronic fatigue; Pulmonary emphysema, unspecified emphysema type ([facility]/HCC) 10/22/2024 Telephone [facility] [address] [facility] [address] Edith Day, DOMINIC 10/22/2024 Telephone [facility] [address] [place] [address] Stefani Murillo RN Results 10/22/2024 Travel 10/18/2024 Telephone [facility] [address] [facility] [address] Arpita Saravia MD Nurse Triage 10/18/2024 Orders Only GENERIC EXTERNAL DATA DEPARTMENT Provider, Generic External Data 10/17/2024 Orders Only [facility] External Provider, [facility] 10/17/2024 Telephone [facility] [address] [place] [address] Arpita Saravia MD Results 10/16/2024 3:00 PM EST Office Visit [facility] [address] [place] [address] Francy, Jojo, [employer] FILL[employer] RO[employer]ER MACHINE Right lower quadrant abdominal pain (Primary Dx) 10/16/2024 Travel 10/15/2024 Telephone [facility] [address] [place] [address] Arpita Saravia MD Nurse Triage 09/03/2024 Refill [facility] [address] [place] [address] Arpita Saravia MD 08/27/2024 9:15 AM EST Office Visit [facility] [address] [place] [address] Ben Alford MD Congenital nevus (Primary Dx) 08/27/2024 Travel from Last 3 Months Immunizations Name Administration Dates Next Due Pfizer Covid-19 Vaccine 12+ 06/05/2021, Tdap 04/20/2018,03/02/2015 Social History Tobacco Use Types Packs/Day Years [...] Mass Index 24.02 11/13/2024 9:10 AM EST Plan of Treatment Upcoming Encounters Date Type Department Care Team (Late st Contact Info) Description 02/04/2025 11:15 AM EDT Telemedicine [facility] [address] [place] [address] Arpita Saravia MD [address] [place] [address] Health Maintenance Due Date Last Done Comments HIV Screening 1987 Alcohol/Substance Use Screening 1999 Family Planning (PISQ) 2002 Hepatitis B Vaccines (1 of 3 - 19+ 3-dose series) 2006 Pneumococcal Vaccine: Pediatrics (0 to 5 Years) and At-Risk Patients (6 to 49) Years) (1 of 2 - PCV) 2006 Dental Oral Exam 03/08/2023 09/06/2022 Dental [...] :00 PM EST Encounter for dental examination INTRAORAL - COMPLETE SERIES OF RADIOGRAPHIC IMAGES Routine 09/06/2022 4:00 [...] EST Narrative 10/29/2024 3:42 PM EST ? [facility] ?[address] [facility] ? [place] [address] ?XRay Report ? Signed ? Patient: Juares,Whitley ?MR#: [id number] ?? 686 ? : 1985 ?Acct:[id number] ? Age/Sex: 39 / F ?ADM Date: 01/28/25 ? Loc: HO.HMGCX ? Attending Dr: Zuleyka Hylton MEDICAL INSURANCE BILLER ? Ordering Physician: Zuleyka Hylton NP ?? Date of Service: 10/29/24 ?? Procedure(s): XR chest 2V ?? Accession Number(s): [id number] ? cc: Arpita Saravia MD; Zuleyka Hylton [...] DD/ 1516 ? TD/TT: 10/29/24 1520 ? School Psychology Professor: ? Procedure Note Tito, Image - 10/29/2024 [facility] [address] [place] [address] [place] [address] XRay Report Signed Patient: Whitley JuaresMR#: [id number] 686 : 1985Acct:[id number] Age/Sex: 39 / FADM Date: 10/29/24 Loc: HO.HMGCX Attending Dr: Zuleyka Hylton NP Ordering Physician: Zuleyka Hylton NP Date of Service: 10/29/24 Procedure(s): XR chest 2V Accession Number(s): [id number] cc: Arpita Saravia MD; Zuleyka Hlyton NP EXAMINATION: XR CHEST CLINICAL INFORMATION: J98.11 [...] by: Mervin Forte MD 10/29/2024 03:39 PM EST RP Dictated By: Mervin Forte MD Signed By: <Electronically signed by Mervin Forte MD in OV> 10/29/24 1539 DD/ 1516 TD/TT: 10/29/24 1520 School Psychology Professor: [facility] External Provider IMG XR PROCEDURES Final Result * Vitamin D, 25-Hydroxy, Total, Immunoassay (10/23/2024 9:42 AM EST) Vitamin D 25-OH Total 48.2 >30 ng/mL [facility] Comment:Health Based Referen ce Values*< 20 ng/mL Bhagxnlew49-84 ng/mL Insufficient> 30 ng/mL Sufficient*Vimal BANUELOS. N [...] MD LAB BLOOD ORDERABLES Final Resul t [facility] [address] [place] [phone] * Vitamin B12/Folate, Serum Panel (10/23/2024 9:42 AM EST) Vitamin B12 403 200 - 900 pg/mL [facility] Comment:NORMAL 200-900 PG/ML INDETERMINATE 160-199 PG/ML DEFICIENT < 160 PG/ML Folate 15.8 > or = 4.0 ng/mL [facility] Comment:Reference Values:> o r = 4.0 [...] Resul t Performing Organization Address [facility] Co de Phone Number [facility] [address] [place] [phone] * TSH W/Reflex to FT4 (10/23/2024 9:42 AM EST) TSH reflex Free T4 1.60 0.32 - 4.0 uIU/mL [facility] Blood Venous blood specimen / Unknown 10/23/2024 9:42 AM EST 10/23/2024 2:07 PM EST Arpita Saravia MD LAB BLOOD ORDERABLES Final Resul t Performing Organization Address [facility] de Phone Number [facility] [address] [place] [phone] * (ABNORMAL) CBC auto differential (10/23/2024 9:42 AM EST) Only the most recent of3 resultswithin the time period is included. White Blood Count 5.3 4.8 - 10.8 X10*3/uL [facility] Red Blood Count 4.10(L) 4.20 - 5.50 X10*6/uL [facility] Hemoglobin 12.7 12.0 - 16.0 g/dl [facility] Hematocrit 37.5 37.0 - 47.0 % [facility] Mean Corpuscular Volume 91.5 80.0 - 98.0 fL [facility] Mean Corpuscular Hemoglobin 31.0 27.0 - 33.0 pg [facility] Mean Corpuscular HGB Conc 33.9 31.0 - 35.0 g/dl [facility] Red Cell Distribution Width 12.1 11.0 - 16.0 % [facility] Platelet Count 270 160 - 400 X10*3/uL [facility] Mean Platelet Volume 10.0 9.4 - 12.3 fL [facility] Neutrophils Percent Auto 75.9(H) 45 - 73 % [facility] Imm Gran Pct Auto 0.4 0.0 - 0.4 % [facility] Lymphocytes Percent Auto 17.6(L) 20 - 40 % [facility] Monocytes Percent Auto 5.3 2 - 11 % [facility] Eosinophils Percent Auto 0.4 0 - 4 % [facility] Basophils Percent Auto 0.4 0 - 2 % [facility] NRBC Pct Auto 0.0 0.0 - 0.2 /100WBC [facility] Neutrophils Absolute Auto 4.1 2.0 - 8.3 x10*3/uL [facility] Imm Gran Abs Auto 0.02 0.00 - 0.03 X10*3/uL [facility] Lymphocytes Absolute Auto 0.9(L) 1.2 - 4.9 X10*3/uL [facility] Monocytes Absolute Auto 0.3 0.1 - 1.2 X10*3/uL [facility] Eosinophils Absolute Auto 0.0 0.0 - 0.4 X10*3/uL [facility] Basophils Absolute Auto 0.0 0.0 - 0.2 X10*3/uL [facility] NRBC Abs Auto 0.000 0.0 - 0.012 X10*3/uL [facility] Blood Venous blood specimen / Unknown 10/23/2024 9:42 AM EST 10/23/2024 2:00 PM EST Arpita Saravia MD LAB BLOOD ORDERABLES Final Resul t Performing Organization Address [facility]/ZIP Co de Phone Number [facility] [address] [place] [phone] * Celiac Disease Comprehensive Panel (10/23/2024 9:42 AM EST) Immunoglobulin A 214 47 - 310 mg/dL [facility] Comment:THIS TEST WAS PERFOR MED AT:[employer] [place] [phone] PARTIDA MD Transglutaminase IgA <1.0 U/mL [facility] Comment:Value Interpretation ----- <15.0 Antibody not detected> or = 15.0 Antibody detected Interpretation SEE NOTE [facility] Comment:No serological evide nce of celiac [...] ORDERABLES Final Resul t Performing Organization Address City/[facility]/ZIP Co de Phone Number [facility] [address] [place] [phone] * Hepatic Function Panel (10/23/2024 9:42 AM EST) Only the most recent of2 resultswithin the time period is included. Bilirubin, Total 0.7 0.0 - 1.0 mg/dL [facility] Bilirubin, Direct 0.3 0.0 - 0.5 mg/dL [facility] Aspartate Amino Transferase 26 5 - 31 U/L [facility] Alanine Aminotransferase 14 0 - 31 U/L [facility] Total Protein 7.7 6.5 - 8.0 g/dL [facility] Albumin Level 4.5 3.5 - 5.0 g/dL [facility] Alkaline Phosphatase 55 39 - 117 U/L [facility] Blood Venous blood specimen / Unknown 10/23/2024 9:42 AM EST 10/23/2024 2:07 PM EST Arpita Saravia MD LAB BLOOD ORDERABLES Final Resul t Performing Organization Address [facility] de Phone Number [facility] [address] [place] [phone] * Lipid Panel, Standard (10/23/2024 9:42 AM EST) Triglycerides 91 <150 mg/dL [facility] Comment:Desirable Triglyceri de: less than 150 mg/dLBorderline High Triglyceride 150-199 mg/dLHigh Triglyceride: 200-499 mg/dLVery High Triglyceride: greater than or equal to 5OO mg/dL Cholesterol 148 <200 mg/dL [facility] Comment:Desirable Cholestero l: less than 200 mg/dLBorderline High Cholesterol: 200-239 mg/dLHigh Cholesterol: greater than 239 mg/dL LDL Cholesterol Calculated 84 <100 mg/dL [facility] Comment:Desirable LDL: less than 100 mg/dLNear Optimal/Above Optimal LDL: 110- 129 mg/dLBorderline High LDL: 130-159 mg/dLHigh LDL: 160-189 mg/dLVery High LDL: greater than or equal to 190 mg/dL HDL Cholesterol 46 >40 mg/dL [facility] Comment:Desirable HDL: great er than 40 mg/dL Note: This HDL assay may give artificially low results in patients with liver disease. Blood Venous blood specimen / Unknown 10/23/2024 9:42 AM EST 10/23/2024 2:07 PM EST Arpita Saravia MD LAB BLOOD ORDERABLES Final Resul t Performing Organization Address [facility] Co de Phone Number [facility] [address] [place] [phone] * (ABNORMAL) Basic Metabolic Panel (10/23/2024 9:42 AM EST) Only the most recent of2 resultswithin the time period is included. Sodium 137 135 - 145 mmol/L [facility] Potassium 3.9 3.3 - 5.1 mmol/L [facility] Chloride 105 96 - 108 mmol/L [facility] Carbon Dioxide 27 22 - 29 mmol/L [facility] Anion Gap 9(L) 12 - 20 [facility] Urea Nitrogen (BUN) 11 9 - 16 mg/dL [facility] Creatinine, Serum 0.75 0.5 - 1.4 mg/dL [facility] Estimated Glomerular Filt Rate >60 [facility] Comment:Chronic Kidney Disea se: Estimated GFR < 60 mL/min/[id number] Kidney Disease: Estimated GFR < 15 mL/min/1.73m2 Glucose 96 60 - 115 mg/dL [facility] Calcium 9.7 8.4 - 10.2 mg/dL [facility] Blood Venous blood specimen / Unknown 10/23/2024 9:42 AM EST 10/23/2024 2:07 PM EST us Arpita Saravia MD LAB BLOOD ORDERABLES Final Resul t [facility] [address] [place] [phone] * Urinalysis w/reflex microscopic (10/18/2024 1:17 AM EST) Color Urine Yellow [facility] Appearance Urine Clear [facility] PH 5.5 5.0 - 9.0 [facility] Glucose Urine UA Negative Negative mg/dL [facility] Urine Blood Negative Negative [facility] Specific [place]well - Urine 1.020 1.005 - 1.025 [facility] Urine Protein Negative Neg-Trace mg/dL [facility] Urine Ketones Negative Negative mg/dL [facility] Nitrite Urine Negative Negative [facility] Leukocyte Esterase Urine Negative Negative [facility] 10/18/2024 1:17 AM EST 10/18/2024 1:19 AM EST Narrative [facility] - 10/18/2024 1:25 AM EST Urine, Clean Catch us Generic External Data Provider LAB URINE ORDERAB LES Final Result [facility] [address] [place] [phone] * CT Abdomen Pelvis w/o Contrast (10/17/2024 9:06 PM EST) Anatomical Region Laterality Modality Body, Pelvis, Abdomen Computed T omography 10/17/2024 9:06 PM EST Narrative 10/17/2024 9:08 PM EST ? [facility] ?[address] ?[place] [address] ? CT Scan Report ? Signed ? Patient: Whitley Juares ?MR#: [id number] ?? 686 ? : 1985 ?Acct:[id number] ? Age/Sex: 39 / F ?ADM Date: 10/17/24 ? Loc: HO.ED ? Attending Dr: ? Ordering Physician: Whitley Bellamy ?? Date of Service: 10/17/24 ?? Procedure(s): CT abdomen pelvis wo IV con ?? Accession Number(s): [id number] ? cc: Whitley Bellamy; Arpita Saravia MD ? Report Number: ?? [id number]: Total DLP = ??392.00 mGy-cm ? CLINICAL [...] ? DD/ 05 ? TD/TT: 10/17/242105 ? School Psychology Professor: ? Procedure Note Donjanester, Image - 10/17/[address] [address] [address] Scan Report Signed Patient: Whitley JuaresMR#: [id number] 686 : 1985Acct:[id number] Age/Sex: 39 / FADM Date: 10/17/24 Loc: HO.ED Attending Dr: Ordering Physician: Whitley Bellamy Date of Service: 10/17/24 Procedure(s): CT abdomen pelvis wo IV con Accession Number(s): [id number] cc: Whitley Bellamy; Arpita Saravia MD Report Number: [id number]: Total DLP = 392.00 mGy-cm CLINICAL HISTORY: [...] in OV> 10/17/242106 DD/ 05 TD/TT: 10/17/242105 School Psychology Professor: us [facility] External Provider IMG CT PROCEDURES Final Result * SARS-CoV-2 RNA, Influenza A/B, and RSV RNA, Ql NAAT (10/17/2024 8:54 PM EST) Pathologist [facility] Influenza A PCR NEGATIVE Negative [facility] Influenza B PCR NEGATIVE Negative [facility] Resp Syncy Virus RNA Qual PCR NEGATIVE Negative [facility] SARS COV2 PCR NEGATIVE Negative [facility] Comment:All test results mus [...] use by authorized laboratories.Testing performed on the [employer] GeneXpert utilizingreal-time RT-PCR.All SARS CoV2 and positive influenza A/B results arereported to [facility]. 10/17/2024 8:54 PM EST 10/17/2024 8:56 PM EST Generic External Data Provider LAB MICROBIOLOGY - GENERAL ORDERABLES Final Result [facility] [address] [place] [phone] * hCG, Total, Quantitative (10/17/2024 8:54 PM EST) Pathologist [facility] HCG Quantitative <2 mIU/mL [facility] Comment:Weeks post LMP Appro ximate hCG(Last Menstrual Period) Range (mIU/ml)3 - 4 weeks 9 - 1304 - 5 weeks 75 - 2,6005 - 6 weeks 850 - 20,8006 - 7 weeks 4000 - 100,2007 - 12 weeks 11,500 - 289,70220 - 16 weeks 18,300 - 137,36576 - 29 weeks (2nd trimester) 1,400 - 53,17942 - 41 weeks (3rd trimester) 940 - [...] ORDERAB LES Final Result Performing Organization Address [facility] Co de Phone Number [facility] [address] [place] [phone] * Magnesium (10/17/2024 8:54 PM EST) Pathologist [facility] Magnesium 2.1 1.6 - 2.6 mg/dL [facility] 10/17/2024 8:54 PM EST 10/17/2024 8:56 PM EST [facility] External Data Provider LAB BLOOD ORDERAB LES Final Result Performing Organization Address [facility] Phone Number [facility] [address] [place] [phone] * Lipase (10/17/2024 8:54 PM EST) Only the most recent of2 resultswithin the time period is included. Lipase 24 8 - 78 U/L [facility] 10/17/2024 8:54 PM EST 10/17/2024 8:56 PM EST Generic External Data Provider LAB BLOOD ORDERAB LES Final Result Performing Organization Address [facility] de Phone Number [facility] [address] [place] [phone] * (ABNORMAL) Amylase (10/16/2024 3:48 PM EST) Amylase 169(H) 28 - 100 U/L [facility] Blood Venous blood specimen / Unknown 10/16/2024 3:48 PM EST 10/16/2024 5:44 PM EST [facility] LAB BLOOD ORDERABLES Final Re sult [facility] [address] [place] [address] [phone] * (ABNORMAL) Comprehensive Metabolic Panel (10/16/2024 3:48 PM EST) Sodium 138 135 - 145 mmol/L [facility] Potassium 3.9 3.3 - 5.1 mmol/L [facility] Chloride 108 96 - 108 mmol/L [facility] Carbon Dioxide 28 22 - 29 mmol/L [facility] Anion Gap 6(L) 12 - 20 [facility] Urea Nitrogen (BUN) 9 9 - 16 mg/dL [facility] Creatinine, Serum 0.73 0.5 - 1.4 mg/dL [facility] Estimated Glomerular Filt Rate >60 [facility] Comment:Chronic Kidney Disea se: Estimated GFR < 60 mL/min/1.38d9Cgraxj Kidney Disease: Estimated GFR < 15 mL/min/1.73m2 Glucose 74 60 - 115 mg/dL [facility] Calcium 8.8 8.4 - 10.2 mg/dL [facility] Bilirubin, Total 0.3 0.0 - 1.0 mg/dL [facility] Aspartate Amino Transferase 22 5 - 31 U/L [facility] Alanine Aminotransferase 17 0 - 31 U/L [facility] Total Protein 7.6 6.5 - 8.0 g/dL [facility] Albumin Level 4.7 3.5 - 5.0 g/dL [facility] Alkaline Phosphatase 56 39 - 117 U/L [facility] Blood Venous blood specimen / Unknown 10/16/2024 3:48 PM EST 10/16/2024 5:44 PM EST us [facility] [employer] LAB BLOOD ORDERABLES Final Re sult [facility] [address] [place] [phone] * Shave removal (08/28/2024 9:28 AM EST) Narrative Ben Alford MD - 08/28/2024 9:28 AM EST Ben Alford MD ? 08/28/2024 ??9:33 AM Shave removal Date/Time: 08/28/2024 9:28 AM Performed by: Ben Alford MD Authorized by: Ben Alford MD ?? Consent: ??Consent obtained: ??Written ??Consent given by: ??Patient ??Risks discussed: ??Pain and incomplete removal ??Alternatives discussed: ??Observation and delayed treatment Ethan protocol: ??Procedure explained and questions answered to [...] Comments: Xylocaine 1% 0.5 mL injected. ??Lot [id number] expiration date 10/28. ?? Saucerization of the [...] a test for HCV RNA (test code 36493) is suggested. ?? For additional information please refer to http://[employer]/faq/LGY46u6 (This link is being provided for informational/ educational purposes only.) ?? 08/09/2022 9:23 AM EST Margarita Tobin CNM HISTORICAL/NON ORDERABLE LABS Final Result CONVERTED LEGACY LABS * THINPREP TIS PAP AND HPV mRNA E6/E7, CT/NG, TRICH (05/03/2022 1:17 PM EDT) Chlamydia trachomatis RNA, TMA, Urogenital NOT DETECTED NOT DETECTED [facility] Clinical Information: None given [facility] COMMENT SEE COMMENT [facility] Comment: The analytical performance characteristics of this assay, when used to test SurePath(TM) specimens have been determined by [employer]. The modifications have not been cleared or approved by the FDA. This assay has been validated pursuant to the CLIA regulations and is used for clinical purposes. ?? For additional information, please refer to https://education.[employer]/faq/POV849 (This link is being provided for information/ [...] has been evaluated with computer assisted technology. [facility] Vending Route Driver: SEE COMMENT [facility] Comment: CLAIRE ROSSI(ASCP) CT screening location: [address] ??[id number] HPV nRNA E6/E7 Not Detected Not Detected [facility] Comment: Methodology: Manufacturing Test Technician-Mediated Amplification This assay detects E6/E7 viral messenger RNA (mRNA) from 14 high-risk HPV types (16,18,31,33,35,39,45,51,52,56,58,59,66,68). ? Cervical sources are required for HPV testing. If a vaginal source from a patient who has had a total hysterectomy with removal of cervix was ?? submitted, please contact the testing laboratory for alternative testing options. ?? For additional information, please refer to http://[employer]/faq/YVM449x4 (This link if provided for information/ educational purposes only.) Interpretation/Re sult: Negative for intraepithelial lesion or malignancy. [facility] LMP: [phone] [facility] Neisseria gonorrhoeae RNA, TMA, Urogenital NOT DETECTED NOT DETECTED [facility] Prev. BX: NONE GIVEN [facility] Prev. PAP: NONE GIVEN [facility] SOURCE: None given [facility] Statement Of Adequacy: SEE COMMENT [facility] Comment: Satisfactory for evaluation. Endocervical/transformation zone component present. Trichomonas vaginalis, QL, TMA, PAP Vial NOT DETECTED NOT DETECTED [facility] Comment: The analytical performance characteristics of this assay have been determined by [employer]. The modifications have not been cleared or approved by the FDA. This assay has been validated pursuant to the CLIA regulations and is used for clinical purposes. ?? For additional information, please refer to http://education.[employer]/ faq/Trichomonastma (This link is being provided for information/ educational purposes only.) ?? 05/03/2022 1:17 PM EDT us Margarita Tobin CNM LAB PATHOLOGY ORDERABLES Final Result [facility] [address] from Last 3 Months or Most Recently Relevant to Health Maintenance Insurance [facility] C3 DENTAL-[facility] MEDICAID STAND ADULT Care Teams Inseminator Relationship Specialty Start Date End Date Arpita Saravia MD [address] [place] [id number] PCP - General Family Medicine 10/08/13 Edide Pimentel FNP [address] [place] [address] Nurse Practitioner Family Medicine 08/22/23
--- OUTSIDE RECORDS SUMMARY | 2024-11-21 10:18 | XMS_ITS | Encounter Summary ---
Author Organization [employer] Address [address] [place] [address] Care Team Providers Care Tank Officer Name Role Phone Arpita Saravia MD Primary Care Provider [phone] Eddie Pimentel Unavailable Unavailable Reason for Visit * Reason Onset Date Comments Nurse Triage 10/24/2023 Encounter Details Date Type Department Care Team (Late st Contact Info) Description 10/24/2023 Telephone [facility] [address] [place] [address] Arpita Saravia MD [address] [place] [address] Nurse Triage Social History Tobacco Use Types [...] Info) Description 02/04/2025 11:15 AM EDT Telemedicine [facility] & PEDS [address] [place] [address] Arpita Saravia MD [address] [place] [address] documented as of this encounter Visit Diagnoses Not on filedocumented in this encounter Additional Health Concerns Assessment Noted Time PHQ-9 Depression Total Score: 5 10/19/19 24 3:32 PM EST documented as of this encounter Care Teams Tank Officer Relationship Specialty Start Date End Date Arpita Saravia MD [address] [place] [address] PCP - General Family Medicine 10/08/13 Eddie Pimentel FNP [address] [place] [address] Nurse Practitioner Family Medicine 08/22/23 documented as of this encounter
--- OUTSIDE RECORDS SUMMARY | 2024-11-21 10:18 | XMS_ITS | Encounter Summary ---
Author Organization [employer] Address [address] [place] [address] Care Team Providers Care Radar Engineer Name Role Phone Arpita Saravia MD Primary Care Provider [phone] Eddie Pimentel Unavailable Unavailable Encounter Details Date Type Department Care Team ([facility] st Contact Info) Description 10/22/2024 Telephone [facility]S [address] [place], [place] [id number] Edith Day, RN Social History Tobacco Use [...] t he electric, gas, oil or water [employer] threatened to shut off services in your [...] celiac screening. Pt advised to go to [facility] lab, [facility] or [facility] to have their blood work completed. Informed pt our office will call back once we have the new results and pt verbalized understanding. documented in this encounter Plan of Treatment Upcoming Encounters Date Type Department Care Team (Late st Contact Info) Description 02/04/2025 11:15 AM EDT Telemedicine [facility] MED & PEDS [address] [place] [address] Arpita Saravia MD [address] [place] [address] documented as of this encounter Visit Diagnoses Not on filedocumented in this encounter Additional Health Concerns Assessment Noted Time PHQ-9 Depression Total Score: 6 02/19/20 24 3:02 PM EDT documented as of this encounter Care Teams Radar Engineer Relationship Specialty Start Date End Date Arpita Saravia MD [address] [place] [address] PCP - General Family Medicine 10/08/13 Eddie Pimentel FNP [address] [place] [address] Nurse Practitioner Family Medicine 08/22/23 documented as of this encounter
--- OUTSIDE RECORDS SUMMARY | 2024-11-21 10:18 | XMS_ITS | Encounter Summary ---
Author Organization [employer] Address [address] [facility] 7 [place] [address] Care Team Providers Care Breeding Technician Name Role Phone Arpita Saravia MD Primary Care Provider [phone] Eddie Pimentel Unavailable Unavailable Reason for Visit * Reason Onset Date Comments Nurse Triage 10/18/2024 Encounter Details Date Type Department Care Team ([facility] st Contact Info) Description 10/18/2024 Telephone [facility]S [address] [place] [address] Arpita Saravia MD [address] [place] [address] Nurse Triage Social History Tobacco Use Types [...] celiac screening. Pt advised to go to [facility] lab, [facility] or [facility] to have their blood work completed. Informed pt our office will call back once we have the new results and pt verbalized understanding. * Telephone Encounter - Edith Day RN - 10/22/2024 11:15 AM EST ----- Message from [facility] sent at 10/18/2024 3:43 PM EST ----- [...] call from PCP. Pt states she went [facility] yesterday and had CT scan done which they told her that sheis full of stool. Pt. [facility] ED for over 8 hours she [...] and her BP has been high. [facility] states that BP was around 150/104 [...] ambulance and have them bring her to [facility] instead. Pt. Also states tht she never got results of Mole biopsy and I looked it up and it states next to Malignancy: Benign lesion which I told pt. I will send this note to PCP and [facility] nurses to let them know pt. Is going back to [facility] ED today for re evaluation of pain [...] were negative * Telephone Encounter - Tanisha Berna - 10/18/2024 12:14 PM EST Symptom: Abdominal [...] [facility] [address] [place] [address] Arpita Saravia MD [address] [place] [address] documented as of this encounter Visit Diagnoses Not on filedocumented in this encounter Additional Health Concerns Assessment Noted Time PHQ-9 Depression Total Score: 6 02/19/20 24 3:02 PM EDT documented as of this encounter Care Teams Breeding Technician Relationship Specialty Start Date End Date Arpita Saravia MD [address] [place] [address] PCP - General Family Medicine 10/08/13 Eddie Pimentel FNP [address] [place] [address] Nurse Practitioner Family Medicine 08/22/23 documented as of this encounter
== END 2024-11-21 09:31 | disposition home or self-care (01) ==
LOC: HO.HMGCX 09:30
PROVIDERS: PCP Student in an Organized Health Care Education/Training Program; Visit Provider Registered Nurse
DX: R10.31 Right lower quadrant pain (principal)
CPT/HCPCS: 76705

== ENCOUNTER → 2024-11-21 09:33 | Outpatient (BNV) | payer MEDICAID, SELFPAY | PROVIDERS: PCP Student in an Organized Health Care Education/Training Program; Visit Provider Radiology Diagnostic Radiology | DX: R10.31 Right lower quadrant pain (principal) | CPT/HCPCS: 76705 ==

== ENCOUNTER 2025-01-16 14:56 | Outpatient (REF) | payer MEDICAID, SELFPAY ==
--- NOTE | 2025-01-16 14:59 | PFT_ITS ---
Indication: Cough Spirometry FEV1 to FVC 84%; FEV1 2.62 L; FVC 3.1 L. No significant response to bronchodilators noted.] Lung Volumes [Total lung capacity 86% predicted; residual volume 113% predicted] Diffusion Capacity [DLCO 90% predicted] Comparisons [none] Interpretation No obstructive nor restrictive ventilatory defects identified. No significant response to bronchodilators noted. Lung volumes are within normal limits although a trend of air trapping noted. Diffusing capacity within normal limits. If asthma is in differential methacholine challenge would be helpful in assessing for hyperreactive airways. Clinical correlation warranted. MTDD
[2025-01-16 15:36] VITALS: PULSE 84; O2SAT 98
--- OUTSIDE RECORDS SUMMARY | 2025-01-16 17:49 | XMS_ITS | Encounter Summary ---
Author Organization [employer] Address [address] [facility] 7 [place] [address] Care Team Providers Care Cnc Service Engineer Name Role Phone rApita Saravia MD Primary Care Provider [phone] Eddie Pimentel Unavailable Unavailable Reason for Visit * Reason Onset Date Comments triage 11/03/2022 Encounter Details Date Type Department Care Team ([facility] st Contact Info) Description 11/03/2022 Telephone [facility] [address] [place] [address] Arpita Saravia MD [address] [place] [address] triage Social History Tobacco Use Types Packs/Day [...] Pt states when she went to [facility] to pick this up [...] Info) Description 02/04/2025 11:15 AM EDT Telemedicine [facility] MED & PEDS [address] [place] [address] Arpita Saravia MD [address] [place] [address] documented as of this encounter Visit Diagnoses Not on filedocumented in this encounter Additional Health Concerns Assessment Noted Time PHQ-9 Depression Total Score: 15 023 8:55 AM EST documented as of this encounter Care Teams Cnc Service Engineer Relationship Specialty Start Date End Date Arpita Saravia MD [address] [place] [address] PCP - General Family Medicine 10/08/13 Eddie Pimentel FNP [address] [place] [address] Nurse Practitioner Family Medicine 08/22/23 documented as of this encounter
--- OUTSIDE RECORDS SUMMARY | 2025-01-16 17:49 | XMS_ITS | Clinical Summary ---
Author Organization [employer] Address [address] [facility] 7t [place] [address] Care Team Providers Care Oncologist Name Role Phone Arpita Saravia MD Primary Care Provider [phone] Eddie Pimentel Unavailable Unavailable Allergies Active Allergy [...] to 10 days. 30 capsule 3 5 Active Active Problems Problem Noted Date Diagnosed [...] will transfer her care to the new [facility] psychiatric prescriber. Any issues or concerns, contact [...] controlled. 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 F/U with me in 6-8 weeks. She agrees with the plan. Assessment & Plan (03/15/2023 9:46 AM EDT): Assessment: Patient with revious hx of Bipolar Dx and MH treatment that was referred to [facility] Consult for exacerbation of depression and anxiety. 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 She indicates that she has been experiencing exacerbation of sxs, specially feeling down and unmotivated. She indicates that main stressors in the past year have been related to changes at work. Whitley indicated that although adhering to medication, she can feel sxs worsening. Patient will benefit from follow up [facility] brief intervention to further explore needs and potential treatments. At this time Whitley Juares meets criteria for Visit Diagnoses (per record): Problem List Items Addressed This Visit Other Bipolar affective disorder, current episode mixed (CMS/HCC) - Primary Relevant Orders Referral to Behavioral Health Patient ready to address current needs Yes Strengths include Desire to engage in supportive treatment PLAN: 1. Follow up with [facility] EMER[facility]ENCY [facility]MENT: Recommended for follow-up: 03/14/2023 2. Patient goal [...] medication. Discussed options for treatment of BPD: [place], antiepileptics, antipsychotics. She will increase to Abilify 30 mg daily, continue other meds for now. F/U 4-6 weeks. She agrees with the plan. She is in a long-term monogamous relationship with single AMAB partner who has vasectomy so at negligible risk of unintended . Right ear pain 02/28/2018 Migraine 12/24/2012 Encounters Date Type Department Care Team Description 12/13/2024 [facility] Risk Score [facility] () Department [address] [place] [address] [phone] Provider, [facility] Generic 11/25/2024 Telephone [facility] MEDICINE [address] [place] [address] Sarah Godoy, RN Results 11/13/2024 8:45 AM EST Office Visit [facility] [address] [place] [address] Arpita Saravia MD Anxiety (Primary Dx); Sleep apnea, unspecified type 11/13/2024 Travel 11/12/2024 Telephone [facility] [address] [place] [address] Arpita Saravia MD Chart Prep 10/29/2024 Orders Only [facility] External Provider, [facility] 10/22/2024 9:00 AM EST Telemedicine [facility] [address] [place] [address] Arpita Saravia MD Right lower quadrant abdominal pain (Primary Dx); Vitamin D deficiency; Chronic fatigue; Pulmonary emphysema, unspecified emphysema type (CMS/HCC) 10/22/2024 Telephone [facility] [address] [place] [address] Edith Day, DOMINIC 10/22/2024 Telephone [facility] [address] [place] [address] Stefani Murillo, DOMINIC Results 10/22/2024 Travel 10/18/2024 Telephone [facility] [address] [place] [address] Arpita Saravia MD Nurse Triage 10/18/2024 Orders Only GENERIC EXTERNAL DATA DEPARTMENT Provider, Generic External Data from Last 3 Months Immunizations Name Administration [...] Info) Description 02/04/2025 11:15 AM EDT Telemedicine [facility] [address] [place] [address] Arpita Saravia MD [address] [place] [address] Health Maintenance Due Date Last Done Comments [...] Procedure Name Priority Date/Time Associated Diagnosis Comments US ABDOMEN LIMITED Routine 11/22/2024 11 :49 AM EST Right lower quadrant abdominal pain XR CHEST 2 VIEWS Routine 10/29/2024 3:16 [...] REFLEX MICROSCOPIC Routine 10/18/2024 1:17 AM EST PERIODIC ORAL EVALUATION - ESTABLISHED PATIENT Routine [...] Recently Relevant to Health Maintenance Results * US Abdomen Limited (11/22/2024 11:49 AM EST) Anatomical Region Laterality Modality Abdomen Ultrasound 11/22/2024 11:4 9 AM EST Narrative 11/22/2024 11:50 AM EST ? [facility] ?[address] [facility] ? [place] [address] ? Ultrasound Report ? Signed ? Patient: Juares,Whitley ?MR#: [id number] ?? 686 ? : 1985 ?Acct:[id number] ? Age/Sex: 39 / F ?ADM Date: 02/20/25 ? Loc: HO.HMGCX ? Attending Dr: Jojo VILLASEÑOR ? Ordering Physician: Jojo Sen ?? Date of Service: 11/21/24 ?? Procedure(s): US abdomen limited ?? Accession Number(s): [id number] ? cc: Arpita Saravia MD; Jojo Sen ? CLINICAL HISTORY: PERSISTENT VAGUE RLQ PAIN ? US abdomen limited at level of right sided vague abdominal pain ? Comparison: None ? Findings: ? The right kidney is 10.5 cm in length. Evaluated portions of the right ?? kidney is unremarkable without hydronephrosis or mass lesion. Very limited ?? evaluation of the right abdomen at level of the pain does not demonstrate ?? any significant abnormality. ? IMPRESSION: ?? Very limited evaluation of the right abdomen at level of the pain does not ?? demonstrate any significant abnormality. ? This document has been electronically signed by: Ivana Mattson MD on ?? 11/22/2024 11:49:41 ? Dictated By: ?Ivana Mattson MD ? Signed By: ?<Electronically signed by Ivana Mattson MD in OV> ? 11/22/24 1150 ? DD/ 1149 ? TD/TT: 11/22/24 1149 ? Roof Bolter Helper: ? Procedure Note Donjanester, Image - 11/22/2024 [facility] Care [address] [place] [address] [place] [address] Ultrasound Report Signed Patient: Whitley JuaresMR#: [id number] 686 : 1985Acct:[id number] Age/Sex: 39 / FADM Date: 11/21/24 Loc: HO.HMGCX Attending Dr: Jojo VILLASEÑOR Ordering Physician: Jojo Sen Date of Service: 11/21/24 Procedure(s): US abdomen limited Accession Number(s): [id number] cc: Arpita Saravia MD; Jojo Sen [facility] CLINICAL HISTORY: PERSISTENT VAGUE RLQ PAIN US abdomen limited at level of right sided vague abdominal pain Comparison: None Findings: The right kidney is 10.5 cm in length. Evaluated portions of the right kidney is unremarkable without hydronephrosis or mass lesion. Very limited evaluation of the right abdomen at level of the pain does not demonstrate any significant abnormality. IMPRESSION: Very limited evaluation of the right abdomen at level of the pain does not demonstrate any significant abnormality. This document has been electronically signed by: Ivana Mattson MD on 11/22/2024 11:49:41 Dictated By: Ivana Mattson MD Signed By: <Electronically signed by Ivana Mattson MD in OV> 11/22/24 1150 DD/ 1149 TD/TT: 11/22/24 1149 Roof Bolter Helper: [facility] HAND ROUNDER IMG US PROCEDURES Final Resul t * XR Chest 2 Views (10/29/2024 3:16 PM EST) Anatomical Region Laterality Modality Chest Radiographic Niesha ging 10/29/2024 3:16 PM EST Narrative 10/29/2024 3:42 PM EST ? [facility] ?[address] [address] ? [place] [address] ?XRay Report ? Signed ? Patient: Juares,Whitley ?MR#: [id number] ?? 686 ? : 1985 ?Acct:[id number] ? Age/Sex: 39 / F ?ADM Date: 10/29/24 ? Loc: HO.HMGCX ? Attending Dr: Zuleyka Hylton NP ? Ordering Physician: Zuleyka Hylton NP ?? Date of Service: 10/29/24 ?? Procedure(s): XR chest 2V ?? Accession Number(s): [id number] ? cc: Arpita Saravia MD; Zuleyka Hylton [...] signed by Mervin Forte MD in OV> ?10/29/ 1539 ? DD/ 1516 ? TD/TT: 10/29/ 1520 ? Roof Bolter Helper: ? Procedure Note Donotuseinterpreter, Image - 10/29/2024 [facility] Adult Primary Care [facility] [facility] [address] XRay Report Signed Patient: Whitley JuaresMR#: [id number] 686 : 1985Acct:[id number] Age/Sex: 39 / FADM Date: 10/29/24 Loc: HO.HMGCX Attending Dr: Zuleyka Hylton CORN POPPER Ordering Physician: Zuleyka Hylton NP Date of Service: 10/29/24 Procedure(s): XR chest 2V Accession Number(s): [id number] cc: Arpita Saravia MD; Zuleyka Hylton NP [...] Mervin Forte MD 10/29/2024 03:39 PM EST Dictated By: Mervin Forte MD Signed By: <Electronically signed by Mervin Forte MD in OV> 10/29/24 1539 DD/ 1516 TD/TT: 10/29/24 1520 Roof Bolter Helper: [facility] External Provider IMG XR PROCEDURES Final Result * Vitamin D, 25-Hydroxy, Total, Immunoassay (10/23/2024 9:42 AM EST) Vitamin D 25-OH Total 48.2 >30 ng/mL [facility] Comment:Health Based Referen ce Values*< 20 ng/mL Xctoslwcp03-53 ng/mL Insufficient> 30 ng/mL Sufficient*Vimal BANUELOS. N [...] ORDERABLES Final Resul t Performing Organization Address [facility] de Phone Number [facility] [address] [place] [phone] * Vitamin B12/Folate, Serum Panel (10/23/2024 9:42 AM EST) Vitamin B12 403 200 - 900 pg/mL [facility] Comment:NORMAL 200-900 PG/ML INDETERMINATE 160-199 PG/ML DEFICIENT < 160 PG/ML Folate 15.8 > or = 4.0 ng/mL [facility] Comment:Reference Values:> o r = [...] ORDERABLES Final Resul t Performing Organization Address [facility] de Phone Number [facility] [address] [place] [phone] * TSH W/Reflex to FT4 (10/23/2024 9:42 AM EST) TSH reflex Free T4 1.60 0.32 - 4.0 uIU/mL [facility] Blood Venous blood specimen / Unknown 10/23/2024 9:42 AM EST 10/23/2024 2:07 PM EST us Arpita Saravia MD LAB BLOOD ORDERABLES Final Resul t [facility] [address] [place] [address] [phone] * (ABNORMAL) CBC auto differential (10/23/2024 9:42 AM EST) White Blood Count 5.3 4.8 - 10.8 X10*3/uL [facility] Red Blood Count 4.10(L) 4.20 - 5.50 X10*6/uL [facility] Hemoglobin 12.7 12.0 - 16.0 g/dl [facility] Hematocrit 37.5 37.0 - 47.0 % [facility] Mean Corpuscular Volume 91.5 80.0 - 98.0 fL [facility] Mean Corpuscular Hemoglobin 31.0 27.0 - 33.0 pg [facility] Mean Corpuscular HGB Conc 33.9 31.0 - 35.0 g/dl [facility] Red Cell Distribution Width 12.1 11.0 - 16.0 % [facility] Platelet Count 270 160 - 400 X10*3/uL [facility] Mean Platelet Volume 10.0 9.4 - 12.3 fL [facility] Neutrophils Percent Auto 75.9(H) 45 - 73 % [facility] Imm Gran Pct Auto 0.4 0.0 - 0.4 % [facility] Lymphocytes Percent Auto 17.6(L) 20 - 40 % [facility] Monocytes Percent Auto 5.3 2 - 11 % [facility] Eosinophils Percent Auto 0.4 0 - 4 % [facility] Basophils Percent Auto 0.4 0 - 2 % [facility] NRBC Pct Auto 0.0 0.0 - 0.2 /100WBC [facility] Neutrophils Absolute Auto 4.1 2.0 - 8.3 x10*3/uL [facility] Imm Gran Abs Auto 0.02 0.00 - 0.03 X10*3/uL [facility] Lymphocytes Absolute Auto 0.9(L) 1.2 - 4.9 X10*3/uL [facility] Monocytes Absolute Auto 0.3 0.1 - 1.2 X10*3/uL [facility] Eosinophils Absolute Auto 0.0 0.0 - 0.4 X10*3/uL [facility] Basophils Absolute Auto 0.0 0.0 - 0.2 X10*3/uL [facility] NRBC Abs Auto 0.000 0.0 - 0.012 X10*3/uL [facility] Blood Venous blood specimen / Unknown 10/23/2024 9:42 AM EST 10/23/2024 2:00 PM EST us Arpita Saravia MD LAB BLOOD ORDERABLES Final Resul t [facility] [address] [place] [address] [phone] * Celiac Disease Comprehensive Panel (10/23/2024 9:42 AM EST) Immunoglobulin A 214 47 - 310 mg/dL [facility] Comment:THIS TEST WAS PERFOR MED AT:[employer] [place] [phone] PARTIDA MD Transglutaminase IgA <1.0 U/mL [facility] Comment:Value Interpretation ----- <15.0 Antibody not detected> or = 15.0 Antibody detected Interpretation SEE NOTE [facility] Comment:No serological evide nce of [...] ORDERABLES Final Resul t Performing Organization Address [facility] [facility] Phone Number [facility] [address] [place] [phone] * Hepatic Function Panel (10/23/2024 9:42 AM EST) Bilirubin, Total 0.7 0.0 - 1.0 mg/dL [facility] Bilirubin, Direct 0.3 0.0 - 0.5 mg/dL [facility] Aspartate Amino Transferase 26 5 - 31 U/L [facility] Alanine Aminotransferase 14 0 - 31 U/L [facility] Total Protein 7.7 6.5 - 8.0 g/dL [facility] Albumin Level 4.5 3.5 - 5.0 g/dL [facility] Alkaline Phosphatase 55 39 - 117 U/L [facility] Blood Venous blood specimen / Unknown 10/23/2024 9:42 AM EST 10/23/2024 2:07 PM EST Arpita Saravia MD LAB BLOOD ORDERABLES Final Resul t Performing Organization Address [facility] [facility] Phone Number [facility] [address] [place] [phone] * Lipid Panel, Standard (10/23/2024 9:42 AM EST) Triglycerides 91 <150 mg/dL [facility] Comment:Desirable Triglyceri de: less than 150 mg/dLBorderline High Triglyceride 150-199 mg/dLHigh Triglyceride: 200-499 mg/dLVery High Triglyceride: greater than or equal to 5OO mg/dL Cholesterol 148 <200 mg/dL [facility] Comment:Desirable Cholestero l: less than 200 mg/dLBorderline High Cholesterol: 200-239 mg/dLHigh Cholesterol: greater than 239 mg/dL LDL Cholesterol Calculated 84 <100 mg/dL [facility] Comment:Desirable LDL: less than 100 mg/dLNear Optimal/Above Optimal LDL: 110- 129 mg/dLBorderline High LDL: 130-159 mg/dLHigh LDL: 160-189 mg/dLVery High LDL: greater than or equal to 190 mg/dL HDL Cholesterol 46 >40 mg/dL [facility] Comment:Desirable HDL: great er than 40 mg/dL Note: This HDL assay may give artificially low results in patients with liver disease. Blood Venous blood specimen / Unknown 10/23/2024 9:42 AM EST 10/23/2024 2:07 PM EST Arpita Saravia MD LAB BLOOD ORDERABLES Final Resul t [facility] [address] [place] [phone] [phone] * (ABNORMAL) Basic Metabolic Panel (10/23/2024 9:42 AM EST) Sodium 137 135 - 145 mmol/L [facility] Potassium 3.9 3.3 - 5.1 mmol/L [facility] Chloride 105 96 - 108 mmol/L [facility] Carbon Dioxide 27 22 - 29 mmol/L [facility] Anion Gap 9(L) 12 - 20 [facility] Urea Nitrogen (BUN) 11 9 - 16 mg/dL [facility] Creatinine, Serum 0.75 0.5 - 1.4 mg/dL [facility] Estimated Glomerular Filt Rate >60 [facility] Comment:Chronic Kidney Disea se: Estimated GFR < 60 mL/min/1.69q6Wgscfy Kidney Disease: Estimated GFR < 15 mL/min/1.73m2 Glucose 96 60 - 115 mg/dL [facility] Calcium 9.7 8.4 - 10.2 mg/dL [facility] Blood Venous blood specimen / Unknown 10/23/2024 9:42 AM EST 10/23/2024 2:07 PM EST Arpita Saravia MD LAB BLOOD ORDERABLES Final Resul t Performing Organization Address [facility] de Phone Number [facility] [address] [place] [phone] * Urinalysis w/reflex microscopic (10/18/2024 1:17 AM EST) Color Urine Yellow [facility] Appearance Urine Clear [facility] PH 5.5 5.0 - 9.0 [facility] Glucose Urine UA Negative Negative mg/dL [facility] Urine Blood Negative Negative [facility] Specific [place] - Urine 1.020 1.005 - 1.025 [facility] Urine Protein Negative Neg-Trace mg/dL [facility] Urine Ketones Negative Negative mg/dL [facility] Nitrite Urine Negative Negative [facility] Leukocyte Esterase Urine Negative Negative [facility] 10/18/2024 1:17 AM EST 10/18/2024 1:19 AM EST Narrative [facility] - 10/18/2024 1:25 AM EST Urine, Clean Catch us Generic External Data Provider LAB URINE ORDERAB LES Final Result Performing Organization Address [facility] de Phone Number [facility] [address] [place] [phone] * HEPATITIS C AB W/REFL TO HCV [...] a test for HCV RNA (test code 77874) is suggested. ?? For additional information please refer to http://education.[employer]/faq/OFD41y5 (This link is being provided for informational/ educational purposes only.) ?? 08/09/2022 9:23 AM EST Margarita Tobin CNM HISTORICAL/NON ORDERABLE LABS Final Result CONVERTED LEGACY LABS * THINPREP TIS PAP AND HPV mRNA E6/E7, CT/NG, TRICH (05/03/2022 1:17 PM EDT) Chlamydia trachomatis RNA, TMA, Urogenital NOT DETECTED NOT DETECTED [facility] Clinical Information: None given [facility] COMMENT SEE COMMENT [facility] Comment: The analytical performance characteristics of this assay, when used to test SurePath(TM) specimens have been determined by [employer]. The modifications have not been cleared or approved by the FDA. This assay has been validated pursuant to the CLIA regulations and is used for clinical purposes. ?? For additional information, please refer to https://education.[employer]/faq/CXY068 (This link is being provided for information/ [...] has been evaluated with computer assisted technology. [employer] Health Professor: SEE COMMENT [facility] Comment: CLAIRE ROSSI(ASCP) CT screening location: [address] ??[id number] HPV nRNA E6/E7 Not Detected Not Detected [employer] Comment: Methodology: Biometrics Experimentalist-Mediated Amplification This assay detects E6/E7 viral messenger RNA (mRNA) from 14 high-risk HPV types (16,18,31,33,35,39,45,51,52,56,58,59,66,68). ? Cervical sources are required for HPV testing. If a vaginal source from a patient who has had a total hysterectomy with removal of cervix was ?? submitted, please contact the testing laboratory for alternative testing options. ?? For additional information, please refer to http://Petcube.[employer]/faq/XAN081p0 (This link if provided for information/ educational purposes only.) Interpretation/Re sult: Negative for intraepithelial lesion or malignancy. [facility] LMP: [id number] [facility] Neisseria gonorrhoeae RNA, TMA, Urogenital [...] of this assay have been determined by [employer]. The modifications have not been cleared or approved by the FDA. This assay has been validated pursuant to the CLIA regulations and is used for clinical purposes. ?? For additional information, please refer to http://Petcube.[employer]/ faq/Trichomonastma (This link is being provided for information/ educational purposes only.) ?? 05/03/2022 1:17 PM EDT us Margarita Tobin CNM LAB PATHOLOGY ORDERABLES Final Result [facility] [address] from Last 3 Months or Most Recently Relevant to Health Maintenance Insurance [facility] C[place] AD[place] Care Teams Oncologist Relationship Specialty Start Date End Date Arpita Saravia MD [address] [place] [address] PCP - General Family Medicine 10/08/13 Eddie Pimentel FNP [address] [place] [address] Nurse Practitioner Family Medicine 08/22/23
--- OUTSIDE RECORDS SUMMARY | 2025-01-16 17:49 | XMS_ITS | Encounter Summary ---
Author Organization [employer] Address [address] [facility] [facility] [address] [facility] [address] [place] [address] Care Team Providers Care Head Turbine Operator Name Role Phone Arpita Saravia MD Primary Care Provider Eddie Pimentel Unavailable Unavailable Reason for Visit * Reason Onset Date Comments Results 10/17/2024 Encounter Details Date Type Department Care Team ([facility] st Contact Info) Description 10/17/2024 Telephone [facility] [address] [place] [address] Arpita Saravia MD [address] [place] [address] Results Social History Tobacco Use Types Packs/Day [...] results: labs Date when done: 10/16/23 Facility: [facility] documented in this encounter Plan of Treatment Upcoming Encounters Date Type Department Care Team (Late st Contact Info) Description 02/04/2025 11:15 AM EDT Telemedicine [facility] [address] [place] [address] Arpita Saravia MD [address] [place] [address] documented as of this encounter Visit Diagnoses Not on filedocumented in this encounter Additional Health Concerns Assessment Noted Time PHQ-9 Depression Total Score: 6 02/19/20 3:02 PM EDT documented as of this encounter Care Teams Head Turbine Operator Relationship Specialty Start Date End Date Arpita Saravia MD [address] [place] [phone] PCP - General Family Medicine 10/08/13 Eddie Pimentel FNP [address] [place] [address] Nurse Practitioner Family Medicine 08/22/23 documented as of this encounter
--- OUTSIDE RECORDS SUMMARY | 2025-01-16 17:49 | XMS_ITS | Encounter Summary ---
Author Organization [employer] Address [address] [facility] [facility] [address] [facility] [address] [place] [address] Care Team Providers Care Analog Circuit Designer Name Role Phone Arpita Saravia MD Primary Care Provider [phone] Eddie Pimentel Unavailable Unavailable Reason for Visit * Reason Onset Date Comments Nurse Triage 10/24/2023 Encounter Details Date Type Department Care Team (Late st Contact Info) Description 10/24/2023 Telephone [facility] [address] [place] [address] Arpita Saravia MD [address] [place] [address] Nurse Triage Social History Tobacco Use Types [...] Info) Description 02/04/2025 11:15 AM EDT Telemedicine [facility] [address] [place] [address] Arpita Saravia MD [address] [place] [address] documented as of this encounter Visit Diagnoses Not on filedocumented in this encounter Additional Health Concerns Assessment Noted Time PHQ-9 Depression Total Score: 5 10/19/19 24 3:32 PM EST documented as of this encounter Care Teams Analog Circuit Designer Relationship Specialty Start Date End Date Arpita Saravia MD [address] [place] [address] PCP - General Family Medicine 10/08/13 Eddie Pimentel FNP [address] [place] [address] Nurse Practitioner Family Medicine 08/22/23 documented as of this encounter
--- OUTSIDE RECORDS SUMMARY | 2025-01-16 17:49 | XMS_ITS | Encounter Summary ---
Author Organization [employer] Address [address] [facility] 7 [place] [address] Care Team Providers Care Evaluation Assistant Name Role Phone Arpita Saravia MD Primary Care Provider [phone] Eddie Pimentel Unavailable Unavailable Reason for Visit * Reason Onset Date Comments triage 10/21/2022 Encounter Details Date Type Department Care Team ([facility] st Contact Info) Description 10/21/2022 Telephone [facility] & PEDS [address] [place] [address] Arpita Saravia MD [address] [place] [address] triage Social History Tobacco Use Types Packs/Day [...] Upcoming Encounters Date Type Department Care Team ([facility] st Contact Info) Description 02/04/2025 11:15 AM EDT Telemedicine [facility] [address] [place] [address] Arpita Saravia MD [address] [place] [address] documented as of this encounter Visit Diagnoses Not on filedocumented in this encounter Additional Health Concerns Assessment Noted Time PHQ-9 Depression Total Score: 10 022 8:52 AM EST documented as of this encounter Care Teams Evaluation Assistant Relationship Specialty Start Date End Date Arpita Saravia MD [address] [place] [phone] PCP - General Family Medicine 10/08/13 Eddie Pimentel FNP [address] [place] [address] Nurse Practitioner Family Medicine 08/22/23 documented as of this encounter
== END 2025-01-16 14:57 | disposition home or self-care (01) ==
LOC: HO.RESP 14:56
PROVIDERS: PCP Student in an Organized Health Care Education/Training Program; Visit Provider Nurse Practitioner Family
DX: R06.09 Other forms of dyspnea (principal)
CPT/HCPCS: 94010; 94640; 94727; 94729

== ENCOUNTER → 2025-01-16 14:59 | Outpatient (BNV) | payer MEDICAID, SELFPAY | PROVIDERS: PCP Student in an Organized Health Care Education/Training Program; Visit Provider Hospitalist | DX: R06.09 Other forms of dyspnea (principal) | CPT/HCPCS: 94060; 94727; 94729 ==

== ENCOUNTER 2025-01-22 13:29 | Outpatient (AMB) | payer MEDICAID, SELFPAY ==
--- NOTE | 2025-01-22 13:30 | A.OFFVIS_ITS ---
Intake Visit Reasons: 1y/PVR Intake Note: Patient is present for a 1 year follow up/PVR Urology Medications:none Blood Thinner: none PVR: 0ml's Dry Cell Sealer Required: No Accompanied by: Self / Same As Patient Allergies levofloxacin Adverse Reaction (Unknown, Verified 01/22/25 13:36) Abdominal Pain HPI Comments Details: Whitley is a 39 year old female who is a patient of Dr. Saravia. She has a past medical history of hypertension, anxiety, and frequent urinary tract infections. She presents to the office today for a follow up of her recurrent urinary tract infections and ongoing lower urinary tract symptoms. In discussion with the patient today she reports since her last office visit here approximately 1 year ago she continues to experience intermittent episodes of dysuria. She reports feeling symptoms are exacerbated after sexual activity as well as when she has decreased p.o. intake. In office urinalysis results reviewed with the patient today within normal limits. We did discuss pH is 6.0 in relation of adequate hydration to lower urinary tract symptoms she continues to experience. Patient with a previous in office cystoscopy 12/08/[address] Phil De Guzman that noted findings of a narrow (mild) urethra otherwise bladder within normal limits. She otherwise denies urinary incontinence, nocturia, hematuria, foul smelling urine, changes to urinary stream, flank pain, fever, and or chills. She reports noting when she has symptoms of dysuria and she increases her p.o. intake with water symptoms are relieved. We discussed correlation of adequate hydration in relation to lower urinary tract symptoms. We discussed trial of trimethoprim or methenamine and vitamin-C for potential neutralizing agent for the bladder. She otherwise offers no issues or concerns at this time. Discussion Notes I discussed with the patient the likely diagnosis of urinary discomfort and burning sensation as being related to acidic urine pH and insufficient water intake. I explained the relationship between hydration and urine pH, emphasizing the need for increased water consumption to achieve less acidic urine. We reviewed dietary contributors such as coffee, spicy foods, acidic beverages which can exacerbate urinary symptoms. I proposed the use of Methenamine with Vitamin C as a potential intervention for neutralizing bladder acidity or low- dose trimethoprim. We also discussed options such as [id number] options such as D-mannose supplements. The patient was informed about typical hydration goals, and we discussed setting up a follow-up in three to six months to monitor improvement. The importance of balancing fluid intake appropriately during the day to avoid nocturnal urination was conveyed. Plan To manage the urinary symptoms, recommend increased daily water intake to achieve a minimum of 2 liters, optimally before the end of the afternoon to minimize nocturnal urination. Dietary adjustments are advised to avoid caffeine, alcohol, acidic, and spicy foods as these can exacerbate symptoms. We will re- evaluate treatment efficacy and symptom resolution in a follow-up visit scheduled for three to six months, dependent on symptomatic improvement. 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 Review of Systems Const All systems reviewed & are unremarkable except as noted in HPI and below Reports no additional complaints Eyes Reports no additional complaints ENT Reports no additional complaints Card Reports as per HPI Resp Reports no additional complaints Reports as per HPI Musc Reports no additional complaints Neuro Reports no additional complaints Psych Reports as per HPI Endo Reports no additional complaints Amnn/Lymph Reports no additional complaints Aller/Immun Reports no additional complaints Physical Exam Const General: cooperative, healthy appearing, comfortable, no acute distress, well developed, alert and awake Nutritional Appearance: average body habitus Orientation/consciousness: patient oriented x3 Limitations: no limitations HEENT Head: Yes normal to inspection, Yes normocephalic and Yes atraumatic Ears: hearing grossly normal bilaterally Eyes General: appearance normal, both eyes and all related structures Neck Neck: Yes normal visual inspection and Yes trachea midline Chest Chest palpation & inspection: normal inspection of the chest Resp Effort & Inspection: normal respiratory effort and able to speak in complete sentences Cardio Rate: regular rate General: Yes no CVA tenderness Back/Spine/Pelvis Back: no CVA tenderness Cervical Spine: normal cervical lordosis Skin General skin exam: no rashes or lesions noted Neuro General: patient oriented x3 Extrem General: Yes normal to inspection and Yes full ROM Psych Appearance: grossly normal and well kempt Mental Status: mental status grossly normal Speech and movement: Normal speech and movement present and Clear speech present Affect: normal affect Attitude: cooperative Thought process: Normal thought process present Thought content: Normal thought content present Insight: Good insight present (Psych) Judgement: Good judgement present (Psych) Assessment & Plan Assessment & Plan (1) Recurrent UTI: Code(s): N39.0 - Urinary tract infection, site not specified Category: Medical (2) Dysuria: Code(s): R30.0 - Dysuria Category: Medical Plan In office urinalysis results reviewed with the patient today; as noted above. PVR 0 mL. We discussed importance of adequate hydration relation to lower urinary tract symptoms as well as overall health and well-being. Stop PRN Macrobid Start trimethoprim as discussed and prescribed. We discussed potential causes of lower urinary tract symptoms patient was experiencing as well as further treatment options and risks and benefits of these treatment options. Follow-up in 3-6 months with PVR; or sooner with any issues, concerns, and or questions. Medications: New trimethoprim 100 mg PO DAILY 90 tabs 1RF 90 days Discontinued nitrofurantoin macrocrystal must administer with a meal/food to be used post coital Discontinued Reason: Doctor's Order 50 mg PO BEDTIME 90 days 90 caps 0RF Patient Instructions: The patient had an opportunity to ask questions regarding the treatment plan. All questions were answered. Physical exam, labs, and imaging were discussed and reviewed in detail. As well as risks, benefits, and discussion of treatment choices. No major barriers to understanding were identified. The patient expressed understanding and agreement with the above treatment plan. The patient was made aware they should contact our office by phone for worsening of their current condition, the appearance of new symptoms, or with any questions or concerns. Compliance is encouraged with any medications and follow up testing that is ordered. It is a privilege to be allowed the opportunity to participate in? your urological care.? Again, if you have any questions or concerns If you have any questions or concerns please do not hesitate to contact me. The office is [phone]. This note is constructed using voice recognition software. While every effort has been made to ensure accuracy business intelligence architect errors may have been included. Yours sincerely, SANJAY Palmer Coding Level of Care Code Est Pt Level 4 (34365) Diagnoses Recurrent UTI N39.0 Dysuria R30.0
--- OUTSIDE RECORDS SUMMARY | 2025-01-22 15:58 | XMS_ITS | Encounter Summary ---
Author Organization [employer] Address [address] 7[address] [place] [address] Care Team Providers Care Bus And Trolley Dispatcher Name Role Phone Arpita Saravia MD Primary Care Provider [phone] Eddie Pimentel Unavailable Unavailable Reason for Visit * Reason Onset Date Comments Nurse Triage 10/24/2023 Encounter Details Date Type Department Care Team (Late st Contact Info) Description 10/24/2023 Telephone [facility] MEDICINE [address] [place] [address] Arpita Saravia MD [address] [place] [address] Nurse Triage Social History Tobacco Use Types [...] Info) Description 02/04/2025 11:15 AM EDT Telemedicine [facility] MED & PEDS [address] [place] [address] Arpita Saravia MD [address] [place] [address] documented as of this encounter Visit Diagnoses Not on filedocumented in this encounter Additional Health Concerns Assessment Noted Time PHQ-9 Depression Total Score: 5 10/19/19 24 3:32 PM EST documented as of this encounter Care Teams Bus And Trolley Dispatcher Relationship Specialty Start Date End Date Arpita Saravia MD [address] [place] [address] PCP - General Family Medicine 10/08/13 Eddie Pimentel FNP [address] [place] [address] Nurse Practitioner Family Medicine 08/22/23 documented as of this encounter
--- OUTSIDE RECORDS SUMMARY | 2025-01-22 15:58 | XMS_ITS | Encounter Summary ---
Author Organization [employer] Address [address] [place] [address] Care Team Providers Care Traffic Controller Cable Name Role Phone Arpita Saravia MD Primary Care Provider [phone] Eddie Pimentel Unavailable Unavailable Reason for Visit * Reason Onset Date Comments Results 10/17/2024 Encounter Details Date Type Department Care Team ([facility] st Contact Info) Description 10/17/2024 Telephone [facility] [place] [facility] [address] [place] [address] Arpita Saravia MD [address] [place] [address] Results Social History Tobacco Use Types Packs/Day [...] results: labs Date when done: 10/16/23 Facility: [facility] documented in this encounter Plan of Treatment Upcoming Encounters Date Type Department Care Team (Late st Contact Info) Description 02/04/2025 11:15 AM EDT Telemedicine [facility] MED & PEDS [address] [place] [address] Arpita Saravia MD [address] [place] [address] documented as of this encounter Visit Diagnoses Not on filedocumented in this encounter Additional Health Concerns Assessment Noted Time PHQ-9 Depression Total Score: 6 02/19/20 3:02 PM EDT documented as of this encounter Care Teams Traffic Controller Cable Relationship Specialty Start Date End Date Arpita Saravia MD [address] [place] [address] PCP - General Family Medicine 10/08/13 Eddie Pimentel FNP [address] [place] [address] Nurse Practitioner Family Medicine 08/22/23 documented as of this encounter
--- OUTSIDE RECORDS SUMMARY | 2025-01-22 15:58 | XMS_ITS | Encounter Summary ---
Author Organization [employer] Address [address] [facility] 7 [place] [address] Care Team Providers Care Rn Postpartum Name Role Phone Arpita Saravia MD Primary Care Provider [phone] Eddie Pimentel Unavailable Unavailable Reason for Visit * Reason Onset Date Comments triage 10/21/2022 Encounter Details Date Type Department Care Team ([facility] st Contact Info) Description 10/21/2022 Telephone [facility] MED & PEDS [address] [place] [address] Arpita Saravia MD [address] [place] [address] triage Social History Tobacco Use Types Packs/Day [...] Upcoming Encounters Date Type Department Care Team ([facility] st Contact Info) Description 02/04/2025 11:15 AM EDT Telemedicine [facility] MED & PEDS [address] [place] [address] Arpita Saravia MD [address] [place] [address] documented as of this encounter Visit Diagnoses Not on filedocumented in this encounter Additional Health Concerns Assessment Noted Time PHQ-9 Depression Total Score: 10 022 8:52 AM EST documented as of this encounter Care Teams Rn Postpartum Relationship Specialty Start Date End Date Arpita Saravia MD [address] [place] [address] PCP - General Family Medicine 10/08/13 Eddie Pimentel FNP [address] [place] [address] Nurse Practitioner Family Medicine 08/22/23 documented as of this encounter
--- OUTSIDE RECORDS SUMMARY | 2025-01-22 15:58 | XMS_ITS | Encounter Summary ---
Author Organization [employer] Address [address] [facility] 7 [place] [address] Care Team Providers Care Cash Clerk Name Role Phone Arpita Saravia MD Primary Care Provider [phone] dEdie Pimentel Unavailable Unavailable Reason for Visit * Reason Onset Date Comments triage 11/03/2022 Encounter Details Date Type Department Care Team ([facility] st Contact Info) Description 11/03/2022 Telephone [facility] MEDICINE [address] [place] [address] Arpita Saravia MD [address] [place] [address] triage Social History Tobacco Use Types Packs/Day [...] Pt states when she went to [facility] to pick this up [...] [facility] [address] [place] [address] Arpita Saravia MD [address] [place] [address] documented as of this encounter Visit Diagnoses Not on filedocumented in this encounter Additional Health Concerns Assessment Noted Time PHQ-9 Depression Total Score: 15 023 8:55 AM EST documented as of this encounter Care Teams Cash Clerk Relationship Specialty Start Date End Date Arpita Saravia MD [address] [place] [address] PCP - General Family Medicine 10/08/13 Eddie Pimentel FNP [address] [place] [address] Nurse Practitioner Family Medicine 08/22/23 documented as of this encounter
--- OUTSIDE RECORDS SUMMARY | 2025-01-22 15:58 | XMS_ITS | Clinical Summary ---
Author Organization [employer] Address [address] [facility] 7t [place] [address] Care Team Providers Care Endorsement Clerk Name Role Phone Arpita Saravia MD Primary Care Provider [phone] Eddie Pimentel Unavailable Unavailable Allergies Active Allergy [...] will transfer her care to the new [facility] psychiatric prescriber. Any issues or concerns, contact [...] controlled. 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 F/U with me in 6-8 weeks. She agrees with the plan. Assessment & Plan (03/15/2023 9:46 AM EDT): Assessment: Patient with revious hx of Bipolar Dx and MH treatment that was referred to [facility] Consult for exacerbation of depression and anxiety. 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 She indicates that she has been experiencing exacerbation of sxs, specially feeling down and unmotivated. She indicates that main stressors in the past year have been related to changes at work. Whitley indicated that although adhering to medication, she can feel sxs worsening. Patient will benefit from follow up [facility] brief intervention to further explore needs and potential treatments. At this time Whitley Juares meets criteria for Visit Diagnoses (per record): Problem List Items Addressed This Visit Other Bipolar affective disorder, current episode mixed (CMS/HCC) - Primary Relevant Orders Referral to Behavioral Health Patient ready to address current needs Yes Strengths include Desire to engage in supportive treatment PLAN: 1. Follow up with [facility]: Recommended for follow-up: 03/14/2023 2. Patient goal [...] medication. Discussed options for treatment of BPD: [place], antiepileptics, antipsychotics. She will increase to Abilify 30 mg daily, continue other meds for now. F/U 4-6 weeks. She agrees with the plan. She is in a long-term monogamous relationship with single AMAB partner who has vasectomy so at negligible risk of unintended . Right ear pain 02/28/2018 Migraine 12/24/2012 Encounters Date Type Department Care Team Description 12/13/2024 [facility] Risk Score [facility] () Department [address] [phone] Provider, Population Health Generic 11/25/2024 Telephone [facility] MEDICINE [address] [place] [address] Sarah Godoy, RN Results 11/13/2024 8:45 AM EST Office Visit [facility] MED & PEDS [address] [place] [address] Arpita Saravia MD Anxiety (Primary Dx); Sleep apnea, unspecified type 11/13/2024 Travel 11/12/2024 Telephone [facility] MED & PEDS [address] [place] [address] Arpita Saravia MD Chart Prep 10/29/2024 Orders Only [facility] External Provider, [facility] from Last 3 Months Immunizations Name Administration [...] Info) Description 02/04/2025 11:15 AM EDT Telemedicine [facility] MED & PEDS [address] [place] [address] Arpita Saravia MD [address] [place] [address] Health Maintenance Due Date Last Done Comments [...] 2 VIEWS Routine 10/29/2024 3:16 PM EST PERIODIC ORAL EVALUATION - ESTABLISHED PATIENT [...] AM EST ? [facility] ?[address] [facility] ? [place] [address] ? Ultrasound Report ? Signed ? Patient: Juares,Whitley ?MR#: [id number] ?? [id number] ? : 1985 ?Acct:[id number] ? Age/Sex: 39 / F ?ADM Date: 02/20/25 ? Loc: HO.HMGCX ? Attending Dr: Jojo VILLASEÑOR ? Ordering Physician: Jojo Sen ?? Date of Service: 11/21/24 ?? Procedure(s): US abdomen limited ?? Accession Number(s): [id number] ? cc: Arpita Saravia MD; Jojo Sen [...] DD/ 1149 ? TD/TT: 11/22/24 1149 ? Registered Massage Therapist: ? Procedure Note Donric, Image - 11/22/2024 [facility] [address] [place] [address] [place] [address] Ultrasound Report Signed Patient: Whitley JuaresMR#: [id number] 686 : 1985Acct:[id number] Age/Sex: 39 / FADM Date: 11/21/24 Loc: .HMGCX Attending Dr: Jojo VILLASEÑOR Ordering Physician: Jojo Sen Date of Service: 11/21/24 Procedure(s): US abdomen limited Accession Number(s): [id number] cc: Arpita Saravia MD; Jojo Sen [facility] CLINICAL HISTORY: PERSISTENT VAGUE RLQ PAIN US [...] 11/22/24 1150 DD/ 1149 TD/TT: 11/22/24 1149 Registered Massage Therapist: [facility] [employer] IMG US PROCEDURES Final Resul t * XR Chest 2 Views (10/29/2024 3:16 PM EST) Anatomical Region Laterality Modality Chest Radiographic Niesha ging 10/29/2024 3:16 PM EST Narrative 10/29/2024 3:42 PM EST ? [facility] ?[address] ? [place] [address] ?XRay Report ? Signed ? Patient: Mor,Whitley ?MR#: [id number] ?? [id number] ? : 1985 ?Acct:[id number] ? Age/Sex: 39 / F ?ADM Date: 10/29/24 ? Loc: HO.HMGCX ? Attending Dr: Zuleyka Hylton NP ? Ordering Physician: Zuleyka Hylton NP ?? Date of Service: 10/29/24 ?? Procedure(s): XR chest 2V ?? Accession Number(s): [id number] ? cc: Arpita Saravia MD; Zuleyka Hylton [...] Forte MD in OV> ?10/29/ 1539 ? DD/DT: 10/29/ 1516 ? TD/TT: 10/29/ 1520 ? Registered Massage Therapist: ? Procedure Note Tito Image - 10/29/2024 [facility] [facility] [address] [place], [place] [address] XRay Report Signed Patient: Whitley JuaresMR#: [id number] 686 : 1985Acct:[id number] Age/Sex: 39 / FADM Date: 10/29/24 Loc: .HMGCX Attending Dr: Zuleyka Hylton FORENSIC TECHNICIAN Ordering Physician: Zuleyka Hylton NP Date of Service: 10/29/24 Procedure(s): XR chest 2V Accession Number(s): [id number] cc: Arpita Saravia MD; Zuleyka Hylton NP [...] 10/29/24 1539 DD/ 1516 TD/TT: 10/29/24 1520 Registered Massage Therapist: [facility] External Provider IMG XR PROCEDURES Final Result * HEPATITIS C AB W/REFL TO [...] a test for HCV RNA (test code 63843) is suggested. ?? For additional information please refer to http://[employer]/faq/DPK50t6 (This link is being provided for informational/ educational purposes only.) ?? 08/09/2022 9:23 AM EST Margarita Mahad GOMEZ HISTORICAL/NON ORDERABLE LABS Final Result CONVERTED LEGACY LABS * THINPREP TIS PAP AND HPV mRNA E6/E7, CT/NG, TRICH (05/03/2022 1:17 PM EDT) Chlamydia trachomatis RNA, TMA, Urogenital NOT DETECTED NOT DETECTED [facility] Clinical Information: None given [facility] COMMENT SEE COMMENT [facility] Comment: The analytical performance characteristics of this assay, when used to test SurePath(TM) specimens have been determined by [facility]. The modifications have not been cleared or approved by the FDA. This assay has been validated pursuant to the CLIA regulations and is used for clinical purposes. ?? For additional information, please refer to https://[employer]/faq/HQG175 (This link is being provided for information/ [...] has been evaluated with computer assisted technology. [facility] Roll Up Helper: SEE COMMENT [facility] Comment: MACLAIRE Bryson(ASCP) CT screening location: [address] ??[address] HPV nRNA E6/E7 Not Detected Not Detected [facility] Comment: Methodology: Brush Fab[employer] Supervisor-Mediated Amplification This assay detects E6/E7 viral messenger RNA (mRNA) from 14 high-risk HPV types (16,18,31,33,35,39,45,51,52,56,58,59,66,68). ? Cervical sources are required for HPV testing. If a vaginal source from a patient who has had a total hysterectomy with removal of cervix was ?? submitted, please contact the testing laboratory for alternative testing options. ?? For additional information, please refer to http://[employer]/faq/BSE976n3 (This link if provided for information/ educational [...] of this assay have been determined by [facility]. The modifications have not been cleared or approved by the FDA. This assay has been validated pursuant to the CLIA regulations and is used for clinical purposes. ?? For additional information, please refer to http://[employer]/ faq/Trichomonastma (This link is being provided for information/ educational purposes only.) ?? 05/03/2022 1:17 PM EDT us Margarita Tobin CNM LAB PATHOLOGY ORDERABLES Final Result [facility] [address] from Last 3 Months or Most Recently Relevant to Health Maintenance Insurance [facility] Care Teams Endorsement Clerk Relationship Specialty Start Date End Date Arpita Saravia MD [address] [place] [address] PCP - General Family Medicine 10/08/13 Eddie Pimentel FNP [address] [place] [address] Nurse Practitioner Family Medicine 08/22/23
== END 2025-01-22 14:04 | disposition home or self-care (01) ==
LOC: HO.HUSH 13:29
PROVIDERS: PCP Student in an Organized Health Care Education/Training Program; Visit Provider Nurse Practitioner Family
DX: N39.0 Urinary tract infection, site not specified (principal); R30.0 Dysuria; Z13.9 Encounter for screening, unspecified
CPT/HCPCS: 99214

== ENCOUNTER → 2025-01-22 13:29 | Outpatient (BNVA) | payer MEDICAID, SELFPAY | PROVIDERS: PCP Student in an Organized Health Care Education/Training Program; Visit Provider Nurse Practitioner Family | DX: N39.0 Urinary tract infection, site not specified (principal); R30.0 Dysuria | CPT/HCPCS: 81003; 99212 ==

== ENCOUNTER 2025-01-29 14:05 | Outpatient (AMB) | payer MEDICAID, SELFPAY ==
[2025-01-29 14:06] VITALS: BMI 21.8
--- NOTE | 2025-01-29 14:06 | MHC.OFFVIS ---
Vital Signs 01/29/25 14:06 Height 5 ft 3 in Weight 123 lb BMI 21.8 Intake Visit Reasons: dyspnea Flexographic Press Operator Required: No Background Investigator: Background Investigator offered & declined Accompanied by: Self / Same As Patient Allergies levofloxacin Adverse Reaction (Unknown, Verified 01/29/25 14:11) Abdominal Pain Medication List - Last Reconciled 01/29/25 by Ana Miramontes LPN albuterol sulfate 90 mcg/actuation 2 puffs inhalation Q4-6H PRN buspirone 5 mg PO TID lisinopril 2.5 mg PO QAM loratadine 10 mg PO QAM trimethoprim 100 mg PO DAILY 90 days zolmitriptan 5 mg PO DAILY PRN HPI HPI dyspnea: Details: Whitley is a pleasant 39 year old female, former smoker, quit 10+ years ago with less than 10 pack year history with underlying anxiety. She was referred by PCP for pulmonary evaluation. Referral notes emphysema, however no prior imaging reports this, however abdominal CT noted atelectasis, repeat chest x-ray unremarkable. Since last visit she has been using albuterol MDI with good effect for intermittent wheezing, chest tightness and dyspnea on exertion. Today she presents to review PFT. She denies any visits to urgent care hospitalizations related to respiratory distress since last visit. 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 Review of Systems Const Denies chills, Denies excessive sweating, Denies fever(s), Denies headache(s) and Denies night sweats Eyes Denies dry eyes, Denies irritation and Denies itchy eyes ENT Reports Normal hearing present, Denies headache(s), Denies nasal congestion, Denies nasal discharge, Denies post nasal drip and Denies sore throat Card Denies chest pain, Denies chest pain at rest, Denies chest pain with activity, Denies claudication, Denies leg edema, Reports dyspnea on exertion, Denies orthopnea and Denies paroxysmal nocturnal dyspnea Resp Denies chest congestion, Denies cough, Denies excessive phlegm production, Denies pain on inspiration, Denies pain with cough, Reports dyspnea on exertion, Denies stridor and Reports wheezing Musc Denies myalgias Neuro Reports Normal hearing present and Denies headache(s) Endo Denies excessive sweating Mann/Lymph Denies lymphadenopathy Aller/Immun Denies itchy eyes, Denies seasonal rhinorrhea and Reports wheezing Physical Exam Vital Signs: BMI result Body Mass Index 21.8 Const General: cooperative, healthy appearing, comfortable, no acute distress, well developed and alert Orientation/consciousness: patient oriented x3 Limitations: no limitations HEENT Head: Yes normal to inspection, Yes normocephalic and Yes atraumatic Ears: hearing grossly normal bilaterally and external ears normal Eyes General: appearance normal, both eyes and all related structures Eyelids: Yes eyelids normal Sclerae: sclerae normal EOM: EOMs intact bilaterally Neck Neck: Yes normal visual inspection and Yes no lymphadenopathy Lymphatic: no lymphadenopathy noted Chest Chest palpation & inspection: normal inspection of the chest Resp Effort & Inspection: normal respiratory effort, able to speak in complete sentences, no audible wheezes, no cough, no stridor, not tachypneic, no tripod positioning and no use of accessory muscles Auscultation: clear to auscultation bilaterally Cardio Jugular venous distension: no JVD Rate: regular rate Rhythm: regular rhythm Skin Other: warm, dry General skin exam: no rashes or lesions noted Neuro General: patient oriented x3 Cranial nerves: Yes Normal hearing present Cognition (Neuro): normal cognition Gait exam (Neuro): Normal gait present Extrem General: Yes normal to inspection, Yes capillary refill normal, Yes no clubbing, cyanosis or edema and Yes no pedal edema Psych Appearance: grossly normal and well kempt Speech and movement: Normal speech and movement present and Clear speech present Affect: normal affect Attitude: cooperative Thought process: Normal thought process present Thought content: Normal thought content present Insight: Good insight present (Psych) Judgement: Good judgement present (Psych) Assessment & Plan Assessment & Plan (1) Asthma: Code(s): J45.909 - Unspecified asthma, uncomplicated Category: Medical (2) Dyspnea on exertion: Code(s): R06.09 - Other forms of dyspnea Category: Medical Plan Reviewed PFT which revealed no obstructive nor restrictive ventilatory defects identified. No significant response to bronchodilators noted, except in small to medium airways. Lung volumes are within normal limits although a trend of air trapping noted. Diffusing capacity within normal limits. We discussed possible methacholine challenge however will hold off his PFTs suggestive of small airways disease. Will empirically trial Breo. Discussed importance of good oral hygiene to prevent thrush. All questions were answered and patient is in agreement of plan. Will follow up in 6-8 weeks or sooner if needed. Medications: New fluticasone furoate-vilanterol 100-25 mcg/dose (Breo Ellipta) 1 inh inhalation DAILY 60 ea 3RF Coding Level of Care Code Est Pt Level 4 (02556) Diagnoses Asthma J45.909 Dyspnea on exertion R06.09
--- OUTSIDE RECORDS SUMMARY | 2025-01-29 15:17 | XMS_ITS | Encounter Summary ---
Author Organization [employer] Address [address] 7 [place] [address] Care Team Providers Care Executive Chairman Of The Board Name Role Phone Arpita Saravia MD Primary Care Provider [phone] Eddie Pimentel Unavailable Unavailable Reason for Visit * Reason Onset Date Comments Results 10/17/2024 Encounter Details Date Type Department Care Team ([facility] st Contact Info) Description 10/17/2024 Telephone [facility] MEDICINE [address] [place] [address] Arpita Saravia MD [address] [place] [address] Results Social History Tobacco Use Types Packs/Day [...] results: labs Date when done: 10/16/23 Facility: [facility] documented in this encounter Plan of Treatment Upcoming Encounters Date Type Department Care Team (Late st Contact Info) Description 02/04/2025 11:15 AM EDT Telemedicine [facility] MED & PEDS [address] [place] [address] Arpita Saravia MD [address] [place] [address] documented as of this encounter Visit Diagnoses Not on filedocumented in this encounter Additional Health Concerns Assessment Noted Time PHQ-9 Depression Total Score: 6 02/19/20 3:02 PM EDT documented as of this encounter Care Teams Executive Chairman Of The Board Relationship Specialty Start Date End Date Arpita Saravia MD [address] [place] [address] PCP - General Family Medicine 10/08/13 Eddie Pimentel FNP [address] [place] [address] Nurse Practitioner Family Medicine 08/22/23 documented as of this encounter
--- OUTSIDE RECORDS SUMMARY | 2025-01-29 15:17 | XMS_ITS | Encounter Summary ---
Author Organization [employer] Address [address] [facility] 7 [place] [address] Care Team Providers Care Air Hoist Operator Name Role Phone Arpita Saravia MD Primary Care Provider [phone] Eddie Pimentel Unavailable Unavailable Reason for Visit * Reason Onset Date Comments triage 10/21/2022 Encounter Details Date Type Department Care Team ([facility] st Contact Info) Description 10/21/2022 Telephone [facility] MED & PEDS [address] [place] [address] Arpita Saravia MD [address] [place] [address] triage Social History Tobacco Use Types Packs/Day [...] Upcoming Encounters Date Type Department Care Team ([facility] st Contact Info) Description 02/04/2025 11:15 AM EDT Telemedicine [facility] MED & PEDS [address] [place] [address] Arpita Saravia MD [address] [place] [address] documented as of this encounter Visit Diagnoses Not on filedocumented in this encounter Additional Health Concerns Assessment Noted Time PHQ-9 Depression Total Score: 10 022 8:52 AM EST documented as of this encounter Care Teams Air Hoist Operator Relationship Specialty Start Date End Date Arpita Saravia MD [address] [place] [address] PCP - General Family Medicine 10/08/13 Eddie Pimentel FNP [address] [place] [address] Nurse Practitioner Family Medicine 08/22/23 documented as of this encounter
--- OUTSIDE RECORDS SUMMARY | 2025-01-29 15:17 | XMS_ITS | Encounter Summary ---
Author Organization [employer] Address [address] [facility] 7 [place] [address] Care Team Providers Care Ross Lift Operator Name Role Phone Arpita Saravia MD Primary Care Provider [phone] Eddie Pimentel Unavailable Unavailable Reason for Visit * Reason Onset Date Comments triage 11/03/2022 Encounter Details Date Type Department Care Team ([facility] st Contact Info) Description 11/03/2022 Telephone [facility] MED[facility]INE [address] [place] [address] Arpita Saravia MD [address] [place] [address] triage Social History Tobacco Use Types Packs/Day [...] Description 02/04/2025 11:15 AM EDT Telemedicine [facility] MED & PEDS [address] [place] [address] Arpita Saravia MD [address] [place] [address] documented as of this encounter Visit Diagnoses Not on filedocumented in this encounter Additional Health Concerns Assessment Noted Time PHQ-9 Depression Total Score: 15 023 8:55 AM EST documented as of this encounter Care Teams Ross Lift Operator Relationship Specialty Start Date End Date Arpita Saravia MD [address] [place] [address] PCP - General Family Medicine 10/08/13 Eddie Pimentel FNP [address] [place] [address] Nurse Practitioner Family Medicine 08/22/23 documented as of this encounter
--- OUTSIDE RECORDS SUMMARY | 2025-01-29 15:17 | XMS_ITS | Encounter Summary ---
Author Organization [employer] Address [address] [facility] [address] [place] [address] Care Team Providers Care Ski Patroller Name Role Phone Arpita Saravia MD Primary Care Provider [phone] Eddie Pimentel Unavailable Unavailable Reason for Visit * Reason Onset Date Comments Nurse Triage 10/24/2023 Encounter Details Date Type Department Care Team (Late st Contact Info) Description 10/24/2023 Telephone [facility] MEDICINE [address] [place] [address] Arpita Saravia MD [address] [place] [address] Nurse Triage Social History Tobacco Use Types [...] Description 02/04/2025 11:15 AM EDT Telemedicine [facility] MED & PEDS [address] [place] [address] Arpita Saravia MD [address] [place] [address] documented as of this encounter Visit Diagnoses Not on filedocumented in this encounter Additional Health Concerns Assessment Noted Time PHQ-9 Depression Total Score: 5 10/19/19 24 3:32 PM EST documented as of this encounter Care Teams Ski Patroller Relationship Specialty Start Date End Date Arpita Saravia MD [address] [place] [address] PCP - General Family Medicine 10/08/13 Eddie Pimentel FNP [address] [place] [address] Nurse Practitioner Family Medicine 08/22/23 documented as of this encounter
--- OUTSIDE RECORDS SUMMARY | 2025-01-29 15:18 | XMS_ITS | Clinical Summary ---
Author Organization [employer] Address [address] [facility] 7t [place] [address] Care Team Providers Care Near East Archeology Professor Name Role Phone Arpita Saravia MD Primary Care Provider [phone] Eddie Pimentel Unavailable Unavailable Allergies Active Allergy [...] will transfer her care to the new [facility] psychiatric prescriber. Any issues or [...] pt was given the phone number for [place] and she will call herself to reschedule intake. F/U with me in 6-8 weeks. She agrees with the plan. Assessment & Plan (03/15/2023 9:46 AM EDT): Assessment: Patient with revious hx of Bipolar Dx and MH treatment that was referred to [facility] Consult for exacerbation of depression and anxiety. 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 She indicates that she has been experiencing exacerbation of sxs, specially feeling down and unmotivated. She indicates that main stressors in the past year have been related to changes at work. Whitley indicated that although adhering to medication, she can feel sxs worsening. Patient will benefit from follow up [facility] brief intervention to further explore needs and [...] treatment PLAN: 1. Follow up with [facility]: Recommended for follow-up: 03/14/2023 2. Patient goal [...] medication. Discussed options for treatment of BPD: [place], antiepileptics, antipsychotics. She will increase to Abilify 30 mg daily, continue other meds for now. F/U 4-6 weeks. She agrees with the plan. She is in a long-term monogamous relationship with single AMAB partner who has vasectomy so at negligible risk of unintended . Right ear pain 02/28/2018 Migraine 12/24/2012 Encounters Date Type Department Care Team Description 12/13/2024 [facility] Risk Score [facility] () Department [address] [phone] Provider, Population Health Generic 11/25/2024 Telephone [facility] MEDICINE [address] [place] [address] Sarah Godoy RN Results 11/13/2024 8:45 AM EST Office Visit [facility] MED & PEDS [address] [place] [address] Arpita Saravia MD Anxiety (Primary Dx); Sleep apnea, unspecified type 11/13/2024 Travel 11/12/2024 Telephone [facility] MED & PEDS [address] [place] [address] Arpita Saravia MD Chart Prep from Last 3 Months Immunizations Name Administration [...] [facility] [address] [place] [address] Arpita Saravia MD [address] [place] [address] Health Maintenance Due Date Last Done Comments [...] AM EST Right lower quadrant abdominal pain PERIODIC ORAL EVALUATION - ESTABLISHED PATIENT Routine [...] EST Narrative 11/22/2024 11:50 AM EST ? [facility] ?[address] ? [place] [address] ? Ultrasound Report ? Signed ? Patient: Juares,Whitley ?MR#: [id number] ?? [id number] ? : 1985 ?Acct:[id number] ? Age/Sex: 39 / F ?ADM Date: //25 ? Loc: HO.HMGCX ? Attending Dr: Jojo Sen STAMPING MACHINE OPERATOR ? Ordering Physician: Jojo Sen STAMPING MACHINE OPERATOR ?? Date of Service: 11/21/24 ?? Procedure(s): US abdomen limited ?? Accession Number(s): [id number] ? cc: Arpita Saravia MD; Jojo SenP ? CLINICAL HISTORY: PERSISTENT VAGUE RLQ PAIN [...] DD/ 1149 ? TD/TT: 11/22/24 1149 ? Supervisor Throwing Department: ? Procedure Note Donric, Image - 11/22/2024 [facility] [address] [place] [address] [place] [address] Ultrasound Report Signed Patient: Whitley JuaresMR#: [id number] : 1985Acct:[id number] Age/Sex: 39 / FADM Date: 11/21/24 Loc: HO.HMGCX Attending Dr: Jojo Sen [facility] Ordering Physician: Jojo Sen Date of Service: 11/21/24 Procedure(s): US abdomen limited Accession Number(s): [id number] cc: Arpita Saravia MD; [facility] CLINICAL HISTORY: PERSISTENT VAGUE RLQ PAIN US [...] 11/22/24 1150 DD/ 1149 TD/TT: 11/22/24 1149 Supervisor Throwing Department: us Jojo [place] STAMPING MACHINE OPERATOR IMG US PROCEDURES Final Resul t * HEPATITIS C AB W/REFL TO HCV [...] a test for HCV RNA (test code 80550) is suggested. ?? For additional information please refer to http://[employer].RetAPPs/faq/KGO88d5 (This link is being provided for informational/ educational purposes only.) ?? 08/09/2022 9:23 AM EST Margarita Tobin CNM HISTORICAL/NON ORDERABLE LABS Final Result CONVERTED LEGACY LABS * THINPREP TIS PAP AND HPV mRNA E6/E7, CT/NG, TRICH (05/03/2022 1:17 PM EDT) Chlamydia trachomatis RNA, TMA, Urogenital NOT DETECTED NOT DETECTED [facility] Clinical Information: None given [facility] COMMENT SEE COMMENT [facility] Comment: The analytical performance characteristics of this assay, when used to test SurePath(TM) specimens have been determined by [employer]. The modifications have not been cleared or approved by the FDA. This assay has been validated pursuant to the CLIA regulations and is used for clinical purposes. ?? For additional information, please refer to https://[employer].RetAPPs/faq/UNG940 (This link is being provided for information/ [...] has been evaluated with computer assisted technology. [facility] Die Sinker: SEE COMMENT [facility] Comment: CLAIRE ROSSI(ASCP) CT screening location: [address] ??[address] HPV nRNA E6/E7 Not Detected Not Detected [facility] Comment: Methodology: Early Breastfeeding Care Specialist-Mediated Amplification This assay detects E6/E7 viral messenger RNA (mRNA) from 14 high-risk HPV types (16,18,31,33,35,39,45,51,52,56,58,59,66,68). ? Cervical sources are required for HPV testing. If a vaginal source from a patient who has had a total hysterectomy with removal of cervix was ?? submitted, please contact the testing laboratory for alternative testing options. ?? For additional information, please refer to http://[employer].RetAPPs/faq/NLS849i3 (This link if provided for information/ educational purposes only.) Interpretation/Re sult: Negative for intraepithelial lesion or malignancy. [facility] LMP: [phone] [facility] [...] of this assay have been determined by [employer]. The modifications have not been cleared or approved by the FDA. This assay has been validated pursuant to the CLIA regulations and is used for clinical purposes. ?? For additional information, please refer to http://[employer].RetAPPs/ faq/Trichomonastma (This link is being provided for information/ educational purposes only.) ?? 05/03/2022 1:17 PM EDT Margarita Tobin CNM LAB PATHOLOGY ORDERABLES Final Result [facility] [address] from Last 3 Months or Most Recently Relevant to Health Maintenance Insurance [place] [address] C3 [facility] MEDICAID STAND ADULT Care Teams Near East Archeology Professor Relationship Specialty Start Date End Date Arpita Saravia MD [address] [place] [address] PCP - General Family Medicine 10/08/13 Eddie Pimentel FNP [address] [place] [address] Nurse Practitioner Family Medicine 08/22/23
== END 2025-01-29 14:38 | disposition home or self-care (01) ==
LOC: HO.HPSW 14:05
PROVIDERS: PCP Student in an Organized Health Care Education/Training Program; Visit Provider Nurse Practitioner Family
DX: J45.909 Unspecified asthma, uncomplicated (principal); R06.09 Other forms of dyspnea
CPT/HCPCS: 99214

== ENCOUNTER → 2025-01-29 14:05 | Outpatient (BNVA) | payer MEDICAID, SELFPAY | PROVIDERS: PCP Student in an Organized Health Care Education/Training Program; Visit Provider Nurse Practitioner Family | DX: J45.909 Unspecified asthma, uncomplicated (principal); R06.09 Other forms of dyspnea | CPT/HCPCS: 99212 ==

== ENCOUNTER 2025-02-12 15:06 | Outpatient (AMB) | payer MEDICAID, SELFPAY ==
--- NOTE | 2025-02-12 15:07 | A.OFFVIS_ITS ---
Vital Signs 02/12/25 15:19 Height 5 ft 3 in Weight 125 lb BMI 22.1 BP 124/80 Blood Pressure Location Rt brachial Position Sitting Pulse 74 Pulse Source Pulse Oximeter Pulse Oximetry (%) 100 Oxygen Delivery Method Room Air Intake Visit Reasons: stomach pain Intake Note: NEW PATIENT for initial eval of RLQ pain. CC; Pt was [place] [facility]. Imaging was completed by PCP. C.O, bloating, abd pain (RLQ), lack of appetite, constipation and diarrhea intermittently. Pt denies any evidence of hemorrhoids at this time. Pt also reports hx of mild, intermittent GERD and increased phlegm production. No hx of Eunice / EGD. Credit Risk Associate Required: No Accompanied by: Self / Same As Patient Allergies levofloxacin Adverse Reaction (Unknown, Verified 02/12/25 15:12) Abdominal Pain HPI HPI stomach pain: Details: ED VISIT 10/17/2024 Medical Decision Making MDM Narrative: 39-year-old female with a history of recurrent UTIs, hypertension and anxiety presents with right lower abdominal pain x1 day. Pain radiates to right low back at times. The pain is constant and not colicky. Denies nausea, vomiting, diarrhea or constipation. Denies history of kidney stones, dysuria, hematuria. Denies risk for . No abnormal vaginal discharge or risk for STD. No relevant chronic issues History: Per patient I have considered the following differential diagnoses: Renal colic, UTI, appendicitis, torsion, TOA, ectopic Plan: Screening labs including a urinalysis and a CT scan were already obtained, studies ordered from triage. The patient was constipated there was no additional acute findings. I have relayed findings to the patient, she is displeased over the wait time, however today is in extremely busy day. I have independently reviewed the following tests: Labs: No leukocytosis, not anemic, no electrolyte abnormality not , no urinary tract infection CT abdomen and pelvis:Findings: Diffuse esophageal mural thickening, nonspecific. Atelectasis. Hepatomegaly. Large colonic stool burden. No bowel obstruction. Anteverted uterus with prominent fluid-filled uterine cavity, may be physiologic. Minimal sigmoid diverticulosis without diverticulitis. Normal appendix. Adnexal cysts noted. The bones are intact. IMPRESSION: No acute findings. TODAY'S VISIT: 39-year-old female is here today for initial consultation. Patient was referred to us by her PCP. Back in October of this year patient was seen in the ER for abdominal pain. Patient reports that she has constant abdominal pain that was radiating to her back. As noted above patient has no acute findings. Large colonic stool burden was found without obstruction. Patient continues to have abdominal pain and bloating. Patient also reports right upper quadrant pain postprandial depending on what she eats. Bloating happens and is worse when she is constipated. Patient does admit that occasionally she will have diarrhea. Denies melena, hematochezia, unintentional weight loss or ribbon like stools. Patient denies any for mucus in her stool. Reports occasional dyspepsia without dysphagia or odynophagia. Patient reports acid reflux sometimes nausea in the morning. Patient denies eating late at night. He can not pinpoint which food is causing her to have those symptoms. 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 Review of Systems Const Denies weight gain and Denies weight loss ENT Reports no additional complaints, Denies dysphagia and Denies odynophagia Card Reports no additional complaints Resp Reports no additional complaints GI Reports abdominal pain, Denies belching, Denies melena, Reports bloating, Denies change in bowel habits, Reports constipation, Denies dysphagia, Denies excessive flatus, Reports dyspepsia, Reports heartburn, Denies diarrhea, Reports loose stools, Reports nausea (Occasional), Denies odynophagia and Denies vomiting Reports no additional complaints Musc Reports no additional complaints Neuro Reports no additional complaints Psych Reports no additional complaints Endo Reports no additional complaints Physical Exam Vital Signs: Last Vital Signs Pulse 74 02/12/25 15:19 BP 124/80 02/12/25 15:19 Pulse Ox 100 02/12/25 15:19 Oxygen Delivery Method Room Air 02/12/25 15:19 BMI result Body Mass Index 22.1 Const General: healthy appearing, no acute distress and well developed Nutritional Appearance: well nourished Orientation/consciousness: patient oriented x3 Resp Effort & Inspection: normal respiratory effort, able to speak in complete sentences, no tracheal deviation and symmetric chest movement Auscultation: clear to auscultation bilaterally Cardio Rate: regular rate GI Inspection: Yes normal to inspection and No distended Palpation (GI): Soft to palpation, not firm, nontender and No hepatosplenomegaly present Auscultation: normal bowel sounds General: Yes no CVA tenderness Back/Spine/Pelvis Back: no CVA tenderness Skin General skin exam: elasticity normal, turgor normal and dry skin Neuro General: patient oriented x3 Psych Appearance: grossly normal Mental Status: mental status grossly normal Results Reviewed Results Reviewed: CT OF ABDOMEN AND PELVIS 10/17/2025 Findings: Diffuse esophageal mural thickening, nonspecific. Atelectasis. Hepatomegaly. Large colonic stool burden. No bowel obstruction. Anteverted uterus with prominent fluid-filled uterine cavity, may be physiologic. Minimal sigmoid diverticulosis without diverticulitis. Normal appendix. Adnexal cysts noted. The bones are intact. IMPRESSION: No acute findings. Assessment & Plan Assessment & Plan (1) Chronic idiopathic constipation: Code(s): K59.04 - Chronic idiopathic constipation (2) Postprandial abdominal bloating: Code(s): R14.0 - Abdominal distension (gaseous) (3) Abdominal pain: Code(s): R10.9 - Unspecified abdominal pain Qualifiers: Abdominal location: epigastric Qualified Code(s): R10.13 - Epigastric pain (4) GERD (gastroesophageal reflux disease): Code(s): K21.9 - Gastro-esophageal reflux disease without esophagitis Qualifiers: Esophagitis presence: esophagitis presence not specified Qualified Code(s): K21.9 - Gastro-esophageal reflux disease without esophagitis Plan Patient was encouraged to avoid dietary triggers only time snacking. Staying upright for minimum 3 hours after meals discussed with patient. Patient will be sent for upper GI with barium swallow to evaluate for reflux. For now patient will not be placed on any PPI yet. Patient was encouraged to increase fiber intake and take [id number] fiber supplements. Increase fluid intake and activity to promote better bowel motility. Patient will follow-up in 3-4 months, sooner on as needed basis. She is agreeable to this plan and verbalizes understanding of instructions. She was given the opportunity to ask questions and all questions answered. Thank you for allowing me to participate in her care Orders: Orders US abdomen complete 02/12/25 R10.9 - Unspecified abdominal pain, R10.11 - Right upper quadrant pain FL upper GI w Ba Swallow 02/12/25 K21.9 - Gastro-esophageal reflux disease without esophagitis Coding Level of Care Code New Pt Level 4 (29166) Diagnoses Chronic idiopathic constipation K59.04 Postprandial abdominal bloating R14.0 Epigastric pain R10.13 Abdominal location: epigastric Gastroesophageal reflux disease, unspecified whether esophagitis present K21.9 Esophagitis presence: esophagitis presence not specified Time Spent (min) 50 Comment 35 minutes spent with patient and additional 15 minutes spent reviewing her rec ords
--- OUTSIDE RECORDS SUMMARY | 2025-02-12 15:08 | XMS_ITS | Encounter Summary ---
Author Organization [employer] Address [address] [facility] 7 [place] [address] Care Team Providers Care Gum Scoring Machine Operator Name Role Phone Arpita Saravia MD Primary Care Provider [phone] Eddie Pimentel Unavailable Unavailable Reason for Visit * Reason Onset Date Comments Nurse Triage 10/24/2023 Encounter Details Date Type Department Care Team ([facility] st Contact Info) Description 10/24/[address] [facility] MEDICINE [address] [place] [address] Arpita Saravia MD [address] [place], [place] [phone] Nurse Triage Social History Tobacco Use Types [...] Care Team (Late st Contact Info) Description 04/29/2025 11:30 AM EDT Telemedicine [facility] CHC MED & PEDS [address] [place] [address] Arpita Saravia MD [address] [place] [address] documented as of this encounter Visit Diagnoses Not on filedocumented in this encounter Additional Health Concerns Assessment Noted Time PHQ-9 Depression Total Score: 5 10/19/19 24 3:32 PM EST documented as of this encounter Care Teams Gum Scoring Machine Operator Relationship Specialty Start Date End Date Arpita Sarvaia MD [address] [place] [id number] PCP - General Family Medicine 10/08/13 Eddie Pimentel FNP [address] [place] [phone] Nurse Practitioner Family Medicine 08/22/23 documented as of this encounter
--- OUTSIDE RECORDS SUMMARY | 2025-02-12 15:08 | XMS_ITS | Encounter Summary ---
Author Organization [employer] Address [address] [facility] 7 [place] [address] Care Team Providers Care Podopediatrician Name Role Phone Arpita Saravia MD Primary Care Provider [phone] Eddie Pimentel Unavailable Unavailable Reason for Visit * Reason Onset Date Comments triage 10/21/2022 Encounter Details Date Type Department Care Team ([facility] st Contact Info) Description 10/21/2022 Telephone [facility] CHC MED & PEDS [address] [place] [address] Arpita Saravia MD [address] [place] [address] triage Social History Tobacco Use Types Packs/Day [...] Upcoming Encounters Date Type Department Care Team ([facility] Contact Info) Description 04/29/2025 11:30 AM EDT Telemedicine [facility] MED & PEDS [address] [place] [address] Arpita Saravia MD [address] [place] [address] documented as of this encounter Visit Diagnoses Not on filedocumented in this encounter Additional Health Concerns Assessment Noted Time PHQ-9 Depression Total Score: 10 022 8:52 AM EST documented as of this encounter Care Teams Podopediatrician Relationship Specialty Start Date End Date Arpita Saravia MD [address] [place] [phone] PCP - General Family Medicine 10/08/13 Eddie Pimentel FNP [address] [place] [address] [place] [address] Nurse Practitioner Family Medicine 08/22/23 documented as of this encounter
--- OUTSIDE RECORDS SUMMARY | 2025-02-12 15:08 | XMS_ITS | Encounter Summary ---
Author Organization [employer] Address [address] [facility] [address] [place] [address] Care Team Providers Care It Compliance Manager Name Role Phone Arpita Saravia MD Primary Care Provider [phone] Eddie Pimentel Unavailable Unavailable Reason for Visit * Reason Onset Date Comments triage 11/03/2022 Encounter Details Date Type Department Care Team ([facility] st Contact Info) Description 11/03/2022 Telephone [facility] MEDICINE [address] [place] [address] Arpita Saravia MD [address] [place], [place] [phone] triage Social History Tobacco Use Types Packs/Day [...] Pt states when she went to the [facility] to pick this up was told by [...] Info) Description 04/29/2025 11:30 AM EDT Telemedicine [facility] MED & PEDS [address] [place] [address] Arpita Saravia MD [address] [place] [address] documented as of this encounter Visit Diagnoses Not on filedocumented in this encounter Additional Health Concerns Assessment Noted Time PHQ-9 Depression Total Score: 15 023 8:55 AM EST documented as of this encounter Care Teams It Compliance Manager Relationship Specialty Start Date End Date Arpita Saravia MD [address] [place] [address] PCP - General Family Medicine 10/08/13 Eddie Pimentel FNP [address] [place] [address] Nurse Practitioner Family Medicine 08/22/23 documented as of this encounter
--- OUTSIDE RECORDS SUMMARY | 2025-02-12 15:08 | XMS_ITS | Encounter Summary ---
Author Organization [employer] Address [address] [facility] 7 [place] [address] Care Team Providers Care Roof Fixer Name Role Phone Arpita Saravia MD Primary Care Provider [phone] Eddie Pimentel Unavailable Unavailable Reason for Visit * Reason Onset Date Comments Results 10/17/2024 Encounter Details Date Type Department Care Team ([facility] st Contact Info) Description 10/17/2024 Telephone [facility] MEDICINE [address] [place] [address] Arpita Saravia MD [address] [place], [place] [phone] Results Social History Tobacco Use Types Packs/Day [...] results: labs Date when done: 10/16/23 Facility: [facility] documented in this encounter Plan of Treatment Upcoming Encounters Date Type Department Care Team (Late st Contact Info) Description 04/29/2025 11:30 AM EDT Telemedicine [facility] MED & PEDS [address] [place] [address] Arpita Saravia MD [address] [place] [address] documented as of this encounter Visit Diagnoses Not on filedocumented in this encounter Additional Health Concerns Assessment Noted Time PHQ-9 Depression Total Score: 6 02/19/20 3:02 PM EDT documented as of this encounter Care Teams Roof Fixer Relationship Specialty Start Date End Date Arpita Saravia MD [address] [place] [phone] PCP - General Family Medicine 10/08/13 Eddie Pimentel FNP [address] [place] [address] Nurse Practitioner Family Medicine 08/22/23 documented as of this encounter
--- OUTSIDE RECORDS SUMMARY | 2025-02-12 15:09 | XMS_ITS | Clinical Summary ---
Author Organization [employer] Address [address] [facility] [address]t [place] [address] Care Team Providers Care Picker And Packer Name Role Phone Aprita Saravia MD Primary Care Provider [phone] Eddie Pimentel Unavailable Unavailable Allergies Active Allergy [...] will transfer her care to the new [facility] psychiatric prescriber. Any issues or concerns, [...] controlled. 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 F/U with me in 6-8 weeks. She agrees with the plan. Assessment & Plan (03/15/2023 9:46 AM EDT): Assessment: Patient with revious hx of Bipolar Dx and MH treatment that was referred to [facility] Consult for exacerbation of depression and anxiety. 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 She indicates that she has been experiencing exacerbation of sxs, specially feeling down and unmotivated. She indicates that main stressors in the past year have been related to changes at work. Whitley indicated that although adhering to medication, she can feel sxs worsening. Patient will benefit from follow up [facility] brief intervention to further explore needs [...] response to SSRIs ( priyanka ). She has a negative approach to [...] medication. Discussed options for treatment of BPD: Raemon, antiepileptics, antipsychotics. She will increase to Abilify 30 mg daily, continue other meds for now. F/U 4-6 weeks. She agrees with the plan. She is in a long-term monogamous relationship with single AMAB partner who has vasectomy so at negligible risk of unintended . Right ear pain 02/28/2018 [place] 12/24/2012 Encounters Date Type Department Care Team Description 02/04/2025 11:15 AM EDT Telemedicine [facility] CHC MED & PEDS [address] [place] [address] Arpita Saravia MD Fatigue, unspecified type (Primary Dx); Mild intermittent asthma without complication; Gastrointestinal food sensitivity 02/04/2025 Travel 12/13/2024 Population Health Risk Score [facility] () Department [address] [phone] Provider, Population Health Generic 11/25/2024 Telephone [facility] MEDICINE [address] [place], [place] [phone] Sarah Godoy RN Results from Last 3 Months Immunizations Immunization Administration Dates Next Due Pfizer Covid-19 Vaccine [...] Info) Description 04/29/2025 11:30 AM EDT Telemedicine [facility] CHC MED & PEDS [address] [place] [address] Arpita Saravia MD [address] [place] [address] Health Maintenance Due Date Last Done Comments [...] patient's age to complete this topic Meningococcal B Vaccine Aged Out No l onger eligible based on patient's age to complete [...] EST Narrative 11/22/2024 11:50 AM EST ? [facility] ?[address] [facility] ? [place] [address] ? Ultrasound Report ? Signed ? Patient: Juares,Whitley ?MR#: [id number] ?? [id number] ? : 1985 ?Acct:[id number] ? Age/Sex: 39 / F ?ADM Date: 11/21/24 ? Loc: HO.HMGCX ? Attending Dr: Jojo Sen GRANTS OFFICER ? Ordering Physician: Jojo Sen GRANTS OFFICER ?? Date of Service: 11/21/24 ?? Procedure(s): US abdomen limited ?? Accession Number(s): [id number] ? cc: Arpita Saravia MD; Jojo Sen GRANTS OFFICER ? CLINICAL HISTORY: PERSISTENT VAGUE RLQ PAIN [...] DD/ 1149 ? TD/TT: 11/22/24 1149 ? Proof Machine Operator: ? Procedure Note Donedgardorajivter, Image - 11/22/2024 [facility] Adult Primary Care [address] [place] [address] [place] [address] Ultrasound Report Signed Patient: Whitley JuaresMR#: [id number] : 1985Acct:[id number] Age/Sex: 39 / FADM Date: 11/21/24 Loc: .HMGCX Attending Dr: Jojo Sen [facility] Ordering Physician: Jojo Sen GRANTS OFFICER Date of Service: 11/21/24 Procedure(s): US abdomen limited Accession Number(s): [id number] cc: Arpita Saravia MD; [facility] CLINICAL HISTORY: PERSISTENT VAGUE RLQ PAIN US [...] 11/22/24 1150 DD/ 1149 TD/TT: 11/22/24 1149 Proof Machine Operator: [facility] IMG US PROCEDURES Final Resul t * [...] a test for HCV RNA (test code 36114) is suggested. ?? For additional information please refer to http://DeRev.CHOBOLABS/faq/ILD08d7 (This link is being provided for informational/ educational purposes only.) ?? 08/09/2022 9:23 AM EST Margarita Tobin CNM HISTORICAL/NON ORDERABLE LABS Final Result CONVERTED LEGACY LABS * THINPREP TIS PAP AND HPV mRNA E6/E7, CT/NG, TRICH (05/03/2022 1:17 PM EDT) Chlamydia trachomatis RNA, TMA, Urogenital NOT DETECTED NOT DETECTED [facility] Clinical Information: None given [facility] COMMENT SEE COMMENT [facility] Comment: The analytical performance characteristics of this assay, when used to test SurePath(TM) specimens have been determined by [employer] The modifications have not been cleared or approved by the FDA. This assay has been validated pursuant to the CLIA regulations and is used for clinical purposes. ?? For additional information, please refer to https://DeRev.CHOBOLABS/faq/KNP165 (This link is being provided for information/ [...] been evaluated with computer assisted technology. [facility] Manager Asset Management: SEE COMMENT [facility] Comment: CLAIRE ROSSI(ASCP) CT screening location: [address] ??[address] HPV nRNA E6/E7 Not Detected Not Detected [facility] Comment: Methodology: Grant Administrator-Mediated Amplification This assay detects E6/E7 viral messenger RNA (mRNA) from 14 high-risk HPV types (16,18,31,33,35,39,45,51,52,56,58,59,66,68). ? Cervical sources are required for HPV testing. If a vaginal source from a patient who has had a total hysterectomy with removal of cervix was ?? submitted, please contact the testing laboratory for alternative testing options. ?? For additional information, please refer to http://DeRev.CHOBOLABS/faq/UFT816s5 (This link if provided for information/ educational purposes only.) Interpretation/Re sult: Negative for intraepithelial lesion or malignancy. [facility] LMP: [phone] [facility] Neisseria gonorrhoeae RNA, TMA, Urogenital NOT DETECTED NOT DETECTED [facility] Prev. BX: NONE GIVEN [facility] Prev. PAP: NONE GIVEN [facility] SOURCE: None given [facility] Statement Of Adequacy: SEE COMMENT [facility] Comment: Satisfactory for evaluation. Endocervical/transformation zone component present. Trichomonas vaginalis, QL, TMA, PAP Vial NOT DETECTED NOT DETECTED [facility] Comment: The analytical performance characteristics of this assay have been determined by [employer] The modifications have not been cleared or approved by the FDA. This assay has been validated pursuant to the CLIA regulations and is used for clinical purposes. ?? For additional information, please refer to http://education.CHOBOLABS/ faq/Trichomonastma (This link is being provided for information/ educational purposes only.) ?? 05/03/2022 1:17 PM EDT Margarita Tobin CNM LAB PATHOLOGY ORDERABLES Final Result [facility] [address] from Last 3 Months or Most Recently Relevant to Health Maintenance [place] [address] C3 [employer] MEDICAID STAND ADULT Care Teams Picker And Packer Relationship Specialty Start Date End Date Arpita Saravia MD [address] [place] [address] PCP - General Family Medicine 10/08/13 Eddie Pimentel FNP [address] [place] [address] Nurse Practitioner Family Medicine 08/22/23
[2025-02-12 15:19] VITALS: BP 124/80; PULSE 74; O2SAT 100; BMI 22.1
== END 2025-02-12 15:34 | disposition home or self-care (01) ==
LOC: HO.HGI 15:06
PROVIDERS: PCP Student in an Organized Health Care Education/Training Program; Visit Provider Nurse Practitioner Family
DX: K59.04 Chronic idiopathic constipation (principal); R14.0 Abdominal distension (gaseous); R10.13 Epigastric pain; K21.9 Gastro-esophageal reflux disease without esophagitis
CPT/HCPCS: 99204

== ENCOUNTER → 2025-02-12 15:06 | Outpatient (BNVA) | payer MEDICAID, SELFPAY | PROVIDERS: PCP Student in an Organized Health Care Education/Training Program; Visit Provider Nurse Practitioner Family | DX: K59.04 Chronic idiopathic constipation (principal); K21.9 Gastro-esophageal reflux disease without esophagitis; R14.0 Abdominal distension (gaseous); R10.13 Epigastric pain | CPT/HCPCS: 99212 ==

== ENCOUNTER 2025-03-11 14:57 | Outpatient (AMB) | payer MEDICAID, SELFPAY ==
[2025-03-11 15:21] VITALS: BP 130/76; PULSE 69; O2SAT 98; BMI 21.7
--- NOTE | 2025-03-11 15:21 | MHC.OFFVIS ---
Vital Signs 03/11/25 15:21 Height 5 ft 3 in Weight 122 lb 8 oz BMI 21.7 BP 130/76 Blood Pressure Location Rt brachial Position Sitting Pulse 69 Pulse Source Pulse Oximeter Pulse Oximetry (%) 98 Oxygen Delivery Method Room Air Intake Visit Reasons: dyspnea Allergies levofloxacin Adverse Reaction (Unknown, Verified 03/11/25 15:24) Abdominal Pain HPI HPI dyspnea: Details: Whitley is a pleasant 39 year old female, former smoker, quit 10+ years ago with less than 10 pack year history with underlying asthma and anxiety. She had been previously using albuterol MDI frequently with good effect and at the last visit was started on Breo. She reported significant improvement of symptoms with Breo and no use of albuterol however can not tolerate the dry powder inhaler and is requesting an alternative. She denies any visits to urgent care hospitalizations related to respiratory distress since last visit. 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 Review of Systems Const Denies chills, Denies excessive sweating, Denies fever(s), Denies headache(s) and Denies night sweats Eyes Denies dry eyes, Denies irritation and Denies itchy eyes ENT Reports Normal hearing present, Denies headache(s), Denies nasal congestion, Denies nasal discharge, Denies post nasal drip and Denies sore throat Card Denies chest pain, Denies chest pain at rest, Denies chest pain with activity, Denies claudication, Denies leg edema, Denies dyspnea, Denies dyspnea on exertion, Denies orthopnea and Denies paroxysmal nocturnal dyspnea Resp Denies chest congestion, Denies cough, Denies excessive phlegm production, Denies pain on inspiration, Denies pain with cough, Denies dyspnea, Denies dyspnea on exertion, Denies stridor and Denies wheezing Musc Denies myalgias Neuro Reports Normal hearing present and Denies headache(s) Endo Denies excessive sweating Mann/Lymph Denies lymphadenopathy Aller/Immun Denies itchy eyes, Denies seasonal rhinorrhea and Denies wheezing Physical Exam Vital Signs: Last Vital Signs Pulse 69 03/11/25 15:21 BP 130/76 03/11/25 15:21 Pulse Ox 98 03/11/25 15:21 Oxygen Delivery Method Room Air 03/11/25 15:21 BMI result Body Mass Index 21.7 Const General: cooperative, healthy appearing, comfortable, no acute distress, well developed and alert Orientation/consciousness: patient oriented x3 Limitations: no limitations HEENT Head: Yes normal to inspection, Yes normocephalic and Yes atraumatic Ears: hearing grossly normal bilaterally and external ears normal Eyes General: appearance normal, both eyes and all related structures Eyelids: Yes eyelids normal Sclerae: sclerae normal EOM: EOMs intact bilaterally Neck Neck: Yes normal visual inspection and Yes no lymphadenopathy Lymphatic: no lymphadenopathy noted Chest Chest palpation & inspection: normal inspection of the chest Resp Effort & Inspection: normal respiratory effort, able to speak in complete sentences, no audible wheezes, no cough, no stridor, not tachypneic, no tripod positioning and no use of accessory muscles Auscultation: clear to auscultation bilaterally Cardio Jugular venous distension: no JVD Rate: regular rate Rhythm: regular rhythm Skin Other: warm, dry General skin exam: no rashes or lesions noted Neuro General: patient oriented x3 Cranial nerves: Yes Normal hearing present Cognition (Neuro): normal cognition Gait exam (Neuro): Normal gait present Extrem General: Yes normal to inspection, Yes capillary refill normal, Yes no clubbing, cyanosis or edema and Yes no pedal edema Psych Appearance: grossly normal and well kempt Speech and movement: Normal speech and movement present and Clear speech present Affect: normal affect Attitude: cooperative Thought process: Normal thought process present Thought content: Normal thought content present Insight: Good insight present (Psych) Judgement: Good judgement present (Psych) Assessment & Plan Assessment & Plan (1) Asthma: Code(s): J45.909 - Unspecified asthma, uncomplicated Category: Medical (2) Dyspnea on exertion: Code(s): R06.09 - Other forms of dyspnea Category: Medical Plan Whitley was started on Breo with good control of respiratory symptoms however having difficulties tolerating dry powder inhaler. Will switch to Advair HFA. She is aware to call if unable to obtain. All questions were answered and patient is in agreement of plan. Will follow up in 3 months or sooner if needed. Medications: New fluticasone propion-salmeterol 115-21 mcg/actuation (Advair HFA) 2 puffs inhalation Q12H 12 grams 3RF Discontinued fluticasone furoate-vilanterol 100-25 mcg/dose (Breo Ellipta) Discontinued Reason: Patient Completed Course 1 inh inhalation DAILY 60 ea 3RF Coding Level of Care Code Est Pt Level 4 (56323) Diagnoses Asthma J45.909 Dyspnea on exertion R06.09
--- OUTSIDE RECORDS SUMMARY | 2025-03-11 18:02 | XMS_ITS | Encounter Summary ---
Author Organization [employer] Address [address] [place] [address] [place] [address] Care Team Providers Care Youth Accommodation Support Worker Name Role Phone Arpita Saravia MD Primary Care Provider [phone] Eddie Pimentel Unavailable Unavailable Reason for Visit * Reason Onset Date Comments triage 11/03/2022 Encounter Details Date Type Department Care Team ([facility] st Contact Info) Description 11/03/2022 Telephone [facility] MEDICINE [address] [place] [address] Arpita Saravia MD [address] [place], [place] [phone] triage Social History Tobacco Use Types Packs/Day [...] Pt states when she went to the [facility] to pick this up [...] Info) Description 04/29/2025 11:30 AM EDT Telemedicine [facility] MED & PEDS [address] [place] [address] Arpita Saravia MD [address] [place] [address] documented as of this encounter Visit Diagnoses Not on filedocumented in this encounter Additional Health Concerns Assessment Noted Time PHQ-9 Depression Total Score: 15 023 8:55 AM EST documented as of this encounter Care Teams Youth Accommodation Support Worker Relationship Specialty Start Date End Date Arpita Saravia MD [address] [place] [address] PCP - General Family Medicine 10/08/13 Eddie Pimentel FNP [address] [place] [address] Nurse Practitioner Family Medicine 08/22/23 documented as of this encounter
== END 2025-03-11 15:53 | disposition home or self-care (01) ==
LOC: HO.HPSW 14:57
PROVIDERS: PCP Student in an Organized Health Care Education/Training Program; Visit Provider Nurse Practitioner Family
DX: J45.909 Unspecified asthma, uncomplicated (principal); R06.09 Other forms of dyspnea
CPT/HCPCS: 99214

== ENCOUNTER → 2025-03-11 14:57 | Outpatient (BNVA) | payer MEDICAID, SELFPAY | PROVIDERS: PCP Student in an Organized Health Care Education/Training Program; Visit Provider Nurse Practitioner Family | DX: J45.909 Unspecified asthma, uncomplicated (principal); R06.09 Other forms of dyspnea | CPT/HCPCS: 99212 ==

== ENCOUNTER 2025-03-17 08:56 | Outpatient (REF) | payer MEDICAID, SELFPAY ==
--- NOTE | ~2025-03-17 | US_ITS ---
CLINICAL HISTORY: R10.9 - Unspecified abdominal pain US abdomen complete with color Doppler Comparison: None Findings: The visualized pancreas, aorta, and inferior vena cava are unremarkable. Liver normal size and echotexture. Right lobe 15.3 cm length. No focal hepatic masses. Common duct 2.1 mm diameter. Physiologic distention of the gallbladder. No gallstones or sludge. No gallbladder wall thickening. No pericholecystic fluid. No sonographic Mansfield sign. Right kidney normal size, 10.6 cm in length. Normal cortical width and echotexture. No solid or cystic renal masses. No nephrolithiasis. No hydronephrosis. Left kidney normal, 11.1 cm in length. Normal cortical width and echotexture. No solid or cystic renal masses. No nephrolithiasis. No hydronephrosis. Spleen measures 10.0 cm. No splenic masses. No ascites. No lymphadenopathy. Impression: 1. Normal abdominal ultrasound. This document has been electronically signed by: Frank Tinajero MD on 03/18/2025 08:25:29
--- OUTSIDE RECORDS SUMMARY | 2025-03-17 09:25 | XMS_ITS | Encounter Summary ---
Author Organization [employer] Address [address] [place] [address] [place] [address] Care Team Providers Care All Source Intelligence Name Role Phone Arpita Saravia MD Primary Care Provider [phone] Eddie Pimentel Unavailable Unavailable Reason for Visit * Reason Onset Date Comments triage 11/03/2022 Encounter Details Date Type Department Care Team ([facility] st Contact Info) Description 11/03/2022 Telephone [facility]INE [address] [place] [address] Arpita Saravia MD [address] [place], [place] [phone] triage Social History Tobacco Use Types Packs/Day [...] Pt states when she went to the [facility] to pick this up was [...] 04/29/2025 11:30 AM EDT Telemedicine [facility] MED & PEDS [address] [place] [address] Arpita Saravia MD [address] [place] [address] documented as of this encounter Visit Diagnoses Not on filedocumented in this encounter Additional Health Concerns Assessment Noted Time PHQ-9 Depression Total Score: 15 023 8:55 AM EST documented as of this encounter Care Teams All Source Intelligence Relationship Specialty Start Date End Date Arpita Saravia MD [address] [place] [address] PCP - General Family Medicine 10/08/13 Eddie Pimentel FNP [address] [place] [address] Nurse Practitioner Family Medicine 08/22/23 documented as of this encounter
== END 2025-03-17 08:57 | disposition home or self-care (01) ==
LOC: HO.HMGCX 08:56
PROVIDERS: PCP Student in an Organized Health Care Education/Training Program; Visit Provider Nurse Practitioner Family
DX: R10.11 Right upper quadrant pain (principal); R10.9 Unspecified abdominal pain
CPT/HCPCS: 76700

== ENCOUNTER → 2025-03-17 08:59 | Outpatient (BNV) | payer MEDICAID, SELFPAY | PROVIDERS: PCP Student in an Organized Health Care Education/Training Program; Visit Provider Radiology Diagnostic Radiology | DX: R10.9 Unspecified abdominal pain (principal) | CPT/HCPCS: 76700 ==

== ENCOUNTER → 2025-04-16 08:03 | Outpatient (REF) | payer MEDICAID, SELFPAY ==
--- NOTE | ~2025-04-16 | NM_ITS ---
EXAMINATION: NM HEPATOBILIARY WITH PHARM HISTORY: R10.11 - Right upper quadrant pain. TECHNIQUE: An hepatobiliary scan was performed following the intravenous administration of 5.0 mCi technetium 99m-mebrofenin. Sequential images were obtained over 1 hour. Subsequently, the patient received 1.1 microgram of IV CCK over 30 minutes and additional imaging was performed. COMPARISON: Correlation is made with an abdominal ultrasound dated 03/17/2025. FINDINGS: There is normal uptake and excretion of the radiopharmaceutical by the liver. Gallbladder activity is noted at 16 minutes. Common bile duct activity is seen at 14 minutes. Small bowel activity is noted at 48 minutes. After the administration of intravenous CCK, the estimated gallbladder ejection fraction is 89%, which is within normal limits. NM/NM hepatobiliary w pharm IMPRESSION: Unremarkable hepatobiliary scan. Normal gallbladder ejection fraction. Electronically signed by: Jose Maria Melendez MD 04/16/2025 10:25 AM EDT
--- OUTSIDE RECORDS SUMMARY | 2025-04-16 08:05 | XMS_ITS | Encounter Summary ---
Author Organization [employer] Address [address] [place] [address] [place] [address] Care Team Providers Care Placement Director Name Role Phone Arpita Saravia MD Primary Care Provider [phone] Eddie Pimentel STEERER Unavailable Unavailable Reason for Visit * Reason Onset Date Comments triage 11/03/2022 Encounter Details Date Type Department Care Team ([facility] st Contact Info) Description 11/03/2022 Telephone [facility] MEDICINE [address] [place] [address] Arpita Saravia MD [address] [place], [place] [phone] triage Social History Tobacco Use Types Packs/Day [...] Pt states when she went [facility] to pick this up was told [...] Info) Description 04/29/2025 11:30 AM EDT Telemedicine [facility] MED & PEDS [address] [place] [address] Arpita Saravia MD [address] [place] [address] documented as of this encounter Visit Diagnoses Not on filedocumented in this encounter Additional Health Concerns Assessment Noted Time PHQ-9 Depression Total Score: 15 023 8:55 AM EST documented as of this encounter Care Teams Placement Director Relationship Specialty Start Date End Date Arpita Saravia MD [address] [place] [address] PCP - General Family Medicine 10/08/13 Eddie Pimentel FNP [address] [place] [address] Nurse Practitioner Family Medicine 08/22/23 documented as of this encounter
== END ==
LOC: HO.NUCMED 08:03
PROVIDERS: PCP Student in an Organized Health Care Education/Training Program; Visit Provider Nurse Practitioner Family
DX: R10.11 Right upper quadrant pain (principal)
CPT/HCPCS: 78227; A9537; J2805

== ENCOUNTER → 2025-04-16 08:05 | Outpatient (BNV) | payer MEDICAID, SELFPAY | PROVIDERS: PCP Student in an Organized Health Care Education/Training Program; Visit Provider Radiology Diagnostic Radiology | DX: R10.11 Right upper quadrant pain (principal) | CPT/HCPCS: 78227 ==

== ENCOUNTER 2025-05-05 14:30 | Outpatient (AMB) | payer MEDICAID, SELFPAY ==
--- NOTE | 2025-05-05 14:32 | A.OFFVIS_ITS ---
Vital Signs 05/05/25 14:36 Height 5 ft 3 in Weight 123 lb BMI 21.8 BP 126/82 Blood Pressure Location Rt brachial Position Sitting Pulse 78 Pulse Source Pulse Oximeter Pulse Oximetry (%) 99 Oxygen Delivery Method Room Air Intake Visit Reasons: 2-3 mo f/u Intake Note: Est pt for mgmt of chronic abd pain. CC; C.O. persistence of chronic pain. No changes since last visit. Workers Compensation Attorney Required: No Accompanied by: Self / Same As Patient Allergies levofloxacin Adverse Reaction (Unknown, Verified 03/11/25 15:24) Abdominal Pain HPI HPI 2-3 mo f/u: Details: LAST VISIT: Chronic idiopathic constipation Postprandial abdominal bloating Abdominal pain GERD (gastroesophageal reflux disease) Plan Patient was encouraged to avoid dietary triggers only time snacking. Staying up right for minimum 3 hours after meals discussed with patient. Patient will be sent for upper GI with barium swallow to evaluate for reflux. For now patient will not be placed on any PPI yet. Patient was encouraged to increase fiber intake and take [id number] fiber supplements. Increase fluid intake and activity to promote better bowel motility. Patient will follow-up in 3-4 months, sooner on as needed basis. She is agreeable to this plan and verbalizes understanding of instructions. She was given the opportunity to ask questions and all questions answered. ? Thank you for allowing me to participate in her care Orders US abdomen complete 02/12/25 R10.9, R10.11 FL upper GI w Ba Swallow 02/12/25 K21.9 TODAY'S VISIT: Patient is here today for follow-up and to discuss ultrasound results. Patient had normal ultrasound, however she still continued with right upper quadrant pain. HIDA scan was done which did not show any acute findings. Patient reports that her pain in right upper quadrant is not only after meals but somet imes it feels like cramping and is there during the night time as well. Patient reports feeling tender when she touches the area. Patient does report to be feeling bloated and gassy. Multiple bowel movements. Patient reports that sometimes she can not even finish breakfast without running to the bathroom. Patient is usually drinking coffee with cream and sugar, toast with avocado. She is using sourdough bread. Patient denies any nausea or vomiting. Reports that she started taking Benefiber 1-2 gummies today and then became severely constipated so she stopped that. Patient denies melena, hematochezia, unintentional weight loss or ribbon like stools. 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 Review of Systems Const Denies weight gain and Denies weight loss ENT Reports no additional complaints, Denies dysphagia and Denies odynophagia Card Reports no additional complaints Resp Reports no additional complaints GI Reports abdominal pain (RUQ), Denies belching, Denies melena, Reports bloating, Denies change in bowel habits, Reports constipation, Denies dysphagia, Denies excessive flatus, Reports dyspepsia, Reports heartburn, Denies diarrhea, Reports loose stools, Reports nausea (Occasional), Denies odynophagia and Denies vomiting Reports no additional complaints Musc Reports no additional complaints Neuro Reports no additional complaints Psych Reports no additional complaints Endo Reports no additional complaints Physical Exam Vital Signs: Last Vital Signs Pulse 78 05/05/25 14:36 BP 126/82 05/05/25 14:36 Pulse Ox 99 05/05/25 14:36 Oxygen Delivery Method Room Air 05/05/25 14:36 BMI result Body Mass Index 21.8 Const General: healthy appearing, no acute distress and well developed Nutritional Appearance: well nourished Orientation/consciousness: patient oriented x3 Resp Effort & Inspection: normal respiratory effort, able to speak in complete sentences, no tracheal deviation and symmetric chest movement Auscultation: clear to auscultation bilaterally Cardio Rate: regular rate GI Inspection: Yes normal to inspection and No distended Palpation (GI): Soft to palpation, not firm, nontender and No hepatosplenomegaly present Auscultation: normal bowel sounds General: Yes no CVA tenderness Back/Spine/Pelvis Back: no CVA tenderness Skin General skin exam: elasticity normal, turgor normal and dry skin Neuro General: patient oriented x3 Psych Appearance: grossly normal Mental Status: mental status grossly normal Results Reviewed Results Reviewed: ABDOMINAL ULTRASOUND Findings: The visualized pancreas, aorta, and inferior vena cava are unremarkable. Liver normal size and echotexture. Right lobe 15.3 cm length. No focal hepatic masses. Common duct 2.1 mm diameter. Physiologic distention of the gallbladder. No gallstones or sludge. No gallbladder wall thickening. No pericholecystic fluid. No sonographic Mansfield sign. Right kidney normal size, 10.6 cm in length. Normal cortical width and echotexture. No solid or cystic renal masses. No nephrolithiasis. No hydronephrosis. Left kidney normal, 11.1 cm in length. Normal cortical width and echotexture. No solid or cystic renal masses. No nephrolithiasis. No hydronephrosis. Spleen measures 10.0 cm. No splenic masses. No ascites. No lymphadenopathy. Impression: 1. Normal abdominal ultrasound. HIDA SCAN FINDINGS: There is normal uptake and excretion of the radiopharmaceutical by the liver. Gallbladder activity is noted at 16 minutes. Common bile duct activity is seen at 14 minutes. Small bowel activity is noted at 48 minutes. After the administration of intravenous CCK, the estimated gallbladder ejection fraction is 89%, which is within normal limits. NM/NM hepatobiliary w pharm IMPRESSION: Unremarkable hepatobiliary scan. Normal gallbladder ejection fraction. Assessment & Plan Assessment & Plan (1) Gastroesophageal reflux disease: Code(s): K21.9 - Gastro-esophageal reflux disease without esophagitis Qualifiers: Esophagitis presence: esophagitis presence not specified Qualified Code(s): K21.9 - Gastro-esophageal reflux disease without esophagitis (2) Chronic idiopathic constipation: Code(s): K59.04 - Chronic idiopathic constipation (3) Postprandial abdominal bloating: Code(s): R14.0 - Abdominal distension (gaseous) (4) Abdominal pain: Code(s): R10.9 - Unspecified abdominal pain Qualifiers: Abdominal location: right upper quadrant Qualified Code(s): R10.11 - Right upper quadrant pain (5) RUQ abdominal pain: Code(s): R10.11 - Right upper quadrant pain Plan Patient will start taking fiber in will try senna in the evening. Increase fluid intake and activity to promote better bowel motility. Patient pain most likely related to gas trapping in the area. Not always related to meals. Patient will start low FODMAP diet. List of food recommended as well as list of food to avoid given to patient. Patient will follow-up in the office in 2-3 months, sooner on as needed basis. She is agreeable to this plan and verbalizes understanding of instructions. She was given the opportunity to ask questions and all questions answered. Thank you for allowing me to participate in her care Medications: New sennosides (Natural Senna Laxative) 17.2 mg (2 x 8.6 mg) PO BEDTIME 60 tabs 3RF constipation K59.00 - Constipation, unspecified Coding Level of Care Code Est Pt Level 4 (30373) Complex EM visit Add On G2211 Diagnoses Gastroesophageal reflux disease, unspecified whether esophagitis present K21.9 Esophagitis presence: esophagitis presence not specified Chronic idiopathic constipation K59.04 Postprandial abdominal bloating R14.0 Right upper quadrant abdominal pain R10.11 Abdominal location: right upper quadrant RUQ abdominal pain R10.11 Time Spent (min) 35 Comment 25 minutes spent with patient and additional 10 minutes spent reviewing her records
--- OUTSIDE RECORDS SUMMARY | 2025-05-05 14:34 | XMS_ITS | Encounter Summary ---
Author Organization [employer] Address [address] [place] [address] [place] [address] Care Team Providers Care Radiographer Technologist Name Role Phone Arpita Saravia MD Primary Care Provider [phone] Eddie Pimentel Unavailable Unavailable Reason for Visit * Reason Onset Date Comments triage 11/03/2022 Encounter Details Date Type Department Care Team ([facility] st Contact Info) Description 11/03/2022 Telephone [facility] [address] [place] [address] Arpita Saravia MD [address] [place], [place] [phone] triage Social History Tobacco Use Types Packs/Day [...] Pt states when she went to the pharmac to pick this up was told by [...] documented in this encounter Plan of Treatment Not on file documented as of this encounter Visit Diagnoses Not on filedocumented in this encounter Additional Health Concerns Assessment Noted Time PHQ-9 Depression Total Score: 15 023 8:55 AM EST documented as of this encounter Care Teams Radiographer Technologist Relationship Specialty Start Date End Date Arpita Saravia MD [address] [place] [address] PCP - General Family Medicine 10/08/13 Eddie Pimentel FNP [address] [place] [address] Nurse Practitioner Family Medicine 08/22/23 documented as of this encounter
[2025-05-05 14:36] VITALS: BP 126/82; PULSE 78; O2SAT 99; BMI 21.8
== END 2025-05-05 14:57 | disposition home or self-care (01) ==
LOC: HO.HGI 14:31
PROVIDERS: PCP Student in an Organized Health Care Education/Training Program; Visit Provider Nurse Practitioner Family
DX: K21.9 Gastro-esophageal reflux disease without esophagitis (principal); K59.04 Chronic idiopathic constipation; R14.0 Abdominal distension (gaseous); R10.11 Right upper quadrant pain
CPT/HCPCS: 99214

== ENCOUNTER → 2025-05-05 14:30 | Outpatient (BNVA) | payer MEDICAID, SELFPAY | PROVIDERS: PCP Student in an Organized Health Care Education/Training Program; Visit Provider Nurse Practitioner Family | DX: K21.9 Gastro-esophageal reflux disease without esophagitis (principal); K59.04 Chronic idiopathic constipation; R10.11 Right upper quadrant pain | CPT/HCPCS: 99212 ==

== ENCOUNTER 2025-06-11 15:04 | Outpatient (AMB) | payer MEDICAID, SELFPAY ==
[2025-06-11 15:07] VITALS: BP 112/78; PULSE 82; O2SAT 98; BMI 22.0
--- NOTE | 2025-06-11 15:07 | A.OFFVIS_ITS ---
Vital Signs 06/11/25 15:07 Height 5 ft 3 in Weight 124 lb BMI 22.0 BP 112/78 Blood Pressure Location Rt brachial Position Sitting Pulse 82 Pulse Source Pulse Oximeter Pulse Oximetry (%) 98 Oxygen Delivery Method Room Air Intake Visit Reasons: dyspnea Allergies levofloxacin Adverse Reaction (Unknown, Verified 06/11/25 15:11) Abdominal Pain HPI HPI dyspnea: Details: Whitley is a pleasant 40 year old female, former less than 10 pack year smoker, quit 10+ years ago with underlying asthma and anxiety. Since the last visit she was switched from Breo to Advair, as she could not tolerate the DPI, however she feels the Advair is not as effective. She does admit to not using the Advair consistently, now using albuterol 1-3 times per day for more notable dyspnea. She does endorse an allergic contribution however only using Claritin PRN. She denies any visits to urgent care hospitalizations related to respiratory distress since last visit. 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 Review of Systems Const Denies chills, Denies excessive sweating, Denies fever(s), Denies headache(s) and Denies night sweats Eyes Denies dry eyes, Denies irritation and Denies itchy eyes ENT Reports Normal hearing present, Denies headache(s), Denies nasal congestion, Denies nasal discharge, Denies post nasal drip and Denies sore throat Card Denies chest pain, Denies chest pain at rest, Denies chest pain with activity, Denies claudication, Denies leg edema, Denies dyspnea, Denies orthopnea and Denies paroxysmal nocturnal dyspnea Resp Denies chest congestion, Denies cough, Denies excessive phlegm production, Denies pain on inspiration, Denies pain with cough, Denies dyspnea, Denies stridor and Denies wheezing Musc Denies myalgias Neuro Reports Normal hearing present and Denies headache(s) Endo Denies excessive sweating Mann/Lymph Denies lymphadenopathy Aller/Immun Denies itchy eyes and Denies wheezing Physical Exam Vital Signs: Last Vital Signs Pulse 82 06/11/25 15:07 BP 112/78 06/11/25 15:07 Pulse Ox 98 06/11/25 15:07 Oxygen Delivery Method Room Air 06/11/25 15:07 BMI result Body Mass Index 22.0 Const General: cooperative, healthy appearing, comfortable, no acute distress, well developed and alert Orientation/consciousness: patient oriented x3 Limitations: no limitations HEENT Head: Yes normal to inspection, Yes normocephalic and Yes atraumatic Ears: hearing grossly normal bilaterally and external ears normal Eyes General: appearance normal, both eyes and all related structures Eyelids: Yes eyelids normal Sclerae: sclerae normal EOM: EOMs intact bilaterally Neck Neck: Yes normal visual inspection and Yes no lymphadenopathy Lymphatic: no lymphadenopathy noted Chest Chest palpation & inspection: normal inspection of the chest Resp Effort & Inspection: normal respiratory effort, able to speak in complete sentences, no audible wheezes, no cough, no stridor, not tachypneic, no tripod positioning and no use of accessory muscles Auscultation: clear to auscultation bilaterally Cardio Jugular venous distension: no JVD Rate: regular rate Rhythm: regular rhythm Skin Other: warm, dry General skin exam: no rashes or lesions noted Neuro General: patient oriented x3 Cranial nerves: Yes Normal hearing present Cognition (Neuro): normal cognition Gait exam (Neuro): Normal gait present Extrem General: Yes normal to inspection, Yes capillary refill normal, Yes no clubbing, cyanosis or edema and Yes no pedal edema Psych Appearance: grossly normal and well kempt Speech and movement: Normal speech and movement present and Clear speech present Affect: normal affect Attitude: cooperative Thought process: Normal thought process present Thought content: Normal thought content present Insight: Good insight present (Psych) Judgement: Good judgement present (Psych) Assessment & Plan Assessment & Plan (1) Asthma: Code(s): J45.909 - Unspecified asthma, uncomplicated Category: Medical (2) Dyspnea on exertion: Code(s): R06.09 - Other forms of dyspnea Category: Medical Plan Whitley reports suboptimal control with the use of Advair however using inconsistently. Discussed importance of compliance with medication to fully assess effectiveness. Advised to use consistently over the next few weeks and if she continues to have suboptimal control she is willing to retrial Breo, as she noted better control of respiratory symptoms with use. There also may be an allergic component contributing to worsening symptoms, encouraged use of antihistamine. All questions were answered and patient is in agreement of plan. Will follow up in 3 months or sooner if needed. Coding Level of Care Code Est Pt Level 4 (52354) Diagnoses Asthma J45.909 Dyspnea on exertion R06.09
--- OUTSIDE RECORDS SUMMARY | 2025-06-11 18:13 | XMS_ITS | Encounter Summary ---
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
--- OUTSIDE RECORDS SUMMARY | 2025-06-11 18:13 | XMS_ITS | Clinical Summary ---
Author Organization [employer] Address [address] [facility] 7t [place] [address] Care Team Providers Care Front End Mechanic Name Role Phone Arpita Saravia MD Primary Care Provider [phone] Eddie Pimentel Unavailable Unavailable Allergies Active Allergy [...] 3 Active cholecalciferol (Vitamin D-3) 50 MCG (1999 UT) capsule TAKE 1 CAPSULE BY MOUTH EVERY 12 HOURS 180 capsule 1 4 Active busPIRone (Buspar) 5 MG [...] NOSTRIL EVERY DAY 48 mL 4 Active hydrOXYzine pamoate (Vistaril) 25 MG capsule Take 1 capsule (25 mg) by mouth if needed at bedtime for itching or anxiety for up to 10 days. 30 capsule 3 5 Active loratadine (Claritin) 10 MG tablet TAKE 1 TABLET BY MOUTH EVERY DAY IN THE MORNING 90 tablet 1 5 Active Breo Ellipta 100-25 MCG/ACT aerosol powder inhale 1 puff by mouth daily 5 Active Advair HFA 115-21 MCG/ACT inhaler Inhale 2 puffs every 12 (twelve) hours. 5 Active nortriptyline (Pamelor) 10 MG capsule TAKE 1 CAPSULE BY MOUTH EVERY DAY AT BEDTIME FOR 30 DAYS 4 Active phenazopyridine (Pyridium) 100 MG tablet TAKE 1 TABLET ORALLY 3 TIMES A DAY NEEDED FOR PAIN FOR 5 DAYS 4 Active ulipristal (Bere) 30 mg tablet Take 30 mg by mouth. 7 Active lisinopril 2.5 MG tablet Take 1 tablet (2.5 mg) by mouth in the morning. 90 tablet 1 5 Active Nirmatrelvir&Ri tonavir 300/100 (Paxlovid, 300/100,) 20 x 150 MG & 10 x 100MG tablet therapy packIndications :COVID-19 virus infection Take 1 Dose by mouth Once per day. Per package instructions 1 each 5 Active Active Problems Problem Noted Date Diagnosed Date Adjustment disorder with mixed anxiety and depre [...] will transfer her care to the new [facility] psychiatric prescriber. Any issues or concerns, [...] controlled. 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 She indicates that she has been experiencing exacerbation of sxs, specially feeling down and unmotivated. She indicates that main stressors in the past year have been related to changes at work. Whitley indicated that although adhering to medication, she can feel sxs worsening. Patient will benefit from follow up IBH brief intervention to further explore BH needs [...] supportive treatment PLAN: 1. Follow up with [facility]: Recommended for follow-up: 03/14/2023 2. Patient goal is Decrease sxs impacting psychological wellness 3. Behavioral Recommendations a. Follow up IBH consult in a week to further explore BH needs, sxs and potential treatments b. Continue [...] medication. Discussed options for treatment of BPD: Pulpotio Bareas, antiepileptics, antipsychotics. She will increase to Abilify 30 mg daily, continue other meds for now. F/U 4-6 weeks. She agrees with the plan. She is in a long-term monogamous relationship with single AMAB partner who has vasectomy so at negligible risk of unintended . Right ear pain 02/28/2018 Migraine 12/24/2012 Resolved Problems Problem Noted Date Diagnosed Date Resolved Date Upper respiratory tract infection 10/25/2023 04/29/2025 Assessment & Plan (10/25/2023 4:19 PM EST): Patient that presented visit with URI complaints will be provided with Robitussin to treat symptoms. Advised to notify office if symptoms don't improved. Encounters Date Type Department Care Team Description 06/04/2025 3:00 PM EDT Office Visit [facility] MED & PEDS [address] [place] [address] ForneyJojo FNP COVID-19 virus infection 06/04/2025 Travel 06/04/2025 Telephone [facility] MEDICINE [address] [place] [address] Arpita Saravia MD Nurse Triage 04/29/2025 11:30 AM EDT Telemedicine [facility] MED & PEDS [address] [place] [address] Arpita Saravia MD Primary hypertension (Primary Dx); Moderate persistent asthma, unspecified whether complicated 04/29/2025 Travel 04/27/2025 Refill [facility] MED & PEDS [address] [place] [address] Arpita Saravia MD 03/17/2025 Orders Only [facility] External Provider, [facility] from Last 3 Months Immunizations Immunization Administration [...] Sign Reading Time Taken Comments Blood Pressure 137/96 06/04/2025 3:09 PM EDT Pulse 83 06/04/2025 3:09 PM EDT Temperature 37.4 C (99.3 F) 06/04/2025 3:09 PM EDT Respiratory Rate 18 06/04/2025 3:09 PM EDT Oxygen Saturation 99% 06/04/2025 3:09 PM EDT Inhaled Oxygen Concentration - - Weight 56.2 kg (124 lb) 06/04/2025 3:09 PM EDT Height 153 cm (5' 0.25 ) 06/04/2025 3:09 PM EDT Body Mass Index 24.02 06/04/2025 3:09 PM EDT Plan of Treatment Health Maintenance Due Date Last Done Comments HIV Screening 1987 Alcohol/Substance Use Screening 1999 Family Planning (PISQ) 2002 HPV Vaccines (1 - 3-dose series) 2002 Hepatitis B Vaccines (1 of 3 - 19+ 3-dose series) 2006 Pneumococcal Vaccine: Pediatrics (0 to 5 Years) and At-Risk Patients (6 to 49) Years (1 of 2 - PCV) 2006 Dental Oral Exam 03/08/2023 09/06/2022 Dental Prophylaxis 03/08/2023 09/06/2022 Dental X-Ray: Bitewings 09/07/2023 09/06/2022 SDOH Screening 02/16/2024 02/15/2023 Depression Screening 02/18/2025 02/19/2024, 02/19/2024 COVID-19 Vaccine (3 - 2024-2 6 season) 2025 06/05/2021, 05/15/2021 Influenza Vaccine (#1) 2025 Dental X-Ray: Full Mouth 09/07/2025 09/06/2022 Disability Screening 02/04/2026 02/04/2025 Tobacco Screening 06/04/2026 06/04/2025 Cervical Cancer Screening 05/03/2027 HPV/Cotest 05/03/2027 05/03/2022 Pap Smear 05/03/2027 05/03/2022 DTaP/Tdap/Td Vaccines (3 - T d or Tdap) 04/20/2028 04/20/2018, 03/02/2015 Lipid Panel 10/23/2029 10/23/2024, 05/03/2022 Zoster Vaccines (1 of 2) 2037 RSV [...] Procedure Name Priority Date/Time Associated Diagnosis Comments POCT RAPID COVID ANTIGEN Routine 06/04/2025 3:22 PM EDT COVID-19 virus infection POCT INFLUENZA B Routine 06/04/2025 3:21 PM EDT COVID-19 virus infection POCT INFLUENZA A Routine 06/04/2025 3:19 PM EDT COVID-19 virus infection NM HEPATOBILIARY W PHARM Routine 04/16/2025 8:20 AM EDT US ABDOMEN COMPLETE Routine 03/18/2025 8 :25 AM EDT LIPID PANEL, STANDARD Routine 10/23/2024 9:42 AM [...] Recently Relevant to Health Maintenance Results * (ABNORMAL) POCT Rapid Covid-19 BinaxNOW (06/04/2025 3:22 PM EDT) [facility] Rapid COVID Ag Positive QC Media Lot # [id number] Lot# Expiration Date Swab 06/04/2025 3:22 PM EDT [facility] POINT OF CARE TEST ENTER/EDIT ORDERABLES Final Result * POCT Rapid Influenza B OSOM (06/04/2025 3:21 PM EDT) [facility] Rapid Influenza B Ag Negative Negative, Indeterminate QC Media Lot # [id number] Lot# Expiration Date , Swab 06/04/2025 3:21 PM EDT [facility] POINT OF CARE TEST ENTER/EDIT ORDERABLES Final Result * POCT Rapid Influenza A OSOM (06/04/2025 3:19 PM EDT) [facility] Rapid Influenza A Ag Negative Negative, Indeterminate QC Media Lot # [id number] Lot# Expiration Date , Swab Nasopharyngeal structure / Unknown 06/04/2025 3:19 PM EDT [facility] POINT OF CARE TEST ENTER/EDIT ORDERABLES Final Result * NM Hepatobiliary w Pharm (04/16/2025 8:20 AM EDT) Anatomical Region Laterality Modality Body Nuclear Medicine 04/16/2025 8:20 AM EDT Narrative 04/16/2025 10:28 AM EDT [place] [address] Nuclear Medicine Report Signed Patient: Whitley Juares MR#: [id number] 686 : 1985 Acct:[id number] Age/Sex: 39 / F ADM Date: 04/16/25 Loc: JANAE Attending Dr: Mary Dhillon [facility]- Ordering Physician: Mary Dhillon [facility]- Date of Service: 04/16/25 Procedure(s): NM hepatobiliary w pharm Accession Number(s): [id number] cc: Mary Dhillon [facility]-; Arpita Saravia MD EXAMINATION: NM HEPATOBILIARY WITH PHARM HISTORY: R10.11 - Right upper quadrant pain. TECHNIQUE: An hepatobiliary scan was performed following the intravenous administration of 5.0 mCi technetium 99m-mebrofenin. Sequential images were obtained over 1 hour. Subsequently, the patient received 1.1 microgram of IV CCK over 30 minutes and additional imaging was performed. COMPARISON: Correlation is made with an abdominal ultrasound dated 03/17/2025. FINDINGS: There is normal uptake and excretion of the radiopharmaceutical by the liver. Gallbladder activity is noted at 16 minutes. Common bile duct activity is seen at 14 minutes. Small bowel activity is noted at 48 minutes. After the administration of intravenous CCK, the estimated gallbladder ejection fraction is 89%, which is within normal limits. NM/NM hepatobiliary w pharm IMPRESSION: Unremarkable hepatobiliary scan. Normal gallbladder ejection fraction. Electronically signed by: Jose Maria Melendez MD 04/16/2025 10:25 AM EDT Dictated By: Jose Maria Melendez MD Signed By: <Electronically signed by Jose Maria Melendez MD in OV> 04/16/25 1025 DD/ 0820 TD/TT: 04/16/25 1000 Scientific Linguist: Procedure Note Wolfotlurdesinterpreter, Image - 04/16/2025 [place] [address] Nuclear Medicine Report Signed Patient: Whitley JuaresMR#: [id number] : 1985Acct:[id number] Age/Sex: 39 / FADM Date: 04/16/25 Loc: JANAE Attending Dr: Mary GRACE Ordering Physician: Mary Dhillon Date of Service: 04/16/25 Procedure(s): NM hepatobiliary w pharm Accession Number(s): [id number] cc: Mary Dhillon; Arpita Saravia MD EXAMINATION: NM HEPATOBILIARY WITH PHARM HISTORY: R10.11 - Right upper quadrant pain. TECHNIQUE: An hepatobiliary scan was performed following the intravenous administration of 5.0 mCi technetium 99m-mebrofenin. Sequential images were obtained over 1 hour. Subsequently, the patient received 1.1 microgram of IV CCK over 30 minutes and additional imaging was performed. COMPARISON: Correlation is made with an abdominal ultrasound dated 03/17/2025. FINDINGS: There is normal uptake and excretion of the radiopharmaceutical by the liver. Gallbladder activity is noted at 16 minutes. Common bile duct activity is seen at 14 minutes. Small bowel activity is noted at 48 minutes. After the administration of intravenous CCK, the estimated gallbladder ejection fraction is 89%, which is within normal limits. NM/NM hepatobiliary w pharm IMPRESSION: Unremarkable hepatobiliary scan. Normal gallbladder ejection fraction. Electronically signed by: Jose Maria Melendez MD 04/16/2025 10:25 AM EDT Dictated By: Jose Maria Melendez MD Signed By: <Electronically signed by Jose Maria Melendez MD in OV> 04/16/25 1025 DD/ 0820 TD/TT: 04/16/25 1000 Scientific Linguist: us [facility] External Provider IMG NM PROCEDURES Final Result * US Abdomen Complete (03/18/2025 8:25 AM EDT) Anatomical Region Laterality Modality Abdomen Ultrasound 03/18/2025 8:25 AM EDT Narrative 03/18/2025 8:27 AM EDT [facility] [address] [place] [address] [place] [address] Ultrasound Report Signed Patient: Whitley Juares MR#: [id number] 686 : 1985 Acct:[id number] Age/Sex: 39 / F ADM Date: 03/17/25 Loc: HO.HMGCX Attending Dr: Mary GRACE Ordering Physician: Mary Dhillon Date of Service: 03/17/25 Procedure(s): US abdomen complete Accession Number(s): [id number] cc: Mary Dhillon; Arpita Saravia MD CLINICAL HISTORY: R10.9 - Unspecified abdominal pain US abdomen complete with color Doppler Comparison: None Findings: The visualized pancreas, aorta, and inferior vena cava are unremarkable. Liver normal size and echotexture. Right lobe 15.3 cm length. No focal hepatic masses. Common duct 2.1 mm diameter. Physiologic distention of the gallbladder. No gallstones or sludge. No gallbladder wall thickening. No pericholecystic fluid. No sonographic Mansfield sign. Right kidney normal size, 10.6 cm in length. Normal cortical width and echotexture. No solid or cystic renal masses. No nephrolithiasis. No hydronephrosis. Left kidney normal, 11.1 cm in length. Normal cortical width and echotexture. No solid or cystic renal masses. No nephrolithiasis. No hydronephrosis. Spleen measures 10.0 cm. No splenic masses. No ascites. No lymphadenopathy. Impression: 1. Normal abdominal ultrasound. This document has been electronically signed by: Frank Tinajero MD on 03/18/2025 08:25:29 Dictated By: Frank Tinajero MD Signed By: <Electronically signed by Frank Tinajero MD in OV> 03/18/25825 DD/ 4 TD/TT: 03/18/25824 Scientific Linguist: Procedure Note Donotuseinterpreter, Image - 03/18/2025 [facility] [address] [place] [address] [place] [address] Ultrasound Report Signed Patient: Whitley JuarseMR#: [id number] 686 : 1985Acct:[id number] Age/Sex: 39 / FADM Date: 03/17/25 Loc: .HMGCX Attending Dr: Mary GRACE Ordering Physician: Mary Dhillon Date of Service: 03/17/25 Procedure(s): US abdomen complete Accession Number(s): [id number] cc: Mary Dhillon; Arpita Saravia MD CLINICAL HISTORY: R10.9 - Unspecified abdominal pain US abdomen complete with color Doppler Comparison: None Findings: The visualized pancreas, aorta, and inferior vena cava are unremarkable. Liver normal size and echotexture. Right lobe 15.3 cm length. No focal hepatic masses. Common duct 2.1 mm diameter. Physiologic distention of the gallbladder. No gallstones or sludge. No gallbladder wall thickening. No pericholecystic fluid. No sonographic Mansfield sign. Right kidney normal size, 10.6 cm in length. Normal cortical width and echotexture. No solid or cystic renal masses. No nephrolithiasis. No hydronephrosis. Left kidney normal, 11.1 cm in length. Normal cortical width and echotexture. No solid or cystic renal masses. No nephrolithiasis. No hydronephrosis. Spleen measures 10.0 cm. No splenic masses. No ascites. No lymphadenopathy. Impression: 1. Normal abdominal ultrasound. This document has been electronically signed by: Frank Tinajero MD on 03/18/2025 08:25:29 Dictated By: Frank Tinajero MD Signed By: <Electronically signed by Frank Tinajero MD in OV> 03/18/25825 DD/ 4 TD/TT: 03/18/25824 Scientific Linguist: [facility] External Provider IMG US PROCEDURES Final Result * Lipid Panel, Standard (10/23/2024 9:42 AM EST) Triglycerides 91 <150 mg/dL [facility] Comment:Desirable Triglyceri de: less than 150 mg/dLBorderline High Triglyceride 150-199 mg/dLHigh Triglyceride: 200-499 mg/dLVery High Triglyceride: greater than or equal to 5OO mg/dL Cholesterol 148 <200 mg/dL [facility] Comment:Desirable Cholestero l: less than 200 mg/dLBorderline High Cholesterol: 200-239 mg/dLHigh Cholesterol: greater than 239 mg/dL LDL Cholesterol Calculated 84 <100 mg/dL [facility] Comment:Desirable LDL: less than 100 mg/dLNear Optimal/Above Optimal LDL: 110- 129 mg/dLBorderline High LDL: 130-159 mg/dLHigh LDL: 160-189 mg/dLVery High LDL: greater than or equal to 190 mg/dL HDL Cholesterol 46 >40 mg/dL [facility] Comment:Desirable HDL: great er than 40 mg/dL Note: This HDL assay may give artificially low results in patients with liver disease. Blood Venous blood specimen / Unknown 10/23/2024 9:42 AM EST 10/23/2024 2:07 PM EST Arpita Saravia MD LAB BLOOD ORDERABLES Final Resul t [facility] [address] [place] [address] [phone] * HEPATITIS C AB W/REFL TO HCV RNA, QN, PCR (08/09/2022 9:23 AM EST) HEPATITIS C ANTIBODY NON-REACTI VE NON-REACT DONNIE [facility] INDEX 0.07 <1.00 [facility] Comment: HCV antibody was non-reactive. There is no laboratory evidence of HCV infection. In most cases, no further action is required. However, if recent HCV exposure is suspected, a test for HCV RNA (test code 22260) is suggested. For additional information please refer to http://education.GoPlanit/faq/VOM02e8 (This link is being provided for informational/ educational purposes only.) 08/09/2022 9:23 AM EST Margarita Tobin CNM HISTORICAL/NON ORDERABLE LABS Final Result [facility] * THINPREP TIS PAP AND HPV mRNA E6/E7, CT/NG, TRICH (05/03/2022 1:17 PM EDT) Chlamydia trachomatis RNA, TMA, Urogenital NOT DETECTED NOT DETECTED [facility] Clinical Information: None given [facility] COMMENT SEE COMMENT [facility] Comment: The analytical performance characteristics of this assay, when used to test SurePath(TM) specimens have been determined by [employer]. The modifications have not been cleared or approved by the FDA. This assay has been validated pursuant to the CLIA regulations and is used for clinical purposes. For additional information, please refer to https://education.GoPlanit/faq/OSR522 (This link is being provided for information/ educational purposes only.) COMMENT SEE COMMENT [facility] Comment: EXPLANATORY NOTE: The Pap is a screening test for cervical cancer. It is not a diagnostic test and is subject to false negative and false positive results. It is most reliable when a satisfactory sample, regularly obtained, is submitted with relevant clinical findings and history, and when the Pap result is evaluated along with historic and current clinical information. COMMENT: This Pap test has been evaluated with computer assisted technology. [facility] Contract Recruiter: SEE COMMENT [facility] Comment: CLAIRE ROSSI(ASCP) CT screening location: [place] [address] HPV nRNA E6/E7 Not Detected Not Detected [facility] Comment: Methodology: Stewardess Supervisor-Mediated Amplification This assay detects E6/E7 viral messenger RNA (mRNA) from 14 high-risk HPV types (16,18,31,33,35,39,45,51,52,56,58,59,66,68). Cervical sources are required for HPV testing. If a vaginal source from a patient who has had a total hysterectomy with removal of cervix was submitted, please contact the testing laboratory for alternative testing options. For additional information, please refer to http://AdMobilize.GoPlanit/faq/UFE744a3 (This link if provided for information/ educational [...] of this assay have been determined by [employer]. The modifications have not been cleared or approved by the FDA. This assay has been validated pursuant to the CLIA regulations and is used for clinical purposes. For additional information, please refer to http://AdMobilize.GoPlanit/ faq/Trichomonastma (This link is being provided for information/ educational purposes only.) 05/03/2022 1:17 PM EDT Margarita PRICE LAB PATHOLOGY ORDERABLES Final Result [facility] [address] from Last 3 Months or Most Recently Relevant to Health Maintenance Insurance [facility] C[place] AD[place] Care Teams Front End Mechanic Relationship Specialty Start Date End Date Arpita Saravia MD [address] [place] [address] PCP - General Family Medicine 10/08/13 Eddie Pimentel FNP [address] [place] [address] Nurse Practitioner Family Medicine 08/22/23
--- OUTSIDE RECORDS SUMMARY | 2025-06-11 18:13 | XMS_ITS | Encounter Summary ---
Author Organization [employer] Address [address] [place] [address] [place] [address] Care Team Providers Care Drafting Teacher Name Role Phone Arpita Saravia MD Primary Care Provider [phone] Eddie Pimentel Unavailable Unavailable Reason for Visit * Reason Onset Date Comments triage 10/21/2022 Encounter Details Date Type Department Care Team ([facility] st Contact Info) Description 10/21/2022 Telephone [facility] MED [facility] PEDS [address] [place] [address] Arpita Saravia MD [address] [place] [address] triage Social History Tobacco Use Types Packs/Day [...] documented as of this encounter Care Teams Drafting Teacher Relationship Specialty Start Date End Date Arpita Saravia MD [address] [place] [address] PCP - General Family Medicine 10/08/13 Eddie Pimentel FNP [address] [place] [address] Nurse Practitioner Family Medicine 08/22/23 documented as of this encounter
--- OUTSIDE RECORDS SUMMARY | 2025-06-11 18:13 | XMS_ITS | Encounter Summary ---
Author Organization [employer] Address [address] [facility] 7 [place] [address] Care Team Providers Care Product Safety Head Name Role Phone Arpita Saravia MD Primary Care Provider [phone] Eddie Pimentel Unavailable Unavailable Reason for Visit * Reason Onset Date Comments Nurse Triage 06/04/2025 Encounter Details Date Type Department Care Team ([facility] st Contact Info) Description 06/04/2025 Telephone [facility] MEDICINE [address] [place] [address] Arpita Saravia MD [address] [place], [place] [phone] Nurse Triage Social History Tobacco Use Types [...] Telephone Encounter - Meena Medina RN - 06/04/2025 9:26 AM EDT Triage call Pt reports cough since 06/03/25. Pt has had cough previously due to asthma. Pt reports fever of 99.8 this morning. Pt reports nasal and chest congestion. Pt does produce phlegm with cough unaware of color. Pt denies difficulty breathing and has been using advair HFA and breo ellipta inhalers as prescribed with good effect. 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 Pt was advised to go home by school nurse. ASK apt in [facility] at 300pm. Pt agrees with disposition and insurance is verified as active prior to booking. Pt is advised to drink 6-8 glasses liquids today especially warm liquids, monitor for fever medicating with tylenol if fever of 101 or higher, rest and Pt agrees. Protocol Used: Cough (Adult) Protocol-Based Disposition: See in Office or Video Visit Today or Tomorrow Video visit not offered Positive Triage Questions: * Continuous (nonstop) coughing interferes with work or school and no improvement using cough treatment per Care Advice * Patient wants to be seen * All higher-acuity triage questions were negative Care Advice Discussed: * Reassurance and Education - Cough * Prevent Dehydration * Fever Medicines * Reasons To Call Back - Difficulty breathing - Cough lasts more than 3 weeks - Fever lasts more than 3 days - You become worse * Telephone Encounter - Elroy Kraft - 06/04/2025 8:41 AM EDT Symptom: Cough Outcome: Schedule an appointment to be seen within 24 hours Reason: Caller denied all higher acuity questions documented in this encounter Plan of Treatment Not on file documented as of this encounter Visit Diagnoses Not on filedocumented in this encounter Additional Health Concerns Assessment Noted Time PHQ-9 Depression Total Score: 6 02/19/20 24 3:02 PM EDT documented as of this encounter Care Teams Product Safety Head Relationship Specialty Start Date End Date Arpita Saravia MD [address] [place] [address] PCP - General Family Medicine 10/08/13 Eddie Pimentel FNP [address] [place] [id number] Nurse Practitioner Family Medicine 08/22/23 documented as of this encounter
--- OUTSIDE RECORDS SUMMARY | 2025-06-11 18:13 | XMS_ITS | Encounter Summary ---
Author Organization [employer] Address [address] [facility] 7 [place] [address] Care Team Providers Care Business Travel Consultant Name Role Phone Arpita Saravia MD Primary Care Provider [phone] Eddie Pimentel Unavailable Unavailable Reason for Visit * Reason Onset Date Comments Nurse Triage 10/24/2023 Encounter Details Date Type Department Care Team ([facility] st Contact Info) Description 10/24/2023 Telephone [facility] MEDICINE [address] [place] [address] Arpita Saravia MD [address] [place], [place] [phone] Nurse Triage Social History Tobacco Use Types [...] as of this encounter Care Teams Business Travel Consultant Relationship Specialty Start Date End Date Arpita Saravia MD [address] [place] [address] PCP - General Family Medicine 10/08/13 Eddie Pimentel FNP [address] [place] [address] Nurse Practitioner Family Medicine 08/22/23 documented as of this encounter
== END 2025-06-11 15:38 | disposition home or self-care (01) ==
LOC: HO.HPSW 15:05
PROVIDERS: PCP Student in an Organized Health Care Education/Training Program; Visit Provider Nurse Practitioner Family
DX: J45.909 Unspecified asthma, uncomplicated (principal); R06.09 Other forms of dyspnea
CPT/HCPCS: 99214

== ENCOUNTER → 2025-06-11 15:04 | Outpatient (BNVA) | payer MEDICAID, SELFPAY | PROVIDERS: PCP Student in an Organized Health Care Education/Training Program; Visit Provider Nurse Practitioner Family | DX: R06.09 Other forms of dyspnea (principal); J45.909 Unspecified asthma, uncomplicated; Z79.899 Other long term (current) drug therapy | CPT/HCPCS: 99212 ==

== ENCOUNTER 2025-07-07 15:03 | Outpatient (AMB) | payer MEDICAID, SELFPAY ==
--- NOTE | 2025-07-07 15:08 | A.OFFVIS_ITS ---
Intake Visit Reasons: 1 year Allergies levofloxacin Adverse Reaction (Unknown, Verified 07/07/25 15:09) Abdominal Pain Medication List - Last Reconciled 07/07/25 by Yaz Agustin CNP albuterol sulfate 90 mcg/actuation (Ventolin HFA) 2 puffs inhalation Q4-6H PRN buspirone 5 mg PO TID PRN fluticasone propion-salmeterol 115-21 mcg/actuation (Advair HFA) 2 puffs inhalation Q12H lisinopril 2.5 mg PO QAM loratadine 10 mg PO QAM ondansetron 8 mg PO Q12H sennosides (Natural Senna Laxative) 17.2 mg (2 x 8.6 mg) PO BEDTIME zolmitriptan take 1 tab at onset of headache; if no relief, may repeat 1 tab after at least 2 hrs; max = 2 tabs/24 hrs PO 30 days HPI Comments Details: She has been without Ajovy for a few months. No significant change in migraines without medication. Migraines were happening 9 or more times/month. Headaches could happen for up to 7 days in a row and then go few days without any. Headaches were usually throbbing-type pain with some pain behind left eye and were associated with photophobia, sonophobia, nausea, vomiting, and dizziness. She had to cut zolmitriptan tablets in half or else she would run out of medication before next refill was due. Triggers could include certain foods. S leep was so-so. No further episodes of feeling like she could not fully wake from sleep with tense jaw, and feeling like tongue and eyes were shaking. Ajovy helped some initially, but migraines started to become more frequent. Zolmitriptan helps, but cutting pills in half to avoid running out of medication. Lot of stress and not sleeping well. She gets episodes of dizziness, often when changing positions too quickly. 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 During summer 2023, she had 2 episodes in her sleep where she felt like she could not fully wake up, jaw was tense, and tongue and eyes felt like they were shaking. It lasted less than a minute. No tongue bite or incontinence. No headache. No muscle aches. No witnesses. She was concerned this may have been seizure. No personal or family hx of seizures. Had syncopal episode on 12/08/2018 while brushing teeth. Previously was getting 3 migraines/week with photophobia, sonophobia, and nausea without Ajovy. Had 50% improvement with Aimovig but stopped because of side effects. Has small, tender sebaceous cyst in scalp behind right ear. Zomig works best, but makes her tired at work. Post- depression in 2014 and stopped all medications. Gets visual aura followed by bad migraine several hours later. Had Botox in the past with good results for 2 weeks, averaging 2 migraines/week. Multiple food triggers including peanuts, chocolates, deli meats. Gets with her periods. Tried prophylactic medications amitriptyline, propranolol, topiramate, and Fioricet as needed. Had Lasik surgery. Hx high blood pressure. 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 Review of Systems Const Denies chills, Denies daytime sleepiness, Reports difficulty sleeping, Denies fatigue, Denies fever(s), Denies frequent falls, Reports headache(s), Denies increased appetite, Denies poor appetite, Denies snoring, Denies weakness, Denies weight gain and Denies weight loss Eyes Denies loss of vision ENT Denies vertigo, Reports dizziness, Reports headache(s) and Denies neck pain Card Denies chest pain at rest, Denies chest pain with activity, Denies syncope, Denies leg edema, Denies palpitations, Denies dyspnea and Denies dyspnea on exertion Resp Denies cough, Denies dyspnea, Denies dyspnea on exertion and Denies snoring GI Denies abdominal pain, Denies constipation, Denies heartburn, Denies diarrhea and Denies nausea Denies urinary frequency, Denies urinary incontinence and Denies urinary urgency Musc Denies abnormal gait, Denies back pain, Denies myalgias, Denies arthralgias, Denies neck pain, Denies numbness and Denies tingling Neuro Denies abnormal gait, Denies vertigo, Reports dizziness, Denies syncope, Denies frequent falls, Reports headache(s), Denies lack of coordination, Denies loss of vision, Denies memory loss, Denies numbness, Denies Other visual disturbances, Denies restless legs, Denies seizure-like activity, Denies tingling, Denies paresthesias, Denies tremor(s) and Denies weakness Psych Denies anxiety, Reports depression, Denies auditory hallucinations, Denies memory loss and Denies visual hallucinations Endo Denies fatigue and Denies palpitations Physical Exam Const Other: General Appearance:? normal, in no acute distress. Heart:? S1, S2 normal, no murmurs. Lungs:? clear anteriorly and posteriorly. Musculoskeletal:? normal. Extremities:? no edema. Psych:? alert, oriented, cognitive function intact, cooperative with exam. Neuro Other: Abnormal Neurological Findings:?none.? Mental Status: alert and oriented X 3. Normal attention, orientation, memory, and affect. Cranial Nerves: Pupils are equal, round, and reactive to light. External ocular muscles are intact. Visual redman are full, no ptosis. Face is symmetrical, no facial weakness or droop. Facial sensations are normal. Tongue protrudes in midline. Palate elevates symmetrically. Shoulder shrugging is normal Motor Examination: Normal muscle tone, bulk and strength. No atrophy or fasciculations. No drift of the extended upper extremities. DTR 2+. Plantars are flexor. Sensory Exam: Normal light touch, temperature, pinprick, vibration, and joint- position sensations. Rhomberg sign is absent. Coordination: No ataxia. No titubation. Gait Exam: Within normal limits. Cerebellar Signs: [id number] is okay. Extrapyramidal System: No tremor, rigidity with normal facial expressions. No bradykinesia. No bradyphrenia. Normal arm swing and posture. No propulsion or retropulsion. Speech: Normal. Assessment & Plan Assessment & Plan (1) Migraine with aura: Code(s): G43.109 - Migraine with aura, not intractable, without status migrainosus Category: Medical Qualifiers: Status migrainosus presence: without status migrainosus Intractability: not intractable Qualified Code(s): G43.109 - Migraine with aura, not intractable, without status migrainosus Plan: Start Nurtec 75mg 1 tablet every other day (migraine prophylaxis), use/side effects reviewed. She tried and failed multiple medications including amitriptyline, propranolol, topiramate, Aimovig (side effects), and Ajovy. Continue zolmitriptan 5mg 1 tablet as needed for migraine. (2) Dizziness: Code(s): R42 - Dizziness and giddiness Category: Medical Plan She has tried prophylactic medication amitriptyline, propranolol, Topamax, NSAIDS, Amovig, Ajovy. She is on Zomig. Botox worked in the past. Medications: New rimegepant (Nurtec ODT) 75 mg PO Q OTHER DAY 15 tabs 2RF 30 days Coding Level of Care Code Est Pt Level 4 (16597) Diagnoses Migraine with aura and without status migrainosus, not intractable G43.109 Status migrainosus presence: without status migrainosus Intractability: not intractable Dizziness R42
--- OUTSIDE RECORDS SUMMARY | 2025-07-07 17:25 | XMS_ITS | Encounter Summary ---
Author Organization [employer] Address [address] [facility] [address] [place] [address] Care Team Providers Care Mems Engineer Name Role Phone Arpita Saravia MD Primary Care Provider [phone] Eddie Pimentel Unavailable Unavailable Reason for Visit * Reason Onset Date Comments Nurse Triage 06/04/2025 Encounter Details Date Type Department Care Team ([facility] st Contact Info) Description 06/04/[address] [facility] MEDICINE [address] [place] [address] Arpita Saravia MD [address] [place], [place] [phone] Nurse Triage Social History Tobacco Use Types [...] home by school nurse. ASK apt in [facility] at 300pm. Pt agrees with disposition and [...] documented as of this encounter Care Teams Mems Engineer Relationship Specialty Start Date End Date Arpita Saravia MD [address] [place] [id number] PCP - General Family Medicine 10/08/13 Eddie Pimentel FNP [address] [place] [address] Nurse Practitioner Family Medicine 08/22/23 documented as of this encounter
--- OUTSIDE RECORDS SUMMARY | 2025-07-07 17:25 | XMS_ITS | Clinical Summary ---
Author Organization [employer] Address 75 [facility] 7 [place] [address] Care Team Providers Care Client Services Account Manager Name Role Phone Arpita Saravia MD Primary Care Provider [phone] Eddie Pimentel Unavailable Unavailable Allergies Active Allergy [...] episode mixed, current episode severity unspecified (CMS/HCC) (HCC) Take 1 tablet (5 mg) by mouth [...] at work. Patient would benefit from resuming [facility] services for individual therapy to support coping [...] Bipolar affective disorder, current episode mixe d ([facility]) 09/20/2022 Assessment & Plan (02/19/2024 4:48 PM [...] transfer her care to the new [facility] psychiatric prescriber. Any issues or concerns, [...] controlled. 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 Follow up with [facility]: Recommended for follow-up: 03/14/2023 2. Patient [...] Supported by poor response to SSRIs ( jittgurwinder ). She did not tolerate Lamictal 25 mg once daily with worsening of her migraine CAM. Taking the new Topiramate 25 mg BID, but hasn't noted significant improvement, feels on edge, but that is likely part of her BPD and not r/t to the medication. Discussed options for treatment of BPD: [place], antiepileptics, antipsychotics. She will increase to Abilify [...] Description 06/04/2025 3:00 PM EDT Office Visit [facility] [address] [place] [address] La GrangeJojo FNP COVID-19 virus infection 06/04/2025 Travel 06/04/2025 Telephone [facility] [address] [facility] [place] [address] Arpita Saravia MD Nurse Triage 04/29/2025 11:30 AM EDT Telemedicine [facility] [address] [place] [address] Arpita Saravia MD Primary hypertension (Primary Dx); Moderate persistent asthma, unspecified whether complicated 04/29/2025 Travel 04/27/2025 Refill [facility] [address] [place] [address] Arpita Saravia MD from Last 3 Months Immunizations Immunization Administration [...] Depression Screening 02/18/2025 02/19/2024, 02/19/2024 COVID-19 Vaccine ( - 2024-2 6 season) 2025 06/05/2021, 05/15/2021 [...] W PHARM Routine 04/16/2025 8:20 AM EDT LIPID PANEL, STANDARD Routine 10/23/2024 [...] Rapid Covid-19 BinaxNOW (06/04/2025 3:22 PM EDT) Pathologist [facility] Rapid COVID Ag Positive QC Media Lot # [id number] Lot# Expiration Date Swab 06/04/2025 3:22 PM EDT [facility] POINT OF CARE TEST ENTER/EDIT ORDERABLES Final Result * POCT Rapid Influenza B OSOM (06/04/2025 3:21 PM EDT) [facility] Rapid Influenza B Ag Negative Negative, Indeterminate QC Media Lot # [id number] Lot# Expiration Date Swab 06/04/2025 3:21 PM EDT [facility] POINT OF CARE TEST ENTER/EDIT ORDERABLES Final Result * POCT Rapid Influenza A OSOM (06/04/2025 3:19 PM EDT) [facility] Rapid Influenza A Ag Negative Negative, Indeterminate QC Media Lot # [id number] Lot# Expiration Date , Swab Nasopharyngeal structure / Unknown 06/04/2025 3:19 PM EDT [facility] POINT OF CARE TEST ENTER/EDIT ORDERABLES Final Result * NM Hepatobiliary w Pharm (04/16/2025 8:20 AM EDT) Anatomical Region Laterality Modality Body Nuclear Medicine 04/16/2025 8:20 AM EDT Narrative 04/16/2025 10:28 AM EDT [address] [address] Nuclear Medicine Report Signed Patient: Whitley Juares MR#: [id number] : 1985 Acct:[id number] Age/Sex: 39 / F ADM Date: 04/16/25 Loc: [facility] Attending Dr: Mary Dhillon [facility]- [facility] Physician[facility] Date of Service: 04/16/25 Procedure(s): NM hepatobiliary w pharm Accession Number(s): [id number] cc: Mary Dhillon [facility]; Arpita Saravia MD EXAMINATION: NM HEPATOBILIARY WITH [...] 04/16/25 1025 DD/ 0820 TD/TT: 04/16/25 1000 Maple Sugar Maker: Procedure Note Donotuseinterpreter, Image - 04/16/[address] [address] Nuclear Medicine Report Signed Patient: Whitley JuaresMR#: [id number] : 1985Acct:[id number] Age/Sex: 39 / FADM Date: 04/16/25 Loc: [facility]NAE Attending Dr: Mary Dhillon [facility]- Ordering Physician: Mary Dhillon [facility] Date of Service: 04/16/25 Procedure(s): NM hepatobiliary w pharm Accession Number(s): [id number] cc: Mary Dhillon CONSULTANTRENE; Arpita Saravia MD EXAMINATION: NM HEPATOBILIARY WITH [...] 04/16/25 1025 DD/ 0820 TD/TT: 04/16/25 1000 Maple Sugar Maker: [facility] External Provider IMG NM PROCEDURES Final Result * Lipid Panel, Standard (10/23/2024 9:42 AM EST) Triglycerides 91 <150 mg/dL [facility] Comment:Desirable Triglyceri de: less than 150 mg/dLBorderline High Triglyceride 150-199 mg/dLHigh Triglyceride: 200-499 mg/dLVery High Triglyceride: greater than or equal to 5OO mg/dL Cholesterol 148 <200 mg/dL [facility] Comment:Desirable Cholestero l: less than 200 mg/dLBorderline High Cholesterol: 200-239 mg/dLHigh Cholesterol: greater than 239 mg/dL LDL Cholesterol Calculated 84 <100 mg/dL [facility] Comment:Desirable LDL: less than 100 mg/dLNear Optimal/Above Optimal LDL: 110- 129 mg/dLBorderline High LDL: 130-159 mg/dLHigh LDL: 160-189 mg/dLVery High LDL: greater than or equal to 190 mg/dL HDL Cholesterol 46 >40 mg/dL [facility] Comment:Desirable HDL: great er than 40 mg/dL Note: This HDL assay may give artificially low results in patients with liver disease. Blood Venous blood specimen / Unknown 10/23/2024 9:42 AM EST 10/23/2024 2:07 PM EST Arpita Saravia MD LAB BLOOD ORDERABLES Final Resul t [facility] [address] [place] [address] [phone] * HEPATITIS C AB W/REFL TO [...] a test for HCV RNA (test code 16147) is suggested. For additional information please refer to http://education.Cardley/faq/XUJ58o8 (This link is being provided for informational/ educational purposes only.) 08/09/2022 9:23 AM EST Margarita Tobin CNM HISTORICAL/NON ORDERABLE LABS Final Result CONVERTED LEGACY LABS * THINPREP TIS PAP AND HPV mRNA E6/E7, CT/NG, TRICH (05/03/2022 1:17 PM EDT) Chlamydia trachomatis RNA, TMA, Urogenital NOT DETECTED NOT DETECTED [facility] Clinical Information: None given [facility] COMMENT SEE COMMENT [facility] Comment: The analytical performance characteristics of this assay, when used to test SurePath(TM) specimens have been determined by [employer]. The modifications have not been cleared or approved by the FDA. This assay has been validated pursuant to the CLIA regulations and is used for clinical purposes. For additional information, please refer to https://education.Cardley/faq/NLI484 (This link is being provided for information/ [...] has been evaluated with computer assisted technology. [facility] Pricing Coordinator: SEE COMMENT [facility] Comment: MAA CT(ASCP) CT screening location: [place] [address] HPV nRNA E6/E7 Not Detected Not Detected [facility] Comment: Methodology: Coper Hand-Mediated Amplification This assay detects E6/E7 viral messenger RNA (mRNA) from 14 high-risk HPV types (16,18,31,33,35,39,45,51,52,56,58,59,66,68). Cervical sources are required for HPV testing. If a vaginal source from a patient who has had a total hysterectomy with removal of cervix was submitted, please contact the testing laboratory for alternative testing options. For additional information, please refer to http://[employer].Cardley/faq/VKR620g7 (This link if provided for information/ educational [...] of this assay have been determined by [employer]. The modifications have not been cleared or approved by the FDA. This assay has been validated pursuant to the CLIA regulations and is used for clinical purposes. For additional information, please refer to http://[employer].Cardley/ faq/Trichomonastma (This link is being provided for information/ educational purposes only.) 05/03/2022 1:17 PM EDT us Margarita Tobin CNM LAB PATHOLOGY ORDERABLES Final Result [facility] [address] from Last 3 Months or Most Recently Relevant to Health Maintenance Insurance [facility] STAND ADULT Care Teams Client Services Account Manager Relationship Specialty Start Date End Date Arpita Saravia MD [address] [place] [address] PCP - General Family Medicine 10/08/13 Eddie Pimentel FNP [address] [place] [address] Nurse Practitioner Family Medicine 08/22/23
--- OUTSIDE RECORDS SUMMARY | 2025-07-07 17:25 | XMS_ITS | Encounter Summary ---
Author Organization [employer] Address [address] [place] [address] [place] [address] Care Team Providers Care Manager Nursing Home Name Role Phone Arpita Saravia MD Primary Care Provider [phone] Eddie Pimentel Unavailable Unavailable Reason for Visit * Reason Onset Date Comments triage 11/03/2022 Encounter Details Date Type Department Care Team ([facility] st Contact Info) Description 11/03/2022 Telephone [facility] MEDICINE [address] [place] [address] Arpita Saravia MD [address] [place], [place] [phone] triage Social History Tobacco Use Types Packs/Day [...] documented as of this encounter Care Teams Manager Nursing Home Relationship Specialty Start Date End Date Arpita Saravia MD [address] [place] [address] PCP - General Family Medicine 10/08/13 Eddie Pimentel FNP [address] [place] [address] Nurse Practitioner Family Medicine 08/22/23 documented as of this encounter
--- OUTSIDE RECORDS SUMMARY | 2025-07-07 17:25 | XMS_ITS | Encounter Summary ---
Author Organization [employer] Address [address] [place] [address] [place] [address] Care Team Providers Care Block Hand Name Role Phone Arpita Saravia MD Primary Care Provider [phone] Eddie Pimentel Unavailable Unavailable Reason for Visit * Reason Onset Date Comments triage 10/21/2022 Encounter Details Date Type Department Care Team ([facility] st Contact Info) Description 10/21/2022 Telephone [facility] [address] [place] [address] Arpita Saravia MD [address] [place] [address] triage Social History Tobacco Use Types Packs/Day [...] documented as of this encounter Care Teams Block Hand Relationship Specialty Start Date End Date Arpita Saravia MD [address] [place] [address] PCP - General Family Medicine 10/08/13 Eddie Pimentel FNP [address] [place] [address] Nurse Practitioner Family Medicine 08/22/23 documented as of this encounter
--- OUTSIDE RECORDS SUMMARY | 2025-07-07 17:25 | XMS_ITS | Encounter Summary ---
Author Organization [employer] Address [address] [facility] [address] [place] [address] Care Team Providers Care Moccasin Sewer Name Role Phone Arpita Saravia MD Primary Care Provider [phone] Eddie Pimentel Unavailable Unavailable Reason for Visit * Reason Onset Date Comments Nurse Triage 10/24/2023 Encounter Details Date Type Department Care Team ([facility] st Contact Info) Description 10/24/2023 Telephone [facility] MED[facility]INE [address] [place] [address] Arpita Saravia MD [address] [place], [place] [phone] Nurse Triage Social History Tobacco Use Types [...] documented as of this encounter Care Teams Moccasin Sewer Relationship Specialty Start Date End Date Arpita Saravia MD [address] [place] [address] PCP - General Family Medicine 10/08/13 Eddie Pimentel FNP [address] [place] [address] Nurse Practitioner Family Medicine 08/22/23 documented as of this encounter
== END 2025-07-07 15:33 | disposition home or self-care (01) ==
LOC: HO.HSM 15:03
PROVIDERS: PCP Student in an Organized Health Care Education/Training Program; Referring Provider Student in an Organized Health Care Education/Training Program; Visit Provider Registered Nurse
DX: G43.109 Migraine with aura, not intractable, without status migrainosus (principal); R42 Dizziness and giddiness
CPT/HCPCS: 99214

== ENCOUNTER → 2025-07-07 15:03 | Outpatient (BNVA) | payer MEDICAID, SELFPAY | PROVIDERS: PCP Student in an Organized Health Care Education/Training Program; Visit Provider Registered Nurse | DX: G43.109 Migraine with aura, not intractable, without status migrainosus (principal); R42 Dizziness and giddiness | CPT/HCPCS: 99212 ==

== ENCOUNTER 2025-07-16 14:52 | Outpatient (AMB) | payer MEDICAID, SELFPAY ==
--- NOTE | 2025-07-16 14:54 | MHC.OFFVIS ---
Intake Visit Reasons: 3m/PVR Intake Note: patient presents today for: 3m/PVR urology medications: none blood thiners: none today's PVR: 44mls Medical Data Entry Clerk Required: No Accompanied by: Self / Same As Patient Allergies levofloxacin Adverse Reaction (Unknown, Verified 07/16/25 15:37) Abdominal Pain Medication List - Last Reconciled 07/16/25 by ROSALIO PalmerP- albuterol sulfate 90 mcg/actuation (Ventolin HFA) 2 puffs inhalation Q4-6H PRN buspirone 5 mg PO TID PRN fluticasone propion-salmeterol 115-21 mcg/actuation (Advair HFA) 2 puffs inhalation Q12H lisinopril 2.5 mg PO QAM loratadine 10 mg PO QAM ondansetron 8 mg PO Q12H rimegepant (Nurtec ODT) 75 mg PO Q OTHER DAY 30 days sennosides (Natural Senna Laxative) 17.2 mg (2 x 8.6 mg) PO BEDTIME zolmitriptan take 1 tab at onset of headache; if no relief, may repeat 1 tab after at least 2 hrs; max = 2 tabs/24 hrs PO 30 days HPI Comments Details: Whitley is a 40 year old female who is a patient of Dr. Saravia. She has a past medical history of hypertension, anxiety, and frequent urinary tract infections. She presents to the office today for a follow up of her recurrent urinary tract infections and ongoing lower urinary tract symptoms. In discussion with the patient today she reports to be doing and feeling well. She reports noting lower urinary tract symptoms arise with her menses as well as at times after sexual activity however she does feel she is managing well with postcoital antibiotic therapy as prescribed. During last office visit recommendations were made for low-dose trimethoprim however she reports she never started the medication as she was worried it was going to interact with her low-dose lisinopril. She currently denies any bothersome lower urinary tract symptoms. We did discussed potential causes of these lower urinary tract symptoms (urinary urgency, urinary frequency, and intermittent episodes of dysuria) we also discussed further treatment options and risks and benefits of these treatment options. In office urinalysis results reviewed with the patient today. Patient with a previous in office cystoscopy 12/08/[address] Phil De Guzman that noted findings of a narrow (mild) urethra otherwise bladder within normal limits. She otherwise denies urinary incontinence, nocturia, hematuria, foul smelling urine, changes to urinary stream, flank pain, fever, and or chills. She reports noting when she has symptoms of dysuria and she increases her p.o. intake with water symptoms are relieved. We discussed correlation of adequate hydration in relation to lower urinary tract symptoms. She otherwise offers no issues or concerns at this time. 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 Review of Systems Const All systems reviewed & are unremarkable except as noted in HPI and below Physical Exam Const General: cooperative, healthy appearing, comfortable, no acute distress, well developed, alert and awake Nutritional Appearance: average body habitus Orientation/consciousness: patient oriented x3 Limitations: no limitations HEENT Head: Yes normal to inspection, Yes normocephalic and Yes atraumatic Ears: hearing grossly normal bilaterally Eyes General: appearance normal, both eyes and all related structures Neck Neck: Yes normal visual inspection and Yes trachea midline Chest Chest palpation & inspection: normal inspection of the chest Resp Effort & Inspection: normal respiratory effort and able to speak in complete sentences Cardio Rate: regular rate General: Yes no CVA tenderness Back/Spine/Pelvis Back: no CVA tenderness Cervical Spine: normal cervical lordosis Skin General skin exam: no rashes or lesions noted Neuro General: patient oriented x3 Extrem General: Yes normal to inspection and Yes full ROM Psych Appearance: grossly normal and well kempt Mental Status: mental status grossly normal Speech and movement: Normal speech and movement present and Clear speech present Affect: normal affect Attitude: cooperative Thought process: Normal thought process present Thought content: Normal thought content present Insight: Good insight present (Psych) Judgement: Good judgement present (Psych) Office Procedures Post Void Residual Post Residual Void Post Void Residual (PVR): 44 [id number] Void Residual by ultrasound Results AMB Urinalysis, Automated UA Leukoctes 0 Klaus/uL Last Edit by SILAS Sanchez on 07/16/25 15:11 UA Nitrite Last Edit by [facility]ares [facility] on 07/16/25 15:11 UA Urobilinogen 0.2 mg/dL Last Edit by SILAS Sanchez on 07/16/25 15:11 UA Protein 0 mg/dL Last Edit by Marleen Juares [facility] on 07/16/25 15:11 UA pH 7.0 Last Edit by Marleen Juares [facility] on 07/16/25 15:11 UA Blood 0 Stewart/uL Last Edit by Marleen Juares [facility] on 07/16/25 15:11 UA Specific Phoenix 1.010 Last Edit by SILAS Sanchez on 07/16/25 15:11 UA Ketone Last Edit by SILAS Sanchez on 07/16/25 15:11 UA Bilirubin 0 mg/dL Last Edit by Marleen Juares [facility] on 07/16/25 15:11 UA Glucose 0 mg/dL Last Edit by [facility] Juares [facility] on 07/16/25 15:11 Results Reviewed Results Reviewed: Laboratory Last Values Urine pH (Auto) 7.0 07/16/25 15:11 Specific Phoenix (Auto) 1.010 07/16/25 15:11 Urine Protein (Auto) 0 mg/dL 07/16/25 15:11 Glucose (UA)(Auto) 0 mg/dL 07/16/25 15:11 Urine Blood (Auto) 0 Stewart/uL 07/16/25 15:11 Urine Bilirubin (Auto) 0 mg/dL 07/16/25 15:11 Urine Urobilinogen (Auto) 0.2 mg/dL 07/16/25 15:11 Leukocyte Esterase (Auto) 0 Klaus/uL 07/16/25 15:11 Assessment & Plan Assessment & Plan (1) Recurrent UTI: Code(s): N39.0 - Urinary tract infection, site not specified Category: Medical (2) Dysuria: Code(s): R30.0 - Dysuria Category: Medical Plan In office urinalysis results reviewed with the patient today; as noted above. PVR 44 mL. We discussed importance of adequate hydration relation to lower urinary tract symptoms as well as overall health and well-being. Continue postcoital Macrobid as discussed and prescribed We discussed potential causes of lower urinary tract symptoms patient was experiencing as well as further treatment options and risks and benefits of these treatment options. All questions were answered. She currently denies any bothersome urinary issues. We discussed correlation of lower urinary tract symptoms with menses as well as constipation. Follow-up in 6 months with PVR; or sooner with any issues, concerns, and or questions. Orders: Orders AMB Post Void Residual by ultrasound Today R30.0 - Dysuria AMB Urinalysis Automated Today Z13.9 - Encounter for screening, unspecified Patient Instructions: The patient had an opportunity to ask questions regarding the treatment plan. All questions were answered. Physical exam, labs, and imaging were discussed and reviewed in detail. As well as risks, benefits, and discussion of treatment choices. No major barriers to understanding were identified. The patient expressed understanding and agreement with the above treatment plan. The patient was made aware they should contact our office by phone for worsening of their current condition, the appearance of new symptoms, or with any questions or concerns. Compliance is encouraged with any medications and follow up testing that is ordered. It is a privilege to be allowed the opportunity to participate in? your urological care.? Again, if you have any questions or concerns If you have any questions or concerns please do not hesitate to contact me. The office is [phone]. This note is constructed using voice recognition software. While every effort has been made to ensure accuracy death claim examiner errors may have been included. Yours sincerely, SANJAY Palmer Coding Level of Care Code Est Pt Level 3 (20822) Diagnoses Recurrent UTI N39.0 Dysuria R30.0 CPT Codes Post Residual Void - PVR CPT Code: 90433-[id number] Void Residual by ultrasound ([id number])
--- OUTSIDE RECORDS SUMMARY | 2025-07-16 18:36 | XMS_ITS | Encounter Summary ---
Author Organization [employer] Address [address] [facility] 7 [place] [address] Care Team Providers Care Territory Sales Manager Medical Name Role Phone Arpita Saravia MD Primary Care Provider Eddie Pimentel Unavailable Unavailable Reason for Visit * Reason Onset Date Comments Nurse Triage 06/04/2025 Encounter Details Date Type Department Care Team ([facility] st Contact Info) Description 06/04/[address] [facility] MEDICINE [address] [place] [address] Arpita Saravia MD [address] [place], [place] [phone] Nurse Triage Social History Tobacco Use Types [...] home by school nurse. ASK apt in [facility] at 300pm. Pt agrees with [...] documented as of this encounter Care Teams Territory Sales Manager Medical Relationship Specialty Start Date End Date Arpita Saravia MD [address] [place] [address] PCP - General Family Medicine 10/08/13 Eddie Pimentel FNP [address] [place] [address] Nurse Practitioner Family Medicine 08/22/23 documented as of this encounter
--- OUTSIDE RECORDS SUMMARY | 2025-07-16 18:36 | XMS_ITS | Clinical Summary ---
Author Organization [employer] Address [address] [facility] 7 [place] [address] Care Team Providers Care Tapper Balance Wheel Screw Hole Name Role Phone Arpita Saravia MD Primary Care Provider [phone] Eddie Pimentel Unavailable Unavailable Allergies Active Allergy [...] at work. Patient would benefit from resuming [facility] services for individual therapy to support coping [...] Bipolar affective disorder, current episode mixe d ([facility]) 09/20/2022 Assessment & Plan (02/19/2024 4:48 PM [...] will transfer her care to the new [facility] psychiatric prescriber. Any issues or [...] controlled. 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 Discussed options for treatment of BPD: [place], antiepileptics, antipsychotics. She will increase to Abilify [...] Description 06/04/2025 3:00 PM EDT Office Visit [facility] [address] [place] [address] SpelterJojo FNP COVID-19 virus infection 06/04/2025 Travel 06/04/2025 Telephone [facility] [address] [place] [address] Arpita Saravia MD Nurse Triage 04/29/2025 11:30 AM EDT Telemedicine [facility] [address] [place] [address] Arpita Saravia MD Primary hypertension (Primary Dx); Moderate persistent asthma, unspecified whether complicated 04/29/2025 Travel 04/27/2025 Refill [facility]S [address] [place] [address] Arpita Saravia MD from Last 3 Months [...] Covid-19 BinaxNOW (06/04/2025 3:22 PM EDT) Pathologist [facility] Rapid COVID Ag Positive QC Media Lot # [id number] Lot# Expiration Date Swab 06/04/2025 3:22 PM EDT [facility] POINT OF CARE TEST ENTER/EDIT ORDERABLES Final Result * POCT Rapid Influenza B OSOM (06/04/2025 3:21 PM EDT) [facility] Rapid Influenza B Ag Negative Negative, Indeterminate QC Media Lot # [id number] Lot# Expiration Date Swab 06/04/2025 3:21 PM EDT [facility] POINT OF CARE TEST ENTER/EDIT ORDERABLES Final Result * POCT Rapid Influenza A OSOM (06/04/2025 3:19 PM EDT) [facility] Rapid Influenza A Ag Negative Negative, Indeterminate QC Media Lot # [id number] Lot# Expiration Date , Swab Nasopharyngeal structure / Unknown 06/04/2025 3:19 PM EDT [facility] POINT OF CARE TEST ENTER/EDIT ORDERABLES Final Result * NM Hepatobiliary w Pharm (04/16/2025 8:20 AM EDT) Anatomical Region Laterality Modality Body Nuclear Medicine 04/16/2025 8:20 AM EDT Narrative 04/16/2025 10:28 AM EDT [address] [address] Nuclear Medicine Report Signed Patient: Whitley Juares MR#: [id number] : 1985 Acct:[id number] Age/Sex: 39 / F ADM Date: 04/16/25 Loc: [facility] Attending Dr: Mary Dhillon [facility]- Ordering Physician[facility] Date of Service: 04/16/25 Procedure(s): NM hepatobiliary w pharm Accession Number(s): [id number] cc: Mary Dhillon [facility]; Arpita Saravia MD EXAMINATION: NM HEPATOBILIARY WITH [...] 04/16/25 1025 DD/ 0820 TD/TT: 04/16/25 1000 Building Analyst/Supervisor: Procedure Note Donotuseinterpreter, Image - 04/16/[address] [address] Nuclear Medicine Report Signed Patient: Whitley JuaresMR#: [id number] : 1985Acct:[id number] Age/Sex: 39 / FADM Date: 04/16/25 Loc: [facility]NAE Attending Dr: Mary Dhillon [facility]- Ordering Physician: Mary Dhillon [facility] Date of Service: 04/16/25 Procedure(s): NM hepatobiliary w pharm Accession Number(s): [id number] cc: Mary Dhillon [employer]; Arpita Saravia MD EXAMINATION: NM HEPATOBILIARY WITH [...] 04/16/25 1025 DD/ 0820 TD/TT: 04/16/25 1000 Building Analyst/Supervisor: [facility] External Provider IMG NM PROCEDURES Final Result * Lipid Panel, Standard (10/23/2024 9:42 AM EST) Triglycerides 91 <150 mg/dL [facility] Comment:Desirable Triglyceri de: less than 150 mg/dLBorderline High Triglyceride 150-199 mg/dLHigh Triglyceride: 200-499 mg/dLVery High Triglyceride: greater than or equal to 5OO mg/dL Cholesterol 148 <200 mg/dL [facility] Comment:Desirable Cholestero l: less than 200 mg/dLBorderline High Cholesterol: 200-239 mg/dLHigh Cholesterol: greater than 239 mg/dL LDL Cholesterol Calculated 84 <100 mg/dL [facility] Comment:Desirable LDL: less than 100 [...] MD LAB BLOOD ORDERABLES Final Resul t [facility] [address] [place] [address] [phone] * HEPATITIS C AB W/REFL TO [...] a test for HCV RNA (test code 22037) is suggested. For additional information please refer to http://education.FoodByNet/faq/HLT75b4 (This link is being provided for informational/ educational purposes only.) 08/09/2022 9:23 AM EST Margarita Tobin CNM HISTORICAL/NON ORDERABLE LABS Final Result CONVERTED LEGACY LABS * THINPREP TIS PAP AND HPV mRNA E6/E7, CT/NG, TRICH (05/03/2022 1:17 PM EDT) Chlamydia trachomatis RNA, TMA, Urogenital NOT DETECTED NOT DETECTED [facility] Clinical Information: None given [facility] COMMENT SEE COMMENT [facility] Comment: The analytical performance characteristics of this assay, when used to test SurePath(TM) specimens have been determined by [facility]. The modifications have not been cleared or approved by the FDA. This assay has been validated pursuant to the CLIA regulations and is used for clinical purposes. For additional information, please refer to https://education.FoodByNet/faq/BEE238 (This link is being provided for information/ [...] has been evaluated with computer assisted technology. [facility] Chief I Dispatcher: SEE COMMENT [facility] Comment: MAA CT(ASCP) CT screening location: [place] [address] HPV nRNA E6/E7 Not Detected Not Detected [facility] Comment: Methodology: Vice President Biostatistics-Mediated Amplification This assay detects E6/E7 viral messenger RNA (mRNA) from 14 high-risk HPV types (16,18,31,33,35,39,45,51,52,56,58,59,66,68). Cervical sources are required for HPV testing. If a vaginal source from a patient who has had a total hysterectomy with removal of cervix was submitted, please contact the testing laboratory for alternative testing options. For additional information, please refer to http://[employer].FoodByNet/faq/APK571w1 (This link if provided for information/ educational [...] of this assay have been determined by [facility]. The modifications have not been cleared or approved by the FDA. This assay has been validated pursuant to the CLIA regulations and is used for clinical purposes. For additional information, please refer to http://[employer].FoodByNet/ faq/Trichomonastma (This link is being provided for information/ educational purposes only.) 05/03/2022 1:17 PM EDT us Margarita Tobin CNM LAB PATHOLOGY ORDERABLES Final Result [facility] [address] from Last 3 Months or Most Recently Relevant to Health Maintenance Insurance [facility] STAND ADULT Care Teams Tapper Balance Wheel Screw Hole Relationship Specialty Start Date End Date Arpita Saravia MD [address] [place] [phone] PCP - General Family Medicine 10/08/13 Eddie Pimentel FNP [address] [place] [address] Nurse Practitioner Family Medicine 08/22/23
--- OUTSIDE RECORDS SUMMARY | 2025-07-16 18:36 | XMS_ITS | Encounter Summary ---
Author Organization [employer] Address [address] [place] [address] [place] [address] Care Team Providers Care Technology Officer Name Role Phone Arpita Saravia MD Primary Care Provider Eddie Pimentel Unavailable Unavailable Reason for Visit * Reason Onset Date Comments triage 11/03/2022 Encounter Details Date Type Department Care Team ([facility] st Contact Info) Description 11/03/2022 Telephone [facility] MEDICINE [address] [place] [address] Arpita Saravia MD [address] [place], [place] [phone] triage Social History Tobacco Use Types Packs/Day [...] documented as of this encounter Care Teams Technology Officer Relationship Specialty Start Date End Date Arpita Saravia MD [address] [place] [address] PCP - General Family Medicine 10/08/13 Eddie Pimentel FNP [address] [place] [address] Nurse Practitioner Family Medicine 08/22/23 documented as of this encounter
--- OUTSIDE RECORDS SUMMARY | 2025-07-16 18:36 | XMS_ITS | Encounter Summary ---
Author Organization [employer] Address [address] [facility] 7 [place] [address] Care Team Providers Care Director Of Placement Name Role Phone Arpita Saravia MD Primary Care Provider [phone] Eddie Pimentel Unavailable Unavailable Reason for Visit * Reason Onset Date Comments Nurse Triage 10/24/2023 Encounter Details Date Type Department Care Team ([facility] st Contact Info) Description 10/24/2023 Telephone [facility] MEDICINE [address] [place] [address] Arpita Saravia MD [address] [place], [place] [phone] Nurse Triage Social History Tobacco Use Types [...] of this encounter Care Teams Director Of Placement Relationship Specialty Start Date End Date Arpita Saravia MD [address] [place] [address] PCP - General Family Medicine 10/08/13 Eddie Pimentel FNP [address] [place] [address] Nurse Practitioner Family Medicine 08/22/23 documented as of this encounter
--- OUTSIDE RECORDS SUMMARY | 2025-07-16 18:36 | XMS_ITS | Encounter Summary ---
Author Organization [employer] Address [address] [place] [address] [place] [address] Care Team Providers Care Slider Assembler Name Role Phone Arpita Saravia MD Primary Care Provider [phone] Eddie Pimentel Unavailable Unavailable Reason for Visit * Reason Onset Date Comments triage 10/21/2022 Encounter Details Date Type Department Care Team ([facility] st Contact Info) Description 10/21/2022 Telephone [facility] MED [facility] PEDS [address] [place] [address] Arpita Saravia MD [address] [place] [address] triage Social History Tobacco Use Types Packs/Day [...] documented as of this encounter Care Teams Slider Assembler Relationship Specialty Start Date End Date Arpita Saravia MD [address] [place] [address] PCP - General Family Medicine 10/08/13 Eddie Pimentel FNP [address] [place] [address] Nurse Practitioner Family Medicine 08/22/23 documented as of this encounter
== END 2025-07-16 15:24 | disposition home or self-care (01) ==
LOC: HO.HUSH 14:53
PROVIDERS: PCP Student in an Organized Health Care Education/Training Program; Visit Provider Nurse Practitioner Family
DX: N39.0 Urinary tract infection, site not specified (principal); R30.0 Dysuria; Z13.9 Encounter for screening, unspecified
CPT/HCPCS: 99213

== ENCOUNTER → 2025-07-16 14:52 | Outpatient (BNVA) | payer MEDICAID, SELFPAY | PROVIDERS: PCP Student in an Organized Health Care Education/Training Program; Visit Provider Nurse Practitioner Family | DX: R30.0 Dysuria (principal); N39.0 Urinary tract infection, site not specified | CPT/HCPCS: 51798; 81003; 99212 ==

== ENCOUNTER 2025-07-21 15:07 | Outpatient (AMB) | payer MEDICAID, SELFPAY ==
--- NOTE | 2025-07-21 15:10 | A.OFFVIS_ITS ---
Vital Signs 07/21/25 15:15 Height 4 ft 11 in Weight 125 lb BMI 25.2 BP 126/90 H Blood Pressure Location Rt brachial Position Sitting Pulse 80 Pulse Source Pulse Oximeter Pulse Oximetry (%) 98 Oxygen Delivery Method Room Air Intake Visit Reasons: 2.5 mo f/u Intake Note: Est pt for mgmt of chronic abd pain. CC; Pt did not start the senna as she had originally been concerned about the concept of having incontinence of stools. Pt had planned on starting on weekends but had forgotten to do so. Pt still experiencing chronic sx as a result. Collection Supervisor Required: No Accompanied by: Self / Same As Patient Allergies levofloxacin Adverse Reaction (Unknown, Verified 07/21/25 15:10) Abdominal Pain HPI HPI 2.5 mo f/u: Details: LAST VISIT: Gastroesophageal reflux disease Chronic idiopathic constipation Postprandial abdominal bloating Abdominal pain RUQ abdominal pain Plan Patient will start taking fiber in will try senna in the evening. Increase fluid intake and activity to promote better bowel motility. Patient pain most likely related to gas trapping in the area. Not always related to meals. Patient will start low FODMAP diet. List of food recommended as well as list of food to avoid given to patient. Patient will follow-up in the office in 2-3 months, sooner on as needed basis. She is agreeable to this plan and verbalizes understanding of instructions. She was given the opportunity to ask questions and all questions answered. ? Thank you for allowing me to participate in her care New sennosides (Natural Senna Laxative) 17.2 mg (2 x 8.6 mg) PO BEDTIME 60 tabs 3RF constipation K59.00 * TODAY'S VISIT Patient is here today for follow-up. Patient reports that she did not started taking senna as she was afraid to have diarrhea when she was at work. Patient was planning on starting on the weekend and she for got. Patient will try to started this coming weekend. Patient reports occasional epigastric pain and dyspepsia. Usually after eating bigger meal. Patient has bigger meal in the afternoon when she gets home from work. Patient denies nausea or vomiting. Currently she is not on any PPI. Patient denies dysphagia or odynophagia. Denies melena, hematochezia, unintentional weight loss or ribbon like stools. Patient denies any other GI concerning symptoms. 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 Review of Systems Const Denies weight gain and Denies weight loss ENT Reports no additional complaints, Denies dysphagia and Denies odynophagia Card Reports no additional complaints Resp Reports no additional complaints GI Reports abdominal pain (RUQ), Denies belching, Denies melena, Reports bloating, Denies change in bowel habits, Reports constipation, Denies dysphagia, Denies excessive flatus, Reports dyspepsia, Reports heartburn, Denies diarrhea, Reports loose stools, Reports nausea (Occasional), Denies odynophagia and Denies vomiting Reports no additional complaints Musc Reports no additional complaints Neuro Reports no additional complaints Psych Reports no additional complaints Endo Reports no additional complaints Physical Exam Vital Signs: Last Vital Signs Pulse 80 07/21/25 15:15 BP 126/90 H 07/21/25 15:15 Pulse Ox 98 07/21/25 15:15 Oxygen Delivery Method Room Air 07/21/25 15:15 BMI result Body Mass Index 25.2 Const General: healthy appearing, no acute distress and well developed Nutritional Appearance: well nourished Orientation/consciousness: patient oriented x3 Resp Effort & Inspection: normal respiratory effort, able to speak in complete sentences, no tracheal deviation and symmetric chest movement Auscultation: clear to auscultation bilaterally Cardio Rate: regular rate GI Inspection: Yes normal to inspection and No distended Palpation (GI): Soft to palpation, not firm, nontender and No hepatosplenomegaly present Auscultation: normal bowel sounds General: Yes no CVA tenderness Back/Spine/Pelvis Back: no CVA tenderness Skin General skin exam: elasticity normal, turgor normal and dry skin Neuro General: patient oriented x3 Psych Appearance: grossly normal Mental Status: mental status grossly normal Assessment & Plan Assessment & Plan (1) Gastroesophageal reflux disease: Code(s): K21.9 - Gastro-esophageal reflux disease without esophagitis Qualifiers: Esophagitis presence: esophagitis presence not specified Qualified Code(s): K21.9 - Gastro-esophageal reflux disease without esophagitis (2) Chronic idiopathic constipation: Code(s): K59.04 - Chronic idiopathic constipation (3) Postprandial abdominal bloating: Code(s): R14.0 - Abdominal distension (gaseous) (4) Abdominal pain: Code(s): R10.9 - Unspecified abdominal pain Qualifiers: Abdominal location: right upper quadrant Qualified Code(s): R10.11 - Right upper quadrant pain (5) Right upper quadrant abdominal pain: Code(s): R10.11 - Right upper quadrant pain Plan Patient was encouraged to try senna. Increase fluid intake and activity to promote better bowel motility. Patient will start taking omeprazole in the morning. However discussed with patient avoiding dietary triggers a late night snacking. Staying upright for minimum 3 hours after meals discussed with patient. Patient was encouraged to eat smaller meals and more often. Increase fiber in her diet. May take [id number] pre and probiotics. Patient has ultrasound in September. She was encouraged to keep that appointment. She will return in 4 months to discuss going for possible colonoscopy. If any abnormalities will call patient with results. Patient is agreeable to current plan of care and verbalizes understanding of instructions. She was given the opportunity to ask questions and all questions answered. Thank you for allowing me to participate in her care Medications: New omeprazole 20 mg PO DAILY 30 caps 3RF K21.9 - Gastro-esophageal reflux disease without esophagitis Coding Level of Care Code Est Pt Level 4 (65797) Complex EM visit Add On G2211 Diagnoses Gastroesophageal reflux disease, unspecified whether esophagitis present K21.9 Esophagitis presence: esophagitis presence not specified Chronic idiopathic constipation K59.04 Postprandial abdominal bloating R14.0 Right upper quadrant abdominal pain R10.11 Abdominal location: right upper quadrant Right upper quadrant abdominal pain R10.11 Time Spent (min) 35 Comment 25 minutes spent with patient and additional 10 minutes spent reviewing her records
[2025-07-21 15:15] VITALS: BP 126/90; PULSE 80; O2SAT 98; BMI 25.2
--- OUTSIDE RECORDS SUMMARY | 2025-07-21 19:21 | XMS_ITS | Encounter Summary ---
Author Organization [employer] Address [address] [place] [address] [place] [address] Care Team Providers Care Vending Machine Servicer Name Role Phone Arpita Saravia MD Primary Care Provider [phone] Eddie Pimentel Unavailable Unavailable Reason for Visit * Reason Onset Date Comments triage 11/03/2022 Encounter Details Date Type Department Care Team ([facility] st Contact Info) Description 11/03/2022 Telephone [facility] [address] [place] [address] Arpita Saravia MD [address] [place], [place] [phone] triage Social History Tobacco Use Types Packs/Day [...] documented as of this encounter Care Teams Vending Machine Servicer Relationship Specialty Start Date End Date Arpita Saravia MD [address] [place] [address] PCP - General Family Medicine 10/08/13 Eddie Pimentel FNP [address] [place] [address] Nurse Practitioner Family Medicine 08/22/23 documented as of this encounter
--- OUTSIDE RECORDS SUMMARY | 2025-07-21 19:21 | XMS_ITS | Clinical Summary ---
Author Organization [employer] Address [address] [facility] 7 [place] [address] Care Team Providers Care Laborer Prestressed Concrete Name Role Phone Arpita Saravia MD Primary Care Provider [phone] Eddie Pimentel Unavailable Unavailable Allergies Active Allergy [...] at work. Patient would benefit from resuming [facility] services for individual therapy to support coping [...] Bipolar affective disorder, current episode mixe d ([facility]) 09/20/2022 Assessment & Plan (02/19/2024 4:48 PM [...] will transfer her care to the new [facility] psychiatric prescriber. Any issues or concerns, [...] controlled. 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 Follow up with [facility]: Recommended for follow-up: 03/14/2023 2. Patient goal [...] medication. Discussed options for treatment of BPD: [place], antiepileptics, antipsychotics. She will increase to Abilify [...] Description 06/04/2025 3:00 PM EDT Office Visit [facility] [address] [place] [address] RexvilleJojo FNP COVID-19 virus infection 06/04/2025 Travel 06/04/2025 Telephone [facility] [address] [facility] [place] [address] Arpita Saravia MD Nurse Triage 04/29/2025 11:30 AM EDT Telemedicine [facility] [address] [facility] [place] [address] Arpita Saravia MD Primary hypertension (Primary Dx); Moderate persistent asthma, unspecified whether complicated 04/29/2025 Travel 04/27/2025 Refill [facility] [address] [facility] [place] [address] Arpita Saravia MD from Last 3 Months [...] 06/04/2025 3:19 PM EDT COVID-19 virus infection LIPID PANEL, STANDARD Routine 10/23/2024 9:42 AM [...] Rapid Covid-19 BinaxNOW (06/04/2025 3:22 PM EDT) [facility] Rapid COVID Ag Positive QC Media Lot # [id number] Lot# Expiration Date [id number] Swab 06/04/2025 3:22 PM EDT [facility] POINT OF CARE TEST ENTER/EDIT ORDERABLES Final Result * POCT Rapid Influenza B OSOM (06/04/2025 3:21 PM EDT) [facility] Rapid Influenza B Ag Negative Negative, Indeterminate QC Media Lot # [id number] Lot# Expiration Date Swab 06/04/2025 3:21 PM EDT [facility] POINT OF CARE TEST ENTER/EDIT ORDERABLES Final Result * POCT Rapid Influenza A OSOM (06/04/2025 3:19 PM EDT) [facility] Rapid Influenza A Ag Negative Negative, Indeterminate QC Media Lot # [id number] Lot# Expiration Date Swab Nasopharyngeal structure / Unknown 06/04/2025 3:19 PM EDT [facility] POINT OF CARE TEST ENTER/EDIT ORDERABLES Final Result * Lipid Panel, Standard (10/23/2024 9:42 AM EST) [facility] Triglycerides 91 <150 mg/dL [facility] Comment:Desirable Triglyceri de: less than 150 mg/dLBorderline High Triglyceride 150-199 mg/dLHigh Triglyceride: 200-499 mg/dLVery High Triglyceride: greater than or equal to 5OO mg/dL Cholesterol 148 <200 mg/dL [facility] Comment:Desirable Cholestero l: less than 200 mg/dLBorderline High Cholesterol: 200-239 mg/dLHigh Cholesterol: greater than 239 mg/dL LDL Cholesterol Calculated 84 <100 mg/dL [facility] Comment:Desirable LDL: less than 100 mg/dLNear Optimal/Above Optimal LDL: 110- 129 mg/dLBorderline High LDL: 130-159 mg/dLHigh LDL: 160-189 mg/dLVery High LDL: greater than or equal to 190 mg/dL HDL Cholesterol 46 >40 mg/dL [facility] Comment:Desirable HDL: great er than 40 mg/dL Note: This HDL assay may give artificially low results in patients with liver disease. Blood Venous blood specimen / Unknown 10/23/2024 9:42 AM EST 10/23/2024 2:07 PM EST Arpita Saravia MD LAB BLOOD ORDERABLES Final Resul t [facility] [address] [place] [address] [phone] * HEPATITIS C AB W/REFL TO [...] a test for HCV RNA (test code 90503) is suggested. For additional information please refer to http://education.Cloudbot/faq/AGK32l4 (This link is being provided for informational/ educational purposes only.) 08/09/2022 9:23 AM EST Margarita PRICE HISTORICAL/NON ORDERABLE LABS Final Result CONVERTED LEGACY LABS * THINPREP TIS PAP AND HPV mRNA E6/E7, CT/NG, TRICH (05/03/2022 1:17 PM EDT) Chlamydia trachomatis RNA, TMA, Urogenital NOT DETECTED NOT DETECTED [facility] Clinical Information: None given [facility] COMMENT SEE COMMENT [facility] Comment: The analytical performance characteristics of this assay, when used to test SurePath(TM) specimens have been determined by [employer]. The modifications have not been cleared or approved by the FDA. This assay has been validated pursuant to the CLIA regulations and is used for clinical purposes. For additional information, please refer to https://Digital River.Cloudbot/faq/JKV783 (This link is being provided for information/ [...] has been evaluated with computer assisted technology. [facility] [employer] SYSTEM Supervisor Assembly Department: SEE COMMENT [facility] Comment: CLAIRE ROSSI(ASCP) CT screening location: [place] [address] HPV nRNA E6/E7 Not Detected Not Detected [facility] Comment: Methodology: Explosion Welder-Mediated Amplification This assay detects E6/E7 viral messenger RNA (mRNA) from 14 high-risk HPV types (16,18,31,33,35,39,45,51,52,56,58,59,66,68). Cervical sources are required for HPV testing. If a vaginal source from a patient who has had a total hysterectomy with removal of cervix was submitted, please contact the testing laboratory for alternative testing options. For additional information, please refer to http://Digital River.Cloudbot/faq/DXN400m0 (This link if provided for information/ educational [...] of this assay have been determined by [employer]. The modifications have not been cleared or approved by the FDA. This assay has been validated pursuant to the CLIA regulations and is used for clinical purposes. For additional information, please refer to http://education.Cloudbot/ faq/Trichomonastma (This link is being provided for information/ educational purposes only.) 05/03/2022 1:17 PM EDT Margarita Tobin CNM LAB PATHOLOGY ORDERABLES Final Result [facility] [address] from Last 3 Months or Most Recently Relevant to Health Maintenance Insurance [facility] C3 DENTAL-[facility] MEDICAID STAND ADULT Care Teams Laborer Prestressed Concrete Relationship Specialty Start Date End Date Arpita Saravia MD [address] [place] [address] PCP - General Family Medicine 10/08/13 Eddie Pimentel FNP [address] [place] [address] Nurse Practitioner Family Medicine 08/22/23
--- OUTSIDE RECORDS SUMMARY | 2025-07-21 19:21 | XMS_ITS | Encounter Summary ---
Author Organization [employer] Address [address] [facility] 7 [place] [address] Care Team Providers Care Guide Domestic Tour Name Role Phone Arpita Saravia MD Primary Care Provider Eddie Pimentel Unavailable Unavailable Reason for Visit * Reason Onset Date Comments Nurse Triage 06/04/2025 Encounter Details Date Type Department Care Team ([facility] st Contact Info) Description 06/04/2025 Telephone [facility] [address] [place] [address] Arpita Saravia MD [address] [place], [place] [phone] Nurse Triage Social History Tobacco Use Types [...] home by school nurse. [facility]K apt in [facility] at 300pm. Pt agrees with [...] documented as of this encounter Care Teams Guide Domestic Tour Relationship Specialty Start Date End Date Arpita Saravia MD [address] [place] [id number] PCP - General Family Medicine 10/08/13 Eddie Pimentel FNP [address] [place] [id number] Nurse Practitioner Family Medicine 08/22/23 documented as of this encounter
--- OUTSIDE RECORDS SUMMARY | 2025-07-21 19:21 | XMS_ITS | Encounter Summary ---
Author Organization [employer] Address [address] [facility] 7 [place] [address] Care Team Providers Care Tracer Bullet Section Supervisor Name Role Phone Arpita Saravia MD Primary Care Provider [phone] Eddie Pimentel Unavailable Unavailable Reason for Visit * Reason Onset Date Comments Nurse Triage 10/24/2023 Encounter Details Date Type Department Care Team ([facility] st Contact Info) Description 10/24/2023 Telephone [facility] [address] [place] [address] Arpita Saravia MD [address] [place], [place] [phone] Nurse Triage Social History Tobacco Use Types [...] documented as of this encounter Care Teams Tracer Bullet Section Supervisor Relationship Specialty Start Date End Date Arpita Saravia MD [address] [place] [address] PCP - General Family Medicine 10/08/13 Eddie Pimentel FNP [address] [place] [address] Nurse Practitioner Family Medicine 08/22/23 documented as of this encounter
--- OUTSIDE RECORDS SUMMARY | 2025-07-21 19:21 | XMS_ITS | Encounter Summary ---
Author Organization [employer] Address [address] [place] [address] [place] [address] Care Team Providers Care Manager Philosophy Name Role Phone Arpita Saravia MD Primary Care Provider [phone] Eddie Pimentel Unavailable Unavailable Reason for Visit * Reason Onset Date Comments triage 10/21/2022 Encounter Details Date Type Department Care Team ([facility] st Contact Info) Description 10/21/2022 Telephone [facility] [address] [place] [address] Arpita Saravia MD [address] [place] [address] triage Social History Tobacco Use Types Packs/Day [...] as of this encounter Care Teams Manager Philosophy Relationship Specialty Start Date End Date Arpita Saravia MD [address] [place] [address] PCP - General Family Medicine 10/08/13 Eddie Pimentel FNP [address] [place] [address] Nurse Practitioner Family Medicine 08/22/23 documented as of this encounter
== END 2025-07-21 15:34 | disposition home or self-care (01) ==
LOC: HO.HGI 15:08
PROVIDERS: PCP Student in an Organized Health Care Education/Training Program; Visit Provider Nurse Practitioner Family
DX: K21.9 Gastro-esophageal reflux disease without esophagitis (principal); K59.04 Chronic idiopathic constipation; R14.0 Abdominal distension (gaseous); R10.11 Right upper quadrant pain
CPT/HCPCS: 99214

== ENCOUNTER → 2025-07-21 15:07 | Outpatient (BNVA) | payer MEDICAID, SELFPAY | PROVIDERS: PCP Student in an Organized Health Care Education/Training Program; Visit Provider Nurse Practitioner Family | DX: K21.9 Gastro-esophageal reflux disease without esophagitis (principal); K59.04 Chronic idiopathic constipation; R14.0 Abdominal distension (gaseous); R10.11 Right upper quadrant pain | CPT/HCPCS: 99212 ==

== ENCOUNTER 2025-09-09 13:07 | Outpatient (AMB) | payer MEDICAID, SELFPAY ==
--- NOTE | 2025-09-09 13:08 | MHC.OFFVIS ---
Vital Signs 09/09/25 13:10 Height 4 ft 11 in Weight 128 lb BMI 25.9 BP 122/68 Blood Pressure Location Rt brachial Position Sitting Pulse 84 Pulse Source Pulse Oximeter Pulse Oximetry (%) 98 Oxygen Delivery Method Room Air Intake Visit Reasons: dyspnea Mid Level Project Manager Required: No Accompanied by: Self / Same As Patient Allergies levofloxacin Adverse Reaction (Unknown, Verified 09/09/25 13:11) Abdominal Pain Medication List - Last Reconciled 09/09/25 by Ana Miramontes LPN albuterol sulfate 90 mcg/actuation (Ventolin HFA) 2 puffs inhalation Q4-6H PRN buspirone 5 mg PO TID PRN fluticasone propion-salmeterol 115-21 mcg/actuation (Advair HFA) 2 puffs inhalation Q12H lisinopril 2.5 mg PO QAM loratadine 10 mg PO QAM omeprazole 20 mg PO DAILY ondansetron 8 mg PO Q12H rimegepant (Nurtec ODT) 75 mg PO Q OTHER DAY 30 days sennosides (Natural Senna Laxative) 17.2 mg (2 x 8.6 mg) PO BEDTIME zolmitriptan take 1 tab at onset of headache; if no relief, may repeat 1 tab after at least 2 hrs; max = 2 tabs/24 hrs PO 30 days HPI HPI dyspnea: Details: Whitley is a pleasant 40 year old female, former less than 10 pack year smoker, quit 10+ years ago with underlying asthma and anxiety. Since the last visit she was switched from Breo to Advair, as she could not tolerate the DPI, however she feels the Advair is not as effective. On Breo, she felt she was able to inhale more deeply and have less chest tightness and wheezing. Since last visit she has been seen at urgent care for upper respiratory infection however did not require prednisone or antibiotics. Of note, patient currently undergoing GI evaluation for reflux, dysphagia and sensation of food getting stuck in throat. She recently was started on omeprazole and has some upcoming testing including imaging and possible endoscopy. 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 Review of Systems Const Denies chills, Denies excessive sweating, Denies fever(s), Denies headache(s) and Denies night sweats Eyes Denies dry eyes, Denies irritation and Denies itchy eyes ENT Reports Normal hearing present, Denies headache(s), Denies nasal congestion, Denies nasal discharge, Denies post nasal drip and Denies sore throat Card Denies chest pain, Denies chest pain at rest, Denies chest pain with activity, Denies claudication, Denies leg edema, Denies dyspnea, Denies dyspnea on exertion, Denies orthopnea and Denies paroxysmal nocturnal dyspnea Resp Denies chest congestion, Denies cough, Denies excessive phlegm production, Denies pain on inspiration, Denies pain with cough, Denies dyspnea, Denies dyspnea on exertion, Denies stridor and Denies wheezing Musc Denies myalgias Neuro Reports Normal hearing present and Denies headache(s) Endo Denies excessive sweating Mann/Lymph Denies lymphadenopathy Aller/Immun Denies itchy eyes, Denies seasonal rhinorrhea and Denies wheezing Physical Exam Vital Signs: Last Vital Signs Pulse 84 09/09/25 13:10 BP 122/68 09/09/25 13:10 Pulse Ox 98 09/09/25 13:10 Oxygen Delivery Method Room Air 09/09/25 13:10 BMI result Body Mass Index 25.9 Const General: cooperative, healthy appearing, comfortable, no acute distress, well developed and alert Orientation/consciousness: patient oriented x3 Limitations: no limitations HEENT Head: Yes normal to inspection, Yes normocephalic and Yes atraumatic Ears: hearing grossly normal bilaterally and external ears normal Eyes General: appearance normal, both eyes and all related structures Eyelids: Yes eyelids normal Sclerae: sclerae normal EOM: EOMs intact bilaterally Neck Neck: Yes normal visual inspection and Yes no lymphadenopathy Lymphatic: no lymphadenopathy noted Chest Chest palpation & inspection: normal inspection of the chest Resp Effort & Inspection: normal respiratory effort, able to speak in complete sentences, no audible wheezes, no cough, no stridor, not tachypneic, no tripod positioning and no use of accessory muscles Auscultation: clear to auscultation bilaterally Cardio Jugular venous distension: no JVD Rate: regular rate Rhythm: regular rhythm Skin Other: warm, dry General skin exam: no rashes or lesions noted Neuro General: patient oriented x3 Cranial nerves: Yes Normal hearing present Cognition (Neuro): normal cognition Gait exam (Neuro): Normal gait present Extrem General: Yes normal to inspection, Yes capillary refill normal, Yes no clubbing, cyanosis or edema and Yes no pedal edema Psych Appearance: grossly normal and well kempt Speech and movement: Normal speech and movement present and Clear speech present Affect: normal affect Attitude: cooperative Thought process: Normal thought process present Thought content: Normal thought content present Insight: Good insight present (Psych) Judgement: Good judgement present (Psych) Assessment & Plan Assessment & Plan (1) Asthma: Code(s): J45.909 - Unspecified asthma, uncomplicated Category: Medical (2) Dyspnea on exertion: Code(s): R06.09 - Other forms of dyspnea Category: Medical Plan Will switch patient from Advair to Breo, as she noted improved respiratory control with use. She is aware to call if symptoms become less controlled. She does report occasional nightly dry cough which may be related to reflux, recently started on omeprazole and following a reflux diet. She is aware to monitor symptoms and if no change with PPI may need to consider increased dose of Breo. All questions were answered and patient is in agreement of plan. Will follow up in 6 months or sooner if needed. Medications: Refilled fluticasone furoate-vilanterol 100-25 mcg/dose (Breo Ellipta) 1 inh inhalation DAILY 60 ea 6RF Discontinued fluticasone propion-salmeterol 115-21 mcg/actuation (Advair HFA) Discontinued Reason: Patient Completed Course 2 puffs inhalation Q12H 12 grams 3RF Coding Level of Care Code Est Pt Level 4 (79959) Diagnoses Asthma J45.909 Dyspnea on exertion R06.09
[2025-09-09 13:10] VITALS: BP 122/68; PULSE 84; O2SAT 98; BMI 25.9
--- OUTSIDE RECORDS SUMMARY | 2025-09-09 17:20 | XMS_ITS | Encounter Summary ---
Author Organization [employer] Address [address] [facility] 7 [place] [address] Care Team Providers Care Angle Furnaceman Name Role Phone Arpita Saravia MD Primary Care Provider [phone] Eddie Pimentel Unavailable Unavailable Carlos Nguyễn CNP Primary Care Provider [phone] Reason for Visit * Reason Onset Date Comments triage 11/03/2022 Encounter Details Date Type Department Care Team (Late st Contact Info) Description 11/03/2022 Telephone [facility] MEDICINE [address] [place] [address] Arpita Saravia MD [address] [place], [place] [phone] triage Social History Tobacco Use Types Packs/Day [...] Pt states when she went to the pharmachy to pick this up was told by [...] Noted Time PHQ-9 Depression Total Score: 15 11/01/ 023 8:55 AM EST documented as of this encounter Care Teams Angle Furnaceman Relationship Specialty Start Date End Date Arpita Saravia MD [address] [place] [address] PCP - General Family Medicine 10/08/13 07/28/25 Carlos Nguyễn CNP [address] [place] [address] PCP - General Family Medicine 07/29/25 Eddie Pimentel FNP [address] [place] [address] Nurse Practitioner Family Medicine 08/22/23 documented as of this encounter
--- OUTSIDE RECORDS SUMMARY | 2025-09-09 17:20 | XMS_ITS | Encounter Summary ---
Author Organization [employer] Address [address] [place] [address] 7 [place] [address] Care Team Providers Care Custom Protection Officer Name Role Phone Arpita Saravia MD Primary Care Provider [phone] Eddie Pimentel Unavailable Unavailable Carlos Nguyễn CNP Primary Care Provider [phone] Reason for Visit * Reason Onset Date Comments triage 10/21/2022 Encounter Details Date Type Department Care Team (Late st Contact Info) Description 10/21/2022 Telephone [facility] MED & PEDS [address] [place] [address] Aprita Saravia MD [address] [place], [place] [phone] triage Social History Tobacco Use Types Packs/Day [...] documented as of this encounter Care Teams Custom Protection Officer Relationship Specialty Start Date End Date Arpita Saravia MD [address] [place] [address] PCP - General Family Medicine 10/08/13 07/28/25 Carlos Nguyễn CNP [address] [place] [address] PCP - General Family Medicine 07/29/25 Eddie Pimentel FNP [address] [place] [address] Nurse Practitioner Family Medicine 08/22/23 documented as of this encounter
--- OUTSIDE RECORDS SUMMARY | 2025-09-09 17:20 | XMS_ITS | Encounter Summary ---
Author Organization [employer] Address [address] [facility] 7 [place] [address] Care Team Providers Care Field Liability Generalist Name Role Phone Arpita Saravia MD Primary Care Provider [phone] Eddie Pimentel Unavailable Unavailable Carlos Nguyễn CNP Primary Care Provider [phone] Reason for Visit * Reason Onset Date Comments Nurse Triage 10/24/2023 Encounter Details Date Type Department Care Team (Late st Contact Info) Description 10/24/2023 Telephone [facility] MEDICINE [address] [place] [address] Arpita Saravia MD [address] [place], [place] [phone] Nurse Triage Social History Tobacco Use Types [...] Time PHQ-9 Depression Total Score: 5 10/19/19 3:32 PM EST documented as of this encounter Care Teams Field Liability Generalist Relationship Specialty Start Date End Date Arpita Saravia MD [address] [place] [address] PCP - General Family Medicine 10/08/13 07/28/25 Carlos Nguyễn CNP [address] [place] [address] PCP - General Family Medicine 07/29/25 Eddie Pimentel FNP [address] [place] [address] Nurse Practitioner Family Medicine 08/22/23 documented as of this encounter
--- OUTSIDE RECORDS SUMMARY | 2025-09-09 17:20 | XMS_ITS | Encounter Summary ---
Author Organization [employer] Address [address] [facility] 7 [place] [address] Care Team Providers Care Automotive Wholesale Parts Advisor Name Role Phone Arpita Saravia MD Primary Care Provider [phone] Eddie Pimentel Unavailable Unavailable Carlos Nguyễn CNP Primary Care Provider [phone] Reason for Visit * Reason Onset Date Comments Nurse Triage 06/04/2025 Encounter Details Date Type Department Care Team (Late st Contact Info) Description 06/04/2025 Telephone [facility] MEDICINE [address] [place] [address] Arpita Saravia MD [address] [place], [place] [phone] Nurse Triage Social History Tobacco Use Types [...] home by school nurse. ASK apt in [facility] at 300pm. Pt agrees with disposition [...] documented as of this encounter Care Teams Automotive Wholesale Parts Advisor Relationship Specialty Start Date End Date Arpita Saravia MD [address] [place] [address] PCP - General Family Medicine 10/08/13 07/28/25 Carlos Nguyễn CNP [address] [place] [address] PCP - General Family Medicine 07/29/25 Eddie Pimentel FNP [address] [place] [address] Nurse Practitioner Family Medicine 08/22/23 documented as of this encounter
--- OUTSIDE RECORDS SUMMARY | 2025-09-09 17:20 | XMS_ITS | Clinical Summary ---
Author Organization [employer] Address [address] [facility] 7 [place] [address] Care Team Providers Care Lot Attendant Name Role Phone LorenGiorgiEddiealfreda VILLASEÑOR Unavailable Unavailable Carlos Nguyễn CNP Primary Care Provider [phone] Allergies Active Allergy Reactions Criticality Noted Date [...] Per package instructions 1 each 5 Active predniSONE (Deltasone) 20 MG tabletIndicatio ns:Acute laryngitis Take 1 tablet (20 mg) by mouth Once per day for 5 days. 5 tablet 5 025 benzonatate (Tessalon) 200 MG capsuleIndicati ons:Acute laryngitis Take 1 capsule (200 mg) by mouth if needed in the morning, at noon, and at bedtime for cough for up to 7 days. Do not crush or chew. 20 capsule 5 025 Active Problems Problem Noted Date Diagnosed Date [...] Bipolar affective disorder, current episode mixe d ([facility]) 09/20/2022 Assessment & Plan (02/19/2024 4:48 PM [...] will transfer her care to the new [facility] psychiatric prescriber. Any issues or concerns, [...] controlled. 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 She indicates that she has been experiencing exacerbation of sxs, specially feeling down and unmotivated. She indicates that main stressors in the past year have been related to changes at work. Whitley indicated that although adhering to medication, she can feel sxs worsening. Patient will benefit from follow up IB brief intervention to further explore BH needs and potential treatments. At this time Whitley Juares meets criteria for Visit Diagnoses (per record): Problem List Items Addressed This Visit Other Bipolar affective disorder, current episode mixed ([facility]) - Primary Relevant Orders Referral to Behavioral [...] medication. Discussed options for treatment of BPD: [place], antiepileptics, antipsychotics. She will increase to Abilify [...] Encounters Date Type Department Care Team Description 08/25/2025 2:30 PM EST Office Visit [facility] MED & PEDS [address] [place] [address] Ben Alford MD Acute laryngitis (Primary Dx) 08/25/2025 Travel 08/25/2025 Telephone [facility] MEDICINE [address] [place], [place] [phone] Carlos Nguyễn CNP Nurse Triage from Last 3 Months Immunizations Immunization Administration [...] Sign Reading Time Taken Comments Blood Pressure 138/93 08/25/2025 3:07 PM EST Pulse 80 08/25/2025 3:07 PM EST Temperature 36.9 C (98.4 F) 08/25/2025 3:07 PM EST Respiratory Rate 20 08/25/2025 3:07 PM EST Oxygen Saturation 99% 08/25/2025 3:07 PM EST Inhaled Oxygen Concentration - - [...] 2025 06/05/2021, 05/15/2021 Influenza Vaccine (#1) 2025 Disability Screening 02/04/2026 02/04/2025 Tobacco Screening 08/25/2026 08/25/2025 Cervical Cancer Screening 05/03/2027 HPV/Cotest 05/03/2027 05/03/2022 Pap Smear 05/03/2027 05/03/2022 Dental X-Ray: Full Mouth 07/10/2027 024, 09/06/2022, 12/02/2021 DTaP/Tdap/Td Vaccines (3 - T d or [...] Name Priority Date/Time Associated Diagnosis Comments POCT INFLUENZA B Routine 08/25/2025 3:50 PM EST Acute laryngitis POCT INFLUENZA A Routine 08/25/2025 3:50 PM EST Acute laryngitis POCT RAPID COVID ANTIGEN Routine 08/25/2025 3:50 PM EST Acute laryngitis LIPID PANEL, STANDARD Routine 10/23/2024 9:42 AM [...] Recently Relevant to Health Maintenance Results * POCT Rapid Covid-19 BinaxNOW (08/25/2025 3:50 PM EST) [facility] Rapid COVID Ag Negative Swab 08/25/2025 3:50 PM EST Ben Alford MD POINT OF CARE TEST ENTER/ED IT ORDERABLES Final Result * POCT Rapid Influenza B OSOM (08/25/2025 3:50 PM EST) [facility] Rapid Influenza B Ag Negative Negative, Indeterminate Swab 08/25/2025 3:50 PM EST Ben Alford MD POINT OF CARE TEST ENTER/ED IT ORDERABLES Final Result * POCT Rapid Influenza A OSOM (08/25/2025 3:50 PM EST) [facility] Rapid Influenza A Ag Negative Negative, Indeterminate Swab Nasopharyngeal structure / Unknown 08/25/2025 3:50 PM EST Ben Alford MD POINT OF CARE TEST ENTER/ED IT ORDERABLES Final Result * Lipid Panel, Standard (10/23/2024 9:42 AM EST) [facility] Triglycerides 91 <150 mg/dL [facility] Comment:Desirable Triglyceri de: less than 150 mg/dLBorderline High Triglyceride 150-199 mg/dLHigh Triglyceride: 200-499 mg/dLVery High Triglyceride: greater than or equal to 5OO mg/dL Cholesterol 148 <200 mg/dL [facility] Comment:Desirable Cholestero l: less than 200 mg/dLBorderline High Cholesterol: 200-239 mg/dLHigh Cholesterol: greater than 239 mg/dL LDL Cholesterol Calculated 84 <100 mg/dL [facility] Comment:Desirable LDL: less than 100 mg/dLNear Optimal/Above Optimal LDL: 110- 129 mg/dLBorderline High LDL: 130-159 mg/dLHigh LDL: 160-189 mg/dLVery High LDL: greater than or equal to 190 mg/dL HDL Cholesterol 46 >40 mg/dL [facility] Comment:Desirable HDL: great er than 40 mg/dL Note: This HDL assay may give artificially low results in patients with liver disease. Blood Venous blood specimen / Unknown 10/23/2024 9:42 AM EST 10/23/2024 2:07 PM EST Arpita Saravia MD LAB BLOOD ORDERABLES Final Resul t Performing Organization Address [facility] Co de Phone Number [facility] [address] [place] [phone] * HEPATITIS C AB W/REFL TO [...] a test for HCV RNA (test code 88748) is suggested. For additional information please refer to http://education.[employer]HTER [employer]/faq/DIZ34g6 (This link is being provided for informational/ educational purposes only.) 08/09/2022 9:23 AM EST Margarita PRICEM HISTORICAL/NON ORDERABLE LABS Final Result Performing Organization Address City/[facility]/ZIP Co de Phone Number [facility] * THINPREP TIS PAP AND HPV mRNA E6/E7, CT/NG, TRICH (05/03/2022 1:17 PM EDT) Chlamydia trachomatis RNA, TMA, Urogenital NOT DETECTED NOT DETECTED [facility] Clinical Information: None given [facility] COMMENT SEE COMMENT [facility] Comment: The analytical performance characteristics of this assay, when used to test SurePath(TM) specimens have been determined by [employer]. The modifications have not been cleared or approved by the FDA. This assay has been validated pursuant to the CLIA regulations and is used for clinical purposes. For additional information, please refer to https://Kivo.Industry Dive/faq/IOT864 (This link is being provided for information/ [...] along with historic and current clinical information. Comment: This Pap test has been evaluated with computer assisted technology. [email or web address] Machinery Dismantler: SEE COMMENT [facility] Comment: CLAIRE ROSSI(ASCP) CT screening location: [place] [address] HPV nRNA E6/E7 Not Detected Not Detected [facility] Comment: Methodology: System Administration Advisor-Mediated Amplification This assay detects E6/E7 viral messenger RNA (mRNA) from 14 high-risk HPV types (16,18,31,33,35,39,45,51,52,56,58,59,66,68). Cervical sources are required for HPV testing. If a vaginal source from a patient who has had a total hysterectomy with removal of cervix was submitted, please contact the testing laboratory for alternative testing options. For additional information, please refer to http://Kivo.[employer]ry Dive/faq/JPB513k1 (This link if provided for information/ educational purposes only.) Interpretation/Re sult: Negative for intraepithelial lesion or malignancy. [email or web address] LMP: 7,132,022 [email or web address] Neisseria gonorrhoeae RNA, TMA, Urogenital NOT DETECTED NOT DETECTED [email or web address] Prev. BX: NONE GIVEN [facility]OUND[facility] [...] of this assay have been determined by [employer]. The modifications have not been cleared or approved by the FDA. This assay has been validated pursuant to the CLIA regulations and is used for clinical purposes. For additional information, please refer to http://education.Industry Dive/ faq/Trichomonastma (This link is being provided for information/ educational purposes only.) 05/03/2022 1:17 PM EDT us Margarita Tobin CNM LAB PATHOLOGY ORDERABLES Final Result [facility] [address] from Last 3 Months or Most Recently Relevant to Health Maintenance Insurance [facility] C[employer] [facility] [employer] STAND ADULT Care Teams Lot Attendant Relationship Specialty Start Date End Date Carlos Nguyễn CNP [address] [place] [address] PCP - General Family Medicine 07/29/25 Eddie Pimentel FNP Nurse Practitioner Family Medicine 08/22/23
== END 2025-09-09 13:24 | disposition home or self-care (01) ==
LOC: HO.HPSW 13:08
PROVIDERS: PCP Student in an Organized Health Care Education/Training Program; Visit Provider Nurse Practitioner Family
DX: J45.909 Unspecified asthma, uncomplicated (principal); R06.09 Other forms of dyspnea
CPT/HCPCS: 99214

== ENCOUNTER → 2025-09-09 13:07 | Outpatient (BNVA) | payer MEDICAID, SELFPAY | PROVIDERS: PCP Student in an Organized Health Care Education/Training Program; Visit Provider Nurse Practitioner Family | DX: J45.909 Unspecified asthma, uncomplicated (principal); R06.09 Other forms of dyspnea; Z79.899 Other long term (current) drug therapy; Z79.891 Long term (current) use of opiate analgesic | CPT/HCPCS: 99212 ==

== ENCOUNTER 2025-09-23 08:27 | Outpatient (REF) | payer MEDICAID, SELFPAY ==
--- NOTE | ~2025-09-23 | FL_ITS ---
EXAMINATION: XR GI SERIES X-RAY BARIUM SWALLOW CLINICAL INFORMATION: Gastroesophageal reflux disease COMPARISON: CT abdomen 10/17/2024 TECHNIQUE: Barium swallow study under fluoroscopy. An air contrast upper GI series with fluoroscopy and spot imaging was performed. Effervescent granules with high and low density barium consistencies were ingested without difficulty. The patient was evaluated in the upright and recumbent positions. FLUOROSCOPY TIME: 1.24 minutes of fluoroscopic time was utilized for the entirety of this examination. DOSE AREA PRODUCT: 66 uGy-m2 (microgray-meters squared) FINDINGS: Normal swallowing mechanism. No evidence of tracheal penetration or aspiration. No mass or mucosal lesion is identified. Esophagus demonstrates normal distention and motility. No evidence of stricture, mass or mucosal lesion. Normal esophageal motility. Stomach demonstrates normal distention. No mass or mucosal lesions are seen. There is normal passage of the barium through the stomach into the proximal small bowel. The duodenal sweep appears unremarkable. No hiatal hernia seen.. No reflux is seen during the course of the procedure. FL/FL upper GI w Ba Swallow IMPRESSION: No significant abnormality demonstrated by barium study. Electronically signed by: Yasir Ardon MD 09/23/2025 03:46 PM JORGE
--- OUTSIDE RECORDS SUMMARY | 2025-09-23 08:34 | XMS_ITS | Encounter Summary ---
Author Organization [employer] Address 75 [facility] 7 [place] [address] Care Team Providers Care Leaf Coverer Name Role Phone Arpita Saravia MD Primary Care Provider [phone] Eddie Pimentel Unavailable Unavailable Carlos Nguyễn CNP Primary Care Provider [phone] Reason for Visit * Reason Onset Date Comments Nurse Triage 06/04/2025 Encounter Details Date Type Department Care Team (Late st Contact Info) Description 06/04/2025 Telephone [facility] MEDICINE [address] [place] [address] Arpita Saravia MD [address] [place], [place] [phone] Nurse Triage Social History Tobacco Use Types [...] home by school nurse. ASK apt in [facility] at 300pm. Pt agrees with disposition and [...] documented as of this encounter Care Teams Leaf Coverer Relationship Specialty Start Date End Date Arpita Saravia MD [address] [place] [address] PCP - General Family Medicine 10/08/13 07/28/25 Carlos Nguyễn CNP [address] [place] [address] PCP - General Family Medicine 07/29/25 Eddie iPmentel FNP [address] [place] [address] Nurse Practitioner Family Medicine 08/22/23 documented as of this encounter
--- OUTSIDE RECORDS SUMMARY | 2025-09-23 08:34 | XMS_ITS | Encounter Summary ---
Author Organization [employer] Address [address] [place] [address] 7 [place] [address] Care Team Providers Care Manipulative Therapy Specialist Name Role Phone Arpita Saravia MD Primary Care Provider [phone] Eddie Pimentel Unavailable Unavailable Carlos Nguyễn CNP Primary Care Provider [phone] Reason for Visit * Reason Onset Date Comments triage 10/21/2022 Encounter Details Date Type Department Care Team (Late st Contact Info) Description 10/21/2022 Telephone [facility] MED & PEDS [address] [place] [address] Arpita Saravia MD [address] [place], [place] [phone] triage Social History Tobacco Use Types Packs/Day [...] with Dr. Alford 10/24 @ 400pm, Insu erna is verified as active prior to booking. [...] documented as of this encounter Care Teams Manipulative Therapy Specialist Relationship Specialty Start Date End Date Arpita Saravia MD [address] [place] [address] PCP - General Family Medicine 10/08/13 07/28/25 Carlos Nguyễn CNP [address] [place] [address] PCP - General Family Medicine 07/29/25 Eddie Pimentel FNP [address] [place] [address] Nurse Practitioner Family Medicine 08/22/23 documented as of this encounter
--- OUTSIDE RECORDS SUMMARY | 2025-09-23 08:34 | XMS_ITS | Encounter Summary ---
Author Organization [employer] Address [address] [facility] 7 [place] [address] Care Team Providers Care Naval Gunfire Spotter Name Role Phone Arpita Saravia MD Primary Care Provider [phone] Eddie Pimentel Unavailable Unavailable Carlos Nguyễn CNP Primary Care Provider [phone] Reason for Visit * Reason Onset Date Comments Nurse Triage 10/24/2023 Encounter Details Date Type Department Care Team (Late st Contact Info) Description 10/24/2023 Telephone [facility] MEDICINE [address] [place] [address] Arpita Saravia MD [address] [place], [place] [id number] Nurse Triage Social History Tobacco Use Types [...] documented as of this encounter Care Teams Naval Gunfire Spotter Relationship Specialty Start Date End Date Arpita Saravia MD [address] [place] [address] PCP - General Family Medicine 10/08/13 07/28/25 Carlos Nguyễn CNP [address] [place] [address] PCP - General Family Medicine 07/29/25 Eddie Pimentel FNP [address] [place] [address] Nurse Practitioner Family Medicine 08/22/23 documented as of this encounter
--- OUTSIDE RECORDS SUMMARY | 2025-09-23 08:34 | XMS_ITS | Encounter Summary ---
Author Organization [employer] Address [address] [facility] 7 [place] [address] Care Team Providers Care Nursing Home Physician Name Role Phone Arpita Saravia MD Primary Care Provider [phone] Eddie Pimentel Unavailable Unavailable Carlos Nguyễn CNP Primary Care Provider [phone] Reason for Visit * Reason Onset Date Comments triage 11/03/2022 Encounter Details Date Type Department Care Team (Late st Contact Info) Description 11/03/2022 Telephone [facility] MEDICINE [address] [place] [address] Arpita Saravia MD [address] [place], [place] [phone] triage Social History Tobacco Use Types Packs/Day [...] documented as of this encounter Care Teams Nursing Home Physician Relationship Specialty Start Date End Date Arpita Saravia MD [address] [place] [address] PCP - General Family Medicine 10/08/13 07/28/25 Carlos Nguyễn CNP [address] [place] [address] PCP - General Family Medicine 07/29/25 Eddie Pimentel FNP [address] [place] [address] Nurse Practitioner Family Medicine 08/22/23 documented as of this encounter
--- OUTSIDE RECORDS SUMMARY | 2025-09-23 08:34 | XMS_ITS | Clinical Summary ---
Author Organization [employer] Address [address] [facility] 7 [place] [address] Care Team Providers Care Pediatric Oncologist Name Role Phone LorenGiorgiEddiealfreda VILLASEÑOR Unavailable Unavailable Carlos Nguyễn CNP Primary Care Provider [phone] Allergies Active Allergy Reactions Criticality Noted Date [...] episode mixe d ([facility]) 09/20/2022 Assessment & Plan (02/19/2024 4:48 PM [...] will transfer her care to the new [facility] psychiatric prescriber. Any issues or concerns, [...] controlled. 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 Follow up with [facility]: Recommended for follow-up: 03/14/2023 2. Patient goal [...] medication. Discussed options for treatment of BPD: [place], antiepileptics, antipsychotics. She will increase to Abilify [...] Description 08/25/2025 2:30 PM EST Office Visit [facility] [address] [place] [address] Ben Alford MD Acute laryngitis (Primary Dx) 08/25/2025 Travel 08/25/2025 Telephone [facility] MEDICINE [address] [place], [place] [phone] Carlos Nguyễn CNP Nurse Triage from Last [...] Rapid Covid-19 BinaxNOW (08/25/2025 3:50 PM EST) [facility] Rapid COVID Ag Negative Swab 08/25/2025 3:50 PM EST Ben Alford MD POINT OF CARE TEST ENTER/ED IT ORDERABLES Final Result * POCT Rapid Influenza B OSOM (08/25/2025 3:50 PM EST) [facility] Rapid Influenza B Ag Negative Negative, Indeterminate Swab 08/25/2025 3:50 PM EST Ben Alford MD POINT OF CARE TEST ENTER/ED IT ORDERABLES Final Result * POCT Rapid Influenza A OSOM (08/25/2025 3:50 PM EST) [facility] Rapid Influenza A Ag Negative Negative, Indeterminate Swab Nasopharyngeal structure / Unknown 08/25/2025 3:50 PM EST Ben Alford MD POINT OF CARE TEST ENTER/ED IT ORDERABLES Final Result * Lipid Panel, Standard (10/23/2024 9:42 AM EST) [facility] Triglycerides 91 <150 mg/dL [facility] Comment:Desirable Triglyceri de: less than 150 mg/dLBorderline High Triglyceride 150-199 mg/dLHigh Triglyceride: 200-499 mg/dLVery High Triglyceride: greater than or equal to 5OO mg/dL Cholesterol 148 <200 mg/dL [facility] Comment:Desirable Cholestero l: less than 200 mg/dLBorderline High Cholesterol: 200-239 mg/dLHigh Cholesterol: greater than 239 mg/dL LDL Cholesterol Calculated 84 <100 mg/dL [facility] Comment:Desirable LDL: less than 100 mg/dLNear Optimal/Above Optimal LDL: 110- 129 mg/dLBorderline High LDL: 130-159 mg/dLHigh LDL: 160-189 mg/dLVery High LDL: greater than or equal to 190 mg/dL HDL Cholesterol 46 >40 mg/dL [facility] Comment:Desirable HDL: great er than 40 mg/dL Note: This HDL assay may give artificially low results in patients with liver disease. Blood Venous blood specimen / Unknown 10/23/2024 9:42 AM EST 10/23/2024 2:07 PM EST Arpita Saravia MD LAB BLOOD ORDERABLES Final Resul t Performing Organization Address [facility] Co de Phone Number [facility] [address] [place] [phone] * HEPATITIS C AB W/REFL TO [...] a test for HCV RNA (test code 26870) is suggested. For additional information please refer to http://education.psicofxp.Med ePad/faq/CRU56m0 (This link is being provided for informational/ educational purposes only.) 08/09/2022 9:23 AM EST Margarita PRICEM HISTORICAL/NON ORDERABLE LABS Final Result Performing Organization Address City/[facility]/ZIP Co de Phone Number CONVERTED LEGACY LABS [...] test SurePath(TM) specimens have been determined by [facility]. The modifications have not been cleared or approved by the FDA. This assay has been validated pursuant to the CLIA regulations and is used for clinical purposes. For additional information, please refer to https://Apiary.[employer]/faq/REJ843 (This link is being provided for information/ [...] has been evaluated with computer assisted technology. [facility] Instrument Repair Technician: SEE COMMENT [facility] Comment: CLAIRE ROSSI(ASCP) CT screening location: [place] [address] HPV nRNA E6/E7 Not Detected Not Detected [facility] Comment: Methodology: Home Energy Consultant-Mediated Amplification This assay detects E6/E7 viral messenger RNA (mRNA) from 14 high-risk HPV types (16,18,31,33,35,39,45,51,52,56,58,59,66,68). Cervical sources are required for HPV testing. If a vaginal source from a patient who has had a total hysterectomy with removal of cervix was submitted, please contact the testing laboratory for alternative testing options. For additional information, please refer to http://Apiary.[employer]/faq/YXY292h2 (This link if provided for information/ educational purposes only.) Interpretation/Re sult: Negative for intraepithelial lesion or malignancy. [facility] LMP: [id number] [facility] Neisseria gonorrhoeae RNA, TMA, Urogenital NOT DETECTED NOT DETECTED [facility] Prev. BX: NONE GIVEN FOUNDATIO [...] of this assay have been determined by [facility]. The modifications have not been cleared or approved by the FDA. This assay has been validated pursuant to the CLIA regulations and is used for clinical purposes. For additional information, please refer to http://education.[employer]/ faq/Trichomonastma (This link is being provided for information/ educational purposes only.) 05/03/2022 1:17 PM EDT us Margarita Tobin CNM LAB PATHOLOGY ORDERABLES Final Result [facility] [address] from Last 3 Months or Most Recently Relevant to Health Maintenance Insurance [facility] C3 [facility]ENTAL-[facility] MEDICAID STAND ADULT Care Teams Pediatric Oncologist Relationship Specialty Start Date End Date Carlos Nguyễn CNP [address] [place] [phone] PCP - General Family Medicine 07/29/25 Eddie Pimentel FNP Nurse Practitioner Family Medicine 08/22/23
== END 2025-09-23 08:28 ==
LOC: HO.XRAY 08:27
PROVIDERS: Visit Provider Nurse Practitioner Family
DX: K21.9 Gastro-esophageal reflux disease without esophagitis (principal)
CPT/HCPCS: 74240

== ENCOUNTER → 2025-09-23 08:28 | Outpatient (BNV) | payer MEDICAID, SELFPAY | PROVIDERS: Visit Provider Radiology Diagnostic Ultrasound | DX: K21.9 Gastro-esophageal reflux disease without esophagitis (principal) | CPT/HCPCS: 74246 ==